=== PATIENT | female | born 1945 | race Caucasian/White ===

== ENCOUNTER 2016-07-02 17:57 | Emergency (ER) | payer OTHER ==
[2016-07-02 18:02] VITALS: BP 123/69; TEMP 97.5; BMI 39.2
--- NOTE | 2016-07-02 18:11 | PDOC ---
History of Present Illness - General Chief Complaint: Edema Stated Complaint: PCP SENT Time Seen by Provider: 07/02/16 18:09 History Source: Patient Exam Limitations: No Limitations - History of Present Illness Initial Comments: CHIEF COMPLAINT: 70 y/o afebrile female with PMH HTN, hypothyroid sent over from hyperbaric treatment for r/o DVT. HISTORY OF PRESENT ILLNESS: The patient states she gets hyperbaric treatment for wounds on both lower extremities. She states today they noticed an area of redness on her right thigh and were concerned for blood clot. The patient denies pain to LEs. She admits her feet and fpc up her calves are always red and swollen and are unchanged. She denies f/c, n/v/d, CP, cough, hemoptysis. She does admit to some wheezing over the past few days. Vital signs on arrival are notable for O2 sat of 94% on RA. REVIEW OF SYSTEMS: GENERAL/CONSTITUTIONAL: No fever/chills. No weakness. No weight change. HEAD, EYES, EARS, NOSE AND THROAT: No change in vision. No ear pain or discharge. No sore throat. CARDIOVASCULAR: No chest pain or shortness of breath. RESPIRATORY: +wheezing. No cough hemoptysis. GASTROINTESTINAL: No abd pain, nausea, vomiting, diarrhea. GENITOURINARY: No dysuria, frequency, or change in urination. MUSCULOSKELETAL: +redness and swelling to both feet and 1/2 up calves. No extremity pain. No neck or back pain. SKIN: No rash or easy bruising. NEUROLOGIC: No headache, vertigo, loss of consciousness, or loss of sensation. PHYSICAL EXAM: VITAL_SIGNS: within normal limits GENERAL_APPEARANCE: alert, cooperative, no obvious discomfort. MENTAL_STATUS: speech clear, oriented X 3, responds appropriately to questions. LUNGS: Some expiratory wheezing in anterior lung bellamy. No accessory muscle use. NEURO: motor intact and sensory intact in injured extremity. EXTREMITIES: brawny 2+ erythema to b/l feet and 1/2 way up b/l calves. No TTP of calves. small area of redness that appears to be a skin irritation on anterior right thigh that is not warm or TTP. SKIN: warm, dry, good color. Past History - Past Medical History Allergies/Adverse Reactions: Allergies Allergy/AdvReac Type Severity Reaction Status Date / Time amoxicillin trihydrate Allergy Intermediate Rash Verified 07/02/16 17:59 [From Augmentin] potassium clavulanate Allergy Intermediate Rash Verified 07/02/16 17:59 [From Augmentin] Sulfa (Sulfonamide Allergy Verified 07/02/16 17:59 Antibiotics) vancomycin AdvReac Intermediate Difficulty Verified 07/02/16 17:59 Breathing EGGS Allergy Intermediate RASH,UPSET Uncoded 07/02/16 17:59 STOMACH Home Medications: Ambulatory Orders Ascorbate Calcium [Vitamin C] 1,000 mg PO DAILY 11/30/14 Cholecalciferol (Vitamin D3) [Vitamin D3] 1,000 unit PO DAILY 11/30/14 Vitamin E 200 unit PO DAILY 11/30/14 Glucosamine/MSM/Chondroitin A [Glucosamine Chondroit MSM Tab] 1 tab PO DAILY Diphenhydramine HCl [Benadryl Capsule -] 25 mg PO Q8H PRN #0 05/19/15 Acetaminophen [Tylenol .Regular Strength -] 650 mg PO Q6H PRN #0 tablet Amino Acids/Protein Hydrolys [Prostat Sugar-Free Packet -] 30 ml PO BID@0800, 1730 packet 08/03/15 Lidocaine 5% Patch [Lidoderm -] 1 patch TP DAILY patch 08/03/15 Methyl Salicylate/Menthol Oint [Analgesic [place] -] 1 applic TP BID applic Sodium Chloride Nasal [place] [[place] Nasal [place] -] 2 spray NS BID PRN #0 bottle 08/03/15 Lisinopril [Prinivil] 20 mg PO DAILY #30 tablet 11/24/15 Levothyroxine [Synthroid -] 100 mcg PO DAILY #30 tablet 12/22/15 Oxycodone HCl/Acetaminophen [Percocet 5-325 mg Tablet] 2 tab PO Q6H #60 tablet MDD 8 12/22/15 Miscellaneous Medical Supply [Outpatient Order] 1 each ASDIR #1 misc Collagenase Clostridium Hist. [Santyl] 1 applic TP DAILY #90 oint...g. 04/05/16 Levaquin 500 mg PO DAILY 04/25/16 Anemia: No Asthma: No Cancer: Yes (thyroid 1979) Cardiac Disorders: No CVA: No COPD: No CHF: No Dementia: No Diabetes: (LOW BLOOD SUGAR) GI Disorders: No Disorders: No HTN: Yes Hypercholesterolemia: No Liver Disease: No Seizures: No Thyroid Disease: Yes (Thyroid CA 1979) - Surgical History Abdominal Surgery: Yes Appendectomy: Yes Cardiac Surgery: No Cholecystectomy: No Lung Surgery: No Neurologic Surgery: No Orthopedic Surgery: No (supposed to have hip replacement) - Immunization History Immunization Up to Date: Yes - Psycho/Social/Smoking Cessation Hx Anxiety: No Suicidal Ideation: No Smoking Status: No Smoking History: Never smoked Have you smoked in the past 12 months: No Number of Cigarettes Smoked Daily: 0 Information on smoking cessation initiated: No Hx Alcohol Use: No Drug/Substance Use Hx: No Substance Use Type: None Hx Substance Use Treatment: No *Physical Exam - Vital Signs Last Vital Signs Temp Pulse Resp BP Pulse Ox 97.5 F L 67 20 123/69 94 L 07/02/16 18:00 07/02/16 18:00 07/02/16 18:00 07/02/16 18:00 07/02/16 18:00 Medical Decision Making - Medical Decision Making A/P: 70 y/o afebrile female send here from hyperbaric treatment for ultrasound of her right LE to r/o DVT. Plan is as follows: 1. LE doppler 2. Duoneb LE doppler IMPRESSION: The right common femoral vein as well as the proximal and middle thirds of the femoral vein are adequately visualized and demonstrate no evidence of thrombosis. The greater saphenous vein also appears patent. The distal third of the femoral vein as well as the popliteal and posterior tibial veins could not be adequately visualized apparent as a result of prominent soft tissue edema. No gross intraluminal thrombus is seen at those levels. In addition the posterior tibial vein is not well visualized due to bandaging in place at the level of the calf. Gave the patient the results. She continues to deny pain and symptoms. Suggested she f/u with her PCP for follow up ultrasound. She agrees. The patient verbalizes understanding of all instructions, has no further questions and is awaiting discharge. *DC/Admit/Observation/Transfer Diagnosis at time of Disposition: Abnormal leg finding - Discharge Dispostion Disposition: HOME Condition at time of disposition: Good - Referrals Referrals: Vladimir Posey MD [Primary Care Provider] - - Patient Instructions Additional Instructions: Discharge Instructions: -Follow up with your regular doctor for repeat ultrasound -Return to the ER with any worsening or concerning symptoms including CP, SOB, coughing up blood or leg pain.
[2016-07-02] MEDS ORDERED: ALBUTEROL SO4 2.5/IPRATROPIUM 0.5 INH SOL 3 ML VIAL.NEB. NEB ONE ×2 (18:18→18:41)
[2016-07-02 19:59] VITALS: PULSE 76
== END 2016-07-02 19:59 | disposition home or self-care (01) ==
LOC: JER 17:57 → SUPCPDRO 17:57 → JER 19:59
PROC: 3E0F7GC Introduction of Other Therapeutic Substance into Respiratory Tract, Via Natural or Artificial Opening (ICD-10-PCS; principal; 2016-07-02)
DX: R60.0 Localized edema (principal); I10 Essential (primary) hypertension; E03.9 Hypothyroidism, unspecified; Z85.850 Personal history of malignant neoplasm of thyroid
CPT/HCPCS: 93971-TC; 99283-25; G0277

== ENCOUNTER 2016-11-26 20:02 | Emergency (ER) | payer OTHER ==
--- NOTE | 2016-11-26 20:13 | PDOC ---
Rapid Medical Evaluation Time Seen by Provider: 11/26/16 20:04 Medical Evaluation: Allergies Allergy/AdvReac Type Severity Reaction Status Date / Time amoxicillin trihydrate Allergy Intermediate Rash Verified 11/01/16 16:05 [From Augmentin] potassium clavulanate Allergy Intermediate Rash Verified 11/01/16 16:05 [From Augmentin] Sulfa (Sulfonamide Allergy Verified 11/01/16 16:05 Antibiotics) vancomycin AdvReac Intermediate Difficulty Verified 11/01/16 16:05 Breathing EGGS Allergy Intermediate RASH,UPSET Uncoded 11/01/16 16:05 STOMACH Vital Signs Temp Pulse Resp BP Pulse Ox 61 19 117/66 97 11/26/16 20:07 11/26/16 20:07 11/26/16 20:07 11/26/16 20:07 11/26/16 20:09 I have performed a brief in-person evaluation of this patient. o The patient presents with a chief complaint of: Rash to face, lesion to right wrist and rash to buttock, low grade temp noted upon arrival to [facility], afebrile upon arrival here, sent from [facility] for evaluation. o Pertinent physical exam findings: Lesion to right wrist with black central punctum, vesicular rash to face and buttock, symptoms started two weeks ago. o I have ordered the following: evaluation from [facility] o The patient will proceed to the ED for further evaluation.
[2016-11-26 20:15] VITALS: BP 117/66; PULSE 61; BMI 39.1
[2016-11-26] MEDS ORDERED: FLUCONAZOLE 100 MG TABLET (UD) PO ONE (21:45)
[2016-11-26] MEDS ORDERED: CLINDAMYCIN HCL 150 MG CAPSULE (FP) PO ONE (21:45)
[2016-11-26 21:46] VITALS: TEMP 98.2
[2016-11-26] MEDS ORDERED: FLUCONAZOLE 100 MG TABLET (UD) ONE (21:49)
[2016-11-26] MEDS ORDERED: CLINDAMYCIN HCL 150 MG CAPSULE (FP) ONE (21:50)
--- NOTE | 2016-11-26 21:50 | PDOC ---
History of Present Illness - General Chief Complaint: Abscess Boil Stated Complaint: ABCESS/WOUND Time Seen by Provider: 11/26/16 20:04 History Source: Patient, Significant Other Exam Limitations: No Limitations - History of Present Illness Initial Comments: 11/26/16 21:46 71yo Female patient w/ PmHx of Leg wounds being treated by Hyperbaric therapy. Patient states she was sent to ED from Hyperbaric therapy due to right hand infection and infection of buttocks. Patient denies fever, CP,Abd Pain, n/v/d, diff breathing or any other complaints at this time. Patient states symptom to right hand began 2 days ago. Timing/Duration: reports: week Severity: Yes: mild Location: reports: hands (Right), other (Buttocks) Respiratory Risk Factors: reports: no cause identified Modifying Factors: improves with: calamine lotion Associated Symptoms: denies: denies symptoms, blisters, change in skin texture, edema, fever, flushing, headache, hives, jaundice, malaise, nasal congestion, numbness, pallor, paresthesia, petechiae, rash, sore throat, swelling/mass/lumps , tingling, other Past History - Travel Traveled outside of the country in the last 30 days: No Close contact w/someone who was outside of country & ill: No - Past Medical History Allergies/Adverse Reactions: Allergies Allergy/AdvReac Type Severity Reaction Status Date / Time amoxicillin trihydrate Allergy Intermediate Rash Verified 11/01/16 16:05 [From Augmentin] potassium clavulanate Allergy Intermediate Rash Verified 11/01/16 16:05 [From Augmentin] Sulfa (Sulfonamide Allergy Verified 11/01/16 16:05 Antibiotics) vancomycin AdvReac Intermediate Difficulty Verified 11/01/16 16:05 Breathing EGGS Allergy Intermediate RASH,UPSET Uncoded 11/01/16 16:05 STOMACH Home Medications: Ambulatory Orders Levothyroxine [Synthroid -] 100 mcg PO DAILY 07/02/16 Lisinopril [Prinivil] 20 mg PO DAILY 07/02/16 Oxycodone HCl/Acetaminophen [Percocet 10-325 mg Tablet] 1 each PO QID #120 tablet MDD 4 07/19/16 Diclofenac Sodium 100 gm TP BID #1 gel..gram. 08/09/16 Clindamycin [Cleocin -] 300 mg PO TID #21 capsule 11/26/16 Ketoconazole 2% Cream [Nizoral 2% Cream -] 1 applic TP BID PRN #1 tube 11/26/16 Anemia: No Asthma: No Cancer: Yes (thyroid 1978) Cardiac Disorders: No CVA: No COPD: No CHF: No Dementia: No Diabetes: (LOW BLOOD SUGAR) GI Disorders: No Disorders: No HTN: Yes Hypercholesterolemia: No Liver Disease: No Seizures: No Thyroid Disease: Yes (Thyroid CA 1978) - Surgical History Abdominal Surgery: Yes Appendectomy: Yes Cardiac Surgery: No Cholecystectomy: No Lung Surgery: No Neurologic Surgery: No Orthopedic Surgery: No (supposed to have hip replacement) - Immunization History Immunization Up to Date: Yes - Psycho/Social/Smoking Cessation Hx Anxiety: No Suicidal Ideation: No Smoking Status: No Smoking History: Never smoked Have you smoked in the past 12 months: No Number of Cigarettes Smoked Daily: 0 Hx Alcohol Use: No Drug/Substance Use Hx: No Substance Use Type: None Hx Substance Use Treatment: No Review of Systems - Review of Systems Able to Perform ROS?: Yes Is the patient limited Pashto proficient: No Constitutional: No: Chills, Fever Integumentary: Yes: Erythema, Pruritus, Rash All Other Systems: Reviewed and Negative *Physical Exam - Vital Signs Last Vital Signs Temp Pulse Resp BP Pulse Ox 61 19 117/66 97 11/26/16 20:07 11/26/16 20:07 11/26/16 20:07 11/26/16 20:07 - Physical Exam General Appearance: Yes: Nourished, Appropriately Dressed. No: Apparent Distress, Mild Distress, Moderate Distress, Severe Distress Respiratory/Chest: positive: Lungs Clear, Normal Breath Sounds. negative: Chest Tender, Respiratory Distress, Accessory Muscle Use, Labored Respiration, Rapid RR, Rhonchi, Stridor, Wheezing Cardiovascular: positive: Regular Rhythm, Regular Rate Gastrointestinal/Abdominal: positive: Normal Bowel Sounds, Soft. negative: Distended, Guarding, Rebound, Tenderness Musculoskeletal: positive: Normal Inspection. negative: CVA Tenderness Extremity: positive: Normal Capillary Refill, Normal Inspection, Normal Range of Motion, Swelling, Erythema. negative: Pedal Edema, Calf Tenderness, Inflammation Integumentary: positive: Normal Color, Warm, Moist, Swelling, Other (Quarter size area of erythema noted to right hand (Mild Cellulitis), Large area of erythema to buttocks with scaling r/t fungal infection) Neurologic: positive: data officer II-XII NML intact, Fully Oriented, Alert, Normal Mood/ Affect, Normal Response, Motor Strength 5/5 *DC/Admit/Observation/Transfer Diagnosis at time of Disposition: Fungal infection of the body, Cellulitis of hand, right - Discharge Dispostion Disposition: HOME Condition at time of disposition: Stable Admit: No - Prescriptions Prescriptions: Clindamycin [Cleocin -] 300 mg PO TID #21 capsule Ketoconazole 2% Cream [Nizoral 2% Cream -] 1 applic TP BID PRN #1 tube PRN Reason: Fungal infection of buttock - Patient Instructions Printed Discharge Instructions: DI for Cellulitis -- Adult Additional Instructions: Follow up with your primary care provider this week for further evaluation. Call to schedule appointment. Take medications as prescribed. Avoid direct sunlight after applying cream to affected area. Return if any concerns for further evaluation. Print Language: MOHAWK
== END 2016-11-26 22:22 | disposition home or self-care (01) ==
LOC: JER 20:02
DX: B48.8 Other specified mycoses (principal); L03.113 Cellulitis of right upper limb; Z85.850 Personal history of malignant neoplasm of thyroid; E11.649 Type 2 diabetes mellitus with hypoglycemia without coma
CPT/HCPCS: 99282-25; G0277

== ENCOUNTER 2017-01-12 00:24 | Inpatient (IN) | payer OTHER ==
[2017-01-12 00:50] VITALS: BMI 39.2
--- NOTE | 2017-01-12 00:54 | PDOC ---
History of Present Illness - General History Source: Patient Exam Limitations: No Limitations - History of Present Illness Initial Comments: 01/12/17 01:37 Patient is a 71 year old female with a hx of chronic leg wounds, htn, peripheral vascular disease, thyroid disease, and left hip pain who presents today with fever. As per the Tmax was 102.3F today and she did not take anything to alleviate the fever. He also states that the patients leg wounds have been weeping and her left leg is edematous and hot. <Yohana Victor - Last Filed: 01/12/17 02:26> <Steffany Ramirez - Last Filed: 01/12/17 05:09> - General Chief Complaint: SIRS, Suspected/Possible Stated Complaint: HIGH FEVER Time Seen by Provider: 01/12/17 00:34 Past History <Yohana Victor - Last Filed: 01/12/17 02:26> - Past Medical History Anemia: No Asthma: No Cancer: Yes (thyroid 1978) Cardiac Disorders: No CVA: No COPD: No CHF: No Dementia: No Diabetes: (LOW BLOOD SUGAR) GI Disorders: No Disorders: No HTN: Yes Hypercholesterolemia: No Liver Disease: No Seizures: No Thyroid Disease: Yes (Thyroid CA 1978) - Surgical History Abdominal Surgery: Yes Appendectomy: Yes Cardiac Surgery: No Cholecystectomy: No Lung Surgery: No Neurologic Surgery: No Orthopedic Surgery: No (supposed to have hip replacement) - Immunization History Immunization Up to Date: Yes - Psycho/Social/Smoking Cessation Hx Anxiety: No Suicidal Ideation: No Smoking Status: No Smoking History: Never smoked Have you smoked in the past 12 months: No Number of Cigarettes Smoked Daily: 0 Information on smoking cessation initiated: No Hx Alcohol Use: No Drug/Substance Use Hx: No Substance Use Type: None Hx Substance Use Treatment: No <Steffany Ramirez - Last Filed: 01/12/17 05:09> - Past Medical History Allergies/Adverse Reactions: Allergies Allergy/AdvReac Type Severity Reaction Status Date / Time amoxicillin trihydrate Allergy Intermediate Rash Verified 11/01/16 16:05 [From Augmentin] potassium clavulanate Allergy Intermediate Rash Verified 11/01/16 16:05 [From Augmentin] clindamycin Allergy Verified 11/29/16 17:54 doxycycline Allergy Swelling Verified 01/12/17 04:51 Sulfa (Sulfonamide Allergy Verified 11/01/16 16:05 Antibiotics) vancomycin AdvReac Intermediate Difficulty Verified 11/01/16 16:05 Breathing EGGS Allergy Intermediate RASH,UPSET Uncoded 11/01/16 16:05 STOMACH Home Medications: Ambulatory Orders Levothyroxine [Synthroid -] 100 mcg PO DAILY 07/02/16 Lisinopril [Prinivil] 20 mg PO DAILY 07/02/16 Oxycodone HCl/Acetaminophen [Percocet 10-325 mg Tablet] 1 each PO QID #120 tablet MDD 4 07/19/16 Diclofenac Sodium 100 gm TP BID #1 gel..gram. 08/09/16 Ketoconazole 2% Cream [Nizoral 2% Cream -] 1 applic TP BID PRN #1 tube 11/26/16 Review of Systems - Review of Systems Able to Perform ROS?: Yes Comments:: 01/12/17 01:38 GENERAL/CONSTITUTIONAL: (+) fever. No chills. No weakness. HEAD, EYES, EARS, NOSE AND THROAT: No change in vision. No ear pain or discharge. No sore throat. CARDIOVASCULAR: No chest pain or shortness of breath. RESPIRATORY: No cough, wheezing, or hemoptysis. GASTROINTESTINAL: No nausea, vomiting, diarrhea or constipation. GENITOURINARY: No dysuria, frequency, or change in urination. MUSCULOSKELETAL: (+)LE edema and erythema. No neck or back pain. SKIN: (+)bilateral LE wound and weeping. No rash NEUROLOGIC: No headache, vertigo, loss of consciousness, or change in strength/ sensation. ENDOCRINE: No increased thirst. No abnormal weight change. HEMATOLOGIC/LYMPHATIC: No anemia, easy bleeding, or history of blood clots. ALLERGIC/IMMUNOLOGIC: No hives or skin allergy. <Yohana Victor - Last Filed: 01/12/17 02:26> *Physical Exam - Vital Signs Last Vital Signs Temp Pulse Resp BP Pulse Ox 102.3 F H 93 H 19 134/63 97 01/12/17 00:39 01/12/17 00:39 01/12/17 00:39 01/12/17 00:39 01/12/17 00:39 - Physical Exam Comments: 01/12/17 01:39 GENERAL: Awake, alert, and fully oriented, in no acute distress HEAD: No signs of trauma EYES: PERRLA, EOMI, sclera anicteric, conjunctiva clear ENT: Auricles normal inspection, hearing grossly normal, nares patent, oropharynx clear without exudates. Moist mucosa NECK: Normal ROM, supple, no lymphadenopathy, JVD, or masses LUNGS: Breath sounds equal, clear to auscultation bilaterally. No wheezes, and no crackles HEART: (+)tachycardia, normal S1 and S2, no murmurs, rubs or gallops ABDOMEN: Soft, nontender, normoactive bowel sounds. No guarding, no rebound. No masses EXTREMITIES: No clubbing or cyanosis. No cords. NEUROLOGICAL: Cranial nerves II through XII grossly intact. Normal speech, normal gait SKIN: (+) 6x4 cm right lateral aspect of LE wound with raw, weeping, granulous skin. (+)left LE warm to touch, edematous. (+)Popliteal cyst over buttocks. <Yohana Victor - Last Filed: 01/12/17 02:26> - Vital Signs Last Vital Signs Temp Pulse Resp BP Pulse Ox 102.3 F H 93 H 19 134/63 97 01/12/17 00:39 01/12/17 00:39 01/12/17 00:39 01/12/17 00:39 01/12/17 00:39 <Steffany Ramirez - Last Filed: 01/12/17 05:09> ED Treatment Course - LABORATORY CBC & Chemistry Diagram: 01/12/17 01:50 01/12/17 01:50 <Yohana Victor - Last Filed: 01/12/17 02:26> - LABORATORY CBC & Chemistry Diagram: 01/12/17 01:50 01/12/17 01:50 <Steffany Ramirez - Last Filed: 01/12/17 05:09> Medical Decision Making - Medical Decision Making 01/12/17 05:06 PT COMES WITH CELLULITIS OF THE LEFT LEG. SHE ALSO HAS BILATERAL DENUDED SKIN/ OPEN WEEPING ULCERS OF HER LOWER LEGS. THIS HAS BEEN AN ONGOING DISEASE PROCESS FOR THE PAST 5 YEARS WITH LITTLE IMRPOVEMENT. PT NOW HAS WORSENING CELLULITIS. SHE WILL BE TREATED INITIALLY WITH LEVAQUIN SHE HAS MULTIPLE ANTIBIOTIC ALLERGIES. PT HAS A HX OF PILONIDAL CYST, ON EXAM I FAIL TO FIND A CYST, HOWEVER, THE EXAM IS SUBOPTIMAL, PT'S BODY HABITUS IS GREAT AND WE CAN ONLY PARTIALLY TURN HER IN OUR ER STRETCHER AND PT HAS PAIN DUE TO HER AVN OF THE LEFT HIP. AND SHE IS TOO WEAK TO STAND AT THIS TIME. PT IS POSSIBLY SEPTIC AND WILL BE ADMITTED TO THE HOSPITALIST SERVICE. <Steffany Ramirez - Last Filed: 01/12/17 05:09> *DC/Admit/Observation/Transfer - Attestations Scribe Attestion: 01/12/17 01:43 Documentation prepared by CHANCE Lal, acting as chief medical officer for Steffany Ramirez MD. <Yohana Victor - Last Filed: 01/12/17 02:26> - Discharge Dispostion Admit: Yes <Steffany Ramirez - Last Filed: 01/12/17 05:09> Diagnosis at time of Disposition: Cellulitis, Stasis edema of both lower extremities, Cellulitis of leg, Osteoarthritis of left hip, Avascular necrosis of bone of hip - Discharge Dispostion Condition at time of disposition: Fair
[2017-01-12] MEDS ORDERED: ACETAMINOPHEN 1000 MG/100 ML VIAL (NON FORMULARY) IVPB ONE (01:01)
[2017-01-12] MEDS ORDERED: IBUPROFEN 400 MG TABLET (FP) PO ONE ×2 (01:11→01:31)
[2017-01-12] MEDS ORDERED: ACETAMINOPHEN INJECTION 100 ML IVPB ONE (01:31)
[2017-01-12] MEDS ORDERED: LEVOFLOXACIN 750 MG IVPB 150 ML IVPB ONE ×2 (01:50→02:13)
[2017-01-12] MEDS ORDERED: SODIUM CHLORIDE 0.9% 500 ML INFUS.BAG IV ONE (01:57)
[2017-01-12 02:03] LABS: MCH 21.9 pg (25.7-33.7); MCHC 30.8 g/dl (32.0-36.0); MEAN PLT VOLUME 7.2 fl (7.5-11.1); PLATELET COUNT 339 K/MM3 (134-434); RDW 17.9 % (11.6-15.6); WHITE BLOOD COUNT 19.2 K/mm3 (4.0-10.0)
[2017-01-12 02:25] LABS: INR 1.4 (0.82-1.09); PROTHROMBIN TIME (PATIENT) 15.5 SEC (9.98-11.88)
[2017-01-12 02:35] LABS: ALK PHOS 98 U/L (45-117); ANION GAP 12 (8-16); BILIRUBIN,TOTAL 0.5 mg/dL (0.2-1.0); CALCIUM 8.7 mg/dL (8.5-10.1); CO2 21 mmol/L (21-32); CREATININE 1.7 mg/dL (0.55-1.02); GLUCOSE,RANDOM 133 mg/dL (74-106); SGOT/AST 27 U/L (15-37); SGPT/ALT 9 U/L (12-78); TOT PROT 7.5 g/dl (6.4-8.2)
[2017-01-12 04:03] LABS: ANISOCYTOSIS 1+; HYPOCHROMIA 2+; MICROCYTOSIS 1+; PLATELET COMMENT2 NO CLOTTING DETECTED; PLATELET ESTIMATE ADEQUATE (NORMAL)
--- NOTE | 2017-01-12 04:13 | HP ---
CHIEF COMPLAINT: "Fevers, weak, worsening of b/l leg ulcers" PCP: Dr. Palomino ([facility]) HISTORY OF PRESENT ILLNESS: Patient is a 71 year old female with significant past medical history of HTN, chronic b/l leg ulcers, B/L lymphedema, Peripheral vascular disease, chronic hip pain, thyroid cancer s/p thyroidectomy (type unknown) presented to the ED with the chief complaints of fever, weakness and worsening of B/L leg ulcers. As per the patient, she has been having b/l leg ulcers since 4 years, has been visiting wound care (sees Dr. Posey) once every 4 weeks. Also goes to hyperbarics for the leg wounds. Since few days, patient has been feeling very weak, unable to walk like she used to at baseline, associated with fever (Tmax 101.5 F), with chills but no rigors or sweating. Hence came in to the ED for further evaluation. At baseline, patient walks with a walker without assistance, rest of the times, she uses a wheel chair. Lives at home with her . Is unable to do all daily activities like taking shower-doesn't take shower, only does sponge baths. is at bed side who mentioned that along with fever she started wheezing yesterday. Gives no h/o asthma, copd or CHF. He also mentions that patient has a small abscess in anal area, was able to squeeze a little bit of pus. Bowel/Bladder habit normal. Sleep disturbed, appetite decreased since illness. ER course was notable for: (1) Temp-102.3F; 93bpm, leukocytosis of 19.2; Lactic acid 2.4 ; H/H 8.5/27.4 (2) Levaquin, Motrin, Ibuprofen, Tylenol Recent Travel: None PAST MEDICAL HISTORY: HTN, chronic b/l leg ulcers, B/L lymphedema, chronic hip pain, thyroid cancer s/p thyroidectomy (type unknown), ectopic preg PAST SURGICAL HISTORY: Thyroidectomy (type unknown) Social History: Smoking: Denies Alcohol: Social Drugs: Denies Family History: Unknown Allergies Doxycycline allergy (throat closes) verified 01/12/17 amoxicillin trihydrate [From Augmentin] Allergy (Intermediate, Verified 16:05) Rash potassium clavulanate [From Augmentin] Allergy (Intermediate, Verified 11/01/16 16:05) Rash clindamycin Allergy (Verified 11/29/16 17:54) Sulfa (Sulfonamide Antibiotics) Allergy (Verified 11/01/16 16:05) vancomycin Adverse Reaction (Intermediate, Verified 11/01/16 16:05) Difficulty Breathing PER SUSPECTED ADR REPORT: HYPOTENSION & DYSPNEA EGGS Allergy (Intermediate, Uncoded 11/01/16 16:05) RASH,UPSET STOMACH HOME MEDICATIONS: Home Medications Medication Instructions Recorded Levothyroxine [Synthroid -] 100 mcg PO DAILY 07/02/16 Lisinopril [Prinivil] 20 mg PO DAILY 07/02/16 Oxycodone HCl/Acetaminophen 1 each PO QID #120 tablet MDD 4 07/19/16 [Percocet 10-325 mg Tablet] Diclofenac Sodium 100 gm TP BID #1 gel..gram. 08/09/16 Ketoconazole 2% Cream [Nizoral 2% 1 applic TP BID PRN #1 tube 11/26/16 Cream -] REVIEW OF SYSTEMS CONSTITUTIONAL: Present: fever, chills Absent: , diaphoresis, generalized weakness, malaise, loss of appetite, weight change HEENT: Absent: rhinorrhea, nasal congestion, throat pain, throat swelling, difficulty swallowing, mouth swelling, ear pain, eye pain, visual changes CARDIOVASCULAR: Absent: chest pain, syncope, palpitations, irregular heart rate, lightheadedness , peripheral edema RESPIRATORY: Absent: cough, shortness of breath, dyspnea with exertion, orthopnea, wheezing, stridor, hemoptysis GASTROINTESTINAL: Absent: abdominal pain, abdominal distension, nausea, vomiting, diarrhea, constipation, melena, hematochezia GENITOURINARY: Absent: dysuria, frequency, urgency, hesitancy, hematuria, flank pain, genital pain MUSCULOSKELETAL: Absent: myalgia, arthralgia, joint swelling, back pain, neck pain SKIN: Present: B/L ulcers in the lower ext. Absent: rash, itching, pallor HEMATOLOGIC/IMMUNOLOGIC: Absent: easy bleeding, easy bruising, lymphadenopathy, frequent infections ENDOCRINE: Absent: unexplained weight gain, unexplained weight loss, heat intolerance, cold intolerance NEUROLOGIC: Absent: headache, focal weakness or paresthesias, dizziness, unsteady gait, seizure, mental status changes, bladder or bowel incontinence PSYCHIATRIC: Absent: anxiety, depression, suicidal or homicidal ideation, hallucinations. PHYSICAL EXAMINATION GENERAL: Elderly female, Awake, alert, and fully oriented, in no acute distress. HEAD: Normal with no signs of trauma. EYES: EOM intact, no pallor or icterus. EARS, NOSE, THROAT: Ears normal. Moist mucous membranes. NECK: Supple, no JVD LUNGS: B/L Breath sounds equal, Occasional wheezes, and no crackles. No accessory muscle use. HEART: Tachycardic, Regular rate and rhythm, normal S1 and S2 without murmur. ABDOMEN: Soft, nontender, not distended, normoactive bowel sounds, no guarding, no rebound, no masses. No hepatomegaly or splenomegaly. MUSCULOSKELETAL: Normal range of motion at all joints. No bony deformities or tenderness. No CVA tenderness. PER RECTAL EXAM: Deferred. UPPER EXTREMITIES: 2+ pulses, warm, well-perfused. No cyanosis. No clubbing. No peripheral edema. LOWER EXTREMITIES: B/L lower ext: serosanguinous fluids, weeping, crust, granulation tissues in some area, fowl smelling +, tenderness around the area on movement, 2+ pulses, warm, well-perfused. B/L chronic lymphedema. Patchy areas of redness in both thighs, no raised temperature, non blanching. NEUROLOGICAL: No facial droop, Cranial nerves II-XII intact. Reflexes- B/L biceps 2 +, others difficult to assess, power-weak to perform. Normal speech. Gait not observed. PSYCHIATRIC: Cooperative. Good eye contact. Appropriate mood and affect. SKIN: B/L lower ext ulcers as described above, face- multiple areas of redness and acne like lesions. ASSESSMENT/PLAN: Patient is a 71 year old female with significant past medical history of HTN, chronic b/l leg ulcers, B/L lymphedema, Peripheral vascular disease, chronic hip pain, thyroid cancer s/p thyroidectomy (type unknown) presented to the ED with the chief complaints of fever, weakness and worsening of B/L leg ulcers. # Severe sepsis likely secondary to B/L leg ulcers. pt presented with fever, chills, weakness, worsening of b/l leg ulcers On arrival, Temp-102.3F; 93bpm, leukocytosis of 19.2; Lactic acid 2.4 In the ED, patient received Levaquin, Motrin, Ibuprofen, Tylenol Admitted in Med Surg Sepsis protocol started, IV NS @ 83mls.hr IV Levaquin 750 mg Daily (very limited antibiotics choice due to patients allergy to Penicillins, Doxy (pt confirmed), Augmentin, sulfa, vanco Lactic acid 2.5----> Pending, trend lactic acid Blood culture, wound culture pending In the past, wound culture grew: Pseudomonas 03/19/16; MRSA 05/05/15 Contact Isolation to be maintained Dr. Posey consult requested daily wound cleaning Education about maintaining hygiene # YING likely due to hypovolemia Creatinine 1.7 Baseline creatinine is 0.9 (2016) IV Hydration Avoid nephrotoxic drugs UA, Urine electrolytes ordered # Microcytic Anemia H/H 8.5/27.4 baseline around 10.4-9.5 gm/dl Iron studies pending Stool for occult blood pending # Questionable abscess in the anal area Patient mentioned she has a small abscess that was squeezed with yellow pus draining, patient refused and didn't allow examination stating she is too tired to move and her hips hurt # Wheeze- r/o reactive airway CXR ordered in am Gives no h/o asthma or COPD. # R/O CHF BNP ordered for am Would consider ECHO. # Hypertension-controlled Continue lisinopril 20mg Daily # Hypothyroidism Continue Levothyroxine # Morbidly obese Lipid panel, A1c ordered for am. Diet and exercise counseling Would consider keyseating machine set up operator consult. # FEN IV NS @ 83mls.hr Electrolytes to be repeated in am Sodium controlled diet # Prophylaxis For DVT: On Heparin sq, watch H/H closely For GI: Not indicated # Code status: Full Code # Dispo: Admitted in Med-Surg. Duration of stay unknown. Illness, Investigation and Plan of care explained to the patient and her . They verbalized understanding. Case to be discussed with Dr. Gomez. Visit type - Emergency Visit Emergency Visit: Yes ED Registration Date: 01/12/17 Care time: The patient presented to the Emergency Department on the above date and was hospitalized for further evaluation of their emergent condition. - New Patient This patient is new to me today: Yes Date on this admission: 01/12/17 - Critical Care Critical Care patient: No
[2017-01-12] MEDS ORDERED: SODIUM CHLORIDE 1,000 ML IV SCH ×2 (04:15→11:00)
[2017-01-12] MEDS ORDERED: KETOCONAZOLE 2% CREAM - 60GM TUBE TP PRN (04:42)
[2017-01-12] MEDS ORDERED: DOCUSATE SODIUM 100 MG CAPSULE (FP) PO PRN (04:49)
[2017-01-12] MEDS ORDERED: SENNOSIDES 8.6MG TABLET (FP) PO PRN (04:49)
[2017-01-12 06:33] LABS: BASOPHIL 0.1 % (0-2.0); MCH 21.7 pg (25.7-33.7); MCHC 30.6 g/dl (32.0-36.0); MEAN CELL VOLUME 70.8 fl (80-96); MEAN PLT VOLUME 7.6 fl (7.5-11.1); NEUTROPHILS 95.5 % (42.8-82.8); PLATELET COUNT 271 K/MM3 (134-434); RDW 17.8 % (11.6-15.6)
[2017-01-12] MEDS: ACETAMINOPHEN 325 MG TABLET (FP) PO SCH ×2 (06:54→12:18)
[2017-01-12 06:56] LABS: ALBUMIN 2.3 g/dl (3.4-5.0); ANION GAP 10 (8-16); BILIRUBIN,TOTAL 0.4 mg/dL (0.2-1.0); CALCIUM 8.1 mg/dL (8.5-10.1); CO2 19 mmol/L (21-32); CREATININE 1.7 mg/dL (0.55-1.02); GLUCOSE,RANDOM 115 mg/dL (74-106); MAGNESIUM 1.7 mg/dL (1.8-2.4); PHOSPHOROUS 3.5 mg/dL (2.5-4.9); SGOT/AST 37 U/L (15-37); SGPT/ALT 7 U/L (12-78); TOT PROT 6.1 g/dl (6.4-8.2)
[2017-01-12 06:57] LABS: ALK PHOS 76 U/L (45-117)
--- NOTE | 2017-01-12 07:23 | PN ---
Teaching Attending Note Name of Resident: Zabrina Cardenas ATTENDING PHYSICIAN STATEMENT I saw and evaluated the patient. I reviewed the resident's note and discussed the case with the resident. I agree with the resident's findings and plan as documented. 71 yrs old F multiple medical co-morbidities , lives at home H/O Obesity, HTN, PVD?, Hypothyroidism CKD stage 3 GFR >50 in 2015, chronic anemia, chronic B/L venous stasis ulcers, present with worsening leg swelling with discharge and pain with fever, in the ED w/u shows B/L worsening cellulites, elevated TWBC and Lactic acidosis, hemmodynamically stable, patient has multiple allerges in the past received one dose of Levofloxacin in the Ed at present hemodynamocaly stable, agrees with evaluation and plan of care: Impression: Active Issues; 1. Purulent Cellulitis with Sepsis: epsis protocol , F/U Id recommendations F/U CBc. CMP and Lactic acid add Linezolid already received Levofloxacin in ED, reasonable empiric coverage for Cellulitis with PCN allergy, if cont spikes or rising TWBC as patient has open wound and purulent cellulitis need empiric MRSA converge till we get culture result f/u blood and wound cultures.. 2. YING on CKD: Due to dehydration and Sepsis F/U BMP after IV Hydration, Bladder scan, 3. Dehydration: Clinically dehydrated F/U BMP after Hydration 4. Anemia: Chronic AREN F/U anemia w/u at present no indication for transfusion. 5. Hypothyroidism : S/P Thyroidectomy for Ca Thyroid, Cont Levothyroxine F/U TSH
[2017-01-12] MEDS ORDERED: MEROPENEM 1,000 MG in DEXTROSE 5%-WATER - 100 ML IVPB ONE (07:49)
--- NOTE | 2017-01-12 08:50 | PN ---
Progress Note (short form) - Note Progress Note: Subjective:neil fever last night . has pain in legs, denies aSOB or CP . has no cough or sputum production . noticed LLE increased pain and swellign x 32 days . has not been taking her lisinopril x 3 weeks due to low BP ( does not specify ) has been bleeding from her hemorrhoids chronically Objective: Vital Signs: Last Vital Signs Temp Pulse Resp BP Pulse Ox 99.8 F H 88 19 93/58 97 01/12/17 06:01 01/12/17 06:01 01/12/17 06:01 01/12/17 06:01 01/12/17 00:39 I&O: Intake & Output 01/09/17 01/10/17 01/11/17 01/12/17 23:59 23:59 23:59 23:59 Weight 236 lb Laboratory Results - last 24 hr 01/12/17 01/12/17 01/12/17 01:50 01:50 01:50 WBC 19.2 H D Corrected WBC (auto) RBC 3.87 Hgb 8.5 L D Hct 27.4 L MCV 71.0 L MCH 21.9 L MCHC 30.8 L RDW 17.9 H Plt Count 339 MPV 7.2 L Neutrophils % 90.0 H Lymphocytes % 2.0 L D Monocytes % 1.0 L Eosinophils % Basophils % Band Neutrophils 7.0 D Differential Comment Platelet Estimate Adequate Platelet Comment No clotting detected RBC Morphology Hypochromic-Microcytic 2+ Anisocytosis 1+ Microcytosis 1+ INR 1.40 H Sodium Potassium Chloride Carbon Dioxide Anion Gap BUN Creatinine Creat Clearance w eGFR Random Glucose Lactic Acid 2.4 H* Calcium Phosphorus Magnesium Total Bilirubin AST ALT Alkaline Phosphatase B-Natriuretic Peptide Total Protein Albumin Triglycerides Cholesterol Total LDL Cholesterol HDL Cholesterol 01/12/17 01/12/17 01/12/17 01:50 05:35 06:00 WBC Cancelled 14.0 H Corrected WBC (auto) Cancelled RBC Cancelled 3.14 L Hgb Cancelled 6.8 L* D Hct Cancelled 22.2 L D MCV Cancelled 70.8 L MCH Cancelled 21.7 L MCHC Cancelled 30.6 L RDW Cancelled 17.8 H Plt Count Cancelled 271 D MPV Cancelled 7.6 Neutrophils % 95.5 H Lymphocytes % 2.7 L D Monocytes % 1.7 L Eosinophils % 0.0 D Basophils % 0.1 Band Neutrophils Differential Comment Cancelled Platelet Estimate Cancelled Platelet Comment Cancelled RBC Morphology Cancelled Hypochromic-Microcytic Anisocytosis Microcytosis INR Sodium 135 L Potassium 4.4 Chloride 102 Carbon Dioxide 21 Anion Gap 12 BUN 39 H D Creatinine 1.7 H D Creat Clearance w eGFR 29.54 Random Glucose 133 H D Lactic Acid Calcium 8.7 Phosphorus Magnesium Total Bilirubin 0.5 D AST 27 D ALT 9 L Alkaline Phosphatase 98 D B-Natriuretic Peptide Total Protein 7.5 Albumin 3.0 L Triglycerides Cholesterol Total LDL Cholesterol HDL Cholesterol 01/12/17 01/12/17 01/12/17 06:00 06:00 06:00 WBC Corrected WBC (auto) RBC Hgb Hct MCV MCH MCHC RDW Plt Count MPV Neutrophils % Lymphocytes % Monocytes % Eosinophils % Basophils % Band Neutrophils Differential Comment Platelet Estimate Platelet Comment RBC Morphology Hypochromic-Microcytic Anisocytosis Microcytosis INR Sodium 134 L Potassium 4.4 Chloride 105 Carbon Dioxide 19 L Anion Gap 10 BUN 42 H Creatinine 1.7 H Creat Clearance w eGFR 29.54 Random Glucose 115 H Lactic Acid 1.1 Calcium 8.1 L Phosphorus 3.5 Magnesium 1.7 L Total Bilirubin 0.4 AST 37 D ALT 7 L D Alkaline Phosphatase 76 D B-Natriuretic Peptide 30169.26 H Total Protein 6.1 L Albumin 2.3 L D Triglycerides 41 D Cholesterol 101 D Total LDL Cholesterol 31 HDL Cholesterol 69 H Physical Exam: NAD, AAOx3 HEENT: MMM, EOMI, pale conjunctivae , EOMI. no facial droop. CV: RRR, 2/6 SM at RUSB. has minimal JVD Lungs : CTAB Abd : soft, NT, ND , NL BS Ext: b/l legs ulcers , with foul smelling L > R . DP 2+ R, 1+ L. Fungal infection among toes. L leg with increased circumference and erythema /warmth compared to L. L inguinal L nodes. Rectal exam with external hemorrhoids, tender to touch , no masses in rectum, brown stool on examiner finger. OB card sent to lab . Assessment/Plan: 71 y/o lady with h/o HTN, PVD, s/p stenting and graft of LLE, hypothyroidism,h/ o cellulitis on LE , and L hip DJD who presented with fever , she was found to have severe sepsis and cellulitis in L LE 1- Severe sepsis due to infected LE wounds and cellulitis in LLE : lactate has improved, sBP in 90s - start linezolide and Aztreonam, previous cx with pseudomonas and MRSA. has several allergies. - order US of LLE to r/o DVT - follow blood and wound cx - follow lactic acid . - received fluids in ER, now has JVDs, elevated BNP. volume status hard to assess, as congested cxray might be due to poor inspiration. Previous echo with NL EF, but might have diastolic dysfunction. hold fluids until seen by card 2- YING : likley due to sepsis . NL cr base line - hold ACEI - monitor renal function , with treatment of sepsis . - decision on IVF pending 3- Microcytic anemia : acute on chronic drop in Hb. Likely from chronic hemorrhoidal bleed . Recta exam as above - Iron studies - repeat H&H - if still < 7 , will transfuse 1 unit . - GI w/u as out pt 4- Hypothyroidism: cont meds meds confirmed with pt and reconciled DVT px SCDs due to anemia Visit type - Emergency Visit Emergency Visit: Yes ED Registration Date: 01/12/17 Care time: The patient presented to the Emergency Department on the above date and was hospitalized for further evaluation of their emergent condition. - New Patient This patient is new to me today: Yes Date on this admission: 01/12/17 - Critical Care Critical Care patient: No
--- NOTE | 2017-01-12 09:43 | CON.CARD ---
Consult Consult Specialty:: Cardiology Referred by:: Dr. Mehta Reason for Consultation:: Cardiac evaluation - History of Present Illness Chief Complaint: Fever History of Present Illness: Patient is a 71 year old female well known to our service with underlying history of hypertension, thyroid cancer s/p thyroidectomy, history of cerebrovascular disease, lower extremty lymphadema and cellulitis who presents with fever since Friday. She has lower extremity swelling and erythema which appears to be the culprit of her fever. She is being closely followed by Dr. Vladimir Posey. She denies chest pain, shortness of breath or palpitations. She denies paroxysmal nocturnal dyspnea or orthopnea. She denies headache or lightheadedness. She denies nausea, vomiting, diarrhea or abdominal pain this am. BNP was elevated. Cardiology consultation was called for further evaluation. 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 Cardio/Vascular: Yes: HTN Musculoskeletal: Yes: Other (lymphedema) Endocrine: Yes: Hypothyroidism, Other (thyroid cancer (35yrs ago)) - Past Surgical History Past Surgical History: Yes: Appendectomy, Vein Stripping/Ligation - Alcohol/Substance Use Hx Alcohol Use: No - Smoking History Smoking history: Never smoked Have you smoked in the past 12 months: No Aproximately how many cigarettes per day: 0 - Social History Occupation: used to work in [employer] business Home Medications - Allergies Allergies/Adverse Reactions: Allergies Allergy/AdvReac Type Severity Reaction Status Date / Time amoxicillin trihydrate Allergy Intermediate Rash Verified 11/01/16 16:05 [From Augmentin] potassium clavulanate Allergy Intermediate Rash Verified 11/01/16 16:05 [From Augmentin] clindamycin Allergy Verified 11/29/16 17:54 doxycycline Allergy Swelling Verified 01/12/17 04:51 Sulfa (Sulfonamide Allergy Verified 11/01/16 16:05 Antibiotics) vancomycin AdvReac Intermediate Difficulty Verified 11/01/16 16:05 Breathing EGGS Allergy Intermediate RASH,UPSET Uncoded 11/01/16 16:05 STOMACH - Home Medications Home Medications: Ambulatory Orders Levothyroxine [Synthroid -] 100 mcg PO DAILY 07/02/16 Lisinopril [Prinivil] 20 mg PO DAILY 07/02/16 Ketoconazole 2% Cream [Nizoral 2% Cream -] 1 applic TP BID PRN #1 tube 11/26/16 Oxycodone HCl 5 mg PO Q4H 01/12/17 Family Disease History - Family Disease History Family Disease History: Heart Disease: Mother, CA: Father (Liver), Brother (Lung ), Sister (Liver) Review of Systems - Review of Systems Constitutional: reports: Fever. denies: Chills Cardiovascular: denies: Chest Pain, Palpitations, Shortness of Breath Respiratory: denies: Cough, Hemoptysis, Orthopnea, PND, SOB, SOB on Exertion Gastrointestinal: denies: Abdominal Pain, Constipation, Diarrhea, Melena, Nausea , Rectal Bleeding, Vomiting Musculoskeletal: reports: Joint Pain Neurological: reports: Weakness. denies: Dizziness, Headache, Seizure, Syncope Vital Signs: Vital Signs Temperature 99.8 F H 01/12/17 06:01 Pulse Rate 88 01/12/17 06:01 Respiratory Rate 19 01/12/17 06:01 Blood Pressure 93/58 01/12/17 06:01 O2 Sat by Pulse Oximetry (%) 97 01/12/17 00:39 Neck: Yes: Supple Respiratory: Yes: Diminished Gastrointestinal: Yes: Normal Bowel Sounds, Soft, Abdomen, Obese. No: Tenderness Cardiovascular: Yes: Regular Rate and Rhythm JVD: No Carotid Bruit: No PMI: Non-Displaced Heart Sounds: Yes: S1, S2. No: Gallop Murmur: Yes: Systolic Murmur, Grade 1 Extremities: Yes: Erythema, Other (ulcer) Edema: Yes - Other Data Labs, Other Data: CBC, BMP 01/12/17 06:00 01/12/17 06:00 INR, PTT INR 1.40 (0.82-1.09) H 01/12/17 01:50 Troponin, BNP 01/12/17 06:00 B-Natriuretic Peptide 83319.26 H Laboratory Results - last 24 hr 01/12/17 01/12/17 01/12/17 01:50 01:50 01:50 WBC 19.2 H D Corrected WBC (auto) RBC 3.87 Hgb 8.5 L D Hct 27.4 L MCV 71.0 L MCH 21.9 L MCHC 30.8 L RDW 17.9 H Plt Count 339 MPV 7.2 L Neutrophils % 90.0 H Lymphocytes % 2.0 L D Monocytes % 1.0 L Eosinophils % Basophils % Band Neutrophils 7.0 D Differential Comment Platelet Estimate Adequate Platelet Comment No clotting detected RBC Morphology Hypochromic-Microcytic 2+ Anisocytosis 1+ Microcytosis 1+ INR 1.40 H Sodium Potassium Chloride Carbon Dioxide Anion Gap BUN Creatinine Creat Clearance w eGFR Random Glucose Lactic Acid 2.4 H* Calcium Phosphorus Magnesium Total Bilirubin AST ALT Alkaline Phosphatase B-Natriuretic Peptide Total Protein Albumin Triglycerides Cholesterol Total LDL Cholesterol HDL Cholesterol 01/12/17 01/12/17 01/12/17 01:50 05:35 06:00 WBC Cancelled 14.0 H Corrected WBC (auto) Cancelled RBC Cancelled 3.14 L Hgb Cancelled 6.8 L* D Hct Cancelled 22.2 L D MCV Cancelled 70.8 L MCH Cancelled 21.7 L MCHC Cancelled 30.6 L RDW Cancelled 17.8 H Plt Count Cancelled 271 D MPV Cancelled 7.6 Neutrophils % 95.5 H Lymphocytes % 2.7 L D Monocytes % 1.7 L Eosinophils % 0.0 D Basophils % 0.1 Band Neutrophils Differential Comment Cancelled Platelet Estimate Cancelled Platelet Comment Cancelled RBC Morphology Cancelled Hypochromic-Microcytic Anisocytosis Microcytosis INR Sodium 135 L Potassium 4.4 Chloride 102 Carbon Dioxide 21 Anion Gap 12 BUN 39 H D Creatinine 1.7 H D Creat Clearance w eGFR 29.54 Random Glucose 133 H D Lactic Acid Calcium 8.7 Phosphorus Magnesium Total Bilirubin 0.5 D AST 27 D ALT 9 L Alkaline Phosphatase 98 D B-Natriuretic Peptide Total Protein 7.5 Albumin 3.0 L Triglycerides Cholesterol Total LDL Cholesterol HDL Cholesterol 01/12/17 01/12/17 01/12/17 06:00 06:00 06:00 WBC Corrected WBC (auto) RBC Hgb Hct MCV MCH MCHC RDW Plt Count MPV Neutrophils % Lymphocytes % Monocytes % Eosinophils % Basophils % Band Neutrophils Differential Comment Platelet Estimate Platelet Comment RBC Morphology Hypochromic-Microcytic Anisocytosis Microcytosis INR Sodium 134 L Potassium 4.4 Chloride 105 Carbon Dioxide 19 L Anion Gap 10 BUN 42 H Creatinine 1.7 H Creat Clearance w eGFR 29.54 Random Glucose 115 H Lactic Acid 1.1 Calcium 8.1 L Phosphorus 3.5 Magnesium 1.7 L Total Bilirubin 0.4 AST 37 D ALT 7 L D Alkaline Phosphatase 76 D B-Natriuretic Peptide 33552.26 H Total Protein 6.1 L Albumin 2.3 L D Triglycerides 41 D Cholesterol 101 D Total LDL Cholesterol 31 HDL Cholesterol 69 H Sinus rhythm with incomplete RBBB Echo: Pending Imaging - Results Chest X-ray: Report Reviewed (Cannot rule out inflitrates) EKG: Report Reviewed Assessment/Plan 1. Sepsis with fever, lower extremity ulcer and cellulitis 2. Acute on chronic kidney disease 3. Acute on chronic LV diastolic dysfunction with failure, elevated BNP, but no significant clinical evidence of heart failure 4. Hypertension 5. Hypothyroidism 6. History of thyroid cancer s/p partial thyroidectomy 7. Anemia - significantly reduced H/H but no active bleed PLAN: 1. Transthoracic echocardiography to assess LV/RV and valvular function and to assess diastolic dysfunction 2. Patient is not on her anti-hypertensives at this time. Lisinopril on hold due to hypotension and renal function 3. Gentle fluids would be alright but to use with caution 4. Consider transfuse PRBC as H/H is significantly reduced 5. Antibiotics coverage 6. Vascular surgery follow up 7. Wound care and DVT prophylaxis Further plans are to follow Michael Arizmendi MD
[2017-01-12] MEDS: oxyCODONE HCL 5 MG TABLET PO SCH ×2 (09:52→12:17)
[2017-01-12] MEDS ORDERED: AZTREONAM 1 GM in DEXTROSE 5%-WATER - 50 ML IVPB ONE (10:00)
[2017-01-12] MEDS ORDERED: LINEZOLID 600 MG PREMIX BAG 300 ML IVPB ONE (10:00)
[2017-01-12] MEDS ORDERED: HEPARIN NA (PORCINE) 5,000 UNITS/ML 1ML VIAL SQ SCH (10:00)
[2017-01-12] MEDS ORDERED: LISINOPRIL 20 MG TABLET (FP) PO SCH (10:00)
[2017-01-12] MEDS: LEVOTHYROXINE NA 100 MCG TABLET (FP) PO SCH (10:54)
[2017-01-12 11:11] LABS: FERRITIN 39.97 ng/ml (6.9-282.5)
[2017-01-12 11:56] LABS: MCH 21.9 pg (25.7-33.7); MCHC 30.6 g/dl (32.0-36.0); MEAN CELL VOLUME 71.5 fl (80-96); MEAN PLT VOLUME 7.8 fl (7.5-11.1); PLATELET COUNT 225 K/MM3 (134-434); RDW 17.9 % (11.6-15.6); WHITE BLOOD COUNT 12.9 K/mm3 (4.0-10.0)
--- NOTE | 2017-01-12 12:29 | CONSULT ---
Consult Consult Specialty:: infectious diseases Reason for Consultation:: sepsis,cellulitis of the leg - History of Present Illness Chief Complaint: swelling of the legs History of Present Illness: 71 year old female with significant past medical history of HTN, chronic b/l leg ulcers, B/L lymphedema, Peripheral vascular disease, chronic hip pain, thyroid cancer s/p thyroidectomy admitted with fever, weakness and worsening of B/L leg ulcers. 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: CVA Cardio/Vascular: Yes: HTN Musculoskeletal: Yes: Other (lymphedema) Endocrine: Yes: Hypothyroidism, Other (thyroid cancer (35yrs ago)) - Past Surgical History Past Surgical History: Yes: Appendectomy, Vein Stripping/Ligation - Alcohol/Substance Use Hx Alcohol Use: No - Smoking History Smoking history: Never smoked Have you smoked in the past 12 months: No Aproximately how many cigarettes per day: 0 - Social History Occupation: used to work in [employer] business Home Medications - Allergies Allergies/Adverse Reactions: Allergies Allergy/AdvReac Type Severity Reaction Status Date / Time amoxicillin trihydrate Allergy Intermediate Rash Verified 11/01/16 16:05 [From Augmentin] potassium clavulanate Allergy Intermediate Rash Verified 11/01/16 16:05 [From Augmentin] clindamycin Allergy Verified 11/29/16 17:54 doxycycline Allergy Swelling Verified 01/12/17 04:51 Sulfa (Sulfonamide Allergy Verified 11/01/16 16:05 Antibiotics) vancomycin AdvReac Intermediate Difficulty Verified 11/01/16 16:05 Breathing EGGS Allergy Intermediate RASH,UPSET Uncoded 11/01/16 16:05 STOMACH - Home Medications Home Medications: Ambulatory Orders Levothyroxine [Synthroid -] 100 mcg PO DAILY 07/02/16 Lisinopril [Prinivil] 20 mg PO DAILY 07/02/16 Ketoconazole 2% Cream [Nizoral 2% Cream -] 1 applic TP BID PRN #1 tube 11/26/16 Oxycodone HCl 5 mg PO Q4H 01/12/17 Family Disease History - Family Disease History Family Disease History: Heart Disease: Mother, CA: Father (Liver), Brother (Lung ), Sister (Liver) Review of Systems - Review of Systems Constitutional: reports: Fever, Other Eyes: reports: No Symptoms HENT: reports: No Symptoms Neck: reports: No Symptoms Cardiovascular: reports: No Symptoms Respiratory: reports: No Symptoms Gastrointestinal: reports: No Symptoms Musculoskeletal: reports: Muscle Pain, Other (erythema) Integumentary: reports: Erythema Neurological: reports: No Symptoms Endocrine: reports: No Symptoms Hematology/Lymphatic: reports: No Symptoms Psychiatric: reports: No Symptoms Physical Exam Vital Signs: Vital Signs Temperature 99.8 F H 01/12/17 06:01 Pulse Rate 88 01/12/17 06:01 Respiratory Rate 19 01/12/17 06:01 Blood Pressure 93/58 01/12/17 06:01 O2 Sat by Pulse Oximetry (%) 97 01/12/17 00:39 Constitutional: Yes: Calm, Mild Distress, Obese Eyes: Yes: Conjunctiva Clear Neck: Yes: Supple Cardiovascular: Yes: Regular Rate and Rhythm Respiratory: Yes: Regular, CTA Bilaterally Gastrointestinal: Yes: Normal Bowel Sounds, Soft Musculoskeletal: Yes: Other Extremities: Yes: Other (bilateral wound no healing of the legs cellulitis of the left leg extending to the thigh tendenress) Edema: LLE: 2+, RLE: 1+ Integumentary: Yes: Erythema, Other Wound/Incision: Yes: Dressing Removed, Other (left leg with cellulitits and) Neurological: Yes: Alert, Oriented Psychiatric: Yes: Alert, Oriented Labs: CBC, BMP 01/12/17 11:15 01/12/17 06:00 Imaging - Results Chest X-ray: Report Reviewed, Image Reviewed Assessment/Plan cellulitis b/l leg ulcers obesity sepsis patients previous cx known i am worried again patien might have mrsa infection plan will start patient on dapto continue aztreonam hydration rest as per vascular
--- NOTE | 2017-01-12 12:32 | CONSULT ---
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 Cardio/Vascular: Yes: HTN Musculoskeletal: Yes: Other (lymphedema) Endocrine: Yes: Hypothyroidism, Other (thyroid cancer (35yrs ago)) - Past Surgical History Past Surgical History: Yes: Appendectomy, Vein Stripping/Ligation - Alcohol/Substance Use Hx Alcohol Use: No - Smoking History Smoking history: Never smoked Have you smoked in the past 12 months: No Aproximately how many cigarettes per day: 0 - Social History Occupation: used to work in [employer] Home Medications - Allergies Allergies/Adverse Reactions: Allergies Allergy/AdvReac Type Severity Reaction Status Date / Time amoxicillin trihydrate Allergy Intermediate Rash Verified 11/01/16 16:05 [From Augmentin] potassium clavulanate Allergy Intermediate Rash Verified 11/01/16 16:05 [From Augmentin] clindamycin Allergy Verified 11/29/16 17:54 doxycycline Allergy Swelling Verified 01/12/17 04:51 Sulfa (Sulfonamide Allergy Verified 11/01/16 16:05 Antibiotics) vancomycin AdvReac Intermediate Difficulty Verified 11/01/16 16:05 Breathing EGGS Allergy Intermediate RASH,UPSET Uncoded 11/01/16 16:05 STOMACH - Home Medications Home Medications: Ambulatory Orders Levothyroxine [Synthroid -] 100 mcg PO DAILY 07/02/16 Lisinopril [Prinivil] 20 mg PO DAILY 07/02/16 Ketoconazole 2% Cream [Nizoral 2% Cream -] 1 applic TP BID PRN #1 tube 11/26/16 Oxycodone HCl 5 mg PO Q4H 01/12/17 Family Disease History - Family Disease History Family Disease History: Heart Disease: Mother, CA: Father (Liver), Brother (Lung ), Sister (Liver) Physical Exam Vital Signs: Vital Signs Temperature 99.8 F H 01/12/17 06:01 Pulse Rate 88 01/12/17 06:01 Respiratory Rate 19 01/12/17 06:01 Blood Pressure 93/58 01/12/17 06:01 O2 Sat by Pulse Oximetry (%) 97 01/12/17 00:39 Labs: CBC, BMP 01/12/17 11:15 01/12/17 06:00 Assessment/Plan Vascular Surgery Patient is a 71 year old female with a hx of chronic leg wounds, htn, peripheral vascular disease, thyroid disease, and left hip pain who presents today with fever. As per the Tmax was 102.3F today and she did not take anything to alleviate the fever. He also states that the patients leg wounds have been weeping and her left leg is edematous and hot. Pt well known to wound care clinic. <Yohana Victor - Last Filed: 01/12/17 02:26> <Steffany Ramirez - Last Filed: 01/12/17 05:09> - General Chief Complaint: SIRS, Suspected/Possible Stated Complaint: HIGH FEVER Time Seen by Provider: 01/12/17 00:34 Past History <Yohana Victor - Last Filed: 01/12/17 02:26> - Past Medical History Anemia: No Asthma: No Cancer: Yes (thyroid 1978) Cardiac Disorders: No CVA: No COPD: No CHF: No Dementia: No Diabetes: (LOW BLOOD SUGAR) GI Disorders: No Disorders: No HTN: Yes Hypercholesterolemia: No Liver Disease: No Seizures: No Thyroid Disease: Yes (Thyroid CA 1978) - Surgical History Abdominal Surgery: Yes Appendectomy: Yes Cardiac Surgery: No Cholecystectomy: No Lung Surgery: No Neurologic Surgery: No Orthopedic Surgery: No (supposed to have hip replacement) - Immunization History Immunization Up to Date: Yes - Psycho/Social/Smoking Cessation Hx Anxiety: No Suicidal Ideation: No Smoking Status: No Smoking History: Never smoked Have you smoked in the past 12 months: No Number of Cigarettes Smoked Daily: 0 Information on smoking cessation initiated: No Hx Alcohol Use: No Drug/Substance Use Hx: No Substance Use Type: None Hx Substance Use Treatment: No <Steffany Ramirez - Last Filed: 01/12/17 05:09> - Past Medical History Allergies/Adverse Reactions: Allergies Allergy/AdvReac Type Severity Reaction Status Date / Time amoxicillin trihydrate Allergy Intermediate Rash Verified 11/01/16 16:05 [From Augmentin] potassium clavulanate Allergy Intermediate Rash Verified 11/01/16 16:05 [From Augmentin] clindamycin Allergy Verified 11/29/16 17:54 doxycycline Allergy Swelling Verified 01/12/17 04:51 Sulfa (Sulfonamide Allergy Verified 11/01/16 16:05 Antibiotics) vancomycin AdvReac Intermediate Difficulty Verified 11/01/16 16:05 Breathing EGGS Allergy Intermediate RASH,UPSET Uncoded 11/01/16 16:05 STOMACH Home Medications: Ambulatory Orders Levothyroxine [Synthroid -] 100 mcg PO DAILY 07/02/16 Lisinopril [Prinivil] 20 mg PO DAILY 07/02/16 Oxycodone HCl/Acetaminophen [Percocet 10-325 mg Tablet] 1 each PO QID #120 tablet MDD 4 07/19/16 Diclofenac Sodium 100 gm TP BID #1 gel..gram. 08/09/16 Ketoconazole 2% Cream [Nizoral 2% Cream -] 1 applic TP BID PRN #1 tube 11/26/16 PE Head - NC/At lung - CTA Heart - RRR abd - soft,nt,nd ext - bilateral lower ext ulcers, left lateral ulcer clean, pink. Left thigh erythema A/P Cellulitis, ulcers bilateral lower ext. 1. IV antibiotics. 2. leg elevation. 3. santyl to all ulcers. Vladimir adames dO
[2017-01-12] MEDS: DAPTOMYCIN 650 MG in SODIUM CHLORIDE 50 ML IVPB SCH (14:00)
[2017-01-12] MEDS ORDERED: HEPARIN NA (PORCINE) 5,000 UNITS/ML 1ML VIAL IVPUSH PRN ×2 (14:12)
[2017-01-12] MEDS ORDERED: HEPARIN - 25,000 UNIT in SODIUM CHLORIDE 495 ML IV SCH (14:15)
[2017-01-12] MEDS ORDERED: HEPARIN NA (PORCINE) 5,000 UNITS/ML 1ML VIAL IVPUSH ONE (14:17)
[2017-01-12] MEDS ORDERED: PT OWN MED DRAWER 7, Y5N ONE (14:17)
[2017-01-12] MEDS ORDERED: FUROSEMIDE 40 MG/4 ML INJECTABLE VIAL IVPUSH ONE (14:18)
[2017-01-12] MEDS ORDERED: DOPAMINE 400 MG/D5W - 250 ML IVPB ONE (14:31)
--- NOTE | 2017-01-12 14:33 | HOSP ---
Subjective - Review of Symptoms Events since last encounter: called s Pt BP is 77/50. upon evaluation , she is pale, does not have any CP or SOB , or light headedness . on exam : JVd has increased, Lungs has slight crackles at bases. HR 60s , SAt O2 94 %. EKG reviewed, there is S1QT3 . a/p : with this increased JVD and new crackles , I am concerned of fluid overload. Also with the LLE edema and erythema, and the S1QT3 on EKG I am concerned about PE - give 40 of IV lasix - Start heparin gtt ( risk of bleed was d/w her ) - US was not done yet. will call for stat one - transfuse one unit of blood - repeat BP , and if needed can start dopamine gtt - spoke to ICU staff. will transfer to ICU . BEd is pending Physical Examination Vital Signs: Labs: CBC, BMP 01/12/17 11:15 01/12/17 06:00
[2017-01-12] MEDS: HEPARIN INFUSION - 500 ML IVPB SCH (14:45)
[2017-01-12] MEDS: DOPAMINE 400 MG/D5W - 250 ML IVPB SCH (15:15)
--- NOTE | 2017-01-12 15:36 | CONSULT ---
Consult - text type - Consultation Consultation Note: PULM/CCM Pt seen and examined in the ICU Reason for consult: hypotension, concern for PE CC: dizziness HPI: Briefly Ms Cantu is a 71 year old woman with pmhx significant for HTN, chronic b/l leg ulcers and lymphedema, Peripheral vascular disease, chronic hip pain, thyroid cancer s/p thyroidectomy (type unknown), multiple admissons for wound infections/well know by ID who presented to the ED yesterday with the chief complaints of fever, weakness and worsening of B/L leg ulcers, despite follow up with vascular/ID/hyperbarics. She was febrile and started on broad spectrum abx. She was admitted to floor this morning, followed by multiple services. She was seeming to do well, ID felt wound had improved on broad spectrum abx. Her wbc was downtrending, however as was her H/h which had hbg 6.8 this morning, 1 PRBC ordered. BP fell this afternoon, still with low grade temp. BNP noted to be elevated to 17K, EKG felt to show [id number] pattern c/f PE, elevated Cr hampering definative CTA, LEUS negative. BP 70/30 today given gentle fluid without improvement, started on Dopamine. Pt intermittently in bigemny, poor UOP. Transferred to ICU for further care. 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 Cardio/Vascular HTN Heme/Onc Cancer Endocrine Hypothyroidism (thyroid cancer (35yrs ago)), Other Past Surgical History Past Surgical History Appendectomy,Vein Stripping/Ligation Social History Smoking history Never smoked Have you smoked in the past 12 No months Hx Alcohol Use No Usual Living Arrangement With Spouse Occupation used to work in [employer] Ambulatory Orders Levothyroxine [Synthroid -] 100 mcg PO DAILY 07/02/16 Lisinopril [Prinivil] 20 mg PO DAILY 07/02/16 Ketoconazole 2% Cream [Nizoral 2% Cream -] 1 applic TP BID PRN #1 tube 11/26/16 Oxycodone HCl 5 mg PO Q4H 01/12/17 Active Medications Acetaminophen (Tylenol -) 325 mg PO Q6H PRN Collagenase (Santyl -) 1 applic TP DAILY KAIN Docusate Sodium (Colace -) 100 mg PO BID PRN PRN Reason: CONSTIPATION Heparin Sodium (Porcine) (Heparin -) 1,000 unit IVPUSH PRN PRN PRN Reason: Heparin Heparin Sodium (Porcine) (Heparin -) 5,000 unit IVPUSH PRN PRN PRN Reason: Heparin Daptomycin 650 mg/ Sodium (Chloride) 50 mls @ 100 mls/hr IVPB DAILY@1300 KAIN Aztreonam 1 gm/ Dextrose 50 mls @ 100 mls/hr IVPB Q8H-IV KAIN PRN Reason: Protocol Heparin Sodium/Dextrose (Heparin Infusion -) 500 mls @ 36 mls/hr IVPB TITR KAIN ; 1,800 UNITS/HR PRN Reason: Protocol Last Admin: 01/12/17 14:45 Dose: 36 mls/hr Dopamine HCl/Dextrose (Dopamine 400 Mg/D5w -) 250 mls @ 20.072 mls/hr IVPB TITR KAIN; 5 MCG/KG/MIN PRN Reason: Protocol Ketoconazole (Nizoral 2% Cream -) 1 applic TP BID PRN PRN Reason: Fungal infection of buttock Levothyroxine Sodium (Synthroid -) 100 mcg PO DAILY@0700 [facility] Last Admin: 01/12/17 10:54 Dose: 100 mcg Oxycodone HCl (Roxicodone -) 5 mg PO Q6H PRN PRN Reason: PAIN Senna (Senna -) 2 tab PO HS PRN PRN Reason: CONSTIPATION ROS: 9 pt review negative except as per HPI EKG: SR incomplete RBBB, no acute ST changes. CXR: no clear infiltrate, some vascular congestion LEduplex: negative PE: Gen: non-toxic appearing, awake, lucid HEENT: PERRL, slight jvp when near flat PULM: clear anterior, no distress, no wheezes CV: irregular, no m/r/g appreciated ABD; soft, NT, ND EXT: lymphedema changes with some erythema, marked with pen NEURO: awake, alert, non-focal A/ 71 y/o woman with chronic lymphedema and recurrent LE wound transferred to ICU for hypotension 2/2 sepsis and concern for PE P/ -abx as per ID, concerned for MRSA infection -central access for BP, cvp to try elucidate volume status -check lactate, resend electrolyte given new bigemeny. -will resend blood cxl -empiric heparin gtt -check trop and repeat BNP -TTE ordered -Prophy--add GI prophy, Hep gtt ICU monitoring Berny Goff [facility] [id number]
--- NOTE | 2017-01-12 16:51 | PROC ---
Central Line Insertion Indication: Vasopressor Risks and Benefits Explained: Yes Consent on Chart: Yes Central Line: Triple Lumen Catheter Anesthesia: 1% Lidocaine Sterile Technique: Yes Ultrasound Guided Assistance: Yes Position: Left Internal Jugular Post Insertion: Yes: Bilateral Breath Sounds, Chest X-Ray Ordered Sterile Dressing Applied: Yes
[2017-01-12] MEDS ORDERED: INSULIN DETEMIR 100 UNITS/ML MDV SQ ONE (16:59)
[2017-01-12] MEDS ORDERED: INSULIN (NOVOLOG) ASPART 100 UNITS/ML 10ML VIAL ONE (16:59)
--- NOTE | 2017-01-12 17:23 | EKG ---
Test Reason : Blood Pressure : / mmHG Vent. Rate : 095 BPM Atrial Rate : 095 BPM P-R Int : 170 ms QRS Dur : 110 ms QT Int : 368 ms P-R-T Axes : 000 -03 142 degrees QTc Int : 462 ms SINUS RHYTHM WITH PREMATURE ATRIAL COMPLEXES ATRIAL ABNORMALITY RBBB OCCASIONAL SINGLE VPBs BASELINE ARTIFACT ABNORMAL ECG WHEN COMPARED WITH ECG OF 01-NOV-2016 15:54, PREMATURE ATRIAL COMPLEXES ARE NOW PRESENT NONSPECIFIC ST AND T WAVE ABNORMALITY IN COMPARABLE LEADS QT HAS LENGTHENED REPEAT INDICATED Confirmed by MONET SELF MD ([id number]) on 01/12/2017 5:22:56 PM Referred By: Confirmed By:MONET SELF MD
[2017-01-12] MEDS: COLLAGENASE CLOSTRIDIUM HIST. 30 GRAMS TUBE TP SCH (17:33)
[2017-01-12] MEDS: AZTREONAM 1 GM in DEXTROSE 5%-WATER - 50 ML IVPB SCH (17:34)
[2017-01-12] MEDS: ACETAMINOPHEN 325 MG TABLET (FP) PO PRN (20:58)
[2017-01-12] MEDS ORDERED: ACETAMINOPHEN 325 MG TABLET (FP) PO PRN (21:09)
[2017-01-13] MEDS ORDERED: MAGNESIUM SULF 50% (8.12 MEQ/2 ML-1 GM VIAL) IVPB ONE (00:09)
[2017-01-13 00:50] LABS: MCH 22.6 pg (25.7-33.7); MCHC 31.6 g/dl (32.0-36.0); MEAN CELL VOLUME 71.5 fl (80-96); MEAN PLT VOLUME 7.5 fl (7.5-11.1); PLATELET COUNT 250 K/MM3 (134-434); RDW 18.3 % (11.6-15.6); WHITE BLOOD COUNT 13.1 K/mm3 (4.0-10.0)
[2017-01-13 01:38] LABS: ALBUMIN 2.1 g/dl (3.4-5.0); ANION GAP 11 (8-16); BILIRUBIN,TOTAL 0.9 mg/dL (0.2-1.0); CALCIUM 8.1 mg/dL (8.5-10.1); CO2 22 mmol/L (21-32); CREATININE 1.9 mg/dL (0.55-1.02); GLUCOSE,RANDOM 113 mg/dL (74-106); SGOT/AST 40 U/L (15-37); SGPT/ALT 11 U/L (12-78); TOT PROT 5.8 g/dl (6.4-8.2)
[2017-01-13 01:39] LABS: ALK PHOS 93 U/L (45-117)
[2017-01-13] MEDS: AZTREONAM 1 GM in DEXTROSE 5%-WATER - 50 ML IVPB SCH ×3 (02:07→17:37)
[2017-01-13 02:09] LABS: URINE APPEARANCE SLCLOUDY; URINE BILIRUBIN NEGATIVE (NEGATIVE); URINE BLOOD 2+ (NEGATIVE); URINE COLOR LTYELLOW; URINE GLUCOSE (UA) NEGATIVE (NEGATIVE); URINE KETONE NEGATIVE (NEGATIVE); URINE NITRITE NEGATIVE (NEGATIVE); URINE PROTEIN NEGATIVE (NEGATIVE); URINE UROBILINOGEN NEGATIVE mg/dL (0.2-1.0)
[2017-01-13 02:11] LABS: URINE LEUK ESTERASE 3+ (NEGATIVE)
[2017-01-13 02:14] LABS: URINE BACTERIA MODERATE /hpf (NONE SEEN); URINE MUCUS RARE; URINE RBC 22 /hpf (0-3); URINE WBC 64 /hpf (3-5)
[2017-01-13 06:06] LABS: SERUM IRON 9 ug/dL (27-139); TOTAL IRON BINDING CAPACITY 267 ug/dL (250-450); UIBC 258 ug/dL (118-369)
[2017-01-13 06:08] LABS: BASOPHIL 0.1 % (0-2.0); MCH 22.7 pg (25.7-33.7); MCHC 31.8 g/dl (32.0-36.0); MEAN CELL VOLUME 71.4 fl (80-96); MEAN PLT VOLUME 7.9 fl (7.5-11.1); NEUTROPHILS 93.8 % (42.8-82.8); PLATELET COUNT 254 K/MM3 (134-434); RDW 18.3 % (11.6-15.6); WHITE BLOOD COUNT 12.8 K/mm3 (4.0-10.0)
[2017-01-13] MEDS: LEVOTHYROXINE NA 100 MCG TABLET (FP) PO SCH (06:20)
[2017-01-13] MEDS: ACETAMINOPHEN 325 MG TABLET (FP) PO PRN ×2 (06:20→16:50)
[2017-01-13] MEDS: oxyCODONE HCL 5 MG TABLET PO PRN ×2 (06:21→16:51)
[2017-01-13 06:39] LABS: ANION GAP 11 (8-16); CALCIUM 7.7 mg/dL (8.5-10.1); CO2 23 mmol/L (21-32); CREATININE 1.8 mg/dL (0.55-1.02); GLUCOSE,RANDOM 108 mg/dL (74-106); MAGNESIUM 2.4 mg/dL (1.8-2.4); PHOSPHOROUS 4.7 mg/dL (2.5-4.9)
--- NOTE | 2017-01-13 08:45 | PN ---
Physical Exam: SUBJECTIVE: Patient seen and examined this AM. Complains of back pain, without point tenderness, states it is like a "cramp". No CP, no SOB, no chills. T 100.2 noted on the monitor. Tele reviewed, showed episodes of Ventricular Bigemminy + Trigeminny, isolated PVCs, MAP was between 60-75, lowest was 57. OBJECTIVE: Vital Signs Period Temp Pulse Resp BP Sys/Chakraborty Pulse Ox Last 24 Hr 97.5 F-99.9 F 73-110 18-24 73-145/30-79 96-100 GENERAL: The patient is awake, alert, and fully oriented, in no acute distress. HEENT: Pupils small, reactive, EOMi, no LAD, no JVD LUNGS: R basilar crackles, no use of accessory muscles HEART: S1, S2, with PVCs, no murmurs ABD: Soft, NT, ND, Normoactive bowel sounds UPPER EXTREMITIES: 2+ pulses, warm, well-perfused, no edema LOWER EXTREMITIES: - Left: Thigh warm, swollen, no TTP. L leg weeping leg ulcers, foul smell, open wound, warm, erythematous, swollen, 1+ pulses - Right: Thigh swollen, less than R, no TTP. R leg weeping leg ulcers, no open wounds, 1+ pulses NEUROLOGICAL: Cranial nerves II through XII grossly intact. No facial droop. Sensation equal and intact bilaterally in face and body. 5+ muscle strength. SKIN: No abscess or ulcer or wound in gluteal area Laboratory Results - last 24 hr 01/12/17 01/12/17 01/12/17 05:35 06:00 06:00 WBC RBC Hgb Hct MCV MCH MCHC RDW Plt Count MPV Neutrophils % Lymphocytes % Monocytes % Eosinophils % Basophils % PTT (Actin FS) Sodium Potassium Chloride Carbon Dioxide Anion Gap BUN Creatinine Creat Clearance w eGFR Random Glucose Calcium Phosphorus Magnesium Iron 9 L TIBC 267 Iron Saturation 3 L Ferritin 39.970 Cancelled Total Bilirubin AST ALT Alkaline Phosphatase B-Natriuretic Peptide 02666.26 H Total Protein Albumin Triglycerides 41 D Cholesterol 101 D Total LDL Cholesterol 31 HDL Cholesterol 69 H Urine Color Urine Appearance Urine pH Urine Protein Urine Glucose (UA) Urine Ketones Urine Blood Urine Nitrite Urine Bilirubin Urine Urobilinogen Ur Leukocyte Esterase Urine RBC Urine WBC Ur Epithelial Cells Urine Bacteria Urine Mucus Ur Random Sodium Ur Random Potassium Ur Random Chloride Urine Creatinine Stool Occult Blood Blood Type Antibody Screen Crossmatch 01/12/17 01/12/17 01/12/17 09:00 11:15 15:00 WBC 12.9 H RBC 3.18 L Hgb 7.0 L Hct 22.7 L MCV 71.5 L MCH 21.9 L MCHC 30.6 L RDW 17.9 H Plt Count 225 MPV 7.8 Neutrophils % Lymphocytes % Monocytes % Eosinophils % Basophils % PTT (Actin FS) Sodium Potassium Chloride Carbon Dioxide Anion Gap BUN Creatinine Creat Clearance w eGFR Random Glucose Calcium Phosphorus Magnesium Iron TIBC Iron Saturation Ferritin Total Bilirubin AST ALT Alkaline Phosphatase B-Natriuretic Peptide Total Protein Albumin Triglycerides Cholesterol Total LDL Cholesterol HDL Cholesterol Urine Color Urine Appearance Urine pH Urine Protein Urine Glucose (UA) Urine Ketones Urine Blood Urine Nitrite Urine Bilirubin Urine Urobilinogen Ur Leukocyte Esterase Urine RBC Urine WBC Ur Epithelial Cells Urine Bacteria Urine Mucus Ur Random Sodium Ur Random Potassium Ur Random Chloride Urine Creatinine Stool Occult Blood Negative Blood Type O POSITIVE Antibody Screen Negative Crossmatch See Detail 01/12/17 01/13/17 01/13/17 20:27 00:30 00:30 WBC 13.1 H RBC 3.35 L Hgb 7.6 L Hct 24.0 L MCV 71.5 L MCH 22.6 L MCHC 31.6 L RDW 18.3 H Plt Count 250 MPV 7.5 Neutrophils % Lymphocytes % Monocytes % Eosinophils % Basophils % PTT (Actin FS) 65.4 H D Sodium 135 L Potassium 4.5 Chloride 102 Carbon Dioxide 22 Anion Gap 11 BUN 52 H D Creatinine 1.9 H Creat Clearance w eGFR 25.98 Random Glucose 113 H Calcium 8.1 L Phosphorus Magnesium Iron TIBC Iron Saturation Ferritin Total Bilirubin 0.9 D AST 40 H ALT 11 L D Alkaline Phosphatase 93 D B-Natriuretic Peptide Total Protein 5.8 L Albumin 2.1 L Triglycerides Cholesterol Total LDL Cholesterol HDL Cholesterol Urine Color Urine Appearance Urine pH Urine Protein Urine Glucose (UA) Urine Ketones Urine Blood Urine Nitrite Urine Bilirubin Urine Urobilinogen Ur Leukocyte Esterase Urine RBC Urine WBC Ur Epithelial Cells Urine Bacteria Urine Mucus Ur Random Sodium Ur Random Potassium Ur Random Chloride Urine Creatinine Stool Occult Blood Blood Type Antibody Screen Crossmatch 01/13/17 01/13/17 01/13/17 00:30 00:30 00:30 WBC RBC Hgb Hct MCV MCH MCHC RDW Plt Count MPV Neutrophils % Lymphocytes % Monocytes % Eosinophils % Basophils % PTT (Actin FS) Sodium Potassium Chloride Carbon Dioxide Anion Gap BUN Creatinine Creat Clearance w eGFR Random Glucose Calcium Phosphorus Magnesium Iron TIBC Iron Saturation Ferritin Total Bilirubin AST ALT Alkaline Phosphatase B-Natriuretic Peptide Total Protein Albumin Triglycerides Cholesterol Total LDL Cholesterol HDL Cholesterol Urine Color Ltyellow Urine Appearance Slcloudy Urine pH 5.0 Urine Protein Negative Urine Glucose (UA) Negative Urine Ketones Negative Urine Blood 2+ H Urine Nitrite Negative Urine Bilirubin Negative Urine Urobilinogen Negative Ur Leukocyte Esterase 3+ H Urine RBC 22 Urine WBC 64 Ur Epithelial Cells Rare Urine Bacteria Moderate Urine Mucus Rare Ur Random Sodium 66 Ur Random Potassium 38.2 Ur Random Chloride 102 Urine Creatinine 39.7 Stool Occult Blood Blood Type Antibody Screen Crossmatch 01/13/17 01/13/17 01/13/17 05:15 05:15 05:15 WBC 12.8 H RBC 3.23 L Hgb 7.3 L Hct 23.1 L MCV 71.4 L MCH 22.7 L MCHC 31.8 L RDW 18.3 H Plt Count 254 MPV 7.9 Neutrophils % 93.8 H Lymphocytes % 3.2 L Monocytes % 2.9 L Eosinophils % 0.0 Basophils % 0.1 PTT (Actin FS) 76.8 H Sodium 135 L Potassium 4.2 Chloride 101 Carbon Dioxide 23 Anion Gap 11 BUN 51 H Creatinine 1.8 H Creat Clearance w eGFR Random Glucose 108 H Calcium 7.7 L Phosphorus 4.7 D Magnesium 2.4 D Iron TIBC Iron Saturation Ferritin Total Bilirubin AST ALT Alkaline Phosphatase B-Natriuretic Peptide Total Protein Albumin Triglycerides Cholesterol Total LDL Cholesterol HDL Cholesterol Urine Color Urine Appearance Urine pH Urine Protein Urine Glucose (UA) Urine Ketones Urine Blood Urine Nitrite Urine Bilirubin Urine Urobilinogen Ur Leukocyte Esterase Urine RBC Urine WBC Ur Epithelial Cells Urine Bacteria Urine Mucus Ur Random Sodium Ur Random Potassium Ur Random Chloride Urine Creatinine Stool Occult Blood Blood Type Antibody Screen Crossmatch Active Medications Generic Name Dose Route Start Last Admin Trade Name Freq PRN Reason Stop Dose Admin Acetaminophen 325 mg 01/12/17 13:27 01/13/17 06:20 Tylenol - PO 325 mg Q6H PRN Administration Acetaminophen 650 mg 01/12/17 21:09 Tylenol - PO Q6H PRN FEVER OR PAIN Collagenase 1 applic 01/12/17 12:45 01/12/17 17:33 Santyl - TP 1 applic DAILY KAIN Administration Docusate Sodium 100 mg 01/12/17 04:49 Colace - PO BID PRN CONSTIPATION Heparin Sodium (Porcine) 1,000 unit 01/12/17 14:12 Heparin - IVPUSH PRN PRN Heparin Heparin Sodium (Porcine) 5,000 unit 01/12/17 14:12 Heparin - IVPUSH PRN PRN Heparin Daptomycin 650 mg/ Sodium 50 mls @ 100 mls/hr 01/12/17 13:00 01/12/17 14:00 Chloride IVPB 100 mls/hr DAILY@1300 KAIN Administration Aztreonam 1 gm/ Dextrose 50 mls @ 100 mls/hr 01/12/17 18:00 01/13/17 02:07 IVPB 100 mls/hr Q8H-IV KAIN Administration Protocol Heparin Sodium/Dextrose 500 mls @ 36 mls/hr 01/12/17 14:30 01/12/17 14:45 Heparin Infusion - IVPB 36 mls/hr TITR KAIN Administration Protocol 1,800 UNITS/HR Dopamine HCl/Dextrose 250 mls @ 20.072 mls/hr 01/12/17 15:15 01/12/17 23:00 Dopamine 400 Mg/D5w - IVPB 0 mcg/kg/min TITR KAIN Titration Protocol 5 MCG/KG/MIN Ketoconazole 1 applic 01/12/17 04:42 Nizoral 2% Cream - TP BID PRN Fungal infection of buttock Levothyroxine Sodium 100 mcg 01/12/17 07:00 01/13/17 06:20 Synthroid - PO 100 mcg DAILY@0700 KAIN Administration Oxycodone HCl 5 mg 01/12/17 12:49 01/13/17 06:21 Roxicodone - PO 5 mg Q6H PRN Administration PAIN Senna 2 tab 01/12/17 04:49 Senna - PO HS PRN CONSTIPATION ASSESSMENT/PLAN: Patient is a 71 yo F with a PMHx of HTN, chronic b/l leg ulcers (s/p stenting + graft of LLE), B/L lymphedema, Peripheral vascular disease, chronic hip pain, thyroid cancer s/p thyroidectomy (type unknown), and multiple antibiotic allergies presented to the ED with the chief complaints of fever, weakness and worsening of B/L leg ulcers. She was found to be in severe sepsis (Tmax 102.3, HR 93, WBC 19.2, Lactic Acid 2.4). She received Levaquin and antipyretics in the ED and was admitted to Med-Surg. On the floors she had an episode of low BP , and was sent to ICU for HLOC, had been on dopamine drip. # Severe sepsis - Likely secondary to worsening B/L leg ulcers - Blood cx + GP cocci in clusters - IV Aztreonam 1g + IV Daptomycin 650 - On dopamine, consider switching to Levophed (better for septic shock) - CVP low, will start gently hydration 75cc/hr, watch for fluid overload - LLE dopplers neg; RLLE cannot r/o - ID & Vascular on the case - Echo shows no vegetations # R/O CHF - Echo shows low-normal LV function, EF 55.6% no wall motion abn - CVP is low, IVNS 75cc/hr - If she becomes overloaded, give lasix - F/u CXR - Cardiology on the case # R/o PE - EKG shows chronic S1QT3 w/ new RBBB - Heparin drip, BLLE negative - No CTA due to YING, f/u VQ scan, if neg then d/c heparin - Echo shows elevated RV systolic pressure, chronic - F/u O2 sats, tachy # Hypotension - DDx include Septic shock vs Acute CHF vs PE - MAP lowest 57, between 60-75 throughout the nigth - Start gentle hydration - Hold Lasix for now # YING Baseline Cr 0.9, Admission 1.7 - Hypoperfusion from sepsis vs CHF - Gentle hydration - Avoid nephrotoxic drugs d/cd Lisinopril - F/u UA + urine electrolytes - F/u bladder scan # New Ventricular Bigeminny - Mg, PO4 WNL - Monitor # Microcytic Anemia Baseline Hgb 9.5-104 - Could be due to chronic hemorrhoidal bleeds, f/u rectal exam - Fe Panel looks AREN (low Iron, low sat, low/normal ferritin) - s/p PRBC x 2 - F/u FOBT - Start PO iron at discharge # External Hemorrhoids - Previous bleeding hx, no current bleeds - F/u GI as outpatient # Hx of Hypertension now hypotensive - D/c'd home lisinopril # Hypothyroidism - Levothyroxine # Morbidly obese - Lipid panel WNL - F/u A1C - Consider engineer system administrator consult # FEN - Fluids: None - Electrolytes: Electrolytes to be repeated in am - Nutrition: Sodium controlled diet # Prophylaxis - DVT: On Heparin drip - GI: Not indicated - Deconditioning: PT needed prior to discharge # Code status: Full Code Visit type - Emergency Visit Emergency Visit: No - New Patient This patient is new to me today: No - Critical Care Critical Care patient: No - Discharge Referral Referred to [facility] Med [facility] No
--- NOTE | 2017-01-13 09:39 | PN ---
Progress Note, Physician History of Present Illness: Low grade fevers, denies chest pain or dyspnea, hemodynamically stable on dopamine gtt. - Current Medication List Current Medications: Active Medications Acetaminophen (Tylenol -) 325 mg PO Q6H PRN Last Admin: 01/13/17 06:20 Dose: 325 mg Acetaminophen (Tylenol -) 650 mg PO Q6H PRN PRN Reason: FEVER OR PAIN Collagenase (Santyl -) 1 applic TP DAILY [facility] Last Admin: 01/12/17 17:33 Dose: 1 applic Docusate Sodium (Colace -) 100 mg PO BID PRN PRN Reason: CONSTIPATION Heparin Sodium (Porcine) (Heparin -) 1,000 unit IVPUSH PRN PRN PRN Reason: Heparin Heparin Sodium (Porcine) (Heparin -) 5,000 unit IVPUSH PRN PRN PRN Reason: Heparin Daptomycin 650 mg/ Sodium (Chloride) 50 mls @ 100 mls/hr IVPB DAILY@1300 [facility] Last Admin: 01/12/17 14:00 Dose: 100 mls/hr Aztreonam 1 gm/ Dextrose 50 mls @ 100 mls/hr IVPB Q8H-IV KAIN PRN Reason: Protocol Last Admin: 01/13/17 02:07 Dose: 100 mls/hr Heparin Sodium/Dextrose (Heparin Infusion -) 500 mls @ 36 mls/hr IVPB TITR KAIN ; 1,800 UNITS/HR PRN Reason: Protocol Last Admin: 01/12/17 14:45 Dose: 36 mls/hr Dopamine HCl/Dextrose (Dopamine 400 Mg/D5w -) 250 mls @ 20.072 mls/hr IVPB TITR KAIN; 5 MCG/KG/MIN PRN Reason: Protocol Last Titration: 01/13/17 09:00 Dose: 5 mcg/kg/min Ketoconazole (Nizoral 2% Cream -) 1 applic TP BID PRN PRN Reason: Fungal infection of buttock Levothyroxine Sodium (Synthroid -) 100 mcg PO DAILY@0700 [facility] Last Admin: 01/13/17 06:20 Dose: 100 mcg Oxycodone HCl (Roxicodone -) 5 mg PO Q6H PRN PRN Reason: PAIN Last Admin: 01/13/17 06:21 Dose: 5 mg Senna (Senna -) 2 tab PO HS PRN PRN Reason: CONSTIPATION - Objective Vital Signs: Vital Signs Temperature 99.7 F H 01/13/17 08:00 Pulse Rate 96 H 01/13/17 09:00 Respiratory Rate 21 01/13/17 08:00 Blood Pressure 95/37 01/13/17 09:00 O2 Sat by Pulse Oximetry (%) 98 01/12/17 22:00 Constitutional: Yes: No Distress, Calm Neck: Yes: Supple Cardiovascular: Yes: Regular Rate and Rhythm Respiratory: Yes: Regular, On Nasal O2, Rhonchi Gastrointestinal: Yes: Normal Bowel Sounds, Soft Edema: Yes Edema: LLE: Trace, RLE: Trace Wound/Incision: Yes: Open to air Labs: CBC, BMP 01/13/17 05:15 01/13/17 05:15 INR, PTT INR 1.40 (0.82-1.09) H 01/12/17 01:50 - ....Imaging Chest X-ray: Report Reviewed ([facility] in place, no PTX) EKG: Report Reviewed (Tele: SR, frequent PVC) Assessment/Plan 1. Sepsis with fever, lower extremity ulcer and cellulitis 2. Acute on chronic kidney disease 3. Chronic LV diastolic dysfunction and elevated BNP, without significant clinical evidence of heart failure 4. Hypertension 5. Hypothyroidism 6. History of thyroid cancer s/p partial thyroidectomy 7. Anemia - significantly reduced H/H but no active bleed PLAN: 1. Transthoracic echocardiography to assess LV/RV and valvular function and to assess diastolic dysfunction 2. Dopamine gtt to maintain MAP>65 mmHg Lisinopril on hold due to hypotension and renal function 3. Judicious hydration as you are 4. Maintained on heparin gtt on suspicion of PE, but doubtful, consider transfuse PRBC as H/H is significantly reduced 5. Empiric antibiotics coverage per ID 6. Vascular surgery follow up 7. Wound care and DVT prophylaxis -
[2017-01-13] MEDS ORDERED: LEVOFLOXACIN 750 MG IVPB 150 ML IVPB ONE (10:00)
[2017-01-13] MEDS: COLLAGENASE CLOSTRIDIUM HIST. 30 GRAMS TUBE TP SCH (10:18)
[2017-01-13] MEDS: DAPTOMYCIN 650 MG in SODIUM CHLORIDE 50 ML IVPB SCH (13:15)
--- NOTE | 2017-01-13 13:29 | PN ---
Physical Exam: SUBJECTIVE: 71 year old female with a past medical history of HTN, chronic b/l leg ulcers, b /l lymphedema, peripheral vascular disease, s/p thyroidectomy for thyroid cancer arrived to the ED for fever, weakness, and worsening of the leg ulcers. She was put on broad spectrum antibiotics and began to improve. Her Hgb fell to 6.8 and 1U PRBC was given. Yesterday BP fell, central line was inserted and dopamine drip was started. BP improved. Pt is currently in no acute distress, complains of hip pain. Denies chest pain, SOB, leg pain. OBJECTIVE: Vital Signs Period Temp Pulse Resp BP Sys/Chakraborty Pulse Ox Last 24 Hr 97.5 F-99.9 F 73-110 18-24 73-145/30-79 98-100 GENERAL: The patient is awake, alert, and fully oriented, in no acute distress. HEAD: Normal with no signs of trauma. EYES: PERRL, extraocular movements intact, sclera anicteric, conjunctiva clear. No ptosis. ENT: Ears normal, nares patent, oropharynx clear without exudates, moist mucous membranes. NECK: Trachea midline, full range of motion, supple. LUNGS: Breath sounds equal, clear to auscultation bilaterally, no wheezes, no crackles, no accessory muscle use. HEART: Regular rate and rhythm, S1, S2 without murmur, rub or gallop. ABDOMEN: Soft, nontender, nondistended, normoactive bowel sounds, no guarding, no rebound, no hepatosplenomegaly, no masses. EXTREMITIES: 2+ pulses, warm, well-perfused, b/l LE swelling + cellulitis NEUROLOGICAL: Cranial nerves II through XII grossly intact. Normal speech, gait not observed. PSYCH: Normal mood, normal affect. SKIN: Warm, dry, normal turgor, no rashes or lesions noted CBC, BMP 01/13/17 05:15 01/13/17 05:15 Active Medications Generic Name Dose Route Start Last Admin Trade Name Freq PRN Reason Stop Dose Admin Acetaminophen 325 mg 01/12/17 13:27 01/13/17 06:20 Tylenol - PO 325 mg Q6H PRN Administration Acetaminophen 650 mg 01/12/17 21:09 Tylenol - PO Q6H PRN FEVER OR PAIN Collagenase 1 applic 01/12/17 12:45 01/13/17 10:18 Santyl - TP 1 applic DAILY KAIN Administration Docusate Sodium 100 mg 01/12/17 04:49 Colace - PO BID PRN CONSTIPATION Heparin Sodium (Porcine) 1,000 unit 01/12/17 14:12 Heparin - IVPUSH PRN PRN Heparin Heparin Sodium (Porcine) 5,000 unit 01/12/17 14:12 Heparin - IVPUSH PRN PRN Heparin Daptomycin 650 mg/ Sodium 50 mls @ 100 mls/hr 01/12/17 13:00 01/12/17 14:00 Chloride IVPB 100 mls/hr DAILY@1300 KAIN Administration Aztreonam 1 gm/ Dextrose 50 mls @ 100 mls/hr 01/12/17 18:00 01/13/17 10:18 IVPB 100 mls/hr Q8H-IV KAIN Administration Protocol Heparin Sodium/Dextrose 500 mls @ 36 mls/hr 01/12/17 14:30 01/13/17 07:05 Heparin Infusion - IVPB 1,800 units/hr TITR KAIN Titration Protocol 1,800 UNITS/HR Dopamine HCl/Dextrose 250 mls @ 20.072 mls/hr 01/12/17 15:15 01/13/17 09:00 Dopamine 400 Mg/D5w - IVPB 5 mcg/kg/min TITR KAIN Titration Protocol 5 MCG/KG/MIN Ketoconazole 1 applic 01/12/17 04:42 Nizoral 2% Cream - TP BID PRN Fungal infection of buttock Levothyroxine Sodium 100 mcg 01/12/17 07:00 01/13/17 06:20 Synthroid - PO 100 mcg DAILY@0700 KAIN Administration Oxycodone HCl 5 mg 01/12/17 12:49 01/13/17 06:21 Roxicodone - PO 5 mg Q6H PRN Administration PAIN Senna 2 tab 01/12/17 04:49 Senna - PO HS PRN CONSTIPATION Imaging: LE Doppler: negative for any acute findings CXR: clear lung bellamy, central line in place EKG: sinus rhythm w/ PACs ASSESSMENT/PLAN: 71 year old female w/ sepsis likely 2/2 LE ulcer + cellulitis and hypotension on pressors. Neuro: patient neurologically intact, no issues at present town -continue daily assessment Cardiovascular: patient is currently hypotensive with a MAP of 65, CVP measured to be 6 -Give IV NS Bolus 250ml due to hypovolemic status, recheck CVP in a few hours -continue dopamine 5mcg/kg/min, monitor heart rate - if tachy, consider switching to levophed -echo showed increased pressure in R ventricle and mild pulmonary hypertension -do not give coffee, give decaf instead -Monitor BP -Patient had hgb of 6.8 which improved to 7.3 after 1 U PRBC -Repeat CBC this PM Pulmonary: currently no acute respiratory issues noted; patient O2 sat 95% with RR 23 ID: sepsis likely 2/2 LE ulcer/cellulitis -continue abx per ID (daptomycin/aztreonam) Musculoskeletal: b/l LE ulcers and cellulitis mildly improving -continue santyl application -oxycodone for pain Endocrine: pt with a hx of hypothyroidism -continue home levothyroxine FEN -bolus 250 0.9% NS if CVP is low and MAP <65 -hold standing fluids unless bolus is needed for volume resuscitation -continue sodium controlled diet, hold coffee and give decaf Proph -continue heparin prophylaxis Visit type - Emergency Visit Emergency Visit: No - New Patient This patient is new to me today: Yes Date on this admission: 01/13/17 - Critical Care Critical Care patient: Yes Total Critical Care Time (in minutes): 45 Critical Care Statement: The care of this patient involved high complexity decision making to prevent further life threatening deterioration of the patient 's condition and/or to evalute & treat vital organ system(s) failure or risk of failure.
--- NOTE | 2017-01-13 14:05 | PN ---
Teaching Attending Note Name of Resident: Deysi Van ATTENDING PHYSICIAN STATEMENT I saw and evaluated the patient. I reviewed the resident's note and discussed the case with the resident. I agree with the resident's findings and plan as documented. SUBJECTIVE: no fever or chills, feels a little better . cont to have L hip apain . No diarrhea OBJECTIVE: NAD, AAOx3 HEENT: MMM, EOMI. no facial droop. CV: RRR, 2/6 SM at RUSB. has JVD Lungs : R basilar crackles Abd : soft, NT, ND , NL BS Ext: b/l legs ulcers , with foul smelling L > R . DP 2+ R, 1+ L. Fungal infection among toes. L leg with increased circumference and erythema /warmth compared to L. L inguinal L nodes. Skin : no decubs on buttocks . no wounds Assessment/Plan: 71 y/o lady with h/o HTN, PVD, s/p stenting and graft of LLE, hypothyroidism,h/ o cellulitis on LE , and L hip DJD who presented with fever , she was found to have severe sepsis and cellulitis in L LE 1- Severe sepsis and septic shock. Now bacteremic with G+ cocci in clusters , likely MRSA - cont dopamine , might switch to levophed - cont aztreonam and Dapto given her h/o pseudomonas and now cx results - repeat blood cx . - echo to r/o Endocarditis - Transfuse one unit of RBC due to sepsis - careful with IVF as she developed worsening JVDs and crackles after gentle hydration yesterday 2- Hypotension is likely due to sepsis. EKG changes with S1, Q3T3 with RBBB , are concerning for PE , although absence of hypoxia and tachycardia argues against it - Cont heparin empirically - LLE US neg for DVT. check RLE US and VQ scan , if neg will dc AC - echo to determine any R heart strain 3- YING: could be due to sepsis, hypotension , or heart failure - cont pressors. 4- mirocytic anemia : likely due to chronic bleeding from hemorrhoids. - iron studies indicates iron def. will start po iron at dc - transfuse one unit today due to her sepsis - f/u GI as out ot unless starts bleeding here . DVT PX on heparin gtt ICU CCT 40 min
[2017-01-13] MEDS: HEPARIN INFUSION - 500 ML IVPB SCH ×2 (14:47→20:56)
--- NOTE | 2017-01-13 15:14 | PN ---
Teaching Attending Note Name of Resident: Ceasar Russo ATTENDING PHYSICIAN STATEMENT I saw and evaluated the patient. I reviewed the resident's note and discussed the case with the resident. I agree with the resident's findings and plan as documented. SUBJECTIVE: Patient seen and examined in the ICU. Awake and alert. Denies CP or SOB. Remains on Dopamine for hemodynamic support. Started on IV Heparin for suspected VTE. Intake & Output 01/10/17 01/11/17 01/12/17 01/13/17 23:59 23:59 23:59 23:59 Intake Total 1076.2 922 Output Total 800 1100 Balance 276.2 -178 Weight 236 lb 229 lb Last Vital Signs Temp Pulse Resp BP Pulse Ox 97.8 F 84 21 97/49 98 01/13/17 14:00 01/13/17 14:00 01/13/17 14:00 01/13/17 14:00 01/13/17 08:00 Active Medications Acetaminophen (Tylenol -) 325 mg PO Q6H PRN Last Admin: 01/13/17 06:20 Dose: 325 mg Acetaminophen (Tylenol -) 650 mg PO Q6H PRN PRN Reason: FEVER OR PAIN Collagenase (Santyl -) 1 applic TP DAILY KAIN Last Admin: 01/13/17 10:18 Dose: 1 applic Docusate Sodium (Colace -) 100 mg PO BID PRN PRN Reason: CONSTIPATION Heparin Sodium (Porcine) (Heparin -) 1,000 unit IVPUSH PRN PRN PRN Reason: Heparin Heparin Sodium (Porcine) (Heparin -) 5,000 unit IVPUSH PRN PRN PRN Reason: Heparin Daptomycin 650 mg/ Sodium (Chloride) 50 mls @ 100 mls/hr IVPB DAILY@1300 KAIN Last Admin: 01/13/17 13:15 Dose: 100 mls/hr Aztreonam 1 gm/ Dextrose 50 mls @ 100 mls/hr IVPB Q8H-IV KAIN PRN Reason: Protocol Last Admin: 01/13/17 10:18 Dose: 100 mls/hr Heparin Sodium/Dextrose (Heparin Infusion -) 500 mls @ 36 mls/hr IVPB TITR KAIN ; 1,800 UNITS/HR PRN Reason: Protocol Last Admin: 01/13/17 14:47 Dose: Not Given Dopamine HCl/Dextrose (Dopamine 400 Mg/D5w -) 250 mls @ 20.072 mls/hr IVPB TITR KAIN; 5 MCG/KG/MIN PRN Reason: Protocol Last Titration: 01/13/17 09:30 Dose: 3 mcg/kg/min Ketoconazole (Nizoral 2% Cream -) 1 applic TP BID PRN PRN Reason: Fungal infection of buttock Levothyroxine Sodium (Synthroid -) 100 mcg PO DAILY@0700 KAIN Last Admin: 01/13/17 06:20 Dose: 100 mcg Nystatin (Nystop Powder -) 1 applic TP DAILY KAIN Oxycodone HCl (Roxicodone -) 5 mg PO Q6H PRN PRN Reason: PAIN Last Admin: 01/13/17 06:21 Dose: 5 mg Senna (Senna -) 2 tab PO HS PRN PRN Reason: CONSTIPATION Constitutional: Yes: Awake and alert, NAD Neck: Yes: Supple Cardiovascular: Yes: Regular Rate and Rhythm Respiratory: Yes: basilar rhonchi, no wheezing Gastrointestinal: Yes: Normal Bowel Sounds, Soft Edema: Yes Edema: LLE: Trace, RLE: Trace Wound/Incision: Yes: Open to air Labs: Laboratory Results - last 24 hr 01/12/17 01/12/17 01/12/17 05:35 05:35 09:00 WBC RBC Hgb Hct MCV MCH MCHC RDW Plt Count MPV Neutrophils % Lymphocytes % Monocytes % Eosinophils % Basophils % PTT (Actin FS) Sodium Potassium Chloride Carbon Dioxide Anion Gap BUN Creatinine Creat Clearance w eGFR Random Glucose Hemoglobin A1c % 5.7 D Calcium Phosphorus Magnesium Iron 9 L TIBC 267 Iron Saturation 3 L Total Bilirubin AST ALT Alkaline Phosphatase Total Protein Albumin Urine Color Urine Appearance Urine pH Ur Specific [place] Urine Protein Urine Glucose (UA) Urine Ketones Urine Blood Urine Nitrite Urine Bilirubin Urine Urobilinogen Ur Leukocyte Esterase Urine RBC Urine WBC Ur Epithelial Cells Urine Bacteria Urine Mucus Ur Random Sodium Ur Random Potassium Ur Random Chloride Urine Creatinine Stool Occult Blood Negative Blood Type Antibody Screen Crossmatch 01/12/17 01/12/17 01/13/17 15:00 20:27 00:30 WBC 13.1 H RBC 3.35 L Hgb 7.6 L Hct 24.0 L MCV 71.5 L MCH 22.6 L MCHC 31.6 L RDW 18.3 H Plt Count 250 MPV 7.5 Neutrophils % Lymphocytes % Monocytes % Eosinophils % Basophils % PTT (Actin FS) 65.4 H D Sodium Potassium Chloride Carbon Dioxide Anion Gap BUN Creatinine Creat Clearance w eGFR Random Glucose Hemoglobin A1c % Calcium Phosphorus Magnesium Iron TIBC Iron Saturation Total Bilirubin AST ALT Alkaline Phosphatase Total Protein Albumin Urine Color Urine Appearance Urine pH Ur Specific [place] Urine Protein Urine Glucose (UA) Urine Ketones Urine Blood Urine Nitrite Urine Bilirubin Urine Urobilinogen Ur Leukocyte Esterase Urine RBC Urine WBC Ur Epithelial Cells Urine Bacteria Urine Mucus Ur Random Sodium Ur Random Potassium Ur Random Chloride Urine Creatinine Stool Occult Blood Blood Type O POSITIVE Antibody Screen Negative Crossmatch See Detail 01/13/17 01/13/17 01/13/17 00:30 00:30 00:30 WBC RBC Hgb Hct MCV MCH MCHC RDW Plt Count MPV Neutrophils % Lymphocytes % Monocytes % Eosinophils % Basophils % PTT (Actin FS) Sodium 135 L Potassium 4.5 Chloride 102 Carbon Dioxide 22 Anion Gap 11 BUN 52 H D Creatinine 1.9 H Creat Clearance w eGFR 25.98 Random Glucose 113 H Hemoglobin A1c % Calcium 8.1 L Phosphorus Magnesium Iron TIBC Iron Saturation Total Bilirubin 0.9 D AST 40 H ALT 11 L D Alkaline Phosphatase 93 D Total Protein 5.8 L Albumin 2.1 L Urine Color Ltyellow Urine Appearance Slcloudy Urine pH 5.0 Ur Specific [place] 1.010 Urine Protein Negative Urine Glucose (UA) Negative Urine Ketones Negative Urine Blood 2+ H Urine Nitrite Negative Urine Bilirubin Negative Urine Urobilinogen Negative Ur Leukocyte Esterase 3+ H Urine RBC 22 Urine WBC 64 Ur Epithelial Cells Rare Urine Bacteria Moderate Urine Mucus Rare Ur Random Sodium Ur Random Potassium Ur Random Chloride Urine Creatinine 39.7 Stool Occult Blood Blood Type Antibody Screen Crossmatch 01/13/17 01/13/17 01/13/17 00:30 05:15 05:15 WBC 12.8 H RBC 3.23 L Hgb 7.3 L Hct 23.1 L MCV 71.4 L MCH 22.7 L MCHC 31.8 L RDW 18.3 H Plt Count 254 MPV 7.9 Neutrophils % 93.8 H Lymphocytes % 3.2 L Monocytes % 2.9 L Eosinophils % 0.0 Basophils % 0.1 PTT (Actin FS) Sodium 135 L Potassium 4.2 Chloride 101 Carbon Dioxide 23 Anion Gap 11 BUN 51 H Creatinine 1.8 H Creat Clearance w eGFR Random Glucose 108 H Hemoglobin A1c % Calcium 7.7 L Phosphorus 4.7 D Magnesium 2.4 D Iron TIBC Iron Saturation Total Bilirubin AST ALT Alkaline Phosphatase Total Protein Albumin Urine Color Urine Appearance Urine pH Ur Specific [place] Urine Protein Urine Glucose (UA) Urine Ketones Urine Blood Urine Nitrite Urine Bilirubin Urine Urobilinogen Ur Leukocyte Esterase Urine RBC Urine WBC Ur Epithelial Cells Urine Bacteria Urine Mucus Ur Random Sodium 66 Ur Random Potassium 38.2 Ur Random Chloride 102 Urine Creatinine Stool Occult Blood Blood Type Antibody Screen Crossmatch 01/13/17 05:15 WBC RBC Hgb Hct MCV MCH MCHC RDW Plt Count MPV Neutrophils % Lymphocytes % Monocytes % Eosinophils % Basophils % PTT (Actin FS) 76.8 H Sodium Potassium Chloride Carbon Dioxide Anion Gap BUN Creatinine Creat Clearance w eGFR Random Glucose Hemoglobin A1c % Calcium Phosphorus Magnesium Iron TIBC Iron Saturation Total Bilirubin AST ALT Alkaline Phosphatase Total Protein Albumin Urine Color Urine Appearance Urine pH Ur Specific [place] Urine Protein Urine Glucose (UA) Urine Ketones Urine Blood Urine Nitrite Urine Bilirubin Urine Urobilinogen Ur Leukocyte Esterase Urine RBC Urine WBC Ur Epithelial Cells Urine Bacteria Urine Mucus Ur Random Sodium Ur Random Potassium Ur Random Chloride Urine Creatinine Stool Occult Blood Blood Type Antibody Screen Crossmatch Assessment/Plan Septic shock due to LE ulcer and cellulitis / baceteremia (organism to be identified) Acute on chronic kidney disease Chronic LVDD Hypertension Hypothyroidism History of thyroid cancer s/p partial thyroidectomy Anemia (?) VTE PLAN: Normal transfusion thresholds IVF due to low CVP Pressors PO as tolerated IB Heparin ABX per ID Local wound care If tachycardia an issue -> change to NE Dr Hightower critical care time spent in reviewing chart, evaluating patient and formulating plan 36 min
[2017-01-13] MEDS: DOPAMINE 400 MG/D5W - 250 ML IVPB SCH (15:15)
--- NOTE | 2017-01-13 15:17 | PN ---
Progress Note, Physician History of Present Illness: events noted patient went into septic shock was transferred to icu on pressors still with low bp and very tired - Current Medication List Current Medications: Active Medications Acetaminophen (Tylenol -) 325 mg PO Q6H PRN Last Admin: 01/13/17 06:20 Dose: 325 mg Acetaminophen (Tylenol -) 650 mg PO Q6H PRN PRN Reason: FEVER OR PAIN Collagenase (Santyl -) 1 applic TP DAILY KAIN Last Admin: 01/13/17 10:18 Dose: 1 applic Docusate Sodium (Colace -) 100 mg PO BID PRN PRN Reason: CONSTIPATION Heparin Sodium (Porcine) (Heparin -) 1,000 unit IVPUSH PRN PRN PRN Reason: Heparin Heparin Sodium (Porcine) (Heparin -) 5,000 unit IVPUSH PRN PRN PRN Reason: Heparin Daptomycin 650 mg/ Sodium (Chloride) 50 mls @ 100 mls/hr IVPB DAILY@1300 [facility] Last Admin: 01/13/17 13:15 Dose: 100 mls/hr Aztreonam 1 gm/ Dextrose 50 mls @ 100 mls/hr IVPB Q8H-IV KAIN PRN Reason: Protocol Last Admin: 01/13/17 10:18 Dose: 100 mls/hr Heparin Sodium/Dextrose (Heparin Infusion -) 500 mls @ 36 mls/hr IVPB TITR KAIN ; 1,800 UNITS/HR PRN Reason: Protocol Last Admin: 01/13/17 14:47 Dose: Not Given Dopamine HCl/Dextrose (Dopamine 400 Mg/D5w -) 250 mls @ 20.072 mls/hr IVPB TITR KAIN; 5 MCG/KG/MIN PRN Reason: Protocol Last Titration: 01/13/17 09:30 Dose: 3 mcg/kg/min Ketoconazole (Nizoral 2% Cream -) 1 applic TP BID PRN PRN Reason: Fungal infection of buttock Levothyroxine Sodium (Synthroid -) 100 mcg PO DAILY@0700 [facility] Last Admin: 01/13/17 06:20 Dose: 100 mcg Nystatin (Nystop Powder -) 1 applic TP DAILY KAIN Oxycodone HCl (Roxicodone -) 5 mg PO Q6H PRN PRN Reason: PAIN Last Admin: 01/13/17 06:21 Dose: 5 mg Senna (Senna -) 2 tab PO HS PRN PRN Reason: CONSTIPATION - Objective Vital Signs: Vital Signs Temperature 97.8 F 01/13/17 14:00 Pulse Rate 84 01/13/17 14:00 Respiratory Rate 21 01/13/17 14:00 Blood Pressure 97/49 01/13/17 14:00 O2 Sat by Pulse Oximetry (%) 98 01/13/17 08:00 Constitutional: Yes: Calm, Mild Distress Eyes: Yes: Conjunctiva Clear Cardiovascular: Yes: Regular Rate and Rhythm Respiratory: Yes: Regular, CTA Bilaterally Gastrointestinal: Yes: Normal Bowel Sounds, Soft Musculoskeletal: Yes: Other Extremities: Yes: Other Wound/Incision: Yes: Dressing Dry and Intact, Other Neurological: Yes: Alert, Oriented Psychiatric: Yes: Alert, Other Labs: CBC, BMP 01/13/17 05:15 01/13/17 05:15 INR, PTT INR 1.40 (0.82-1.09) H 01/12/17 01:50 Assessment/Plan cellulitis b/l leg ulcers obesity sepsis wound infection gram positive bacteremia patient now has blood cx positive and also multi bacterial wound infection plan continue dapto probably will have to change aztreonam to meropenam continue pressor support close watch repeat blood cx tomorrow wound care rest as per icu cc time 45 min
[2017-01-13] MEDS ORDERED: PT OWN MED DRAWER 7, Y5N ONE (16:41)
[2017-01-13] MEDS: NYSTATIN POWDER 100,000 UNITS/GM - 15 GM TOPICAL POWDER TP SCH (17:37)
[2017-01-13] MEDS ORDERED: HEPARIN INFUSION - 500 ML IVPB ONE (20:51)
[2017-01-13] MEDS: SODIUM CHLORIDE 1,000 ML IV SCH (20:55)
[2017-01-13] MEDS: DOCUSATE SODIUM 100 MG CAPSULE (FP) PO SCH ×2 (22:00→22:04)
[2017-01-13] MEDS: SENNOSIDES 8.6MG TABLET (FP) PO SCH ×2 (22:00→22:04)
[2017-01-14] MEDS: AZTREONAM 1 GM in DEXTROSE 5%-WATER - 50 ML IVPB SCH ×3 (02:43→17:01)
[2017-01-14] MEDS: ACETAMINOPHEN 325 MG TABLET (FP) PO PRN ×3 (05:52→22:55)
[2017-01-14] MEDS: oxyCODONE HCL 5 MG TABLET PO PRN ×3 (05:53→22:53)
[2017-01-14] MEDS: LEVOTHYROXINE NA 100 MCG TABLET (FP) PO SCH (06:08)
[2017-01-14 06:27] LABS: MCH 23.1 pg (25.7-33.7); MEAN CELL VOLUME 72.3 fl (80-96); MEAN PLT VOLUME 7.9 fl (7.5-11.1); PLATELET COUNT 284 K/MM3 (134-434); RDW 18.5 % (11.6-15.6); WHITE BLOOD COUNT 11.5 K/mm3 (4.0-10.0)
[2017-01-14 06:51] LABS: ALBUMIN 1.9 g/dl (3.4-5.0); ALK PHOS 93 U/L (45-117); ANION GAP 8 (8-16); BILIRUBIN,TOTAL 0.4 mg/dL (0.2-1.0); CO2 23 mmol/L (21-32); CREATININE 1.3 mg/dL (0.55-1.02); GLUCOSE,RANDOM 91 mg/dL (74-106); SGOT/AST 20 U/L (15-37); SGPT/ALT 9 U/L (12-78); TOT PROT 5.5 g/dl (6.4-8.2)
[2017-01-14] MEDS ORDERED: PT OWN MED DRAWER 7, Y5N ONE ×2 (07:25→15:28)
--- NOTE | 2017-01-14 12:30 | PN ---
Teaching Attending Note Name of Resident: Ceasar Russo ATTENDING PHYSICIAN STATEMENT I saw and evaluated the patient. I reviewed the resident's note and discussed the case with the resident. I agree with the resident's findings and plan as documented. SUBJECTIVE: Patient seen and examined in the ICU. Awake and alert. Denies CP or SOB. Currently off Dopamine for hemodynamic support. Remains on IV Heparin for suspected VTE. Intake & Output 01/11/17 01/12/17 01/13/17 01/14/17 23:59 23:59 23:59 23:59 Intake Total 1076.2 2307.3 1227 Output Total 800 2000 500 Balance 276.2 307.3 727 Weight 236 lb 229 lb 231 lb 3 oz Last Vital Signs Temp Pulse Resp BP Pulse Ox 98.4 F 80 25 H 112/56 96 01/14/17 06:00 01/14/17 08:00 01/14/17 09:00 01/14/17 08:00 01/14/17 09:00 Active Medications Acetaminophen (Tylenol -) 325 mg PO Q6H PRN Last Admin: 01/14/17 05:52 Dose: 325 mg Acetaminophen (Tylenol -) 650 mg PO Q6H PRN PRN Reason: FEVER OR PAIN Collagenase (Santyl -) 1 applic TP DAILY KAIN Last Admin: 01/13/17 10:18 Dose: 1 applic Docusate Sodium (Colace -) 100 mg PO BID KAIN Last Admin: 01/13/17 22:00 Dose: Not Given Heparin Sodium (Porcine) (Heparin -) 1,000 unit IVPUSH PRN PRN PRN Reason: Heparin Heparin Sodium (Porcine) (Heparin -) 5,000 unit IVPUSH PRN PRN PRN Reason: Heparin Daptomycin 650 mg/ Sodium (Chloride) 50 mls @ 100 mls/hr IVPB DAILY@1300 [facility] Last Admin: 01/13/17 13:15 Dose: 100 mls/hr Aztreonam 1 gm/ Dextrose 50 mls @ 100 mls/hr IVPB Q8H-IV KAIN PRN Reason: Protocol Last Admin: 01/14/17 02:43 Dose: 100 mls/hr Heparin Sodium/Dextrose (Heparin Infusion -) 500 mls @ 36 mls/hr IVPB TITR KAIN ; 1,800 UNITS/HR PRN Reason: Protocol Last Titration: 01/14/17 08:04 Dose: 1,800 units/hr Dopamine HCl/Dextrose (Dopamine 400 Mg/D5w -) 250 mls @ 20.072 mls/hr IVPB TITR KAIN; 5 MCG/KG/MIN PRN Reason: Protocol Last Titration: 01/14/17 04:50 Dose: 1 mcg/kg/min Sodium Chloride (Normal Saline -) 1,000 mls @ 75 mls/hr IV ASDIR [facility] Last Admin: 01/13/17 20:55 Dose: 75 mls/hr Ketoconazole (Nizoral 2% Cream -) 1 applic TP BID PRN PRN Reason: Fungal infection of buttock Levothyroxine Sodium (Synthroid -) 100 mcg PO DAILY@0700 [facility] Last Admin: 01/14/17 06:08 Dose: 100 mcg Nystatin (Nystop Powder -) 1 applic TP DAILY [facility] Last Admin: 01/13/17 17:37 Dose: 1 applic Oxycodone HCl (Roxicodone -) 5 mg PO Q6H PRN PRN Reason: PAIN Last Admin: 01/14/17 05:53 Dose: 5 mg Senna (Senna -) 2 tab PO HS [facility] Last Admin: 01/13/17 22:00 Dose: Not Given Constitutional: Yes: Awake and alert, NAD Neck: Yes: Supple Cardiovascular: Yes: Regular Rate and Rhythm Respiratory: Yes: basilar rhonchi, no wheezing Gastrointestinal: Yes: Normal Bowel Sounds, Soft Edema: Yes Edema: LLE: Trace, RLE: Trace Wound/Incision: Yes: Open to air Labs: Laboratory Results - last 24 hr 01/12/17 01/12/17 01/14/17 05:35 15:00 05:30 WBC 11.5 H RBC 3.44 L Hgb 8.0 L Hct 24.9 L MCV 72.3 L MCH 23.1 L MCHC 32.0 RDW 18.5 H Plt Count 284 MPV 7.9 PTT (Actin FS) Sodium Potassium Chloride Carbon Dioxide Anion Gap BUN Creatinine Creat Clearance w eGFR Random Glucose Calcium Transferrin 276 Total Bilirubin AST ALT Alkaline Phosphatase Total Protein Albumin Blood Type O POSITIVE Antibody Screen Negative Crossmatch See Detail 01/14/17 01/14/17 05:30 05:30 WBC RBC Hgb Hct MCV MCH MCHC RDW Plt Count MPV PTT (Actin FS) 74.1 H Sodium 136 Potassium 3.7 Chloride 105 Carbon Dioxide 23 Anion Gap 8 BUN 44 H Creatinine 1.3 H D Creat Clearance w eGFR 40.26 Random Glucose 91 Calcium 8.0 L Transferrin Total Bilirubin 0.4 D AST 20 D ALT 9 L Alkaline Phosphatase 93 Total Protein 5.5 L Albumin 1.9 L Blood Type Antibody Screen Crossmatch Assessment/Plan Septic shock due to LE ulcer and cellulitis / baceteremia (organism to be identified) Acute on chronic kidney disease Chronic LVDD Hypertension Hypothyroidism History of thyroid cancer s/p partial thyroidectomy Anemia (?) VTE PLAN: Normal transfusion thresholds IVF Currently off Pressors -> If pressors are needed -> NE PO as tolerated IV Heparin for possible VTE ABX per ID Local wound care Dr Hightower Critical care time spent in reviewing chart, evaluating patient and formulating plan 36 min
--- NOTE | 2017-01-14 13:32 | PN ---
Physical Exam: SUBJECTIVE: 71 year old female with a past medical history of HTN, chronic b/l leg ulcers, b /l lymphedema, peripheral vascular disease, s/p thyroidectomy for thyroid cancer arrived to the ED for fever, weakness, and worsening of the leg ulcers. She was put on broad spectrum antibiotics and began to improve. Her Hgb fell to 6.8 and 1U PRBC was given. Dopamine drip was d/c'd, and patient's MAP has been consistently >70. Pt is currently in no acute distress, complains of hip pain. Denies chest pain, SOB, leg pain. OBJECTIVE: Vital Signs Period Temp Pulse Resp BP Sys/Chakraborty Pulse Ox Last 24 Hr 97.8 F-99 F 72-89 16-25 97-132/44-88 96-96 GENERAL: The patient is awake, alert, and fully oriented, in no acute distress. HEAD: Normal with no signs of trauma. EYES: PERRL, extraocular movements intact, sclera anicteric, conjunctiva clear. No ptosis. ENT: Ears normal, nares patent, oropharynx clear without exudates, moist mucous membranes. NECK: Trachea midline, full range of motion, supple. LUNGS: Breath sounds equal, clear to auscultation bilaterally, no wheezes, no crackles, no accessory muscle use. HEART: Regular rate and rhythm, S1, S2 without murmur, rub or gallop. ABDOMEN: Soft, nontender, nondistended, normoactive bowel sounds, no guarding, no rebound, no hepatosplenomegaly, no masses. EXTREMITIES: 2+ pulses, warm, well-perfused, leg swelling, cellulitis and ulcers noted on b/l lower extremities NEUROLOGICAL: Cranial nerves II through XII grossly intact. Normal speech, gait not observed. PSYCH: Normal mood, normal affect. SKIN: Warm, dry, normal turgor - cellulitis noted on LLE CBC, BMP 01/14/17 05:30 01/14/17 05:30 Active Medications Generic Name Dose Route Start Last Admin Trade Name Freq PRN Reason Stop Dose Admin Acetaminophen 325 mg 01/12/17 13:27 01/14/17 05:52 Tylenol - PO 325 mg Q6H PRN Administration Acetaminophen 650 mg 01/12/17 21:09 Tylenol - PO Q6H PRN FEVER OR PAIN Collagenase 1 applic 01/12/17 12:45 07/31/17 10:18 Santyl - TP 1 applic DAILY KAIN Administration Docusate Sodium 100 mg 01/13/17 22:00 01/13/17 22:00 Colace - PO Not Given BID KAIN Heparin Sodium (Porcine) 1,000 unit 01/12/17 14:12 Heparin - IVPUSH PRN PRN Heparin Heparin Sodium (Porcine) 5,000 unit 01/12/17 14:12 Heparin - IVPUSH PRN PRN Heparin Daptomycin 650 mg/ Sodium 50 mls @ 100 mls/hr 01/12/17 13:00 01/13/17 13:15 Chloride IVPB 100 mls/hr DAILY@1300 KAIN Administration Aztreonam 1 gm/ Dextrose 50 mls @ 100 mls/hr 01/12/17 18:00 01/14/17 02:43 IVPB 100 mls/hr Q8H-IV KAIN Administration Protocol Heparin Sodium/Dextrose 500 mls @ 36 mls/hr 01/12/17 14:30 01/14/17 08:04 Heparin Infusion - IVPB 1,800 units/hr TITR KAIN Titration Protocol 1,800 UNITS/HR Dopamine HCl/Dextrose 250 mls @ 20.072 mls/hr 01/12/17 15:15 01/14/17 04:50 Dopamine 400 Mg/D5w - IVPB 1 mcg/kg/min TITR KAIN Titration Protocol 5 MCG/KG/MIN Sodium Chloride 1,000 mls @ 75 mls/hr 01/13/17 19:30 01/13/17 20:55 Normal Saline - IV 75 mls/hr ASDIR KAIN Administration Ketoconazole 1 applic 01/12/17 04:42 Nizoral 2% Cream - TP BID PRN Fungal infection of buttock Levothyroxine Sodium 100 mcg 01/12/17 07:00 01/14/17 06:08 Synthroid - PO 100 mcg DAILY@0700 KAIN Administration Nystatin 1 applic 01/13/17 14:30 01/13/17 17:37 Nystop Powder - TP 1 applic DAILY KAIN Administration Oxycodone HCl 5 mg 01/12/17 12:49 01/14/17 05:53 Roxicodone - PO 5 mg Q6H PRN Administration PAIN Senna 2 tab 01/13/17 22:00 01/13/17 22:00 Senna - PO Not Given HS KAIN Imaging: LE Doppler: limited exam CXR (01/12) : clear lung bellamy, central line in place, no pneumothorax EKG (01/12): sinus rhythm w/ PACs Echo (01/13): mild annular calcification, mild mitral valve thickening, mild mitral regurgitation, R ventricular pressure increased at 30-40mmg, mild pulmonary hypertension ASSESSMENT/PLAN: 71 year old female w/ sepsis likely 2/2 LE ulcer + cellulitis and hypotension off pressors now with a MAP of 71 Neuro: patient neurologically intact, no issues at present town -continue daily assessment Cardiovascular: patient is currently normotensive with a MAP of 71, CVP was measured to be low -continue standing NS at 75cc/hr; recheck CVP in a few hours -pt is off pressors for now, if propofol consider levophed -echo showed mitral valve thickening increased pressure in R ventricle and mild pulmonary hypertension -spoke to parts department supervisor Dr. Arizmendi - does not currently recommend JOAQUIN -do not give coffee, give decaf instead -Monitor BP -Patient s/p transfusion for low hgb, currently stable hgb at 8 -central line was placed on 01/12 Pulmonary: currently no acute respiratory issues noted; patient O2 sat 95% with RR 23 -no O2 support necessary ID: sepsis likely 2/2 LE ulcer/cellulitis -per ID, recommend switching aztreonam to meropenem -continue daptomycin -repeat blood cx in AM -echo is not significant for a vegetation, JOAQUIN not recommended by parts department supervisor Musculoskeletal: b/l LE ulcers and cellulitis mildly improving -continue santyl application -oxycodone for pain Endocrine: pt with a hx of hypothyroidism -continue home levothyroxine FEN -continue standing fluids at 75cc/hr -bolus 250 0.9% NS if CVP is low and MAP <65 -continue sodium controlled diet, hold coffee and give decaf Proph -continue heparin prophylaxis Dispo -continue to monitor in the ICU Visit type - Emergency Visit Emergency Visit: No - New Patient This patient is new to me today: No - Critical Care Critical Care patient: Yes Total Critical Care Time (in minutes): 40 Critical Care Statement: The care of this patient involved high complexity decision making to prevent further life threatening deterioration of the patient 's condition and/or to evalute & treat vital organ system(s) failure or risk of failure.
--- NOTE | 2017-01-14 13:33 | EKG ---
Test Reason : Blood Pressure : / mmHG Vent. Rate : 087 BPM Atrial Rate : 087 BPM P-R Int : 190 ms QRS Dur : 084 ms QT Int : 360 ms P-R-T Axes : 058 021 051 degrees QTc Int : 433 ms SINUS RHYTHM WITH FREQUENT , UNIFOCAL AND SINGLE RIGHT BUNDLE BRANCH BLOCK ABNORMAL ECG WHEN COMPARED WITH ECG OF 12-JAN-2017 02:34, SIGNIFICANT CHANGES HAVE OCCURRED Confirmed by MONET SELF MD ([id number] on 01/14/2017 1:33:19 PM Referred By: CHAMP Confirmed By:MONET SELF MD
[2017-01-14] MEDS ORDERED: POTASSIUM CHLORIDE TABS 20 MEQ TABLET.ER (FP) PO ONE (14:09)
[2017-01-14] MEDS: DAPTOMYCIN 650 MG in SODIUM CHLORIDE 50 ML IVPB SCH (14:42)
[2017-01-14] MEDS: COLLAGENASE CLOSTRIDIUM HIST. 30 GRAMS TUBE TP SCH (14:43)
[2017-01-14] MEDS: NYSTATIN POWDER 100,000 UNITS/GM - 15 GM TOPICAL POWDER TP SCH (14:43)
[2017-01-14] MEDS: DOCUSATE SODIUM 100 MG CAPSULE (FP) PO SCH ×2 (15:00→22:49)
--- NOTE | 2017-01-14 15:00 | PN ---
Teaching Attending Note Name of Resident: Deysi Van ATTENDING PHYSICIAN STATEMENT I saw and evaluated the patient. I reviewed the resident's note and discussed the case with the resident. I agree with the resident's findings and plan as documented. SUBJECTIVE: no fever ro cills, has no CP or SOB. feels a little bit better OBJECTIVE: NAD, AAOx3 HEENT: MMM, EOMI. no facial droop. CV: RRR, 2/6 SM at RUSB. has JVD Lungs : R basilar crackles Abd : soft, NT, ND , NL BS Ext: b/l legs ulcers , with foul smelling L > R . DP 2+ R, 1+ L. Fungal infection among toes. L leg with increased circumference and erythema /warmth compared to L. L inguinal L nodes. Skin : no decubs on buttocks . no wounds Assessment/Plan: 71 y/o lady with h/o HTN, PVD, s/p stenting and graft of LLE, hypothyroidism,h/ o cellulitis on LE , and L hip DJD who presented with fever , she was found to have severe sepsis and cellulitis in L LE 1- Severe sepsis and septic shock. with bacteremia coag neg staph. - off pressors . moitor BP on fluids - cont Abx - follow repeat Blood cx - echo with no vegetation 2- Possible DVT and PE : - Cont heparin empirically - RLE US with inconclusive findings . - VQ scan pending 3- YING: could be due to sepsis, hypotension , or heart failure - cont IVF and follow renal function 4- Mirocytic anemia: likely due to chronic bleeding from hemorrhoids. - iron studies indicates iron def. will start po iron at dc -s/p One unit of RBC tx yesterday - f/u GI as out ot unless starts bleeding here . DVT PX on heparin gtt ICU CCT 35 min
[2017-01-14] MEDS ORDERED: POTASSIUM CHLORIDE 20 MEQ PREMIX IVPB 100 ML IVPB ONE (15:06)
--- NOTE | 2017-01-14 15:25 | PN ---
Progress Note, Physician History of Present Illness: patient still on pressors looks much better pain in the legs still weak - Current Medication List Current Medications: Active Medications Acetaminophen (Tylenol -) 325 mg PO Q6H PRN Last Admin: 01/14/17 05:52 Dose: 325 mg Acetaminophen (Tylenol -) 650 mg PO Q6H PRN PRN Reason: FEVER OR PAIN Collagenase (Santyl -) 1 applic TP DAILY [facility] Last Admin: 01/14/17 14:43 Dose: 1 applic Docusate Sodium (Colace -) 100 mg PO BID [facility] Last Admin: 01/14/17 15:00 Dose: Not Given Heparin Sodium (Porcine) (Heparin -) 1,000 unit IVPUSH PRN PRN PRN Reason: Heparin Heparin Sodium (Porcine) (Heparin -) 5,000 unit IVPUSH PRN PRN PRN Reason: Heparin Daptomycin 650 mg/ Sodium (Chloride) 50 mls @ 100 mls/hr IVPB DAILY@1300 [facility] Last Admin: 01/14/17 14:42 Dose: 100 mls/hr Aztreonam 1 gm/ Dextrose 50 mls @ 100 mls/hr IVPB Q8H-IV KAIN PRN Reason: Protocol Last Admin: 01/14/17 10:00 Dose: 100 mls/hr Heparin Sodium/Dextrose (Heparin Infusion -) 500 mls @ 36 mls/hr IVPB TITR KAIN ; 1,800 UNITS/HR PRN Reason: Protocol Last Titration: 01/14/17 08:04 Dose: 1,800 units/hr Dopamine HCl/Dextrose (Dopamine 400 Mg/D5w -) 250 mls @ 20.072 mls/hr IVPB TITR KAIN; 5 MCG/KG/MIN PRN Reason: Protocol Last Titration: 01/14/17 04:50 Dose: 1 mcg/kg/min Sodium Chloride (Normal Saline -) 1,000 mls @ 75 mls/hr IV ASDIR [facility] Last Admin: 01/13/17 20:55 Dose: 75 mls/hr Ketoconazole (Nizoral 2% Cream -) 1 applic TP BID PRN PRN Reason: Fungal infection of buttock Levothyroxine Sodium (Synthroid -) 100 mcg PO DAILY@0700 [facility] Last Admin: 01/14/17 06:08 Dose: 100 mcg Nystatin (Nystop Powder -) 1 applic TP DAILY [facility] Last Admin: 01/14/17 14:43 Dose: 1 applic Oxycodone HCl (Roxicodone -) 5 mg PO Q6H PRN PRN Reason: PAIN Last Admin: 01/14/17 14:58 Dose: 5 mg Senna (Senna -) 2 tab PO HS [facility] Last Admin: 01/13/17 22:00 Dose: Not Given - Objective Vital Signs: Vital Signs Temperature 98.8 F 01/14/17 14:00 Pulse Rate 77 01/14/17 14:00 Respiratory Rate 18 01/14/17 14:00 Blood Pressure 116/57 01/14/17 14:00 O2 Sat by Pulse Oximetry (%) 96 01/14/17 09:00 Constitutional: Yes: Calm, Mild Distress, Obese, Other Eyes: Yes: Conjunctiva Clear Cardiovascular: Yes: Regular Rate and Rhythm Respiratory: Yes: Regular, CTA Bilaterally Gastrointestinal: Yes: Normal Bowel Sounds, Soft Musculoskeletal: Yes: Other Extremities: Yes: Other Integumentary: Yes: Other Wound/Incision: Yes: Other (open to air) Neurological: Yes: Alert, Oriented Psychiatric: Yes: Alert, Oriented Labs: CBC, BMP 01/14/17 05:30 01/14/17 05:30 INR, PTT INR 1.40 (0.82-1.09) H 01/12/17 01:50 Assessment/Plan cellulitis b/l leg ulcers obesity sepsis wound infection gram positive bacteremia patient now has blood cx positive and also multi bacterial wound infection plan continue dapto continue pressor support blood cx noted will await for repeat cx report continue as per icu rest as per primary team cc time 45 min
--- NOTE | 2017-01-14 16:20 | PN ---
Physical Exam: SUBJECTIVE: Patient seen and examined this AM. Seems down, denies depression symptoms. No CP, no SOB, no fevers, no chills. CVP WNL overnight. Dopamine 0.5 --> 0 OBJECTIVE: Vital Signs Period Temp Pulse Resp BP Sys/Chakraborty Pulse Ox Last 24 Hr 98.2 F-99.0 F 72-89 16-25 102-132/50-88 96-96 GENERAL: The patient is awake, alert, and fully oriented, in no acute distress. HEENT: Pupils small, reactive, EOMi, no LAD, mild JVD LUNGS: R basilar crackles, no use of accessory muscles HEART: S1, S2, with PVCs, no murmurs ABD: Soft, NT, ND, Normoactive bowel sounds UPPER EXTREMITIES: 2+ pulses, warm, well-perfused, no edema LOWER EXTREMITIES: - Left: Thigh warm, swollen, no TTP. L scabbed over leg ulcers, warm, erythematous, swollen, +2 edema, 1+ pulses - Right: Thigh swollen, less than R, no TTP. R scabbed over leg ulcers, no open wounds, 1+ pulses NEUROLOGICAL: Cranial nerves II through XII grossly intact. No facial droop. Sensation equal and intact bilaterally in face and body. 5+ muscle strength. Laboratory Results - last 24 hr 01/12/17 01/12/17 01/14/17 05:35 15:00 05:30 WBC 11.5 H RBC 3.44 L Hgb 8.0 L Hct 24.9 L MCV 72.3 L MCH 23.1 L MCHC 32.0 RDW 18.5 H Plt Count 284 MPV 7.9 PTT (Actin FS) Sodium Potassium Chloride Carbon Dioxide Anion Gap BUN Creatinine Creat Clearance w eGFR Random Glucose Calcium Transferrin 276 Total Bilirubin AST ALT Alkaline Phosphatase Total Protein Albumin Blood Type O POSITIVE Antibody Screen Negative Crossmatch See Detail 01/14/17 01/14/17 05:30 05:30 WBC RBC Hgb Hct MCV MCH MCHC RDW Plt Count MPV PTT (Actin FS) 74.1 H Sodium 136 Potassium 3.7 Chloride 105 Carbon Dioxide 23 Anion Gap 8 BUN 44 H Creatinine 1.3 H D Creat Clearance w eGFR 40.26 Random Glucose 91 Calcium 8.0 L Transferrin Total Bilirubin 0.4 D AST 20 D ALT 9 L Alkaline Phosphatase 93 Total Protein 5.5 L Albumin 1.9 L Blood Type Antibody Screen Crossmatch Active Medications Generic Name Dose Route Start Last Admin Trade Name Freq PRN Reason Stop Dose Admin Acetaminophen 325 mg 01/12/17 13:27 01/14/17 05:52 Tylenol - PO 325 mg Q6H PRN Administration Acetaminophen 650 mg 01/12/17 21:09 Tylenol - PO Q6H PRN FEVER OR PAIN Collagenase 1 applic 01/12/17 12:45 01/14/17 14:43 Santyl - TP 1 applic DAILY [facility] Administration Docusate Sodium 100 mg 01/13/17 22:00 01/14/17 15:00 Colace - PO Not Given BID [facility] Heparin Sodium (Porcine) 1,000 unit 01/12/17 14:12 Heparin - IVPUSH PRN PRN Heparin Heparin Sodium (Porcine) 5,000 unit 01/12/17 14:12 Heparin - IVPUSH PRN PRN Heparin Daptomycin 650 mg/ Sodium 50 mls @ 100 mls/hr 01/12/17 13:00 01/14/17 14:42 Chloride IVPB 100 mls/hr DAILY@1300 [facility] Administration Aztreonam 1 gm/ Dextrose 50 mls @ 100 mls/hr 01/12/17 18:00 01/14/17 10:00 IVPB 100 mls/hr Q8H-IV K[facility] Administration Protocol Heparin Sodium/Dextrose 500 mls @ 36 mls/hr 01/12/17 14:30 01/14/17 08:04 Heparin Infusion - IVPB 1,800 units/hr TITR [facility] Titration Protocol 1,800 UNITS/HR Dopamine HCl/Dextrose 250 mls @ 20.072 mls/hr 01/12/17 15:15 01/14/17 04:50 Dopamine 400 Mg/D5w - IVPB 1 mcg/kg/min TITR [facility] Titration Protocol 5 MCG/KG/MIN Sodium Chloride 1,000 mls @ 75 mls/hr 01/13/17 19:30 01/13/17 20:55 Normal Saline - IV 75 mls/hr ASDIR [facility] Administration Ketoconazole 1 applic 01/12/17 04:42 Nizoral 2% Cream - TP BID PRN Fungal infection of buttock Levothyroxine Sodium 100 mcg 01/12/17 07:00 01/14/17 06:08 Synthroid - PO 100 mcg DAILY@0700 [facility] Administration Nystatin 1 applic 01/13/17 14:30 01/14/17 14:43 Nystop Powder - TP 1 applic DAILY [facility] Administration Oxycodone HCl 5 mg 01/12/17 12:49 01/14/17 14:58 Roxicodone - PO 5 mg Q6H PRN Administration PAIN Senna 2 tab 01/13/17 22:00 01/13/17 22:00 Senna - PO Not Given HS [facility] ASSESSMENT/PLAN: Patient is a 71 yo F with a PMHx of HTN, chronic b/l leg ulcers (s/p stenting + graft of LLE), B/L lymphedema, Peripheral vascular disease, chronic hip pain, thyroid cancer s/p thyroidectomy (type unknown), and multiple antibiotic allergies presented to the ED with the chief complaints of fever, weakness and worsening of B/L leg ulcers. She was found to be in severe sepsis (Tmax 102.3, HR 93, WBC 19.2, Lactic Acid 2.4). She received Levaquin and antipyretics in the ED and was admitted to Med-Surg. On the floors she had an episode of low BP , and was sent to ICU for HLOC, had been on dopamine drip. # Severe sepsis - Bacteremia with presumptive MSSA, not from wound or urine - IV Aztreonam 1g + IV Daptomycin 650 - Pt not on pressors JOE, MAP >65 - If pt needs pressors, start Levophed instead of Dopamine - CVP low, will start gently hydration 75cc/hr, watch for fluid overload - Hold Lasix for now - ID & Vascular on the case - Echo shows no vegetations # R/O CHF - Echo shows low-normal LV function, EF 55.6% no wall motion abn - CVP is low, IVNS 75cc/hr - If she becomes overloaded, give lasix - F/u CXR - Cardiology on the case # R/o PE - EKG shows chronic S1QT3 w/ new RBBB - Echo shows elevated RV systolic pressure, chronic - LLE dopplers neg; RLLE cannot r/o - Heparin drip - No CTA due to YING - pt cannot tolerate VQ, will try later this admission, if neg --> d/c heparin # YING Baseline Cr 0.9, Admission 1.7 - Improved w/ hydration - Likely hypoperfusion from sepsis vs CHF - Avoid nephrotoxic drugs d/cd Lisinopril - F/u UA + urine electrolytes - F/u bladder scan # New Ventricular Bigeminny - Mg, PO4 WNL - Monitor # Microcytic Anemia Baseline Hgb 9.5-104 - Could be due to chronic hemorrhoidal bleeds, f/u rectal exam - Fe Panel looks AREN - s/p PRBC x 2 - F/u FOBT - Start PO iron at discharge # External Hemorrhoids - Previous bleeding hx, no current bleeds - F/u GI as outpatient # Hx of Hypertension now hypotensive - D/c'd home lisinopril # Hypothyroidism - Levothyroxine # Morbidly obese - Lipid panel WNL - F/u A1C - Consider tag writer consult # FEN - Fluids: None - Electrolytes: Electrolytes to be repeated in am - Nutrition: Sodium controlled diet # Prophylaxis - DVT: On Heparin drip - GI: Not indicated - Deconditioning: PT needed prior to discharge # Code status: Full Code Visit type - Emergency Visit Emergency Visit: No - New Patient This patient is new to me today: No - Critical Care Critical Care patient: No - Discharge Referral Referred to [facility] Med P.C.: No
[2017-01-14] MEDS: HEPARIN INFUSION - 500 ML IVPB SCH (16:57)
[2017-01-14] MEDS: DOPAMINE 400 MG/D5W - 250 ML IVPB SCH (16:59)
--- NOTE | 2017-01-14 18:09 | PN ---
Progress Note, Physician Chief Complaint: Patient seen and examined in ICU Awake and alert Feels better History of Present Illness: Chart was reviewed Denies chest pain, shortness of breath or palpitations - Current Medication List Current Medications: Active Medications Acetaminophen (Tylenol -) 325 mg PO Q6H PRN Last Admin: 01/14/17 16:20 Dose: 325 mg Acetaminophen (Tylenol -) 650 mg PO Q6H PRN PRN Reason: FEVER OR PAIN Collagenase (Santyl -) 1 applic TP DAILY [facility] Last Admin: 01/14/17 14:43 Dose: 1 applic Docusate Sodium (Colace -) 100 mg PO BID [facility] Last Admin: 01/14/17 15:00 Dose: Not Given Heparin Sodium (Porcine) (Heparin -) 1,000 unit IVPUSH PRN PRN PRN Reason: Heparin Heparin Sodium (Porcine) (Heparin -) 5,000 unit IVPUSH PRN PRN PRN Reason: Heparin Daptomycin 650 mg/ Sodium (Chloride) 50 mls @ 100 mls/hr IVPB DAILY@1300 [facility] Last Admin: 01/14/17 14:42 Dose: 100 mls/hr Aztreonam 1 gm/ Dextrose 50 mls @ 100 mls/hr IVPB Q8H-IV K[facility] PRN Reason: Protocol Last Admin: 01/14/17 17:01 Dose: 100 mls/hr Heparin Sodium/Dextrose (Heparin Infusion -) 500 mls @ 36 mls/hr IVPB TITR [facility] ; 1,800 UNITS/HR PRN Reason: Protocol Last Admin: 01/14/17 16:57 Dose: Not Given Dopamine HCl/Dextrose (Dopamine 400 Mg/D5w -) 250 mls @ 20.072 mls/hr IVPB TITR K[facility]; 5 MCG/KG/MIN PRN Reason: Protocol Last Admin: 01/14/17 16:59 Dose: Not Given Sodium Chloride (Normal Saline -) 1,000 mls @ 75 mls/hr IV ASDIR [facility] Last Admin: 01/13/17 20:55 Dose: 75 mls/hr Ketoconazole (Nizoral 2% Cream -) 1 applic TP BID PRN PRN Reason: Fungal infection of buttock Levothyroxine Sodium (Synthroid -) 100 mcg PO DAILY@0700 [facility] Last Admin: 01/14/17 06:08 Dose: 100 mcg Nystatin (Nystop Powder -) 1 applic TP DAILY [facility] Last Admin: 01/14/17 14:43 Dose: 1 applic Oxycodone HCl (Roxicodone -) 5 mg PO Q6H PRN PRN Reason: PAIN Last Admin: 01/14/17 14:58 Dose: 5 mg Senna (Senna -) 2 tab PO HS [facility] Last Admin: 01/13/17 22:00 Dose: Not Given - Objective Vital Signs: Vital Signs Temperature 98.8 F 01/14/17 14:00 Pulse Rate 77 01/14/17 14:00 Respiratory Rate 18 01/14/17 14:00 Blood Pressure 116/57 01/14/17 14:00 O2 Sat by Pulse Oximetry (%) 96 01/14/17 09:00 Neck: Yes: Supple Cardiovascular: Yes: Regular Rate and Rhythm, S1, S2 Respiratory: Yes: Diminished Gastrointestinal: Yes: Normal Bowel Sounds, Soft. No: Tenderness Edema: Yes Edema: LLE: 1+, RLE: 1+ Integumentary: Yes: Venous Stasis Changes Labs: CBC, BMP 01/14/17 05:30 01/14/17 05:30 INR, PTT INR 1.40 (0.82-1.09) H 01/12/17 01:50 Assessment/Plan 1. Sepsis with fever, lower extremity ulcer and cellulitis 2. Acute on chronic kidney disease 3. Acute on chronic LV diastolic dysfunction with failure, elevated BNP, but no significant clinical evidence of heart failure 4. Hypertension 5. Hypothyroidism 6. History of thyroid cancer s/p partial thyroidectomy 7. Anemia - significantly reduced H/H but no active bleed PLAN: 1. Transthoracic echocardiography result reviewed 2. Gentle fluids with caution 3. Monitor H/H 4. Antibiotics coverage 5. Wound care and DVT prophylaxis 6. Heparin drip in view of suspected PE Further plans are to follow Michael Arizmendi MD
[2017-01-14] MEDS ORDERED: oxyCODONE HCL 5 MG TABLET PO ONE (19:04)
[2017-01-14] MEDS: SENNOSIDES 8.6MG TABLET (FP) PO SCH (22:49)
[2017-01-14] MEDS ORDERED: diphenhydrAMINE HCL 25 MG CAPSULE (FP) PO ONE (22:56)
[2017-01-15] MEDS ORDERED: PT OWN MED DRAWER 7, Y5N ONE ×2 (00:20→09:24)
[2017-01-15] MEDS: SODIUM CHLORIDE 1,000 ML IV SCH ×2 (00:24→16:12)
[2017-01-15] MEDS: HEPARIN INFUSION - 500 ML IVPB SCH ×3 (00:24→16:12)
[2017-01-15] MEDS: AZTREONAM 1 GM in DEXTROSE 5%-WATER - 50 ML IVPB SCH ×3 (01:02→18:02)
[2017-01-15] MEDS: LEVOTHYROXINE NA 100 MCG TABLET (FP) PO SCH (06:20)
[2017-01-15 06:37] LABS: MCH 23.2 pg (25.7-33.7); MEAN CELL VOLUME 72.5 fl (80-96); MEAN PLT VOLUME 7.9 fl (7.5-11.1); PLATELET COUNT 254 K/MM3 (134-434); RDW 18.9 % (11.6-15.6); WHITE BLOOD COUNT 10.1 K/mm3 (4.0-10.0)
[2017-01-15 06:52] LABS: ALBUMIN 1.7 g/dl (3.4-5.0); ALK PHOS 91 U/L (45-117); ANION GAP 7 (8-16); BILIRUBIN,TOTAL 0.2 mg/dL (0.2-1.0); CALCIUM 7.7 mg/dL (8.5-10.1); CO2 23 mmol/L (21-32); CREATININE 1.3 mg/dL (0.55-1.02); GLUCOSE,RANDOM 82 mg/dL (74-106); MAGNESIUM 2.2 mg/dL (1.8-2.4); PHOSPHOROUS 3.5 mg/dL (2.5-4.9); SGOT/AST 12 U/L (15-37); SGPT/ALT 8 U/L (12-78); TOT PROT 5.3 g/dl (6.4-8.2)
--- NOTE | 2017-01-15 09:01 | PN ---
Physical Exam: SUBJECTIVE: Patient seen and examined this AM. Pt has no CP, no SOB, no fevers, no chills. Pt is sad because she is stuck in bed, not moving. Hoping to be transferred to the floors for more flexibility in movement. OBJECTIVE: Vital Signs Period Temp Pulse Resp BP Sys/Chakraborty Pulse Ox Last 24 Hr 97.8 F-99.9 F 68-90 17-25 90-140/42-86 96-98 GENERAL: The patient is awake, alert, and fully oriented, in no acute distress. HEENT: Pupils small, reactive, EOMi, no LAD, mild JVD LUNGS: R basilar crackles, no use of accessory muscles HEART: S1, S2, with PVCs, no murmurs ABD: Soft, NT, ND, Normoactive bowel sounds UPPER EXTREMITIES: 2+ pulses, warm, well-perfused, no edema LOWER EXTREMITIES: - Left: Thigh warm, swollen, no TTP. L scabbed over leg ulcers, warm, erythematous, swollen, +2 edema, 1+ pulses - Right: Thigh swollen, less than R, no TTP. R scabbed over leg ulcers, no open wounds, 1+ pulses NEUROLOGICAL: Cranial nerves II through XII grossly intact. No facial droop. Sensation equal and intact bilaterally in face and body. 5+ muscle strength. Laboratory Results - last 24 hr 01/15/17 01/15/17 01/15/17 05:30 05:30 05:30 WBC 10.1 H RBC 3.29 L Hgb 7.6 L Hct 23.8 L MCV 72.5 L MCH 23.2 L MCHC 32.0 RDW 18.9 H Plt Count 254 MPV 7.9 PTT (Actin FS) 73.9 H Sodium 137 Potassium 4.0 Chloride 107 Carbon Dioxide 23 Anion Gap 7 L BUN 42 H Creatinine 1.3 H Creat Clearance w eGFR 40.26 Random Glucose 82 Calcium 7.7 L Phosphorus 3.5 D Magnesium 2.2 Total Bilirubin 0.2 D AST 12 L D ALT 8 L Alkaline Phosphatase 91 Total Protein 5.3 L Albumin 1.7 L Active Medications Generic Name Dose Route Start Last Admin Trade Name Freq PRN Reason Stop Dose Admin Acetaminophen 325 mg 01/12/17 13:27 01/14/17 22:55 Tylenol - PO 325 mg Q6H PRN Administration Acetaminophen 650 mg 01/12/17 21:09 Tylenol - PO Q6H PRN FEVER OR PAIN Collagenase 1 applic 01/12/17 12:45 01/14/17 14:43 Santyl - TP 1 applic DAILY [facility] Administration Docusate Sodium 100 mg 01/13/17 22:00 01/14/17 22:49 Colace - PO Not Given BID [facility] Heparin Sodium (Porcine) 1,000 unit 01/12/17 14:12 Heparin - IVPUSH PRN PRN Heparin Heparin Sodium (Porcine) 5,000 unit 01/12/17 14:12 Heparin - IVPUSH PRN PRN Heparin Daptomycin 650 mg/ Sodium 50 mls @ 100 mls/hr 01/12/17 13:00 01/14/17 14:42 Chloride IVPB 100 mls/hr DAILY@1300 [facility] Administration Aztreonam 1 gm/ Dextrose 50 mls @ 100 mls/hr 01/12/17 18:00 01/15/17 01:02 IVPB 100 mls/hr Q8H-IV KAIN Administration Protocol Heparin Sodium/Dextrose 500 mls @ 36 mls/hr 01/12/17 14:30 01/15/17 00:24 Heparin Infusion - IVPB 36 mls/hr TITR K[facility] Administration Protocol 1,800 UNITS/HR Dopamine HCl/Dextrose 250 mls @ 20.072 mls/hr 01/12/17 15:15 01/14/17 16:59 Dopamine 400 Mg/D5w - IVPB Not Given TITR K[facility] Protocol 5 MCG/KG/MIN Sodium Chloride 1,000 mls @ 75 mls/hr 01/13/17 19:30 01/15/17 00:24 Normal Saline - IV Not Given ASDIR [facility] Ketoconazole 1 applic 01/12/17 04:42 Nizoral 2% Cream - TP BID PRN Fungal infection of buttock Levothyroxine Sodium 100 mcg 01/12/17 07:00 01/15/17 06:20 Synthroid - PO 100 mcg DAILY@0700 [facility] Administration Nystatin 1 applic 01/13/17 14:30 01/14/17 14:43 Nystop Powder - TP 1 applic DAILY [facility] Administration Oxycodone HCl 5 mg 01/12/17 12:49 01/14/17 22:53 Roxicodone - PO 5 mg Q6H PRN Administration PAIN Senna 2 tab 01/13/17 22:00 01/14/17 22:49 Senna - PO Not Given HS [facility] ASSESSMENT/PLAN: Patient is a 71 yo F with a PMHx of HTN, chronic b/l leg ulcers (s/p stenting + graft of LLE), B/L lymphedema, Peripheral vascular disease, chronic hip pain, thyroid cancer s/p thyroidectomy (type unknown), and multiple antibiotic allergies presented to the ED with the chief complaints of fever, weakness and worsening of B/L leg ulcers. She was found to be in severe sepsis (Tmax 102.3, HR 93, WBC 19.2, Lactic Acid 2.4). She received Levaquin and antipyretics in the ED and was admitted to Med-Surg. On the floors she had an episode of low BP , and was sent to ICU for HLOC, had been on dopamine drip. # Severe sepsis - From wound infection - Bacteremia is likely contamination, wait for repeat cultures - Echo negative for vegetations - IV Aztreonam 1g + IV Daptomycin 650 - Pt didnt need pressors overnight, MAP >65, transfer to floors - Pt was on gentle hydration, CVP improved, now 8-12, might keep fluids due to possible ATN - Hold Lasix for now - ID & Vascular on the case # R/O CHF - Echo shows low-normal LV function, EF 55.6% no wall motion abn - CVP stable with IVNS 75cc/hr - If she becomes overloaded, give lasix - F/u CXR - Cardiology on the case # R/o PE - EKG shows chronic S1QT3 w/ new RBBB - Echo shows elevated RV systolic pressure, chronic - LLE dopplers neg; RLLE cannot r/o - Heparin drip - No CTA due to YING - pt cannot tolerate VQ, will try later this admission, if neg --> d/c heparin # YING Baseline Cr 0.9, Admission 1.7 - Improved w/ hydration, now stable - Likely hypoperfusion from sepsis vs CHF - FeNa is 1.6% suggests Intrinsic renal disease, ?ATN, continue fluids - Avoid nephrotoxic drugs d/cd Lisinopril # New Ventricular Bigeminny - Mg, PO4 WNL - Monitor # Microcytic Anemia Baseline Hgb 9.5-104 - Could be due to chronic hemorrhoidal bleeds - s/p PRBC x 2 - H/H now stable - Fe Panel looks AREN, start PO iron at d/c # External Hemorrhoids - Previous bleeding hx, no current bleeds - F/u GI as outpatient # Hx of Hypertension now hypotensive - D/c'd home lisinopril # Hypothyroidism - Levothyroxine # Morbidly obese - Lipid panel WNL - F/u A1C - Consider maintenance tech consult # FEN - Fluids: None - Electrolytes: Electrolytes to be repeated in am - Nutrition: Sodium controlled diet # Prophylaxis - DVT: On Heparin drip - GI: Not indicated - Deconditioning: PT needed prior to discharge # Code status: Full Code Visit type - Emergency Visit Emergency Visit: No - New Patient This patient is new to me today: No - Critical Care Critical Care patient: No
--- NOTE | 2017-01-15 09:10 | PN ---
Physical Exam: SUBJECTIVE: 71 year old female with a past medical history of HTN, chronic b/l leg ulcers, b /l lymphedema, peripheral vascular disease, s/p thyroidectomy for thyroid cancer arrived to the ED 3 days ago for fever, weakness, and worsening of the leg ulcers. She was put on broad spectrum antibiotics and began to improve. Her Hgb fell to 6.8 and 1U PRBC was given. Pt is off pressors and patient's MAP has been consistently >65. Pt is currently in no acute distress. Denies chest pain, SOB, leg pain. OBJECTIVE: Vital Signs Period Temp Pulse Resp BP Sys/Chakraborty Pulse Ox Last 24 Hr 97.8 F-99.9 F 68-90 17-23 90-140/42-86 96-98 GENERAL: The patient is awake, alert, and fully oriented, in no acute distress. HEAD: Normal with no signs of trauma. EYES: PERRL, extraocular movements intact, sclera anicteric, conjunctiva clear. No ptosis. ENT: Ears normal, nares patent, oropharynx clear without exudates, moist mucous membranes. NECK: Trachea midline, full range of motion, supple. LUNGS: Breath sounds equal, clear to auscultation bilaterally, no wheezes, no crackles, no accessory muscle use. HEART: Regular rate and rhythm, S1, S2 without murmur, rub or gallop. ABDOMEN: Soft, nontender, nondistended, normoactive bowel sounds, no guarding, no rebound, no hepatosplenomegaly, no masses. EXTREMITIES: 2+ pulses, warm, well-perfused, leg swelling, cellulitis and ulcers noted on b/l lower extremities NEUROLOGICAL: Cranial nerves II through XII grossly intact. Normal speech, gait not observed. PSYCH: Normal mood, normal affect. SKIN: Warm, dry, normal turgor - cellulitis noted on LLE 01/15/17 05:30 01/15/17 05:30 Active Medications Generic Name Dose Route Start Last Admin Trade Name Freq PRN Reason Stop Dose Admin Acetaminophen 325 mg 01/12/17 13:27 01/14/17 22:55 Tylenol - PO 325 mg Q6H PRN Administration Acetaminophen 650 mg 01/12/17 21:09 Tylenol - PO Q6H PRN FEVER OR PAIN Collagenase 1 applic 01/12/17 12:45 01/14/17 14:43 Santyl - TP 1 applic DAILY KAIN Administration Docusate Sodium 100 mg 01/13/17 22:00 01/14/17 22:49 Colace - PO Not Given BID KAIN Heparin Sodium (Porcine) 1,000 unit 01/12/17 14:12 Heparin - IVPUSH PRN PRN Heparin Heparin Sodium (Porcine) 5,000 unit 01/12/17 14:12 Heparin - IVPUSH PRN PRN Heparin Daptomycin 650 mg/ Sodium 50 mls @ 100 mls/hr 01/12/17 13:00 01/14/17 14:42 Chloride IVPB 100 mls/hr DAILY@1300 KAIN Administration Aztreonam 1 gm/ Dextrose 50 mls @ 100 mls/hr 01/12/17 18:00 01/15/17 01:02 IVPB 100 mls/hr Q8H-IV KAIN Administration Protocol Heparin Sodium/Dextrose 500 mls @ 36 mls/hr 01/12/17 14:30 01/15/17 00:24 Heparin Infusion - IVPB 36 mls/hr TITR KAIN Administration Protocol 1,800 UNITS/HR Dopamine HCl/Dextrose 250 mls @ 20.072 mls/hr 01/12/17 15:15 01/14/17 16:59 Dopamine 400 Mg/D5w - IVPB Not Given TITR KAIN Protocol 5 MCG/KG/MIN Sodium Chloride 1,000 mls @ 75 mls/hr 01/13/17 19:30 01/15/17 00:24 Normal Saline - IV Not Given ASDIR KAIN Ketoconazole 1 applic 01/12/17 04:42 Nizoral 2% Cream - TP BID PRN Fungal infection of buttock Levothyroxine Sodium 100 mcg 01/12/17 07:00 01/15/17 06:20 Synthroid - PO 100 mcg DAILY@0700 KAIN Administration Nystatin 1 applic 01/13/17 14:30 01/14/17 14:43 Nystop Powder - TP 1 applic DAILY KAIN Administration Oxycodone HCl 5 mg 01/12/17 12:49 01/14/17 22:53 Roxicodone - PO 5 mg Q6H PRN Administration PAIN Senna 2 tab 01/13/17 22:00 01/14/17 22:49 Senna - PO Not Given HS KAIN Imaging: LE Doppler: limited exam CXR (01/12) : clear lung bellamy, central line in place, no pneumothorax EKG (01/12): sinus rhythm w/ PACs Echo (01/13): mild annular calcification, mild mitral valve thickening, mild mitral regurgitation, R ventricular pressure increased at 30-40mmg, mild pulmonary hypertension ASSESSMENT/PLAN: 71 year old female w/ sepsis likely 2/2 LE ulcer + cellulitis and hypotension off pressors now for 24 hours with a MAP of 74 Neuro: patient neurologically intact, no issues at present town -continue daily assessment Cardiovascular: patient is currently normotensive with a MAP of 74 off pressors for 24 hours -insert 2 peripheral IVs and remove central line -continue standing NS at 75cc/hr -pt is off pressors for now, if pressors needed, consider dopamine until central access can be obtained - then switch to levophed -echo showed mitral valve thickening increased pressure in R ventricle and mild pulmonary hypertension -spoke to multiple sclerosis nurse Dr. Arizmendi - does not currently recommend JOAQUIN -do not give coffee, give decaf instead -Monitor BP -Patient s/p transfusion for low hgb, currently hgb dropped from 8.0 to 7.6, not necessary to transfuse Pulmonary: currently no acute respiratory issues noted; patient O2 sat 95% with RR 23 -no O2 support necessary ID: sepsis likely 2/2 LE ulcer/cellulitis -per ID, continue aztreonam -continue daptomycin -echo is not significant for a vegetation, JOAQUIN not recommended by multiple sclerosis nurse Musculoskeletal: b/l LE ulcers and cellulitis mildly improving -continue santyl application, wrap legs after application -oxycodone for pain Endocrine: pt with a hx of hypothyroidism -continue home levothyroxine FEN -continue standing fluids at 75cc/hr -bolus 250 0.9% NS if BP becomes low -continue sodium controlled diet, hold coffee and give decaf Proph -continue heparin prophylaxis Dispo -patient is stable for transfer to telemetry today Visit type - Emergency Visit Emergency Visit: No - New Patient This patient is new to me today: No - Critical Care Critical Care patient: Yes Total Critical Care Time (in minutes): 40 Critical Care Statement: The care of this patient involved high complexity decision making to prevent further life threatening deterioration of the patient 's condition and/or to evalute & treat vital organ system(s) failure or risk of failure.
[2017-01-15] MEDS: DOCUSATE SODIUM 100 MG CAPSULE (FP) PO SCH ×2 (09:28→21:30)
[2017-01-15] MEDS: COLLAGENASE CLOSTRIDIUM HIST. 30 GRAMS TUBE TP SCH (09:30)
[2017-01-15] MEDS: oxyCODONE HCL 5 MG TABLET PO PRN (09:34)
[2017-01-15] MEDS: NYSTATIN POWDER 100,000 UNITS/GM - 15 GM TOPICAL POWDER TP SCH (09:36)
--- NOTE | 2017-01-15 09:54 | PN ---
Progress Note, Physician History of Present Illness: Denies chest pain or dyspnea, hemodynamically stable off dopamine gtt. - Current Medication List Current Medications: Active Medications Acetaminophen (Tylenol -) 325 mg PO Q6H PRN Last Admin: 01/14/17 22:55 Dose: 325 mg Acetaminophen (Tylenol -) 650 mg PO Q6H PRN PRN Reason: FEVER OR PAIN Collagenase (Santyl -) 1 applic TP DAILY KAIN Last Admin: 01/15/17 09:30 Dose: 1 applic Docusate Sodium (Colace -) 100 mg PO BID KAIN Last Admin: 01/15/17 09:28 Dose: Not Given Heparin Sodium (Porcine) (Heparin -) 1,000 unit IVPUSH PRN PRN PRN Reason: Heparin Heparin Sodium (Porcine) (Heparin -) 5,000 unit IVPUSH PRN PRN PRN Reason: Heparin Daptomycin 650 mg/ Sodium (Chloride) 50 mls @ 100 mls/hr IVPB DAILY@1300 KAIN Last Admin: 01/14/17 14:42 Dose: 100 mls/hr Aztreonam 1 gm/ Dextrose 50 mls @ 100 mls/hr IVPB Q8H-IV KAIN PRN Reason: Protocol Last Admin: 01/15/17 09:28 Dose: 100 mls/hr Heparin Sodium/Dextrose (Heparin Infusion -) 500 mls @ 36 mls/hr IVPB TITR KAIN ; 1,800 UNITS/HR PRN Reason: Protocol Last Admin: 01/15/17 00:24 Dose: 36 mls/hr Dopamine HCl/Dextrose (Dopamine 400 Mg/D5w -) 250 mls @ 20.072 mls/hr IVPB TITR KAIN; 5 MCG/KG/MIN PRN Reason: Protocol Last Admin: 01/14/17 16:59 Dose: Not Given Sodium Chloride (Normal Saline -) 1,000 mls @ 75 mls/hr IV ASDIR KAIN Last Admin: 01/15/17 00:24 Dose: Not Given Ketoconazole (Nizoral 2% Cream -) 1 applic TP BID PRN PRN Reason: Fungal infection of buttock Last Admin: 01/15/17 09:35 Dose: 1 applic Levothyroxine Sodium (Synthroid -) 100 mcg PO DAILY@0700 [facility] Last Admin: 01/15/17 06:20 Dose: 100 mcg Nystatin (Nystop Powder -) 1 applic TP DAILY KAIN Last Admin: 01/15/17 09:36 Dose: 1 applic Oxycodone HCl (Roxicodone -) 5 mg PO Q6H PRN PRN Reason: PAIN Last Admin: 01/15/17 09:34 Dose: 5 mg Senna (Senna -) 2 tab PO HS [facility] Last Admin: 01/14/17 22:49 Dose: Not Given - Objective Vital Signs: Vital Signs Temperature 97.8 F 01/15/17 06:00 Pulse Rate 75 01/15/17 08:00 Respiratory Rate 23 01/15/17 08:00 Blood Pressure 120/52 01/15/17 08:00 O2 Sat by Pulse Oximetry (%) 98 01/15/17 08:00 Constitutional: Yes: No Distress, Calm Neck: Yes: Supple Cardiovascular: Yes: Regular Rate and Rhythm Respiratory: Yes: Regular, Diminished, On Nasal O2 Gastrointestinal: Yes: Normal Bowel Sounds, Soft, Abdomen, Obese Edema: Yes Edema: LLE: Trace, RLE: Trace Labs: CBC, BMP 01/15/17 05:30 01/15/17 05:30 INR, PTT INR 1.40 (0.82-1.09) H 01/12/17 01:50 - ....Imaging EKG: Report Reviewed (Tele: SR with PVC) Assessment/Plan 01/13/2017 Echo: Normal LV size with low normal LV fxn, mild MR 1. Post MRSA septic shock with fever, lower extremity wound infection and cellulitis 2. Acute on chronic kidney disease resolving 3. Chronic LV diastolic dysfunction and elevated BNP, without significant clinical evidence of heart failure 4. Hypertension 5. Hypothyroidism 6. History of thyroid cancer s/p partial thyroidectomy 7. Anemia - significantly reduced H/H but no active bleed 8. Ventricular bigeminy PLAN: 1. Start Toprol XL 25 qd and resume Lisinopril once renal function stabilizes 2. Judicious hydration as you are 3. Maintained on heparin gtt on suspicion of PE, but doubtful, consider transfuse PRBC as H/H is significantly reduced 4. Empiric daptomycin/azactam per ID 5. Vascular surgery follow up 6. Wound care and DVT prophylaxis
[2017-01-15] MEDS: DAPTOMYCIN 650 MG in SODIUM CHLORIDE 50 ML IVPB SCH (13:00)
--- NOTE | 2017-01-15 13:03 | PN ---
Teaching Attending Note Name of Resident: Deysi Van ATTENDING PHYSICIAN STATEMENT I saw and evaluated the patient. I reviewed the resident's note and discussed the case with the resident. I agree with the resident's findings and plan as documented. SUBJECTIVE: Patient continues to be in ICU, comfortable with no acute distress. OBJECTIVE: Vital Signs Temperature 98.5 F 01/15/17 10:00 Pulse Rate 92 H 01/15/17 12:34 Respiratory Rate 20 01/15/17 12:34 Blood Pressure 117/54 01/15/17 12:34 O2 Sat by Pulse Oximetry (%) 100 01/15/17 12:11 CBCD WBC 10.1 K/mm3 (4.0-10.0) H 01/15/17 05:30 RBC 3.29 M/mm3 (3.60-5.2) L 01/15/17 05:30 Hgb 7.6 GM/dL (10.7-15.3) L 01/15/17 05:30 Hct 23.8 % (32.4-45.2) L 01/15/17 05:30 MCV 72.5 fl (80-96) L 01/15/17 05:30 MCHC 32.0 g/dl (32.0-36.0) 01/15/17 05:30 RDW 18.9 % (11.6-15.6) H 01/15/17 05:30 Plt Count 254 K/MM3 (134-434) 01/15/17 05:30 MPV 7.9 fl (7.5-11.1) 01/15/17 05:30 CMP Sodium 137 mmol/L (136-145) 01/15/17 05:30 Potassium 4.0 mmol/L (3.5-5.1) 01/15/17 05:30 Chloride 107 mmol/L (98-107) 01/15/17 05:30 Carbon Dioxide 23 mmol/L (21-32) 01/15/17 05:30 Anion Gap 7 (8-16) L 01/15/17 05:30 BUN 42 mg/dL (7-18) H 01/15/17 05:30 Creatinine 1.3 mg/dL (0.55-1.02) H 01/15/17 05:30 Creat Clearance w eGFR 40.26 (>60) 01/15/17 05:30 Random Glucose 82 mg/dL (74-106) 01/15/17 05:30 Calcium 7.7 mg/dL (8.5-10.1) L 01/15/17 05:30 Total Bilirubin 0.2 mg/dL (0.2-1.0) D 01/15/17 05:30 AST 12 U/L (15-37) L D 01/15/17 05:30 ALT 8 U/L (12-78) L 01/15/17 05:30 Alkaline Phosphatase 91 U/L (45-117) 01/15/17 05:30 Total Protein 5.3 g/dl (6.4-8.2) L 01/15/17 05:30 Albumin 1.7 g/dl (3.4-5.0) L 01/15/17 05:30 Current Medications Generic Name Dose Route Start Last Admin Trade Name Freq PRN Reason Stop Dose Admin Acetaminophen 325 mg 01/12/17 13:27 01/14/17 22:55 Tylenol - PO 325 mg Q6H PRN Administration Acetaminophen 650 mg 01/12/17 21:09 Tylenol - PO Q6H PRN FEVER OR PAIN Collagenase 1 applic 01/12/17 12:45 01/15/17 09:30 Santyl - TP 1 applic DAILY KAIN Administration Docusate Sodium 100 mg 01/13/17 22:00 01/15/17 09:28 Colace - PO Not Given BID KAIN Heparin Sodium (Porcine) 1,000 unit 01/12/17 14:12 Heparin - IVPUSH PRN PRN Heparin Heparin Sodium (Porcine) 5,000 unit 01/12/17 14:12 Heparin - IVPUSH PRN PRN Heparin Daptomycin 650 mg/ Sodium 50 mls @ 100 mls/hr 01/12/17 13:00 01/14/17 14:42 Chloride IVPB 100 mls/hr DAILY@1300 KAIN Administration Aztreonam 1 gm/ Dextrose 50 mls @ 100 mls/hr 01/12/17 18:00 01/15/17 09:28 IVPB 100 mls/hr Q8H-IV KAIN Administration Protocol Heparin Sodium/Dextrose 500 mls @ 36 mls/hr 01/12/17 14:30 01/15/17 12:05 Heparin Infusion - IVPB 36 mls/hr TITR KAIN Administration Protocol 1,800 UNITS/HR Dopamine HCl/Dextrose 250 mls @ 20.072 mls/hr 01/12/17 15:15 01/14/17 16:59 Dopamine 400 Mg/D5w - IVPB Not Given TITR KAIN Protocol 5 MCG/KG/MIN Sodium Chloride 1,000 mls @ 75 mls/hr 01/13/17 19:30 01/15/17 00:24 Normal Saline - IV Not Given ASDIR KAIN Ketoconazole 1 applic 01/12/17 04:42 01/15/17 09:35 Nizoral 2% Cream - TP 1 applic BID PRN Administration Fungal infection of buttock Levothyroxine Sodium 100 mcg 01/12/17 07:00 01/15/17 06:20 Synthroid - PO 100 mcg DAILY@0700 KAIN Administration Nystatin 1 applic 01/13/17 14:30 01/15/17 09:36 Nystop Powder - TP 1 applic DAILY KAIN Administration Oxycodone HCl 5 mg 01/12/17 12:49 01/15/17 09:34 Roxicodone - PO 5 mg Q6H PRN Administration PAIN Senna 2 tab 01/13/17 22:00 01/14/17 22:49 Senna - PO Not Given [facility] Home Medications Medication Instructions Recorded Levothyroxine [Synthroid -] 100 mcg PO DAILY 07/02/16 Lisinopril [Prinivil] 20 mg PO DAILY 07/02/16 Ketoconazole 2% Cream [Nizoral 2% 1 applic TP BID PRN #1 tube 11/26/16 Cream -] Oxycodone HCl 5 mg PO Q4H 01/12/17 PE: per resident's note ASSESSMENT AND PLAN: 71 y/o lady with h/o HTN, PVD, s/p stenting and graft of LLE, hypothyroidism,h/ o cellulitis on LE , and L hip DJD who presented with fever , she was found to have severe sepsis and cellulitis in L LE # Severe sepsis and septic shock. with bacteremia coag neg staph. off pressors now, continue IV antibiotic as per ID. echo with no vegetation # Possible DVT and PE : Cont heparin empirically; RLE US with inconclusive findings . Patient is not hypoxic, and not tachycardic # YING: improving possibel due to sepsis # Mirocytic anemia: likely due to chronic bleeding from hemorrhoids. DVT PX on heparin gtt
--- NOTE | 2017-01-15 14:34 | PN ---
Teaching Attending Note Name of Resident: Ceasar Russo ATTENDING PHYSICIAN STATEMENT I saw and evaluated the patient. I reviewed the resident's note and discussed the case with the resident. I agree with the resident's findings and plan as documented. SUBJECTIVE: Pt seen and examined in the ICU. No further fevers. Off pressors. OBJECTIVE: Last Vital Signs Temp Pulse Resp BP Pulse Ox 98.5 F 92 H 20 117/54 100 01/15/17 10:00 01/15/17 12:34 01/15/17 12:34 01/15/17 12:34 01/15/17 12:11 Intake & Output 01/12/17 01/13/17 01/14/17 01/15/17 23:59 23:59 23:59 23:59 Intake Total 1076.2 2307.3 3187 1482 Output Total 800 2000 1300 350 Balance 276.2 307.3 1887 1132 Weight 236 lb 229 lb 231 lb 3 oz 236 lb 7 oz Gen: NAD at rest Heart: RRR Lung: decreased breath sounds at the bases Abd: soft, nontender Ext: + edema, left leg erythema CBC, BMP 01/15/17 05:30 01/15/17 05:30 Active Medications Acetaminophen (Tylenol -) 325 mg PO Q6H PRN Last Admin: 01/14/17 22:55 Dose: 325 mg Acetaminophen (Tylenol -) 650 mg PO Q6H PRN PRN Reason: FEVER OR PAIN Collagenase (Santyl -) 1 applic TP DAILY [facility] Last Admin: 01/15/17 09:30 Dose: 1 applic Docusate Sodium (Colace -) 100 mg PO BID [facility] Last Admin: 01/15/17 09:28 Dose: Not Given Heparin Sodium (Porcine) (Heparin -) 1,000 unit IVPUSH PRN PRN PRN Reason: Heparin Heparin Sodium (Porcine) (Heparin -) 5,000 unit IVPUSH PRN PRN PRN Reason: Heparin Daptomycin 650 mg/ Sodium (Chloride) 50 mls @ 100 mls/hr IVPB DAILY@1300 [facility] Last Admin: 01/14/17 14:42 Dose: 100 mls/hr Aztreonam 1 gm/ Dextrose 50 mls @ 100 mls/hr IVPB Q8H-IV KAIN PRN Reason: Protocol Last Admin: 01/15/17 09:28 Dose: 100 mls/hr Heparin Sodium/Dextrose (Heparin Infusion -) 500 mls @ 36 mls/hr IVPB TITR KAIN ; 1,800 UNITS/HR PRN Reason: Protocol Last Admin: 01/15/17 12:05 Dose: 36 mls/hr Dopamine HCl/Dextrose (Dopamine 400 Mg/D5w -) 250 mls @ 20.072 mls/hr IVPB TITR KAIN; 5 MCG/KG/MIN PRN Reason: Protocol Last Admin: 01/14/17 16:59 Dose: Not Given Sodium Chloride (Normal Saline -) 1,000 mls @ 75 mls/hr IV ASDIR KAIN Last Admin: 01/15/17 00:24 Dose: Not Given Ketoconazole (Nizoral 2% Cream -) 1 applic TP BID PRN PRN Reason: Fungal infection of buttock Last Admin: 01/15/17 09:35 Dose: 1 applic Levothyroxine Sodium (Synthroid -) 100 mcg PO DAILY@0700 [facility] Last Admin: 01/15/17 06:20 Dose: 100 mcg Nystatin (Nystop Powder -) 1 applic TP DAILY [facility] Last Admin: 01/15/17 09:36 Dose: 1 applic Oxycodone HCl (Roxicodone -) 5 mg PO Q6H PRN PRN Reason: PAIN Last Admin: 01/15/17 09:34 Dose: 5 mg Senna (Senna -) 2 tab PO HS [facility] Last Admin: 01/14/17 22:49 Dose: Not Given ASSESSMENT AND PLAN: Lower Extremity Cellulitis Septic Shock improving Acute on Chronic Renal Failure Lactic Acidosis resolved LV Diastolic Dysfunction Anemia HTN Hypothyroidism h/o Thyroid Ca - antibiotics per ID - f/u pending cultures - IVF - monitor urine output, creatinine - wound care - low suspicion for PE, defer to primary team for anticoagulation - can monitor on floor
[2017-01-15] MEDS ORDERED: HEPARIN NA (PORCINE) 5,000 UNITS/ML 1ML VIAL IVPUSH PRN ×4 (14:51)
[2017-01-15] MEDS ORDERED: KETOCONAZOLE 2% CREAM - 60GM TUBE TP PRN (14:51)
[2017-01-15] MEDS ORDERED: DOPAMINE 400 MG/D5W - 250 ML IVPB SCH (15:15)
[2017-01-15] MEDS ORDERED: KETOCONOZOLE 2% TOPICAL CREAM 15 GM TUBE TP PRN (15:48)
--- NOTE | 2017-01-15 17:17 | PN ---
Progress Note, Physician History of Present Illness: patient doing well looks much better in the room patient bp stabilized - Current Medication List Current Medications: Active Medications Acetaminophen (Tylenol -) 325 mg PO Q6H PRN PRN Reason: FEVER OR PAIN Acetaminophen (Tylenol -) 650 mg PO Q6H PRN PRN Reason: FEVER OR PAIN Collagenase (Santyl -) 1 applic TP DAILY KAIN Docusate Sodium (Colace -) 100 mg PO BID KAIN Heparin Sodium (Porcine) (Heparin -) 1,000 unit IVPUSH PRN PRN PRN Reason: Heparin Heparin Sodium (Porcine) (Heparin -) 5,000 unit IVPUSH PRN PRN PRN Reason: Heparin Aztreonam 1 gm/ Dextrose 50 mls @ 100 mls/hr IVPB Q8H-IV KAIN PRN Reason: Protocol Daptomycin 650 mg/ Sodium (Chloride) 50 mls @ 100 mls/hr IVPB DAILY@1300 KAIN Heparin Sodium/Dextrose (Heparin Infusion -) 500 mls @ 36 mls/hr IVPB TITR KAIN ; 1,800 UNITS/HR PRN Reason: Protocol Last Admin: 01/15/17 16:12 Dose: 36 mls/hr Sodium Chloride (Normal Saline -) 1,000 mls @ 75 mls/hr IV ASDIR KAIN Last Admin: 01/15/17 16:12 Dose: 75 mls/hr Ketoconazole (Nizoral 2% Cream -) 1 applic TP BID PRN PRN Reason: Fungal infection of buttock Levothyroxine Sodium (Synthroid -) 100 mcg PO DAILY@0700 KAIN Nystatin (Nystop Powder -) 1 applic TP DAILY KAIN Oxycodone HCl (Roxicodone -) 5 mg PO Q6H PRN PRN Reason: PAIN Senna (Senna -) 2 tab PO HS KAIN - Objective Vital Signs: Vital Signs Temperature 98.2 F 01/15/17 14:00 Pulse Rate 78 01/15/17 16:00 Respiratory Rate 22 01/15/17 16:00 Blood Pressure 110/65 01/15/17 16:00 O2 Sat by Pulse Oximetry (%) 100 01/15/17 12:11 Constitutional: Yes: No Distress, Calm Neck: Yes: Supple Cardiovascular: Yes: Regular Rate and Rhythm Respiratory: Yes: Regular, CTA Bilaterally Gastrointestinal: Yes: Normal Bowel Sounds, Soft Musculoskeletal: Yes: Other Extremities: Yes: Other Wound/Incision: Yes: Dressing Dry and Intact Neurological: Yes: Alert, Oriented Psychiatric: Yes: Alert, Oriented Labs: CBC, BMP 01/15/17 05:30 01/15/17 05:30 INR, PTT INR 1.40 (0.82-1.09) H 01/12/17 01:50 Assessment/Plan cellulitis b/l leg ulcers obesity sepsis wound infection gram positive bacteremia patient now has blood cx positive and also multi bacterial wound infection plan continue dapto repeat cx negative will await for repeat cx report continue as per icu rest as per primary team cc time 40 min
[2017-01-15] MEDS: SENNOSIDES 8.6MG TABLET (FP) PO SCH (21:30)
[2017-01-16] MEDS: HEPARIN INFUSION - 500 ML IVPB SCH ×2 (01:22→14:44)
[2017-01-16] MEDS: AZTREONAM 1 GM in DEXTROSE 5%-WATER - 50 ML IVPB SCH ×3 (01:22→17:14)
[2017-01-16 06:23] LABS: MCH 22.7 pg (25.7-33.7); MCHC 31.2 g/dl (32.0-36.0); MEAN CELL VOLUME 72.7 fl (80-96); MEAN PLT VOLUME 8.1 fl (7.5-11.1); PLATELET COUNT 268 K/MM3 (134-434); RDW 19.9 % (11.6-15.6); WHITE BLOOD COUNT 11.8 K/mm3 (4.0-10.0)
[2017-01-16] MEDS: LEVOTHYROXINE NA 100 MCG TABLET (FP) PO SCH (06:30)
[2017-01-16 06:43] LABS: ALBUMIN 1.8 g/dl (3.4-5.0); ANION GAP 7 (8-16); BILIRUBIN,TOTAL 0.1 mg/dL (0.2-1.0); CO2 23 mmol/L (21-32); CREATININE 1.1 mg/dL (0.55-1.02); GLUCOSE,RANDOM 96 mg/dL (74-106); SGOT/AST 10 U/L (15-37); SGPT/ALT 7 U/L (12-78); TOT PROT 5.7 g/dl (6.4-8.2)
[2017-01-16 06:44] LABS: ALK PHOS 106 U/L (45-117)
[2017-01-16] MEDS: DOCUSATE SODIUM 100 MG CAPSULE (FP) PO SCH ×2 (09:50→22:06)
[2017-01-16] MEDS: COLLAGENASE CLOSTRIDIUM HIST. 30 GRAMS TUBE TP SCH (09:51)
--- NOTE | 2017-01-16 10:34 | PN ---
Progress Note, Physician History of Present Illness: Denies chest pain or dyspnea. - Current Medication List Current Medications: Active Medications Acetaminophen (Tylenol -) 325 mg PO Q6H PRN PRN Reason: FEVER OR PAIN Acetaminophen (Tylenol -) 650 mg PO Q6H PRN PRN Reason: FEVER OR PAIN Collagenase (Santyl -) 1 applic TP DAILY [facility] Last Admin: 01/16/17 09:51 Dose: 1 applic Docusate Sodium (Colace -) 100 mg PO BID [facility] Last Admin: 01/16/17 09:50 Dose: 100 mg Heparin Sodium (Porcine) (Heparin -) 1,000 unit IVPUSH PRN PRN PRN Reason: Heparin Heparin Sodium (Porcine) (Heparin -) 5,000 unit IVPUSH PRN PRN PRN Reason: Heparin Aztreonam 1 gm/ Dextrose 50 mls @ 100 mls/hr IVPB Q8H-IV KAIN PRN Reason: Protocol Last Admin: 01/16/17 09:49 Dose: 100 mls/hr Daptomycin 650 mg/ Sodium (Chloride) 50 mls @ 100 mls/hr IVPB DAILY@1300 [facility] Heparin Sodium/Dextrose (Heparin Infusion -) 500 mls @ 36 mls/hr IVPB TITR KAIN ; 1,800 UNITS/HR PRN Reason: Protocol Last Admin: 01/16/17 01:22 Dose: 36 mls/hr Sodium Chloride (Normal Saline -) 1,000 mls @ 75 mls/hr IV ASDIR [facility] Last Admin: 01/15/17 16:12 Dose: 75 mls/hr Ketoconazole (Nizoral 2% Cream -) 1 applic TP BID PRN PRN Reason: Fungal infection of buttock Levothyroxine Sodium (Synthroid -) 100 mcg PO DAILY@0700 [facility] Last Admin: 01/16/17 06:30 Dose: 100 mcg Metoprolol Succinate (Toprol Xl -) 25 mg PO DAILY [facility] Nystatin (Nystop Powder -) 1 applic TP DAILY [facility] Oxycodone HCl (Roxicodone -) 5 mg PO Q6H PRN PRN Reason: PAIN Senna (Senna -) 2 tab PO HS [facility] Last Admin: 01/15/17 21:30 Dose: 2 tab - Objective Vital Signs: Vital Signs Temperature 98.2 F 01/16/17 06:00 Pulse Rate 75 01/16/17 10:00 Respiratory Rate 22 01/16/17 10:00 Blood Pressure 141/78 01/16/17 10:00 O2 Sat by Pulse Oximetry (%) 100 01/15/17 21:15 Constitutional: Yes: No Distress, Calm Neck: Yes: Supple Cardiovascular: Yes: Regular Rate and Rhythm Respiratory: Yes: Regular, Diminished Gastrointestinal: Yes: Normal Bowel Sounds, Soft, Abdomen, Obese Edema: Yes Edema: LLE: Trace, RLE: Trace Labs: CBC, BMP 01/16/17 05:05 01/16/17 05:05 INR, PTT INR 1.40 (0.82-1.09) H 01/12/17 01:50 - ....Imaging EKG: Report Reviewed (Tele: Ventricular bigeminy) Assessment/Plan 01/13/2017 Echo: Normal LV size with low normal LV fxn, mild MR 1. Post MRSA septic shock with fever, lower extremity wound infection and cellulitis 2. Acute on chronic kidney disease resolved 3. Chronic LV diastolic dysfunction and elevated BNP, without significant clinical evidence of heart failure 4. Hypertension 5. Hypothyroidism 6. History of thyroid cancer s/p partial thyroidectomy 7. Anemia - significantly reduced H/H but no active bleed 8. Ventricular bigeminy PLAN: 1. Start Toprol XL 25 qd and resume Lisinopril 10 qd now that renal function stabilized 2. Judicious hydration as you are 3. Change heparin gtt to sc heparin, consider transfuse PRBC as H/H is significantly reduced 4. Empiric daptomycin/azactam per ID 5. Vascular surgery follow up 6. Wound care and DVT prophylaxis
[2017-01-16] MEDS: NYSTATIN POWDER 100,000 UNITS/GM - 15 GM TOPICAL POWDER TP SCH (11:03)
--- NOTE | 2017-01-16 12:11 | PN ---
Physical Exam: SUBJECTIVE: 71 year old female with a past medical history of HTN, chronic b/l leg ulcers, b /l lymphedema, peripheral vascular disease, s/p thyroidectomy for thyroid cancer arrived to the ED 3 days ago for fever, weakness, and worsening of the leg ulcers. She was put on broad spectrum antibiotics and began to improve. Her Hgb fell to 6.8 and 1U PRBC was given. Pt is off pressors and patient's MAP has been consistently >65. Pt is currently in no acute distress. Denies chest pain, SOB, leg pain. OBJECTIVE: Vital Signs Period Temp Pulse Resp BP Sys/Chakraborty Pulse Ox Last 24 Hr 98.2 F-99.6 F 70-102 20-27 110-141/47-78 100-100 GENERAL: The patient is awake, alert, and fully oriented, in no acute distress. HEAD: Normal with no signs of trauma. EYES: PERRL, extraocular movements intact, sclera anicteric, conjunctiva clear. No ptosis. ENT: Ears normal, nares patent, oropharynx clear without exudates, moist mucous membranes. NECK: Trachea midline, full range of motion, supple. LUNGS: Breath sounds equal, clear to auscultation bilaterally, no wheezes, no crackles, no accessory muscle use. HEART: Regular rate and rhythm, S1, S2 without murmur, rub or gallop. ABDOMEN: Soft, nontender, nondistended, normoactive bowel sounds, no guarding, no rebound, no hepatosplenomegaly, no masses. EXTREMITIES: 2+ pulses, warm, well-perfused, leg swelling, cellulitis and ulcers noted on b/l lower extremities - legs are wrapped b/l NEUROLOGICAL: Cranial nerves II through XII grossly intact. Normal speech, gait not observed. PSYCH: Normal mood, normal affect. SKIN: Warm, dry, normal turgor - b/l legs wrapped Laboratory Results - last 24 hr 01/12/17 01/16/17 01/16/17 15:00 05:05 05:05 WBC 11.8 H RBC 3.64 Hgb 8.2 L Hct 26.5 L MCV 72.7 L MCH 22.7 L MCHC 31.2 L RDW 19.9 H Plt Count 268 MPV 8.1 PTT (Actin FS) 67.2 H Sodium Potassium Chloride Carbon Dioxide Anion Gap BUN Creatinine Creat Clearance w eGFR Random Glucose Calcium Total Bilirubin AST ALT Alkaline Phosphatase Total Protein Albumin Blood Type O POSITIVE Antibody Screen Negative Crossmatch See Detail 01/16/17 05:05 WBC RBC Hgb Hct MCV MCH MCHC RDW Plt Count MPV PTT (Actin FS) Sodium 140 Potassium 4.0 Chloride 110 H Carbon Dioxide 23 Anion Gap 7 L BUN 35 H Creatinine 1.1 H Creat Clearance w eGFR 48.82 Random Glucose 96 Calcium 8.0 L Total Bilirubin 0.1 L D AST 10 L ALT 7 L Alkaline Phosphatase 106 Total Protein 5.7 L Albumin 1.8 L Blood Type Antibody Screen Crossmatch Active Medications Generic Name Dose Route Start Last Admin Trade Name Freq PRN Reason Stop Dose Admin Acetaminophen 325 mg 01/15/17 14:51 Tylenol - PO Q6H PRN FEVER OR PAIN Acetaminophen 650 mg 01/15/17 14:51 Tylenol - PO Q6H PRN FEVER OR PAIN Collagenase 1 applic 01/16/17 10:00 01/16/17 09:51 Santyl - TP 1 applic DAILY KAIN Administration Docusate Sodium 100 mg 01/15/17 22:00 01/16/17 09:50 Colace - PO 100 mg BID KAIN Administration Heparin Sodium (Porcine) 5,000 unit 01/16/17 22:00 Heparin - SQ BID KAIN Aztreonam 1 gm/ Dextrose 50 mls @ 100 mls/hr 01/15/17 18:00 01/16/17 09:49 IVPB 100 mls/hr Q8H-IV KAIN Administration Protocol Daptomycin 650 mg/ Sodium 50 mls @ 100 mls/hr 01/16/17 13:00 Chloride IVPB DAILY@1300 KAIN Heparin Sodium/Dextrose 500 mls @ 36 mls/hr 01/15/17 14:51 01/16/17 01:22 Heparin Infusion - IVPB 36 mls/hr TITR KAIN Administration Protocol 1,800 UNITS/HR Sodium Chloride 1,000 mls @ 75 mls/hr 01/15/17 14:51 01/15/17 16:12 Normal Saline - IV 75 mls/hr ASDIR KAIN Administration Ketoconazole 1 applic 01/15/17 15:48 Nizoral 2% Cream - TP BID PRN Fungal infection of buttock Levothyroxine Sodium 100 mcg 01/16/17 07:00 01/16/17 06:30 Synthroid - PO 100 mcg DAILY@0700 KAIN Administration Metoprolol Succinate 25 mg 01/16/17 10:45 Toprol Xl - PO DAILY KAIN Nystatin 1 applic 01/16/17 10:00 01/16/17 11:03 Nystop Powder - TP 1 applic DAILY KAIN Administration Oxycodone HCl 5 mg 01/15/17 14:51 Roxicodone - PO Q6H PRN PAIN Senna 2 tab 01/15/17 22:00 01/15/17 21:30 Senna - PO 2 tab HS KAIN Administration Imaging: LE Doppler: limited exam CXR (01/12) : clear lung bellamy, central line in place, no pneumothorax EKG (01/12): sinus rhythm w/ PACs Echo (01/13): mild annular calcification, mild mitral valve thickening, mild mitral regurgitation, R ventricular pressure increased at 30-40mmg, mild pulmonary hypertension ASSESSMENT/PLAN: 71 year old female w/ sepsis likely 2/2 LE ulcer + cellulitis and hypotension off pressors now for 24 hours with a MAP of 74 Neuro: patient neurologically intact, no issues at present town -continue daily assessment Cardiovascular: patient is currently normotensive with a MAP of 79 off pressors for 48 hours -central line removed 24 hours, off pressors -continue standing NS at 75cc/hr -previous echo showed mitral valve thickening increased pressure in R ventricle and mild pulmonary hypertension -Dr. Arizmendi did not recommend JOAQUIN when spoken to previously -do not give coffee, give decaf instead -Monitor BP -Patient s/p transfusion for low hgb, currently hgb dropped from 8.0 to 7.6, not necessary to transfuse Pulmonary: currently no acute respiratory issues noted; patient O2 sat 95% with RR 23, cannot r/o PE -no O2 support necessary -continue heparin drip due to possibility of PE ID: sepsis likely 2/2 LE ulcer/cellulitis -per ID, continue aztreonam -continue daptomycin -echo is not significant for a vegetation, JOAQUIN not recommended by surgical aide Musculoskeletal: b/l LE ulcers and cellulitis mildly improving -continue santyl application, wrap legs after application -oxycodone for pain Endocrine: pt with a hx of hypothyroidism -continue home levothyroxine FEN -continue standing fluids at 75cc/hr -bolus 250 0.9% NS if BP becomes low -continue sodium controlled diet, hold coffee and give decaf Proph -continue heparin for PE Dispo -patient is pending transfer to telemetry Visit type - Emergency Visit Emergency Visit: No - New Patient This patient is new to me today: No - Critical Care Critical Care patient: Yes Total Critical Care Time (in minutes): 30 Critical Care Statement: The care of this patient involved high complexity decision making to prevent further life threatening deterioration of the patient 's condition and/or to evalute & treat vital organ system(s) failure or risk of failure.
--- NOTE | 2017-01-16 13:07 | PN ---
Teaching Attending Note Name of Resident: Ceasar Russo ATTENDING PHYSICIAN STATEMENT I saw and evaluated the patient. I reviewed the resident's note and discussed the case with the resident. I agree with the resident's findings and plan as documented. SUBJECTIVE: Patient seen and examined in the ICU. Awake and alert on NC O2. Some dry cough. No abdominal pain. Tolerating some PO intake. Intake & Output 01/13/17 01/14/17 01/15/17 01/16/17 23:59 23:59 23:59 23:59 Intake Total 2307.3 3187 3532 Output Total 1999 1300 1050 1100 Balance 307.3 1887 2482 -1100 Weight 229 lb 231 lb 3 oz 236 lb 7 oz 236 lb 14.4 oz Last Vital Signs Temp Pulse Resp BP Pulse Ox 98.2 F 70 26 H 120/53 100 01/16/17 06:00 01/16/17 12:00 01/16/17 12:00 01/16/17 12:00 01/16/17 09:00 Active Medications Acetaminophen (Tylenol -) 325 mg PO Q6H PRN PRN Reason: FEVER OR PAIN Acetaminophen (Tylenol -) 650 mg PO Q6H PRN PRN Reason: FEVER OR PAIN Collagenase (Santyl -) 1 applic TP DAILY [facility] Last Admin: 01/16/17 09:51 Dose: 1 applic Docusate Sodium (Colace -) 100 mg PO BID [facility] Last Admin: 01/16/17 09:50 Dose: 100 mg Heparin Sodium (Porcine) (Heparin -) 5,000 unit SQ BID KAIN Aztreonam 1 gm/ Dextrose 50 mls @ 100 mls/hr IVPB Q8H-IV KAIN PRN Reason: Protocol Last Admin: 01/16/17 09:49 Dose: 100 mls/hr Daptomycin 650 mg/ Sodium (Chloride) 50 mls @ 100 mls/hr IVPB DAILY@1300 KAIN Heparin Sodium/Dextrose (Heparin Infusion -) 500 mls @ 36 mls/hr IVPB TITR KAIN ; 1,800 UNITS/HR PRN Reason: Protocol Last Admin: 01/16/17 01:22 Dose: 36 mls/hr Sodium Chloride (Normal Saline -) 1,000 mls @ 75 mls/hr IV ASDIR KAIN Last Admin: 01/15/17 16:12 Dose: 75 mls/hr Ketoconazole (Nizoral 2% Cream -) 1 applic TP BID PRN PRN Reason: Fungal infection of buttock Levothyroxine Sodium (Synthroid -) 100 mcg PO DAILY@0700 [facility] Last Admin: 01/16/17 06:30 Dose: 100 mcg Metoprolol Succinate (Toprol Xl -) 25 mg PO DAILY [facility] Nystatin (Nystop Powder -) 1 applic TP DAILY [facility] Last Admin: 01/16/17 11:03 Dose: 1 applic Oxycodone HCl (Roxicodone -) 5 mg PO Q6H PRN PRN Reason: PAIN Senna (Senna -) 2 tab PO HS [facility] Last Admin: 01/15/17 21:30 Dose: 2 tab Constitutional: Yes: Awake and alert, NAD Neck: Yes: Supple Cardiovascular: Yes: Regular Rate and Rhythm Respiratory: Yes: basilar rhonchi, no wheezing Gastrointestinal: Yes: Normal Bowel Sounds, Soft Edema: Yes Edema: LLE: Trace, RLE: Trace Wound/Incision: Yes: Open to air Labs: Laboratory Results - last 24 hr 01/12/17 01/16/17 01/16/17 15:00 05:05 05:05 WBC 11.8 H RBC 3.64 Hgb 8.2 L Hct 26.5 L MCV 72.7 L MCH 22.7 L MCHC 31.2 L RDW 19.9 H Plt Count 268 MPV 8.1 PTT (Actin FS) 67.2 H Sodium Potassium Chloride Carbon Dioxide Anion Gap BUN Creatinine Creat Clearance w eGFR Random Glucose Calcium Total Bilirubin AST ALT Alkaline Phosphatase Total Protein Albumin Blood Type O POSITIVE Antibody Screen Negative Crossmatch See Detail 01/16/17 05:05 WBC RBC Hgb Hct MCV MCH MCHC RDW Plt Count MPV PTT (Actin FS) Sodium 140 Potassium 4.0 Chloride 110 H Carbon Dioxide 23 Anion Gap 7 L BUN 35 H Creatinine 1.1 H Creat Clearance w eGFR 48.82 Random Glucose 96 Calcium 8.0 L Total Bilirubin 0.1 L D AST 10 L ALT 7 L Alkaline Phosphatase 106 Total Protein 5.7 L Albumin 1.8 L Blood Type Antibody Screen Crossmatch Assessment/Plan Septic shock due to LE ulcer and cellulitis / bacteremia Acute on chronic kidney disease Chronic LVDD Hypertension Hypothyroidism History of thyroid cancer s/p partial thyroidectomy Anemia (?) VTE PLAN: Normal transfusion thresholds Currently off Pressors -> If pressors are needed -> NE PO as tolerated VTE prophylaxis -> low clinical suspicion for VTE -> Now that the CXR has improved -> there is increased value of V/Q imaging if there still is a concern ABX per ID Local wound care Dr Hightower Critical care time spent in reviewing chart, evaluating patient and formulating plan 36 min
[2017-01-16] MEDS: DAPTOMYCIN 650 MG in SODIUM CHLORIDE 50 ML IVPB SCH (13:27)
[2017-01-16] MEDS: METOPROLOL SUCCINATE 25 MG TAB.SR.24H (FP) PO SCH (13:27)
[2017-01-16] MEDS: SODIUM CHLORIDE 1,000 ML IV SCH (14:45)
--- NOTE | 2017-01-16 15:41 | PN ---
Progress Note, Physician History of Present Illness: patient doing well looks much better no complaints calm - Current Medication List Current Medications: Active Medications Acetaminophen (Tylenol -) 325 mg PO Q6H PRN PRN Reason: FEVER OR PAIN Acetaminophen (Tylenol -) 650 mg PO Q6H PRN PRN Reason: FEVER OR PAIN Collagenase (Santyl -) 1 applic TP DAILY [facility] Last Admin: 01/16/17 09:51 Dose: 1 applic Docusate Sodium (Colace -) 100 mg PO BID [facility] Last Admin: 01/16/17 09:50 Dose: 100 mg Heparin Sodium (Porcine) (Heparin -) 5,000 unit SQ BID [facility] Aztreonam 1 gm/ Dextrose 50 mls @ 100 mls/hr IVPB Q8H-IV KAIN PRN Reason: Protocol Last Admin: 01/16/17 09:49 Dose: 100 mls/hr Daptomycin 650 mg/ Sodium (Chloride) 50 mls @ 100 mls/hr IVPB DAILY@1300 [facility] Last Admin: 01/16/17 13:27 Dose: 100 mls/hr Heparin Sodium/Dextrose (Heparin Infusion -) 500 mls @ 36 mls/hr IVPB TITR KAIN ; 1,800 UNITS/HR PRN Reason: Protocol Last Admin: 01/16/17 14:44 Dose: 36 mls/hr Sodium Chloride (Normal Saline -) 1,000 mls @ 75 mls/hr IV ASDIR [facility] Last Admin: 01/16/17 14:45 Dose: 75 mls/hr Ketoconazole (Nizoral 2% Cream -) 1 applic TP BID PRN PRN Reason: Fungal infection of buttock Levothyroxine Sodium (Synthroid -) 100 mcg PO DAILY@0700 [facility] Last Admin: 01/16/17 06:30 Dose: 100 mcg Lisinopril (Prinivil) 10 mg PO DAILY [facility] Metoprolol Succinate (Toprol Xl -) 25 mg PO DAILY [facility] Last Admin: 01/16/17 13:27 Dose: 25 mg Nystatin (Nystop Powder -) 1 applic TP DAILY [facility] Last Admin: 01/16/17 11:03 Dose: 1 applic Oxycodone HCl (Roxicodone -) 5 mg PO Q6H PRN PRN Reason: PAIN Senna (Senna -) 2 tab PO HS [facility] Last Admin: 01/15/17 21:30 Dose: 2 tab - Objective Vital Signs: Vital Signs Temperature 98.5 F 01/16/17 14:00 Pulse Rate 73 01/16/17 14:00 Respiratory Rate 22 01/16/17 14:00 Blood Pressure 131/75 01/16/17 14:00 O2 Sat by Pulse Oximetry (%) 100 01/16/17 09:00 Constitutional: Yes: No Distress, Calm Cardiovascular: Yes: Regular Rate and Rhythm Respiratory: Yes: Regular, CTA Bilaterally Gastrointestinal: Yes: Normal Bowel Sounds, Soft Musculoskeletal: Yes: Other Extremities: Yes: Other Integumentary: Yes: Erythema, Skin Tear, Other Wound/Incision: Yes: Dressing Dry and Intact Neurological: Yes: Alert, Oriented Psychiatric: Yes: Alert, Oriented Labs: CBC, BMP 01/16/17 05:05 01/16/17 05:05 INR, PTT INR 1.40 (0.82-1.09) H 01/12/17 01:50 Assessment/Plan cellulitis b/l leg ulcers obesity sepsis wound infection gram positive bacteremia patient now has blood cx positive and also multi bacterial wound infection plan continue dapto continue as per icu rest as per primary team contiue wound care close watch on bp cc time 40 min
--- NOTE | 2017-01-16 16:44 | PN ---
Physical Exam: SUBJECTIVE: Patient seen and examined this AM. No complaints. No CP, no SOB, no fevers, no chills. OBJECTIVE: Vital Signs Period Temp Pulse Resp BP Sys/Chakraborty Pulse Ox Last 24 Hr 98.2 F-99.6 F 70-92 21-27 113-141/47-78 100-100 GENERAL: The patient is awake, alert, and fully oriented, in no acute distress. HEENT: Pupils small, reactive, EOMi, no LAD, mild JVD LUNGS: R basilar crackles, no use of accessory muscles HEART: S1, S2, with PVCs, no murmurs ABD: Soft, NT, ND, Normoactive bowel sounds UPPER EXTREMITIES: 2+ pulses, warm, well-perfused, no edema LOWER EXTREMITIES: - Left: Thigh warm, swollen, mild TTP. L scabbed over leg ulcers, less warm, less erythematous, swollen, +2 edema, 1+ pulses - Right: Thigh swollen, less than R, no TTP. R scabbed over leg ulcers, no open wounds, 1+ pulses NEUROLOGICAL: Cranial nerves II through XII grossly intact. No facial droop. Sensation equal and intact bilaterally in face and body. 5+ muscle strength. Laboratory Results - last 24 hr 01/12/17 01/16/17 01/16/17 15:00 05:05 05:05 WBC 11.8 H RBC 3.64 Hgb 8.2 L Hct 26.5 L MCV 72.7 L MCH 22.7 L MCHC 31.2 L RDW 19.9 H Plt Count 268 MPV 8.1 PTT (Actin FS) 67.2 H Sodium Potassium Chloride Carbon Dioxide Anion Gap BUN Creatinine Creat Clearance w eGFR Random Glucose Calcium Total Bilirubin AST ALT Alkaline Phosphatase Total Protein Albumin Blood Type O POSITIVE Antibody Screen Negative Crossmatch See Detail 01/16/17 05:05 WBC RBC Hgb Hct MCV MCH MCHC RDW Plt Count MPV PTT (Actin FS) Sodium 140 Potassium 4.0 Chloride 110 H Carbon Dioxide 23 Anion Gap 7 L BUN 35 H Creatinine 1.1 H Creat Clearance w eGFR 48.82 Random Glucose 96 Calcium 8.0 L Total Bilirubin 0.1 L D AST 10 L ALT 7 L Alkaline Phosphatase 106 Total Protein 5.7 L Albumin 1.8 L Blood Type Antibody Screen Crossmatch Active Medications Generic Name Dose Route Start Last Admin Trade Name Freq PRN Reason Stop Dose Admin Acetaminophen 325 mg 01/15/17 14:51 Tylenol - PO Q6H PRN FEVER OR PAIN Acetaminophen 650 mg 01/15/17 14:51 Tylenol - PO Q6H PRN FEVER OR PAIN Collagenase 1 applic 01/16/17 10:00 01/16/17 09:51 Santyl - TP 1 applic DAILY KAIN Administration Docusate Sodium 100 mg 01/15/17 22:00 01/16/17 09:50 Colace - PO 100 mg BID KAIN Administration Heparin Sodium (Porcine) 5,000 unit 01/16/17 22:00 Heparin - SQ BID KAIN Aztreonam 1 gm/ Dextrose 50 mls @ 100 mls/hr 01/15/17 18:00 01/16/17 09:49 IVPB 100 mls/hr Q8H-IV KAIN Administration Protocol Daptomycin 650 mg/ Sodium 50 mls @ 100 mls/hr 01/16/17 13:00 01/16/17 13:27 Chloride IVPB 100 mls/hr DAILY@1300 KAIN Administration Heparin Sodium/Dextrose 500 mls @ 36 mls/hr 01/15/17 14:51 01/16/17 14:44 Heparin Infusion - IVPB 36 mls/hr TITR KAIN Administration Protocol 1,800 UNITS/HR Sodium Chloride 1,000 mls @ 75 mls/hr 01/15/17 14:51 01/16/17 14:45 Normal Saline - IV 75 mls/hr ASDIR KAIN Administration Ketoconazole 1 applic 01/15/17 15:48 Nizoral 2% Cream - TP BID PRN Fungal infection of buttock Levothyroxine Sodium 100 mcg 01/16/17 07:00 01/16/17 06:30 Synthroid - PO 100 mcg DAILY@0700 KAIN Administration Lisinopril 10 mg 01/17/17 10:00 Prinivil PO DAILY K[facility] Metoprolol Succinate 25 mg 01/16/17 10:45 01/16/17 13:27 Toprol Xl - PO 25 mg DAILY KAIN Administration Nystatin 1 applic 01/16/17 10:00 01/16/17 11:03 Nystop Powder - TP 1 applic DAILY KAIN Administration Oxycodone HCl 5 mg 01/15/17 14:51 Roxicodone - PO Q6H PRN PAIN Senna 2 tab 01/15/17 22:00 01/15/17 21:30 Senna - PO 2 tab HS KAIN Administration ASSESSMENT/PLAN: Patient is a 71 yo F with a PMHx of HTN, chronic b/l leg ulcers (s/p stenting + graft of LLE), B/L lymphedema, Peripheral vascular disease, chronic hip pain, thyroid cancer s/p thyroidectomy (type unknown), and multiple antibiotic allergies presented to the ED with the chief complaints of fever, weakness and worsening of B/L leg ulcers. She was found to be in severe sepsis (Tmax 102.3, HR 93, WBC 19.2, Lactic Acid 2.4). She received Levaquin and antipyretics in the ED and was admitted to Med-Surg. On the floors she had an episode of low BP , and was sent to ICU for HLOC, had been on dopamine drip. # Severe sepsis - Likely from LLE cellulitis - Bacteremia is likely contamination, wait for repeat cultures - Continue IV Aztreonam 1g + IV Daptomycin 650 - Not pressor dependent - On gentle hydration - ID & Vascular on the case # R/O CHF - Echo shows low-normal LV function, EF 55.6% no wall motion abn - CVP stable with IVNS 75cc/hr - If she becomes overloaded, give lasix - Cardiology on the case # R/o PE - There was concern for PE during hospitalization from EKG cx - LLE dopplers neg; RLLE cannot r/o in popliteal vein - Since no concern for PE at this moment, d/c'd hep drip # YING Baseline Cr 0.9, Admission 1.7 - Likely hypoperfusion from sepsis vs CHF, Improved w/ hydration - Avoid nephrotoxic drugs d/cd Lisinopril # New Ventricular [place] - Mg, PO4 WNL - Monitor for improvement with metoprolol # Microcytic Anemia Baseline Hgb 9.5-104 - Could be due to chronic hemorrhoidal bleeds - s/p PRBC x 2 - H/H now stable - Fe Panel looks AREN, start PO iron at d/c - F/u GI as outpatient for hemorrhoids # Hx of Hypertension - Since pt is now stable, restart Lisinopril 10mg (lower dose than home 20) as per Cardiology - Start Metoprolol 25mg QD as per Cardiology # Hypothyroidism - Continue levothyroxine # Morbidly obese - Lipid panel WNL - F/u A1C - Consider necktie operator pockets and pieces consult # FEN - Fluids: 75cc/hr - Electrolytes: Electrolytes to be repeated in am - Nutrition: Sodium controlled diet # Prophylaxis - DVT: On Heparin drip - GI: Not indicated - Deconditioning: PT needed prior to discharge # Code status: Full Code # Dispo - Transfer to floors, f/u repeat blood cx, trend WBC Visit type - Emergency Visit Emergency Visit: No - New Patient This patient is new to me today: No - Critical Care Critical Care patient: No
[2017-01-16] MEDS: oxyCODONE HCL 5 MG TABLET PO PRN (17:33)
[2017-01-16] MEDS: ACETAMINOPHEN 325 MG TABLET (FP) PO PRN (17:43)
[2017-01-16] MEDS ORDERED: ESCITALOPRAM OXALATE 10 MG TABLET (FP) PO ONE ×2 (17:48→22:00)
--- NOTE | 2017-01-16 20:14 | PN ---
Teaching Attending Note Name of Resident: Deysi Van ATTENDING PHYSICIAN STATEMENT I saw and evaluated the patient. I reviewed the resident's note and discussed the case with the resident. I agree with the resident's findings and plan as documented. SUBJECTIVE: Patient is feeling better, with no acute distress. No fever or chills, no abdominal pain. OBJECTIVE: Vital Signs Temperature 98.5 F 01/16/17 14:00 Pulse Rate 73 01/16/17 18:00 Respiratory Rate 22 01/16/17 18:00 Blood Pressure 141/54 01/16/17 18:00 O2 Sat by Pulse Oximetry (%) 100 01/16/17 09:00 CBCD WBC 11.8 K/mm3 (4.0-10.0) H 01/16/17 05:05 RBC 3.64 M/mm3 (3.60-5.2) 01/16/17 05:05 Hgb 8.2 GM/dL (10.7-15.3) L 01/16/17 05:05 Hct 26.5 % (32.4-45.2) L 01/16/17 05:05 MCV 72.7 fl (80-96) L 01/16/17 05:05 MCHC 31.2 g/dl (32.0-36.0) L 01/16/17 05:05 RDW 19.9 % (11.6-15.6) H 01/16/17 05:05 Plt Count 268 K/MM3 (134-434) 01/16/17 05:05 MPV 8.1 fl (7.5-11.1) 01/16/17 05:05 CMP Sodium 140 mmol/L (136-145) 01/16/17 05:05 Potassium 4.0 mmol/L (3.5-5.1) 01/16/17 05:05 Chloride 110 mmol/L (98-107) H 01/16/17 05:05 Carbon Dioxide 23 mmol/L (21-32) 01/16/17 05:05 Anion Gap 7 (8-16) L 01/16/17 05:05 BUN 35 mg/dL (7-18) H 01/16/17 05:05 Creatinine 1.1 mg/dL (0.55-1.02) H 01/16/17 05:05 Creat Clearance w eGFR 48.82 (>60) 01/16/17 05:05 Random Glucose 96 mg/dL (74-106) 01/16/17 05:05 Calcium 8.0 mg/dL (8.5-10.1) L 01/16/17 05:05 Total Bilirubin 0.1 mg/dL (0.2-1.0) L D 01/16/17 05:05 AST 10 U/L (15-37) L 01/16/17 05:05 ALT 7 U/L (12-78) L 01/16/17 05:05 Alkaline Phosphatase 106 U/L (45-117) 01/16/17 05:05 Total Protein 5.7 g/dl (6.4-8.2) L 01/16/17 05:05 Albumin 1.8 g/dl (3.4-5.0) L 01/16/17 05:05 Current Medications Generic Name Dose Route Start Last Admin Trade Name Freq PRN Reason Stop Dose Admin Acetaminophen 325 mg 01/15/17 14:51 01/16/17 17:43 Tylenol - PO 325 mg Q6H PRN Administration FEVER OR PAIN Acetaminophen 650 mg 01/15/17 14:51 Tylenol - PO Q6H PRN FEVER OR PAIN Collagenase 1 applic 01/16/17 10:00 01/16/17 09:51 Santyl - TP 1 applic DAILY KAIN Administration Docusate Sodium 100 mg 01/15/17 22:00 01/16/17 09:50 Colace - PO 100 mg BID KAIN Administration Heparin Sodium (Porcine) 5,000 unit 01/16/17 22:00 Heparin - SQ BID KAIN Aztreonam 1 gm/ Dextrose 50 mls @ 100 mls/hr 01/15/17 18:00 01/16/17 17:14 IVPB 100 mls/hr Q8H-IV AKIN Administration Protocol Daptomycin 650 mg/ Sodium 50 mls @ 100 mls/hr 01/16/17 13:00 01/16/17 13:27 Chloride IVPB 100 mls/hr DAILY@1300 KAIN Administration Heparin Sodium/Dextrose 500 mls @ 36 mls/hr 01/15/17 14:51 01/16/17 14:44 Heparin Infusion - IVPB 36 mls/hr TITR KAIN Administration Protocol 1,800 UNITS/HR Sodium Chloride 1,000 mls @ 75 mls/hr 01/15/17 14:51 01/16/17 14:45 Normal Saline - IV 75 mls/hr ASDIR KAIN Administration Ketoconazole 1 applic 01/15/17 15:48 Nizoral 2% Cream - TP BID PRN Fungal infection of buttock Levothyroxine Sodium 100 mcg 01/16/17 07:00 01/16/17 06:30 Synthroid - PO 100 mcg DAILY@0700 KAIN Administration Lisinopril 10 mg 01/17/17 10:00 Prinivil PO DAILY KAIN Metoprolol Succinate 25 mg 01/16/17 10:45 01/16/17 13:27 Toprol Xl - PO 25 mg DAILY KAIN Administration Nystatin 1 applic 01/16/17 10:00 01/16/17 11:03 Nystop Powder - TP 1 applic DAILY KAIN Administration Oxycodone HCl 5 mg 01/15/17 14:51 01/16/17 17:33 Roxicodone - PO 5 mg Q6H PRN Administration PAIN Senna 2 tab 01/15/17 22:00 01/15/17 21:30 Senna - PO 2 tab HS KAIN Administration Home Medications Medication Instructions Recorded Levothyroxine [Synthroid -] 100 mcg PO DAILY 07/02/16 Lisinopril [Prinivil] 20 mg PO DAILY 07/02/16 Ketoconazole 2% Cream [Nizoral 2% 1 applic TP BID PRN #1 tube 11/26/16 Cream -] Oxycodone HCl 5 mg PO Q4H 01/12/17 Microbiology 01/13/17 15:47 Blood - Peripheral Venous Blood Culture - Preliminary NO GROWTH OBTAINED AFTER 96 HOURS, INCUBATION TO CONTINUE FOR 1 DAYS. 01/13/17 15:47 Blood - Peripheral Venous Blood Culture - Preliminary NO GROWTH OBTAINED AFTER 96 HOURS, INCUBATION TO CONTINUE FOR 1 DAYS. 01/12/17 02:10 Blood - Peripheral Venous Blood Culture - Final Staphylococcus Auricularis 01/12/17 02:10 Blood - Peripheral Venous Blood Culture - Final Staphylococcus Auricularis 01/12/17 10:00 Leg - Left Lower Gram Stain - Final 01/12/17 10:00 Leg - Left Lower Wound Culture - Final Enterococcus Faecalis Beta Hem Streptococcus Group C Escherichia Coli Escherichia Coli#2 Staphylococcus Aureus 01/12/17 10:00 Leg - Right Lower Gram Stain - Final 01/12/17 10:00 Leg - Right Lower Wound Culture - Final Enterococcus Faecalis Beta Hem Streptococcus Group C Escherichia Coli Escherichia Coli#2 Staphylococcus Aureus 01/13/17 00:30 Urine - Urine Rich Urine Culture - Final NO GROWTH OBTAINED PE: per resident's note ASSESSMENT AND PLAN: 71 y/o lady with h/o HTN, PVD, s/p stenting and graft of LLE, hypothyroidism,h/ o cellulitis on LE , and L hip DJD who presented with fever , she was found to have severe sepsis and cellulitis in L LE # S/p Severe sepsis and septic shock. with bacteremia coag neg staph. off pressors now, will continue IV antibiotic on Daptomycin 650 mg/ Sodium 50 mls and Azactam continue as per ID ; , echo with no vegetation # Bl lower extremities wound infection: on IV daptomycin and azactam continue as per ID # YING: improved possible due to sepsis # Microcytic anemia: due to chronic bleeding from hemorrhoids. will follow. DVT Px on heparin sq
--- NOTE | 2017-01-16 21:24 | PN ---
Progress Note (short form) - Note Progress Note: Was called to the bedside because pt was refusing the removal of her hemphill. She stated that she wants to keep it in because she has pain on movement and does not want to use a bedpan. I explained to the patient and her that risks of keeping the hemphill in including risk of UTI, systemic infection, sepsis and associated morbidities. Patient verbalizes understanding of the risks and still wishes to keep the hemphill in place.
[2017-01-16] MEDS: SENNOSIDES 8.6MG TABLET (FP) PO SCH (22:07)
[2017-01-16] MEDS: HEPARIN NA (PORCINE) 5,000 UNITS/ML 1ML VIAL SQ SCH (22:07)
[2017-01-17] MEDS: AZTREONAM 1 GM in DEXTROSE 5%-WATER - 50 ML IVPB SCH ×3 (01:24→17:18)
[2017-01-17] MEDS: HEPARIN INFUSION - 500 ML IVPB SCH (05:50)
[2017-01-17] MEDS: LEVOTHYROXINE NA 100 MCG TABLET (FP) PO SCH (06:19)
[2017-01-17 08:03] LABS: MCH 23.3 pg (25.7-33.7); MCHC 31.5 g/dl (32.0-36.0); MEAN CELL VOLUME 73.9 fl (80-96); MEAN PLT VOLUME 7.8 fl (7.5-11.1); PLATELET COUNT 276 K/MM3 (134-434); RDW 19.7 % (11.6-15.6); WHITE BLOOD COUNT 15.4 K/mm3 (4.0-10.0)
--- NOTE | 2017-01-17 08:21 | PN ---
Physical Exam: SUBJECTIVE: Patient seen and examined this AM. Pt complained of large BM with soft stools. No liquid diarrhea. Started metoprolol and restarted ACEi yesterday , BP stable, not on pressors. Pt continues to have hemphill, refused removal because going to the bedpan is painful. Risks of infection were explained. Will continue to address the issue tomorrow Tele Reviewed - fewer Ventricular Bigemminy after metoprolol OBJECTIVE: Vital Signs Period Temp Pulse Resp BP Sys/Chakraborty Pulse Ox Last 24 Hr 97.9 F-98.8 F 57-75 20-26 108-144/46-78 98-100 GENERAL: The patient is awake, alert, and fully oriented, in no acute distress. HEENT: Pupils small, reactive, EOMi, no LAD, mild JVD LUNGS: R basilar crackles, no use of accessory muscles HEART: S1, S2, with PVCs, no murmurs ABD: Soft, NT, ND, Normoactive bowel sounds UPPER EXTREMITIES: 2+ pulses, warm, well-perfused, no edema LOWER EXTREMITIES: - Left: Thigh less warm, less erythematous, swollen, less TTP, leg wrapped per vascular, +2 edema, 1+ pulses - Right: Thigh swollen, less than R, no TTP, leg wrapped per vascular, 1+ pulses NEUROLOGICAL: Cranial nerves II through XII grossly intact. No facial droop. Sensation equal and intact bilaterally in face and body. Laboratory Results - last 24 hr 01/12/17 01/17/17 01/17/17 15:00 05:35 05:55 WBC 15.4 H D RBC 3.60 Hgb 8.4 L Hct 26.6 L MCV 73.9 L MCH 23.3 L MCHC 31.5 L RDW 19.7 H Plt Count 276 MPV 7.8 POC Glucometer 155 Blood Type O POSITIVE Antibody Screen Negative Crossmatch See Detail Active Medications Generic Name Dose Route Start Last Admin Trade Name Freq PRN Reason Stop Dose Admin Acetaminophen 325 mg 01/15/17 14:51 01/16/17 17:43 Tylenol - PO 325 mg Q6H PRN Administration FEVER OR PAIN Acetaminophen 650 mg 01/15/17 14:51 Tylenol - PO Q6H PRN FEVER OR PAIN Collagenase 1 applic 01/16/17 10:00 01/16/17 09:51 Santyl - TP 1 applic DAILY KAIN Administration Docusate Sodium 100 mg 01/15/17 22:00 01/16/17 22:06 Colace - PO 100 mg BID KAIN Administration Heparin Sodium (Porcine) 5,000 unit 01/16/17 22:00 01/16/17 22:07 Heparin - SQ Not Given BID KAIN Aztreonam 1 gm/ Dextrose 50 mls @ 100 mls/hr 01/15/17 18:00 01/17/17 01:24 IVPB 100 mls/hr Q8H-IV KAIN Administration Protocol Daptomycin 650 mg/ Sodium 50 mls @ 100 mls/hr 01/16/17 13:00 01/16/17 13:27 Chloride IVPB 100 mls/hr DAILY@1300 KAIN Administration Sodium Chloride 1,000 mls @ 75 mls/hr 01/15/17 14:51 01/16/17 14:45 Normal Saline - IV 75 mls/hr ASDIR KAIN Administration Ketoconazole 1 applic 01/15/17 15:48 Nizoral 2% Cream - TP BID PRN Fungal infection of buttock Levothyroxine Sodium 100 mcg 01/16/17 07:00 01/17/17 06:19 Synthroid - PO 100 mcg DAILY@0700 KAIN Administration Lisinopril 10 mg 01/17/17 10:00 Prinivil PO DAILY KAIN Metoprolol Succinate 25 mg 01/16/17 10:45 01/16/17 13:27 Toprol Xl - PO 25 mg DAILY KAIN Administration Nystatin 1 applic 01/16/17 10:00 01/16/17 11:03 Nystop Powder - TP 1 applic DAILY KAIN Administration Oxycodone HCl 5 mg 01/15/17 14:51 01/16/17 17:33 Roxicodone - PO 5 mg Q6H PRN Administration PAIN Senna 2 tab 01/15/17 22:00 01/16/17 22:07 Senna - PO Not Given HS [facility] ASSESSMENT/PLAN: Patient is a 71 yo F with a PMHx of HTN, chronic b/l leg ulcers (s/p stenting + graft of LLE), B/L lymphedema, Peripheral vascular disease, chronic hip pain, thyroid cancer s/p thyroidectomy (type unknown), and multiple antibiotic allergies presented to the ED with the chief complaints of fever, weakness and worsening of B/L leg ulcers. She was found to be in severe sepsis (Tmax 102.3, HR 93, WBC 19.2, Lactic Acid 2.4). She received Levaquin and antipyretics in the ED and was admitted to Med-Surg. On the floors she had an episode of low BP , and was sent to ICU for HLOC, had been on dopamine drip. She has been off pressors and was sent back to the floors. # Severe sepsis - Likely from LLE cellulitis - Bacteremia is likely contamination, wait for repeat cultures - White count increasing - Day 6 of IV Aztreonam 1g + IV Daptomycin 650 (pt has multiple antibiotic allergies), for Enterococcus Faecalis, continue for total 10-14 days - Not pressor dependent - On gentle hydration 50cc/hr, will d/c if patient maintains adequate PO intake - ID & Vascular on the case # R/O CHF - Echo shows low-normal LV function, EF 55.6% no wall motion abn - CVP stable - If she becomes overloaded, give lasix - Cardiology on the case # YING Baseline Cr 0.9, Admission 1.7 - Likely hypoperfusion from sepsis vs CHF, Improved w/ hydration - Avoid nephrotoxic drugs d/cd Lisinopril # New Ventricular Bigeminny - Mg, PO4 WNL - Monitor for improvement with metoprolol # R/o PE - There was concern for PE during hospitalization from EKG cx - LLE dopplers neg; RLLE cannot r/o in popliteal vein - Since no concern for PE at this moment, d/c'd hep drip # Microcytic Anemia Baseline Hgb 9.5-104 - Could be due to chronic hemorrhoidal bleeds - s/p PRBC x 2 - H/H now stable - Transfuse to keep Hgb >8 - Fe Panel looks AREN, start PO iron at d/c - F/u GI as outpatient for hemorrhoids # Hx of Hypertension - Continue Lisinopril 10mg (lower dose than home 20) as per Cardiology - Increase Metoprolol 25mg QD --> 50mg QD as per Cardiology # Hypothyroidism - Continue levothyroxine # FEN - Fluids: 50cc/hr - Electrolytes: Electrolytes to be repeated in am - Nutrition: Sodium controlled diet # Prophylaxis - DVT: On Heparin drip - GI: Not indicated - Deconditioning: PT needed prior to discharge # Code status: Full Code # Dispo - Trend WBC, maintain on IV abx for at least 4 more days - Pt must continue IV Dapto in the hospital for total 10-14 days bc of insurance - Encourage hemphill removal Visit type - Emergency Visit Emergency Visit: No - New Patient This patient is new to me today: No - Critical Care Critical Care patient: No
[2017-01-17 08:44] LABS: ANION GAP 9 (8-16); CALCIUM 8.4 mg/dL (8.5-10.1); CO2 22 mmol/L (21-32); GLUCOSE,RANDOM 113 mg/dL (74-106)
[2017-01-17] MEDS: LISINOPRIL 10 MG TABLET (FP) PO SCH (09:26)
[2017-01-17] MEDS: DOCUSATE SODIUM 100 MG CAPSULE (FP) PO SCH ×2 (09:26→22:18)
[2017-01-17] MEDS: HEPARIN NA (PORCINE) 5,000 UNITS/ML 1ML VIAL SQ SCH ×2 (09:26→22:18)
[2017-01-17] MEDS: METOPROLOL SUCCINATE 25 MG TAB.SR.24H (FP) PO SCH (09:27)
[2017-01-17] MEDS: COLLAGENASE CLOSTRIDIUM HIST. 30 GRAMS TUBE TP SCH (09:28)
[2017-01-17] MEDS: NYSTATIN POWDER 100,000 UNITS/GM - 15 GM TOPICAL POWDER TP SCH (09:28)
--- NOTE | 2017-01-17 10:27 | PN ---
Progress Note, Physician History of Present Illness: Denies chest pain, palpitations, near syncope or dyspnea. Hemodyamics stable, continues in ventricular bigeminy. - Current Medication List Current Medications: Active Medications Acetaminophen (Tylenol -) 325 mg PO Q6H PRN PRN Reason: FEVER OR PAIN Last Admin: 01/16/17 17:43 Dose: 325 mg Acetaminophen (Tylenol -) 650 mg PO Q6H PRN PRN Reason: FEVER OR PAIN Collagenase (Santyl -) 1 applic TP DAILY [facility] Last Admin: 01/17/17 09:28 Dose: 1 applic Docusate Sodium (Colace -) 100 mg PO BID [facility] Last Admin: 01/17/17 09:26 Dose: Not Given Heparin Sodium (Porcine) (Heparin -) 5,000 unit SQ BID [facility] Last Admin: 01/17/17 09:26 Dose: 5,000 unit Aztreonam 1 gm/ Dextrose 50 mls @ 100 mls/hr IVPB Q8H-IV KAIN PRN Reason: Protocol Last Admin: 01/17/17 09:25 Dose: 100 mls/hr Daptomycin 650 mg/ Sodium (Chloride) 50 mls @ 100 mls/hr IVPB DAILY@1300 [facility] Last Admin: 01/16/17 13:27 Dose: 100 mls/hr Sodium Chloride (Normal Saline -) 1,000 mls @ 75 mls/hr IV ASDIR [facility] Last Admin: 01/16/17 14:45 Dose: 75 mls/hr Ketoconazole (Nizoral 2% Cream -) 1 applic TP BID PRN PRN Reason: Fungal infection of buttock Levothyroxine Sodium (Synthroid -) 100 mcg PO DAILY@0700 [facility] Last Admin: 01/17/17 06:19 Dose: 100 mcg Lisinopril (Prinivil) 10 mg PO DAILY [facility] Last Admin: 01/17/17 09:26 Dose: 10 mg Metoprolol Succinate (Toprol Xl -) 25 mg PO DAILY [facility] Last Admin: 01/17/17 09:27 Dose: 25 mg Nystatin (Nystop Powder -) 1 applic TP DAILY [facility] Last Admin: 01/17/17 09:28 Dose: 1 applic Oxycodone HCl (Roxicodone -) 5 mg PO Q6H PRN PRN Reason: PAIN Last Admin: 01/16/17 17:33 Dose: 5 mg Senna (Senna -) 2 tab PO HS [facility] Last Admin: 01/16/17 22:07 Dose: Not Given - Objective Vital Signs: Vital Signs Temperature 98.2 F 01/17/17 09:00 Pulse Rate 70 01/17/17 09:00 Respiratory Rate 18 01/17/17 09:00 Blood Pressure 122/74 01/17/17 09:00 O2 Sat by Pulse Oximetry (%) 98 01/17/17 09:00 Constitutional: Yes: No Distress, Calm Neck: Yes: Supple Cardiovascular: Yes: Regular Rate and Rhythm Respiratory: Yes: Regular, Diminished Gastrointestinal: Yes: Normal Bowel Sounds, Soft, Abdomen, Obese Edema: Yes Edema: LLE: Trace, RLE: Trace Labs: CBC, BMP 01/17/17 05:35 01/17/17 05:35 INR, PTT INR 1.40 (0.82-1.09) H 01/12/17 01:50 - ....Imaging EKG: Report Reviewed (Tele: Ventricular bigeminy) Assessment/Plan 01/13/2017 Echo: Normal LV size with low normal LV fxn, mild MR 1. Post MRSA septic shock with fever, polymicrobial lower extremity wound infection and cellulitis 2. Acute on chronic kidney disease resolved 3. Chronic LV diastolic dysfunction and elevated BNP, without significant clinical evidence of heart failure 4. Hypertension 5. Hypothyroidism 6. History of thyroid cancer s/p partial thyroidectomy 7. Anemia - significantly reduced H/H but no active bleed 8. Ventricular bigeminy PLAN: 1. Increase Toprol XL 50 qd and continue Lisinopril 10 qd as renal function have stabilized 2. Empiric daptomycin/azactam per ID 3. Monitor Hgb and transfuse to maintain Hgb>8.0 4. Wound care and DVT prophylaxis 5. OOB to chair
--- NOTE | 2017-01-17 11:08 | PN ---
Progress Note, Physician History of Present Illness: PULMONARY ALERT,COMFORTABLE,LEAYING IN BED ,-C/O SOB - Current Medication List Current Medications: Active Medications Acetaminophen (Tylenol -) 325 mg PO Q6H PRN PRN Reason: FEVER OR PAIN Last Admin: 01/16/17 17:43 Dose: 325 mg Acetaminophen (Tylenol -) 650 mg PO Q6H PRN PRN Reason: FEVER OR PAIN Collagenase (Santyl -) 1 applic TP DAILY [facility] Last Admin: 01/17/17 09:28 Dose: 1 applic Docusate Sodium (Colace -) 100 mg PO BID [facility] Last Admin: 01/17/17 09:26 Dose: Not Given Heparin Sodium (Porcine) (Heparin -) 5,000 unit SQ BID [facility] Last Admin: 01/17/17 09:26 Dose: 5,000 unit Aztreonam 1 gm/ Dextrose 50 mls @ 100 mls/hr IVPB Q8H-IV KAIN PRN Reason: Protocol Last Admin: 01/17/17 09:25 Dose: 100 mls/hr Daptomycin 650 mg/ Sodium (Chloride) 50 mls @ 100 mls/hr IVPB DAILY@1300 [facility] Last Admin: 01/16/17 13:27 Dose: 100 mls/hr Sodium Chloride (Normal Saline -) 1,000 mls @ 75 mls/hr IV ASDIR [facility] Last Admin: 01/16/17 14:45 Dose: 75 mls/hr Ketoconazole (Nizoral 2% Cream -) 1 applic TP BID PRN PRN Reason: Fungal infection of buttock Levothyroxine Sodium (Synthroid -) 100 mcg PO DAILY@0700 [facility] Last Admin: 01/17/17 06:19 Dose: 100 mcg Lisinopril (Prinivil) 10 mg PO DAILY [facility] Last Admin: 01/17/17 09:26 Dose: 10 mg Metoprolol Succinate (Toprol Xl -) 50 mg PO DAILY [facility] Nystatin (Nystop Powder -) 1 applic TP DAILY [facility] Last Admin: 01/17/17 09:28 Dose: 1 applic Oxycodone HCl (Roxicodone -) 5 mg PO Q6H PRN PRN Reason: PAIN Last Admin: 01/16/17 17:33 Dose: 5 mg Senna (Senna -) 2 tab PO HS [facility] Last Admin: 01/16/17 22:07 Dose: Not Given - Objective Vital Signs: Vital Signs Temperature 98.2 F 01/17/17 09:00 Pulse Rate 70 01/17/17 09:00 Respiratory Rate 18 01/17/17 09:00 Blood Pressure 122/74 01/17/17 09:00 O2 Sat by Pulse Oximetry (%) 98 01/17/17 09:00 Constitutional: Yes: Well Nourished, Calm Eyes: Yes: WNL HENT: Yes: WNL Neck: Yes: WNL Cardiovascular: Yes: Regular Rate and Rhythm, S1, S2 Respiratory: Yes: Diminished Gastrointestinal: Yes: Normal Bowel Sounds, Soft Extremities: Yes: WNL Edema: Yes Labs: CBC, BMP 01/17/17 05:35 01/17/17 05:35 INR, PTT INR 1.40 (0.82-1.09) H 01/12/17 01:50 Assessment/Plan ASSESSMENT AND PLAN: Lower Extremity Cellulitis S/P Septic Shock Acute on Chronic Renal Failure Lactic Acidosis resolved LV Diastolic Dysfunction Anemia HTN Hypothyroidism h/o Thyroid Ca - antibiotics per ID - IVF - monitor urine output, creatinine - wound care - low suspicion for PE, defer to primary team for anticoagulation DR SWEENEY
[2017-01-17] MEDS: ACETAMINOPHEN 325 MG TABLET (FP) PO PRN ×2 (12:38→23:09)
[2017-01-17] MEDS: oxyCODONE HCL 5 MG TABLET PO PRN ×2 (12:39→23:09)
[2017-01-17] MEDS: DAPTOMYCIN 650 MG in SODIUM CHLORIDE 50 ML IVPB SCH (13:00)
[2017-01-17] MEDS: SODIUM CHLORIDE 1,000 ML IV SCH (14:00)
--- NOTE | 2017-01-17 18:21 | PN ---
Teaching Attending Note Name of Resident: Deysi Van ATTENDING PHYSICIAN STATEMENT I saw and evaluated the patient. I reviewed the resident's note and discussed the case with the resident. I agree with the resident's findings and plan as documented. SUBJECTIVE: Feeling better, with no acute distress. OBJECTIVE: Vital Signs Temperature 98.2 F 01/17/17 14:00 Pulse Rate 68 01/17/17 14:00 Respiratory Rate 20 01/17/17 14:00 Blood Pressure 105/43 01/17/17 14:00 O2 Sat by Pulse Oximetry (%) 98 01/17/17 09:00 CBCD WBC 15.4 K/mm3 (4.0-10.0) H D 01/17/17 05:35 RBC 3.60 M/mm3 (3.60-5.2) 01/17/17 05:35 Hgb 8.4 GM/dL (10.7-15.3) L 01/17/17 05:35 Hct 26.6 % (32.4-45.2) L 01/17/17 05:35 MCV 73.9 fl (80-96) L 01/17/17 05:35 MCHC 31.5 g/dl (32.0-36.0) L 01/17/17 05:35 RDW 19.7 % (11.6-15.6) H 01/17/17 05:35 Plt Count 276 K/MM3 (134-434) 01/17/17 05:35 MPV 7.8 fl (7.5-11.1) 01/17/17 05:35 CMP Sodium 139 mmol/L (136-145) 01/17/17 05:35 Potassium 4.0 mmol/L (3.5-5.1) 01/17/17 05:35 Chloride 108 mmol/L (98-107) H 01/17/17 05:35 Carbon Dioxide 22 mmol/L (21-32) 01/17/17 05:35 Anion Gap 9 (8-16) 01/17/17 05:35 BUN 29 mg/dL (7-18) H 01/17/17 05:35 Creatinine 1.0 mg/dL (0.55-1.02) 01/17/17 05:35 Creat Clearance w eGFR 48.82 (>60) 01/16/17 05:05 Random Glucose 113 mg/dL (74-106) H 01/17/17 05:35 Calcium 8.4 mg/dL (8.5-10.1) L 01/17/17 05:35 Total Bilirubin 0.1 mg/dL (0.2-1.0) L D 01/16/17 05:05 AST 10 U/L (15-37) L 01/16/17 05:05 ALT 7 U/L (12-78) L 01/16/17 05:05 Alkaline Phosphatase 106 U/L (45-117) 01/16/17 05:05 Total Protein 5.7 g/dl (6.4-8.2) L 01/16/17 05:05 Albumin 1.8 g/dl (3.4-5.0) L 01/16/17 05:05 Current Medications Generic Name Dose Route Start Last Admin Trade Name Freq PRN Reason Stop Dose Admin Acetaminophen 325 mg 01/15/17 14:51 01/17/17 12:38 Tylenol - PO 325 mg Q6H PRN Administration FEVER OR PAIN Acetaminophen 650 mg 01/15/17 14:51 Tylenol - PO Q6H PRN FEVER OR PAIN Collagenase 1 applic 01/16/17 10:00 01/17/17 09:28 Santyl - TP 1 applic DAILY KAIN Administration Docusate Sodium 100 mg 01/15/17 22:00 01/17/17 09:26 Colace - PO Not Given BID KAIN Heparin Sodium (Porcine) 5,000 unit 01/16/17 22:00 01/17/17 09:26 Heparin - SQ 5,000 unit BID KAIN Administration Aztreonam 1 gm/ Dextrose 50 mls @ 100 mls/hr 01/15/17 18:00 01/17/17 17:18 IVPB 100 mls/hr Q8H-IV KAIN Administration Protocol Daptomycin 650 mg/ Sodium 50 mls @ 100 mls/hr 01/16/17 13:00 01/17/17 13:00 Chloride IVPB 100 mls/hr DAILY@1300 KAIN Administration Sodium Chloride 1,000 mls @ 50 mls/hr 01/17/17 12:53 01/17/17 14:00 Normal Saline - IV 50 mls/hr ASDIR KAIN Administration Ketoconazole 1 applic 01/15/17 15:48 Nizoral 2% Cream - TP BID PRN Fungal infection of buttock Levothyroxine Sodium 100 mcg 01/16/17 07:00 01/17/17 06:19 Synthroid - PO 100 mcg DAILY@0700 KAIN Administration Lisinopril 10 mg 01/17/17 10:00 01/17/17 09:26 Prinivil PO 10 mg DAILY KAIN Administration Metoprolol Succinate 50 mg 01/18/17 10:00 Toprol Xl - PO DAILY KAIN Nystatin 1 applic 01/16/17 10:00 01/17/17 09:28 Nystop Powder - TP 1 applic DAILY [facility] Administration Oxycodone HCl 5 mg 01/15/17 14:51 01/17/17 12:39 Roxicodone - PO 5 mg Q6H PRN Administration PAIN Senna 2 tab 01/15/17 22:00 01/16/17 22:07 Senna - PO Not Given HS [facility] Home Medications Medication Instructions Recorded Levothyroxine [Synthroid -] 100 mcg PO DAILY 07/02/16 Lisinopril [Prinivil] 20 mg PO DAILY 07/02/16 Ketoconazole 2% Cream [Nizoral 2% 1 applic TP BID PRN #1 tube 11/26/16 Cream -] Oxycodone HCl 5 mg PO Q4H 01/12/17 Microbiology 01/13/17 15:47 Blood - Peripheral Venous Blood Culture - Preliminary NO GROWTH OBTAINED AFTER 96 HOURS, INCUBATION TO CONTINUE FOR 1 DAYS. 01/13/17 15:47 Blood - Peripheral Venous Blood Culture - Preliminary NO GROWTH OBTAINED AFTER 96 HOURS, INCUBATION TO CONTINUE FOR 1 DAYS. 01/12/17 02:10 Blood - Peripheral Venous Blood Culture - Final Staphylococcus Auricularis 01/12/17 02:10 Blood - Peripheral Venous Blood Culture - Final Staphylococcus Auricularis 01/12/17 10:00 Leg - Left Lower Gram Stain - Final 01/12/17 10:00 Leg - Left Lower Wound Culture - Final Enterococcus Faecalis Beta Hem Streptococcus Group C Escherichia Coli Escherichia Coli#2 Staphylococcus Aureus 01/12/17 10:00 Leg - Right Lower Gram Stain - Final 01/12/17 10:00 Leg - Right Lower Wound Culture - Final Enterococcus Faecalis Beta Hem Streptococcus Group C Escherichia Coli Escherichia Coli#2 Staphylococcus Aureus 01/13/17 00:30 Urine - Urine Rich Urine Culture - Final NO GROWTH OBTAINED PE: per resident's note ASSESSMENT AND PLAN: 71 y/o lady with h/o HTN, PVD, s/p stenting and graft of LLE, hypothyroidism,h/ o cellulitis on LE , and L hip DJD who presented with fever , she was found to have severe sepsis and cellulitis in L LE # Bl lower extremities wound infection with acute cellulitis; on IV Abx daptomycin and azactam continue as per ID # Bactremia x 2 sets on IV antibiotic continue # S/p Severe sepsis and septic shock. with bacteremia coag neg staph. off pressors now, will continue IV antibiotic on Daptomycin 650 mg/ Sodium 50 mls and Azactam continue as per ID ; , echo with no vegetation. # YING: improved possible due to sepsis # Microcytic anemia: due to chronic bleeding from hemorrhoids. will follow. hemoglobin 8.4 today DVT Px on heparin sq
--- NOTE | 2017-01-17 18:36 | PN ---
Progress Note, Physician History of Present Illness: patient doing well stable no complaints some bleeding from the wound noted - Current Medication List Current Medications: Active Medications Acetaminophen (Tylenol -) 325 mg PO Q6H PRN PRN Reason: FEVER OR PAIN Last Admin: 01/17/17 12:38 Dose: 325 mg Acetaminophen (Tylenol -) 650 mg PO Q6H PRN PRN Reason: FEVER OR PAIN Collagenase (Santyl -) 1 applic TP DAILY [facility] Last Admin: 01/17/17 09:28 Dose: 1 applic Docusate Sodium (Colace -) 100 mg PO BID [facility] Last Admin: 01/17/17 09:26 Dose: Not Given Heparin Sodium (Porcine) (Heparin -) 5,000 unit SQ BID [facility] Last Admin: 01/17/17 09:26 Dose: 5,000 unit Aztreonam 1 gm/ Dextrose 50 mls @ 100 mls/hr IVPB Q8H-IV [facility] PRN Reason: Protocol Last Admin: 01/17/17 17:18 Dose: 100 mls/hr Daptomycin 650 mg/ Sodium (Chloride) 50 mls @ 100 mls/hr IVPB DAILY@1300 [facility] Last Admin: 01/17/17 13:00 Dose: 100 mls/hr Sodium Chloride (Normal Saline -) 1,000 mls @ 50 mls/hr IV ASDIR [facility] Last Admin: 01/17/17 14:00 Dose: 50 mls/hr Ketoconazole (Nizoral 2% Cream -) 1 applic TP BID PRN PRN Reason: Fungal infection of buttock Levothyroxine Sodium (Synthroid -) 100 mcg PO DAILY@0700 [facility] Last Admin: 01/17/17 06:19 Dose: 100 mcg Lisinopril (Prinivil) 10 mg PO DAILY [facility] Last Admin: 01/17/17 09:26 Dose: 10 mg Metoprolol Succinate (Toprol Xl -) 50 mg PO DAILY [facility] Nystatin (Nystop Powder -) 1 applic TP DAILY [facility] Last Admin: 01/17/17 09:28 Dose: 1 applic Oxycodone HCl (Roxicodone -) 5 mg PO Q6H PRN PRN Reason: PAIN Last Admin: 01/17/17 12:39 Dose: 5 mg Senna (Senna -) 2 tab PO HS [facility] Last Admin: 01/16/17 22:07 Dose: Not Given - Objective Vital Signs: Vital Signs Temperature 98.2 F 01/17/17 14:00 Pulse Rate 68 01/17/17 14:00 Respiratory Rate 20 01/17/17 14:00 Blood Pressure 105/43 01/17/17 14:00 O2 Sat by Pulse Oximetry (%) 98 01/17/17 09:00 Constitutional: Yes: No Distress, Calm Cardiovascular: Yes: Regular Rate and Rhythm Respiratory: Yes: Regular, CTA Bilaterally Gastrointestinal: Yes: Normal Bowel Sounds, Soft Musculoskeletal: Yes: Other Extremities: Yes: Other Wound/Incision: Yes: Dressing Dry and Intact Neurological: Yes: Alert, Oriented Labs: CBC, BMP 01/17/17 05:35 01/17/17 05:35 INR, PTT INR 1.40 (0.82-1.09) H 01/12/17 01:50 Assessment/Plan cellulitis b/l leg ulcers obesity sepsis wound infection gram positive bacteremia n plan continue abx wound care rest as per primary
[2017-01-17] MEDS: SENNOSIDES 8.6MG TABLET (FP) PO SCH (22:18)
[2017-01-18] MEDS ORDERED: PT OWN MED DRAWER 7, Y5N ONE ×3 (01:21→16:46)
[2017-01-18] MEDS: AZTREONAM 1 GM in DEXTROSE 5%-WATER - 50 ML IVPB SCH ×3 (01:24→17:03)
[2017-01-18] MEDS: LEVOTHYROXINE NA 100 MCG TABLET (FP) PO SCH (06:49)
[2017-01-18 08:11] LABS: MCH 23.5 pg (25.7-33.7); MCHC 32.1 g/dl (32.0-36.0); MEAN CELL VOLUME 73.4 fl (80-96); MEAN PLT VOLUME 7.6 fl (7.5-11.1); PLATELET COUNT 308 K/MM3 (134-434); RDW 20.2 % (11.6-15.6); WHITE BLOOD COUNT 10.1 K/mm3 (4.0-10.0)
[2017-01-18 08:47] LABS: ANION GAP 9 (8-16); CALCIUM 8.5 mg/dL (8.5-10.1); CO2 24 mmol/L (21-32); GLUCOSE,RANDOM 77 mg/dL (74-106)
[2017-01-18 08:59] LABS: CREATININE 0.9 mg/dL (0.55-1.02)
--- NOTE | 2017-01-18 08:59 | PN ---
Progress Note, Physician History of Present Illness: PULMONARY ALERT,NAD,-SOB - Current Medication List Current Medications: Active Medications Acetaminophen (Tylenol -) 325 mg PO Q6H PRN PRN Reason: FEVER OR PAIN Last Admin: 01/17/17 23:09 Dose: 325 mg Acetaminophen (Tylenol -) 650 mg PO Q6H PRN PRN Reason: FEVER OR PAIN Collagenase (Santyl -) 1 applic TP DAILY [facility] Last Admin: 01/17/17 09:28 Dose: 1 applic Docusate Sodium (Colace -) 100 mg PO BID [facility] Last Admin: 01/17/17 22:18 Dose: Not Given Heparin Sodium (Porcine) (Heparin -) 5,000 unit SQ BID [facility] Last Admin: 01/17/17 22:18 Dose: 5,000 unit Aztreonam 1 gm/ Dextrose 50 mls @ 100 mls/hr IVPB Q8H-IV [facility] PRN Reason: Protocol Last Admin: 01/18/17 01:24 Dose: 100 mls/hr Daptomycin 650 mg/ Sodium (Chloride) 50 mls @ 100 mls/hr IVPB DAILY@1300 [facility] Last Admin: 01/17/17 13:00 Dose: 100 mls/hr Sodium Chloride (Normal Saline -) 1,000 mls @ 50 mls/hr IV ASDIR [facility] Last Admin: 01/17/17 14:00 Dose: 50 mls/hr Ketoconazole (Nizoral 2% Cream -) 1 applic TP BID PRN PRN Reason: Fungal infection of buttock Levothyroxine Sodium (Synthroid -) 100 mcg PO DAILY@0700 [facility] Last Admin: 01/18/17 06:49 Dose: 100 mcg Lisinopril (Prinivil) 10 mg PO DAILY [facility] Last Admin: 01/17/17 09:26 Dose: 10 mg Metoprolol Succinate (Toprol Xl -) 50 mg PO DAILY [facility] Nystatin (Nystop Powder -) 1 applic TP DAILY [facility] Last Admin: 01/17/17 09:28 Dose: 1 applic Oxycodone HCl (Roxicodone -) 5 mg PO Q6H PRN PRN Reason: PAIN Last Admin: 01/17/17 23:09 Dose: 5 mg Senna (Senna -) 2 tab PO HS [facility] Last Admin: 01/17/17 22:18 Dose: Not Given - Objective Vital Signs: Vital Signs Temperature 98.4 F 01/18/17 06:00 Pulse Rate 61 01/18/17 06:00 Respiratory Rate 19 01/18/17 06:00 Blood Pressure 134/62 01/18/17 06:00 O2 Sat by Pulse Oximetry (%) 96 01/17/17 21:00 Constitutional: Yes: Well Nourished, Calm Eyes: Yes: WNL HENT: Yes: WNL Neck: Yes: WNL Cardiovascular: Yes: Regular Rate and Rhythm, S1, S2 Respiratory: Yes: Diminished Gastrointestinal: Yes: Normal Bowel Sounds, Soft Extremities: Yes: WNL Edema: Yes Labs: CBC, BMP 01/18/17 05:55 INR, PTT INR 1.40 (0.82-1.09) H 01/12/17 01:50 Assessment/Plan ASSESSMENT AND PLAN: Lower Extremity Cellulitis S/P Septic Shock Acute on Chronic Renal Failure Lactic Acidosis resolved LV Diastolic Dysfunction Anemia HTN Hypothyroidism h/o Thyroid CA Anemia - antibiotics per ID - monitor urine output, creatinine - wound care - low suspicion for PE, defer to primary team for anticoagulation - transfusion prn DR SWEENEY
[2017-01-18] MEDS: ACETAMINOPHEN 325 MG TABLET (FP) PO PRN (09:36)
[2017-01-18] MEDS: oxyCODONE HCL 5 MG TABLET PO PRN (09:36)
[2017-01-18] MEDS: METOPROLOL SUCCINATE 50 MG TAB.SR.24H (FP) PO SCH (09:38)
[2017-01-18] MEDS: HEPARIN NA (PORCINE) 5,000 UNITS/ML 1ML VIAL SQ SCH ×2 (09:38→21:49)
[2017-01-18] MEDS: NYSTATIN POWDER 100,000 UNITS/GM - 15 GM TOPICAL POWDER TP SCH (09:38)
[2017-01-18] MEDS: LISINOPRIL 10 MG TABLET (FP) PO SCH (09:38)
[2017-01-18] MEDS: DOCUSATE SODIUM 100 MG CAPSULE (FP) PO SCH ×2 (09:44→21:43)
--- NOTE | 2017-01-18 11:14 | PN ---
Progress Note, Physician Chief Complaint: Patient seen and examined now on telemetry Awake and alert Feels better History of Present Illness: Chart was reviewed. Generalized weakness Denies chest pain, shortness of breath or palpitations - Current Medication List Current Medications: Active Medications Acetaminophen (Tylenol -) 325 mg PO Q6H PRN PRN Reason: FEVER OR PAIN Last Admin: 01/18/17 09:36 Dose: 325 mg Acetaminophen (Tylenol -) 650 mg PO Q6H PRN PRN Reason: FEVER OR PAIN Collagenase (Santyl -) 1 applic TP DAILY [facility] Last Admin: 01/17/17 09:28 Dose: 1 applic Docusate Sodium (Colace -) 100 mg PO BID [facility] Last Admin: 01/18/17 09:44 Dose: Not Given Heparin Sodium (Porcine) (Heparin -) 5,000 unit SQ BID [facility] Last Admin: 01/18/17 09:38 Dose: 5,000 unit Aztreonam 1 gm/ Dextrose 50 mls @ 100 mls/hr IVPB Q8H-IV [facility] PRN Reason: Protocol Last Admin: 01/18/17 09:38 Dose: 100 mls/hr Daptomycin 650 mg/ Sodium (Chloride) 50 mls @ 100 mls/hr IVPB DAILY@1300 [facility] Last Admin: 01/17/17 13:00 Dose: 100 mls/hr Sodium Chloride (Normal Saline -) 1,000 mls @ 50 mls/hr IV ASDIR [facility] Last Admin: 01/17/17 14:00 Dose: 50 mls/hr Ketoconazole (Nizoral 2% Cream -) 1 applic TP BID PRN PRN Reason: Fungal infection of buttock Levothyroxine Sodium (Synthroid -) 100 mcg PO DAILY@0700 [facility] Last Admin: 01/18/17 06:49 Dose: 100 mcg Lisinopril (Prinivil) 10 mg PO DAILY [facility] Last Admin: 01/18/17 09:38 Dose: 10 mg Metoprolol Succinate (Toprol Xl -) 50 mg PO DAILY [facility] Last Admin: 01/18/17 09:38 Dose: 50 mg Nystatin (Nystop Powder -) 1 applic TP DAILY [facility] Last Admin: 01/18/17 09:38 Dose: 1 applic Oxycodone HCl (Roxicodone -) 5 mg PO Q6H PRN PRN Reason: PAIN Last Admin: 01/18/17 09:36 Dose: 5 mg Senna (Senna -) 2 tab PO HS [facility] Last Admin: 01/17/17 22:18 Dose: Not Given - Objective Vital Signs: Vital Signs Temperature 98.4 F 01/18/17 06:00 Pulse Rate 61 01/18/17 06:00 Respiratory Rate 19 01/18/17 06:00 Blood Pressure 134/62 01/18/17 06:00 O2 Sat by Pulse Oximetry (%) 96 01/17/17 21:00 Neck: Yes: Supple Cardiovascular: Yes: Regular Rate and Rhythm, S1, S2 Respiratory: Yes: Diminished Gastrointestinal: Yes: Normal Bowel Sounds, Soft, Abdomen, Obese. No: Tenderness Edema: Yes Wound/Incision: Yes: Dressing Dry and Intact Labs: CBC, BMP 01/18/17 05:55 01/18/17 05:55 Assessment/Plan 1. Sepsis with fever, lower extremity ulcer and cellulitis 2. Acute on chronic kidney disease 3. Acute on chronic LV diastolic dysfunction with failure, elevated BNP, but no significant clinical evidence of heart failure 4. Hypertension 5. Hypothyroidism 6. History of thyroid cancer s/p partial thyroidectomy 7. Anemia - significantly reduced H/H but no active bleed PLAN: 1. Continue Toprol XL and Lisinopril as tolerated 2. Gentle fluids with caution 3. Monitor H/H and transfuse PRBC as needed - currently H/H low 4. Antibiotics coverage 5. Wound care and DVT prophylaxis 6. DVT prophylaxis Further plans are to follow Michael Arizmendi MD
--- NOTE | 2017-01-18 11:17 | PN ---
Progress Note, Physician Chief Complaint: Infectious Disease History of Present Illness: Pt alert, without specific complaints - Current Medication List Current Medications: Active Medications Acetaminophen (Tylenol -) 325 mg PO Q6H PRN PRN Reason: FEVER OR PAIN Last Admin: 01/18/17 09:36 Dose: 325 mg Acetaminophen (Tylenol -) 650 mg PO Q6H PRN PRN Reason: FEVER OR PAIN Collagenase (Santyl -) 1 applic TP DAILY [facility] Last Admin: 01/17/17 09:28 Dose: 1 applic Docusate Sodium (Colace -) 100 mg PO BID [facility] Last Admin: 01/18/17 09:44 Dose: Not Given Heparin Sodium (Porcine) (Heparin -) 5,000 unit SQ BID [facility] Last Admin: 01/18/17 09:38 Dose: 5,000 unit Aztreonam 1 gm/ Dextrose 50 mls @ 100 mls/hr IVPB Q8H-IV [facility] PRN Reason: Protocol Last Admin: 01/18/17 09:38 Dose: 100 mls/hr Daptomycin 650 mg/ Sodium (Chloride) 50 mls @ 100 mls/hr IVPB DAILY@1300 [facility] Last Admin: 01/17/17 13:00 Dose: 100 mls/hr Sodium Chloride (Normal Saline -) 1,000 mls @ 50 mls/hr IV ASDIR [facility] Last Admin: 01/17/17 14:00 Dose: 50 mls/hr Ketoconazole (Nizoral 2% Cream -) 1 applic TP BID PRN PRN Reason: Fungal infection of buttock Levothyroxine Sodium (Synthroid -) 100 mcg PO DAILY@0700 [facility] Last Admin: 01/18/17 06:49 Dose: 100 mcg Lisinopril (Prinivil) 10 mg PO DAILY [facility] Last Admin: 01/18/17 09:38 Dose: 10 mg Metoprolol Succinate (Toprol Xl -) 50 mg PO DAILY [facility] Last Admin: 01/18/17 09:38 Dose: 50 mg Nystatin (Nystop Powder -) 1 applic TP DAILY [facility] Last Admin: 01/18/17 09:38 Dose: 1 applic Oxycodone HCl (Roxicodone -) 5 mg PO Q6H PRN PRN Reason: PAIN Last Admin: 01/18/17 09:36 Dose: 5 mg Senna (Senna -) 2 tab PO HS [facility] Last Admin: 01/17/17 22:18 Dose: Not Given - Objective Vital Signs: Vital Signs Temperature 98.4 F 01/18/17 06:00 Pulse Rate 61 01/18/17 06:00 Respiratory Rate 19 01/18/17 06:00 Blood Pressure 134/62 01/18/17 06:00 O2 Sat by Pulse Oximetry (%) 96 01/17/17 21:00 Constitutional: Yes: No Distress Eyes: Yes: WNL HENT: Yes: WNL Neck: Yes: Supple Cardiovascular: Yes: Regular Rate and Rhythm Respiratory: Yes: Regular Gastrointestinal: Yes: Normal Bowel Sounds Musculoskeletal: Yes: WNL, Other Extremities: Yes: Erythema (B/L LE erythema, crusting, mild warmth, no tenderness) Wound/Incision: Yes: Dressing Dry and Intact Neurological: Yes: Alert Psychiatric: Yes: WNL Labs: CBC, BMP 01/18/17 05:55 01/18/17 05:55 INR, PTT INR 1.40 (0.82-1.09) H 01/12/17 01:50 Assessment/Plan Cellulitis b/L infected leg ulcers s/p sepsis Bacteremia - leukocytosis resolved pt clinically stable continue antibiotics continue wound care
--- NOTE | 2017-01-18 11:47 | PN ---
Physical Exam: SUBJECTIVE: Patient seen and examined Feels very tired today otherwise no feveror chills. OBJECTIVE: Vital Signs Temperature 98.4 F 01/18/17 06:00 Pulse Rate 61 01/18/17 06:00 Respiratory Rate 19 01/18/17 06:00 Blood Pressure 134/62 01/18/17 06:00 O2 Sat by Pulse Oximetry (%) 96 01/17/17 21:00 GENERAL: The patient is awake, alert, and fully oriented, in mild distress. HEAD: Normal with no signs of trauma. EYES: PERRL, extraocular movements intact, sclera anicteric, conjunctiva clear. ENT: Ears normal, oropharynx clear without exudates, moist mucous membranes. positive for pallor NECK: Trachea midline, full range of motion, supple. LUNGS: decreased Breath sounds BL, otherwise clear to auscultation bilaterally, no wheezes, no crackles, no accessory muscle use. HEART: Regular rate and rhythm, S1, S2 without murmur, rub or gallop. ABDOMEN: Soft, nontender, nondistended, normoactive bowel sounds, no guarding, no rebound, no hepatosplenomegaly, no masses. EXTREMITIES: 2+ pulses, warm, well-perfused, no edema. NEUROLOGICAL: Cranial nerves II through XII grossly intact. Normal speech, gait not observed. PSYCH: Normal mood, normal affect. SKIN: Warm, dry, normal turgor, no rashes or lesions noted LE: positive for wrap around LE BL CBCD WBC 10.1 K/mm3 (4.0-10.0) H D 01/18/17 05:55 RBC 3.26 M/mm3 (3.60-5.2) L 01/18/17 05:55 Hgb 7.7 GM/dL (10.7-15.3) L 01/18/17 05:55 Hct 23.9 % (32.4-45.2) L 01/18/17 05:55 MCV 73.4 fl (80-96) L 01/18/17 05:55 MCHC 32.1 g/dl (32.0-36.0) 01/18/17 05:55 RDW 20.2 % (11.6-15.6) H 01/18/17 05:55 Plt Count 308 K/MM3 (134-434) 01/18/17 05:55 MPV 7.6 fl (7.5-11.1) 01/18/17 05:55 CMP Sodium 141 mmol/L (136-145) 01/18/17 05:55 Potassium 4.1 mmol/L (3.5-5.1) 01/18/17 05:55 Chloride 108 mmol/L (98-107) H 01/18/17 05:55 Carbon Dioxide 24 mmol/L (21-32) 01/18/17 05:55 Anion Gap 9 (8-16) 01/18/17 05:55 BUN 27 mg/dL (7-18) H 01/18/17 05:55 Creatinine 0.9 mg/dL (0.55-1.02) 01/18/17 05:55 Creat Clearance w eGFR 48.82 (>60) 01/16/17 05:05 Random Glucose 77 mg/dL (74-106) D 01/18/17 05:55 Calcium 8.5 mg/dL (8.5-10.1) 01/18/17 05:55 Total Bilirubin 0.1 mg/dL (0.2-1.0) L D 01/16/17 05:05 AST 10 U/L (15-37) L 01/16/17 05:05 ALT 7 U/L (12-78) L 01/16/17 05:05 Alkaline Phosphatase 106 U/L (45-117) 01/16/17 05:05 Total Protein 5.7 g/dl (6.4-8.2) L 01/16/17 05:05 Albumin 1.8 g/dl (3.4-5.0) L 01/16/17 05:05 Current Medications Generic Name Dose Route Start Last Admin Trade Name Freq PRN Reason Stop Dose Admin Acetaminophen 325 mg 01/15/17 14:51 01/18/17 09:36 Tylenol - PO 325 mg Q6H PRN Administration FEVER OR PAIN Acetaminophen 650 mg 01/15/17 14:51 Tylenol - PO Q6H PRN FEVER OR PAIN Collagenase 1 applic 01/16/17 10:00 01/17/17 09:28 Santyl - TP 1 applic DAILY [facility] Administration Docusate Sodium 100 mg 01/15/17 22:00 01/18/17 09:44 Colace - PO Not Given BID [facility] Heparin Sodium (Porcine) 5,000 unit 01/16/17 22:00 01/18/17 09:38 Heparin - SQ 5,000 unit BID [facility] Administration Aztreonam 1 gm/ Dextrose 50 mls @ 100 mls/hr 01/15/17 18:00 01/18/17 09:38 IVPB 100 mls/hr Q8H-IV [facility] Administration Protocol Daptomycin 650 mg/ Sodium 50 mls @ 100 mls/hr 01/16/17 13:00 01/17/17 13:00 Chloride IVPB 100 mls/hr DAILY@1300 [facility] Administration Sodium Chloride 1,000 mls @ 50 mls/hr 01/17/17 12:53 01/17/17 14:00 Normal Saline - IV 50 mls/hr ASDIR [facility] Administration Ketoconazole 1 applic 01/15/17 15:48 Nizoral 2% Cream - TP BID PRN Fungal infection of buttock Levothyroxine Sodium 100 mcg 01/16/17 07:00 01/18/17 06:49 Synthroid - PO 100 mcg DAILY@0700 [facility] Administration Lisinopril 10 mg 01/17/17 10:00 01/18/17 09:38 Prinivil PO 10 mg DAILY [facility] Administration Metoprolol Succinate 50 mg 01/18/17 10:00 01/18/17 09:38 Toprol Xl - PO 50 mg DAILY [facility] Administration Nystatin 1 applic 01/16/17 10:00 01/18/17 09:38 Nystop Powder - TP 1 applic DAILY [facility] Administration Oxycodone HCl 5 mg 01/15/17 14:51 01/18/17 09:36 Roxicodone - PO 5 mg Q6H PRN Administration PAIN Senna 2 tab 01/15/17 22:00 01/17/17 22:18 Senna - PO Not Given [facility] Home Medications Medication Instructions Recorded Levothyroxine [Synthroid -] 100 mcg PO DAILY 07/02/16 Lisinopril [Prinivil] 20 mg PO DAILY 07/02/16 Ketoconazole 2% Cream [Nizoral 2% 1 applic TP BID PRN #1 tube 11/26/16 Cream -] Oxycodone HCl 5 mg PO Q4H 01/12/17 ASSESSMENT AND PLAN: 71 y/o lady with h/o HTN, PVD, s/p stenting and graft of LLE, hypothyroidism,h/ o cellulitis on LE , and L hip DJD who presented with fever , she was found to have severe sepsis and cellulitis in L LE # Acute anemia with low hemoglobin , patient stated that she bled through her wound yesterday. Will transfuse her one unit with one dose of lasix afterward. # Bl lower extremities wound infection with acute cellulitis ; on IV Abx daptomycin and azactam continue as per ID # Bactremia x 2 sets on IV antibiotic continue # S/p Severe sepsis and septic shock. with bacteremia coag neg staph. off pressors now, will continue IV antibiotic on Daptomycin 650 mg/ Sodium 50 mls and Azactam continue as per ID ; , echo with no vegetation. # YING: improved possible due to sepsis # Microcytic anemia: due to chronic bleeding from hemorrhoids. will follow. hemoglobin 8.4 today DVT Px on heparin sq Visit type - Emergency Visit Emergency Visit: Yes ED Registration Date: 01/12/17 Care time: The patient presented to the Emergency Department on the above date and was hospitalized for further evaluation of their emergent condition. - New Patient This patient is new to me today: No - Critical Care Critical Care patient: No
[2017-01-18] MEDS: COLLAGENASE CLOSTRIDIUM HIST. 30 GRAMS TUBE TP SCH (12:31)
[2017-01-18] MEDS: SODIUM CHLORIDE 1,000 ML IV SCH (14:27)
[2017-01-18] MEDS: DAPTOMYCIN 650 MG in SODIUM CHLORIDE 50 ML IVPB SCH (14:27)
[2017-01-18] MEDS ORDERED: FUROSEMIDE 40 MG/4 ML INJECTABLE VIAL IVPB PRN (16:10)
[2017-01-18] MEDS: SENNOSIDES 8.6MG TABLET (FP) PO SCH (21:43)
[2017-01-19] MEDS ORDERED: oxyCODONE HCL 5 MG TABLET PO ONE (00:51)
[2017-01-19] MEDS ORDERED: PT OWN MED DRAWER 7, Y5N ONE ×3 (00:57→17:58)
[2017-01-19] MEDS: AZTREONAM 1 GM in DEXTROSE 5%-WATER - 50 ML IVPB SCH ×3 (01:03→18:16)
[2017-01-19] MEDS: LEVOTHYROXINE NA 100 MCG TABLET (FP) PO SCH (06:27)
[2017-01-19 08:46] LABS: MCH 23.3 pg (25.7-33.7); MCHC 31.2 g/dl (32.0-36.0); MEAN CELL VOLUME 74.4 fl (80-96); MEAN PLT VOLUME 7.3 fl (7.5-11.1); PLATELET COUNT 353 K/MM3 (134-434); RDW 20.1 % (11.6-15.6); WHITE BLOOD COUNT 11.3 K/mm3 (4.0-10.0)
--- NOTE | 2017-01-19 09:09 | PN ---
Progress Note, Physician Chief Complaint: Patient seen and examined now on telemetry Awake and alert Feels better History of Present Illness: Chart was reviewed. Generalized weakness Denies chest pain, shortness of breath or palpitations - Current Medication List Current Medications: Active Medications Acetaminophen (Tylenol -) 325 mg PO Q6H PRN PRN Reason: FEVER OR PAIN Last Admin: 01/18/17 09:36 Dose: 325 mg Acetaminophen (Tylenol -) 650 mg PO Q6H PRN PRN Reason: FEVER OR PAIN Collagenase (Santyl -) 1 applic TP DAILY [facility] Last Admin: 01/18/17 12:31 Dose: 1 applic Docusate Sodium (Colace -) 100 mg PO BID [facility] Last Admin: 01/18/17 21:43 Dose: Not Given Furosemide (Lasix Injection -) 20 mg IVPB ONCE PRN PRN Reason: post transfusion Last Admin: 01/19/17 00:26 Dose: 20 mg Heparin Sodium (Porcine) (Heparin -) 5,000 unit SQ BID [facility] Last Admin: 01/18/17 21:49 Dose: 5,000 unit Aztreonam 1 gm/ Dextrose 50 mls @ 100 mls/hr IVPB Q8H-IV [facility] PRN Reason: Protocol Last Admin: 01/19/17 01:03 Dose: 100 mls/hr Daptomycin 650 mg/ Sodium (Chloride) 50 mls @ 100 mls/hr IVPB DAILY@1300 [facility] Last Admin: 01/18/17 14:27 Dose: 100 mls/hr Sodium Chloride (Normal Saline -) 1,000 mls @ 50 mls/hr IV ASDIR [facility] Last Admin: 01/18/17 14:27 Dose: 50 mls/hr Ketoconazole (Nizoral 2% Cream -) 1 applic TP BID PRN PRN Reason: Fungal infection of buttock Levothyroxine Sodium (Synthroid -) 100 mcg PO DAILY@0700 [facility] Last Admin: 01/19/17 06:27 Dose: 100 mcg Lisinopril (Prinivil) 10 mg PO DAILY [facility] Last Admin: 01/18/17 09:38 Dose: 10 mg Metoprolol Succinate (Toprol Xl -) 50 mg PO DAILY [facility] Last Admin: 01/18/17 09:38 Dose: 50 mg Nystatin (Nystop Powder -) 1 applic TP DAILY [facility] Last Admin: 01/18/17 09:38 Dose: 1 applic Senna (Senna -) 2 tab PO HS [facility] Last Admin: 01/18/17 21:43 Dose: Not Given - Objective Vital Signs: Vital Signs Temperature 99 F 01/19/17 06:00 Pulse Rate 60 01/19/17 06:00 Respiratory Rate 19 01/19/17 06:00 Blood Pressure 144/71 01/19/17 06:00 O2 Sat by Pulse Oximetry (%) 95 01/18/17 21:00 Neck: Yes: Supple Cardiovascular: Yes: S1, S2. No: Murmur Respiratory: Yes: Diminished Gastrointestinal: Yes: Normal Bowel Sounds, Soft. No: Tenderness Musculoskeletal: Yes: Back Pain Edema: Yes Wound/Incision: Yes: Dressing Dry and Intact Additional Findings/Remarks: - Review of Systems Constitutional: denies: Chills, Fever Cardiovascular: denies: Chest Pain, Palpitations, (-) Shortness of Breath Respiratory: denies: Cough, Hemoptysis, Orthopnea, (-) SOB, SOB on Exertion Gastrointestinal: denies: Abdominal Pain, Constipation, Diarrhea, Melena, Nausea , Rectal Bleeding, Vomiting Neurological: denies: Seizure, Syncope Labs: CBC, BMP 01/19/17 08:25 Laboratory Results - last 24 hr 01/19/17 01/19/17 08:25 08:25 WBC 11.3 H RBC 3.89 Hgb 9.0 L D Hct 29.0 L D MCV 74.4 L MCH 23.3 L MCHC 31.2 L RDW 20.1 H Plt Count 353 MPV 7.3 L Neutrophils % 65.0 D Lymphocytes % 18.0 D Monocytes % 9.0 D Eosinophils % 5.0 H D Band Neutrophils 2.0 D Metamyelocytes 1 Platelet Estimate Adequate Platelet Comment No clumping noted Polychromasia Few Hypochromic-Microcytic 1+ Anisocytosis 1+ Microcytosis 1+ Sodium 140 Potassium 4.2 Chloride 109 H Carbon Dioxide 25 Anion Gap 6 L BUN 22 H Creatinine 0.9 Creat Clearance w eGFR > 60 Random Glucose 88 Calcium 8.1 L Phosphorus 3.6 Magnesium 1.8 Total Bilirubin 0.4 D AST 6 L D ALT 6 L Alkaline Phosphatase 104 Total Protein 6.0 L Albumin 1.8 L Assessment/Plan 1. Sepsis with fever, lower extremity ulcer and cellulitis 2. Acute on chronic kidney disease 3. Acute on chronic LV diastolic dysfunction with failure, elevated BNP, but no significant clinical evidence of heart failure 4. Hypertension 5. Hypothyroidism 6. History of thyroid cancer s/p partial thyroidectomy 7. Anemia - significantly reduced H/H but no active bleed PLAN: 1. Continue Toprol XL and Lisinopril as tolerated 2. Discontinue fluids 3. Monitor H/H and transfuse PRBC as needed - currently H/H low 4. Antibiotics coverage 5. Wound care and DVT prophylaxis 6. DVT prophylaxis Further plans are to follow Michael Arizmendi MD
[2017-01-19 09:23] LABS: ALBUMIN 1.8 g/dl (3.4-5.0); ANION GAP 6 (8-16); CALCIUM 8.1 mg/dL (8.5-10.1); CO2 25 mmol/L (21-32); CREATININE 0.9 mg/dL (0.55-1.02); GLUCOSE,RANDOM 88 mg/dL (74-106); MAGNESIUM 1.8 mg/dL (1.8-2.4); PHOSPHOROUS 3.6 mg/dL (2.5-4.9); SGOT/AST 6 U/L (15-37); SGPT/ALT 6 U/L (12-78)
[2017-01-19 09:25] LABS: ALK PHOS 104 U/L (45-117); BILIRUBIN,TOTAL 0.4 mg/dL (0.2-1.0)
[2017-01-19 09:33] LABS: ANISOCYTOSIS 1+; HYPOCHROMIA 1+; METAMYELOCYTE 1 % (0-2); MICROCYTOSIS 1+; PLATELET ESTIMATE ADEQUATE (NORMAL); POLYCHROMASIA FEW
--- NOTE | 2017-01-19 09:37 | PN ---
Progress Note, Physician History of Present Illness: PULMONARY ALERT,NAD,-CP,-SOB - Current Medication List Current Medications: Active Medications Acetaminophen (Tylenol -) 325 mg PO Q6H PRN PRN Reason: FEVER OR PAIN Last Admin: 01/18/17 09:36 Dose: 325 mg Acetaminophen (Tylenol -) 650 mg PO Q6H PRN PRN Reason: FEVER OR PAIN Collagenase (Santyl -) 1 applic TP DAILY [facility] Last Admin: 01/18/17 12:31 Dose: 1 applic Docusate Sodium (Colace -) 100 mg PO BID [facility] Last Admin: 01/18/17 21:43 Dose: Not Given Furosemide (Lasix Injection -) 20 mg IVPB ONCE PRN PRN Reason: post transfusion Last Admin: 01/19/17 00:26 Dose: 20 mg Heparin Sodium (Porcine) (Heparin -) 5,000 unit SQ BID [facility] Last Admin: 01/18/17 21:49 Dose: 5,000 unit Aztreonam 1 gm/ Dextrose 50 mls @ 100 mls/hr IVPB Q8H-IV [facility] PRN Reason: Protocol Last Admin: 01/19/17 01:03 Dose: 100 mls/hr Daptomycin 650 mg/ Sodium (Chloride) 50 mls @ 100 mls/hr IVPB DAILY@1300 [facility] Last Admin: 01/18/17 14:27 Dose: 100 mls/hr Sodium Chloride (Normal Saline -) 1,000 mls @ 50 mls/hr IV ASDIR [facility] Last Admin: 01/18/17 14:27 Dose: 50 mls/hr Ketoconazole (Nizoral 2% Cream -) 1 applic TP BID PRN PRN Reason: Fungal infection of buttock Levothyroxine Sodium (Synthroid -) 100 mcg PO DAILY@0700 [facility] Last Admin: 01/19/17 06:27 Dose: 100 mcg Lisinopril (Prinivil) 10 mg PO DAILY [facility] Last Admin: 01/18/17 09:38 Dose: 10 mg Metoprolol Succinate (Toprol Xl -) 50 mg PO DAILY [facility] Last Admin: 01/18/17 09:38 Dose: 50 mg Nystatin (Nystop Powder -) 1 applic TP DAILY [facility] Last Admin: 01/18/17 09:38 Dose: 1 applic Senna (Senna -) 2 tab PO HS [facility] Last Admin: 01/18/17 21:43 Dose: Not Given - Objective Vital Signs: Vital Signs Temperature 99 F 01/19/17 06:00 Pulse Rate 60 01/19/17 06:00 Respiratory Rate 19 01/19/17 06:00 Blood Pressure 144/71 01/19/17 06:00 O2 Sat by Pulse Oximetry (%) 95 01/18/17 21:00 Constitutional: Yes: Well Nourished, Calm Eyes: Yes: WNL HENT: Yes: WNL Neck: Yes: WNL Cardiovascular: Yes: Regular Rate and Rhythm, S1, S2 Respiratory: Yes: CTA Bilaterally Gastrointestinal: Yes: Normal Bowel Sounds, Soft Extremities: Yes: WNL Edema: Yes Labs: CBC, BMP 01/19/17 08:25 INR, PTT INR 1.40 (0.82-1.09) H 01/12/17 01:50 Assessment/Plan ASSESSMENT AND PLAN: Lower Extremity Cellulitis S/P Septic Shock Acute on Chronic Renal Failure Lactic Acidosis resolved LV Diastolic Dysfunction Anemia HTN Hypothyroidism h/o Thyroid CA Anemia - antibiotics per ID - monitor urine output, creatinine,h+h - wound care - low suspicion for PE, defer to primary team for anticoagulation - transfusion prn - DR SWEENEY
[2017-01-19] MEDS: DOCUSATE SODIUM 100 MG CAPSULE (FP) PO SCH ×2 (10:36→22:32)
[2017-01-19] MEDS: METOPROLOL SUCCINATE 50 MG TAB.SR.24H (FP) PO SCH (10:37)
[2017-01-19] MEDS: HEPARIN NA (PORCINE) 5,000 UNITS/ML 1ML VIAL SQ SCH ×2 (10:39→22:30)
[2017-01-19] MEDS: LISINOPRIL 10 MG TABLET (FP) PO SCH (10:39)
--- NOTE | 2017-01-19 12:05 | PN ---
Progress Note (short form) - Note Progress Note: Patient is comfortable s/p one unit of blood transfusion, feeling better post blood transfusion. Patient is feeling bettr, denies any shortness of breath/ Vital Signs Temperature 98.1 F 01/19/17 10:00 Pulse Rate 60 01/19/17 10:00 Respiratory Rate 18 01/19/17 10:00 Blood Pressure 120/62 01/19/17 10:00 O2 Sat by Pulse Oximetry (%) 95 01/18/17 21:00 GENERAL: The patient is awake, alert, and fully oriented, in mild distress. HEAD: Normal with no signs of trauma. EYES: PERRL, extraocular movements intact, sclera anicteric, conjunctiva clear. ENT: Ears normal, oropharynx clear without exudates, moist mucous membranes. No pallor NECK: Trachea midline, full range of motion, supple. LUNGS: decreased Breath sounds BL, otherwise clear to auscultation bilaterally, no wheezes, no crackles, no accessory muscle use. HEART: Regular rate and rhythm, S1, S2 without murmur, rub or gallop. ABDOMEN: Soft, nontender, nondistended, normoactive bowel sounds, no guarding, no rebound, no hepatosplenomegaly, no masses. EXTREMITIES: 2+ pulses, warm, well-perfused, no edema. NEUROLOGICAL: Cranial nerves II through XII grossly intact. Normal speech, gait not observed. PSYCH: Normal mood, normal affect. SKIN: Warm, dry, normal turgor, no rashes or lesions noted LE: positive for wrap around LE BL CBCD WBC 11.3 K/mm3 (4.0-10.0) H 01/19/17 08:25 RBC 3.89 M/mm3 (3.60-5.2) 01/19/17 08:25 Hgb 9.0 GM/dL (10.7-15.3) L D 01/19/17 08:25 Hct 29.0 % (32.4-45.2) L D 01/19/17 08:25 MCV 74.4 fl (80-96) L 01/19/17 08:25 MCHC 31.2 g/dl (32.0-36.0) L 01/19/17 08:25 RDW 20.1 % (11.6-15.6) H 01/19/17 08:25 Plt Count 353 K/MM3 (134-434) 01/19/17 08:25 MPV 7.3 fl (7.5-11.1) L 01/19/17 08:25 CMP Sodium 140 mmol/L (136-145) 01/19/17 08:25 Potassium 4.2 mmol/L (3.5-5.1) 01/19/17 08:25 Chloride 109 mmol/L (98-107) H 01/19/17 08:25 Carbon Dioxide 25 mmol/L (21-32) 01/19/17 08:25 Anion Gap 6 (8-16) L 01/19/17 08:25 BUN 22 mg/dL (7-18) H 01/19/17 08:25 Creatinine 0.9 mg/dL (0.55-1.02) 01/19/17 08:25 Creat Clearance w eGFR > 60 (>60) 01/19/17 08:25 Random Glucose 88 mg/dL (74-106) 01/19/17 08:25 Calcium 8.1 mg/dL (8.5-10.1) L 01/19/17 08:25 Total Bilirubin 0.4 mg/dL (0.2-1.0) D 01/19/17 08:25 AST 6 U/L (15-37) L D 01/19/17 08:25 ALT 6 U/L (12-78) L 01/19/17 08:25 Alkaline Phosphatase 104 U/L (45-117) 01/19/17 08:25 Total Protein 6.0 g/dl (6.4-8.2) L 01/19/17 08:25 Albumin 1.8 g/dl (3.4-5.0) L 01/19/17 08:25 Current Medications Generic Name Dose Route Start Last Admin Trade Name Freq PRN Reason Stop Dose Admin Acetaminophen 325 mg 01/15/17 14:51 01/18/17 09:36 Tylenol - PO 325 mg Q6H PRN Administration FEVER OR PAIN Acetaminophen 650 mg 01/15/17 14:51 Tylenol - PO Q6H PRN FEVER OR PAIN Collagenase 1 applic 01/16/17 10:00 01/18/17 12:31 Santyl - TP 1 applic DAILY [facility] Administration Docusate Sodium 100 mg 01/15/17 22:00 01/19/17 10:36 Colace - PO Not Given BID [facility] Furosemide 20 mg 01/18/17 16:10 01/19/17 00:26 Lasix Injection - IVPB 20 mg ONCE PRN Administration post transfusion Heparin Sodium (Porcine) 5,000 unit 01/16/17 22:00 01/19/17 10:39 Heparin - SQ 5,000 unit BID [facility] Administration Aztreonam 1 gm/ Dextrose 50 mls @ 100 mls/hr 01/15/17 18:00 01/19/17 01:03 IVPB 100 mls/hr Q8H-IV [facility] Administration Protocol Daptomycin 650 mg/ Sodium 50 mls @ 100 mls/hr 01/16/17 13:00 01/18/17 14:27 Chloride IVPB 100 mls/hr DAILY@1300 [facility] Administration Sodium Chloride 1,000 mls @ 50 mls/hr 01/17/17 12:53 01/18/17 14:27 Normal Saline - IV 50 mls/hr ASDIR [facility] Administration Ketoconazole 1 applic 01/15/17 15:48 Nizoral 2% Cream - TP BID PRN Fungal infection of buttock Levothyroxine Sodium 100 mcg 01/16/17 07:00 01/19/17 06:27 Synthroid - PO 100 mcg DAILY@0700 [facility] Administration Lisinopril 10 mg 01/17/17 10:00 01/19/17 10:39 Prinivil PO 10 mg DAILY [facility] Administration Metoprolol Succinate 50 mg 01/18/17 10:00 01/19/17 10:37 Toprol Xl - PO 50 mg DAILY [facility] Administration Nystatin 1 applic 01/16/17 10:00 01/18/17 09:38 Nystop Powder - TP 1 applic DAILY [facility] Administration Senna 2 tab 01/15/17 22:00 01/18/17 21:43 Senna - PO Not Given [facility] Home Medications Medication Instructions Recorded Levothyroxine [Synthroid -] 100 mcg PO DAILY 07/02/16 Lisinopril [Prinivil] 20 mg PO DAILY 07/02/16 Ketoconazole 2% Cream [Nizoral 2% 1 applic TP BID PRN #1 tube 11/26/16 Cream -] Oxycodone HCl 5 mg PO Q4H 01/12/17 71 y/o lady with h/o HTN, PVD, s/p stenting and graft of LLE, hypothyroidism,h/ o cellulitis on LE , and L hip DJD who presented with fever , she was found to have severe sepsis and cellulitis in L LE # Acute anemia with low hemoglobin s/p transfusion of one unit yesterday with one dose of lasix iv given. # Bactremia x 2 sets on IV antibiotic Azactam and Daptomycin IV continue as per ID , needs 5 more days of IV antibiotic # S/p Severe sepsis and septic shock. with bacteremia coag neg staph. off pressors now, will continue IV antibiotic on Daptomycin 650 mg/ Sodium 50 mls and Azactam continue as per ID ; , echo with no vegetation. # YING: improved possible due to sepsis # Microcytic anemia: due to chronic bleeding from hemorrhoids. will follow. hemoglobin 8.4 s/p Transfusion is 9.0 now DVT Px on heparin sq Visit type - Emergency Visit Emergency Visit: Yes ED Registration Date: 01/12/17 Care time: The patient presented to the Emergency Department on the above date and was hospitalized for further evaluation of their emergent condition. - New Patient This patient is new to me today: No - Critical Care Critical Care patient: No - Discharge Referral Referred to [facility] Med [facility] No
[2017-01-19] MEDS: COLLAGENASE CLOSTRIDIUM HIST. 30 GRAMS TUBE TP SCH (13:54)
[2017-01-19] MEDS: NYSTATIN POWDER 100,000 UNITS/GM - 15 GM TOPICAL POWDER TP SCH (13:54)
[2017-01-19] MEDS: DAPTOMYCIN 650 MG in SODIUM CHLORIDE 50 ML IVPB SCH (13:54)
[2017-01-19] MEDS: ACETAMINOPHEN 325 MG TABLET (FP) PO PRN (19:55)
--- NOTE | 2017-01-19 20:31 | PN ---
Progress Note, Physician History of Present Illness: Pt without distress Denies significant pain, without specific complaints Afebrile - Current Medication List Current Medications: Active Medications Acetaminophen (Tylenol -) 650 mg PO Q6H PRN PRN Reason: FEVER OR PAIN Last Admin: 01/19/17 19:55 Dose: 650 mg Collagenase (Santyl -) 1 applic TP DAILY [facility] Last Admin: 01/19/17 13:54 Dose: 1 applic Docusate Sodium (Colace -) 100 mg PO BID [facility] Last Admin: 01/19/17 10:36 Dose: Not Given Furosemide (Lasix Injection -) 20 mg IVPB ONCE PRN PRN Reason: post transfusion Last Admin: 01/19/17 00:26 Dose: 20 mg Heparin Sodium (Porcine) (Heparin -) 5,000 unit SQ BID [facility] Last Admin: 01/19/17 10:39 Dose: 5,000 unit Aztreonam 1 gm/ Dextrose 50 mls @ 100 mls/hr IVPB Q8H-IV [facility] PRN Reason: Protocol Last Admin: 01/19/17 18:16 Dose: 100 mls/hr Daptomycin 650 mg/ Sodium (Chloride) 50 mls @ 100 mls/hr IVPB DAILY@1300 [facility] Last Admin: 01/19/17 13:54 Dose: 100 mls/hr Ketoconazole (Nizoral 2% Cream -) 1 applic TP BID PRN PRN Reason: Fungal infection of buttock Levothyroxine Sodium (Synthroid -) 100 mcg PO DAILY@0700 [facility] Last Admin: 01/19/17 06:27 Dose: 100 mcg Lisinopril (Prinivil) 10 mg PO DAILY [facility] Last Admin: 01/19/17 10:39 Dose: 10 mg Metoprolol Succinate (Toprol Xl -) 50 mg PO DAILY [facility] Last Admin: 01/19/17 10:37 Dose: 50 mg Nystatin (Nystop Powder -) 1 applic TP DAILY [facility] Last Admin: 01/19/17 13:54 Dose: 1 applic Oxycodone HCl (Roxicodone -) 5 mg PO Q6H PRN PRN Reason: PAIN Senna (Senna -) 2 tab PO HS [facility] Last Admin: 01/18/17 21:43 Dose: Not Given - Objective Vital Signs: Vital Signs Temperature 98.9 F 01/19/17 18:00 Pulse Rate 65 01/19/17 18:00 Respiratory Rate 19 01/19/17 18:00 Blood Pressure 142/75 01/19/17 18:00 O2 Sat by Pulse Oximetry (%) 95 01/18/17 21:00 Constitutional: Yes: No Distress Cardiovascular: Yes: Regular Rate and Rhythm Respiratory: Yes: Regular Gastrointestinal: Yes: Normal Bowel Sounds, Soft Genitourinary: Yes: WNL Extremities: Yes: Erythema Integumentary: Yes: Erythema (B/L LE erythema/crusting, Lt LLE erythema extending to thigh, mild warmth) Labs: CBC, BMP 01/19/17 08:25 01/19/17 08:25 INR, PTT INR 1.40 (0.82-1.09) H 01/12/17 01:50 Assessment/Plan Sepsis/Bacteremia B/L LE cellulitis Infected ulcers - clinically stable, improving -continue current Aztreonam/Daptomycin continue wound care
[2017-01-19] MEDS: oxyCODONE HCL 5 MG TABLET PO PRN (22:32)
[2017-01-19] MEDS: SENNOSIDES 8.6MG TABLET (FP) PO SCH (22:33)
[2017-01-20] MEDS ORDERED: PT OWN MED DRAWER 7, Y5N ONE (01:36)
[2017-01-20] MEDS: AZTREONAM 1 GM in DEXTROSE 5%-WATER - 50 ML IVPB SCH ×3 (02:12→19:32)
[2017-01-20] MEDS: oxyCODONE HCL 5 MG TABLET PO PRN ×2 (06:38→14:45)
[2017-01-20] MEDS: LEVOTHYROXINE NA 100 MCG TABLET (FP) PO SCH (06:39)
[2017-01-20] MEDS: ACETAMINOPHEN 325 MG TABLET (FP) PO PRN ×2 (06:39→14:46)
--- NOTE | 2017-01-20 08:08 | PN ---
Physical Exam: SUBJECTIVE: Patient seen and examined this AM. Endorses chronic hip pain, no new complaints. No CP, no SOB, no fevers, no chills. In the morning, after her antibiotics were administered, patient's saline lock was unable to be reniserted. Anesthesia also unable to get line. Will get EJ line for remaining doses of antibiotics. OBJECTIVE: Vital Signs Period Temp Pulse Resp BP Sys/Chakraborty Pulse Ox Last 24 Hr 98.1 F-99.1 F 60-76 18-20 120-147/62-79 97 GENERAL: AAOx3, NAD HEENT: PERRLA, EOMi, no LAD, no JVD LUNGS: R basilar crackles, no use of accessory muscles HEART: S1, S2, with PVCs, no murmurs ABD: Soft, NT, ND, Normoactive BS UPPER EXTREMITIES: 2+ pulses, warm, well-perfused, no edema LOWER EXTREMITIES: - Left: Thigh less warm, less erythematous, swollen, less TTP, leg wrapped per vascular, +2 edema, 1+ pulses - Right: Thigh swollen, less than R, no TTP, leg wrapped per vascular, 1+ pulses NEUROLOGICAL: Cranial nerves II through XII grossly intact. No facial droop. Sensation equal and intact bilaterally in face and body. Laboratory Results - last 24 hr 01/19/17 01/19/17 08:25 08:25 WBC 11.3 H RBC 3.89 Hgb 9.0 L D Hct 29.0 L D MCV 74.4 L MCH 23.3 L MCHC 31.2 L RDW 20.1 H Plt Count 353 MPV 7.3 L Neutrophils % 65.0 D Lymphocytes % 18.0 D Monocytes % 9.0 D Eosinophils % 5.0 H D Band Neutrophils 2.0 D Metamyelocytes 1 Platelet Estimate Adequate Platelet Comment No clumping noted Polychromasia Few Hypochromic-Microcytic 1+ Anisocytosis 1+ Microcytosis 1+ Sodium 140 Potassium 4.2 Chloride 109 H Carbon Dioxide 25 Anion Gap 6 L BUN 22 H Creatinine 0.9 Creat Clearance w eGFR > 60 Random Glucose 88 Calcium 8.1 L Phosphorus 3.6 Magnesium 1.8 Total Bilirubin 0.4 D AST 6 L D ALT 6 L Alkaline Phosphatase 104 Total Protein 6.0 L Albumin 1.8 L Active Medications Generic Name Dose Route Start Last Admin Trade Name Freq PRN Reason Stop Dose Admin Acetaminophen 650 mg 01/15/17 14:51 01/20/17 06:39 Tylenol - PO 650 mg Q6H PRN Administration FEVER OR PAIN Collagenase 1 applic 01/16/17 10:00 01/19/17 13:54 Santyl - TP 1 applic DAILY [facility] Administration Docusate Sodium 100 mg 01/15/17 22:00 01/19/17 22:32 Colace - PO Not Given BID [facility] Furosemide 20 mg 01/18/17 16:10 01/19/17 00:26 Lasix Injection - IVPB 20 mg ONCE PRN Administration post transfusion Heparin Sodium (Porcine) 5,000 unit 01/16/17 22:00 01/19/17 22:30 Heparin - SQ 5,000 unit BID [facility] Administration Aztreonam 1 gm/ Dextrose 50 mls @ 100 mls/hr 01/15/17 18:00 01/20/17 02:12 IVPB 100 mls/hr Q8H-IV [facility] Administration Protocol Daptomycin 650 mg/ Sodium 50 mls @ 100 mls/hr 01/16/17 13:00 01/19/17 13:54 Chloride IVPB 100 mls/hr DAILY@1300 [facility] Administration Ketoconazole 1 applic 01/15/17 15:48 Nizoral 2% Cream - TP BID PRN Fungal infection of buttock Levothyroxine Sodium 100 mcg 01/16/17 07:00 01/20/17 06:39 Synthroid - PO 100 mcg DAILY@0700 [facility] Administration Lisinopril 10 mg 01/17/17 10:00 01/19/17 10:39 Prinivil PO 10 mg DAILY [facility] Administration Metoprolol Succinate 50 mg 01/18/17 10:00 01/19/17 10:37 Toprol Xl - PO 50 mg DAILY [facility] Administration Nystatin 1 applic 01/16/17 10:00 01/19/17 13:54 Nystop Powder - TP 1 applic DAILY [facility] Administration Oxycodone HCl 5 mg 01/19/17 20:17 01/20/17 06:38 Roxicodone - PO 5 mg Q6H PRN Administration PAIN Senna 2 tab 01/15/17 22:00 01/19/17 22:33 Senna - PO Not Given HS [facility] ASSESSMENT/PLAN: Patient is a 71 yo F with a PMHx of HTN, chronic b/l leg ulcers (s/p stenting + graft of LLE), B/L lymphedema, Peripheral vascular disease, chronic hip pain, thyroid cancer s/p thyroidectomy (type unknown), and multiple antibiotic allergies presented to the ED with fever, weakness and worsening of B/L leg ulcers. She was found to be in severe sepsis (Tmax 102.3, HR 93, WBC 19.2, Lactic Acid 2.4). She received Levaquin and antipyretics in the ED and was admitted to Med-Surg. On the floors she had an episode of low BP, and was sent to ICU for HLOC, had been on dopamine drip. She has been off pressors and was sent back to the floors. # Severe sepsis - Likely from LLE cellulitis - Not bacteremic - Day 9 of IV Aztreonam 1g + IV Dapto 650, need total 10-14days - Not pressor dependent anymore, fluids d/cd - ID & Vascular on the case # CHF w/ preserved ejection fraction - Elevated BNP - Echo shows LVSF is low normal, EF 55.6%, no wall motion abn - D/cd gentle fluids, if overloaded, give lasix - Cardiology on the case # YING Baseline Cr 0.9, Admission 1.7 - resolved - Likely hypoperfusion from sepsis, resolved w/ gentle hydration - Avoid nephrotoxic drugs d/cd Lisinopril # Ventricular [place] - Mg, PO4 WNL - Monitor for improvement with metoprolol # R/o PE - There was concern for PE during hospitalization from EKG cx - LLE dopplers neg; RLLE cannot r/o in popliteal vein - No concern for PE at this moment, d/c'd hep drip # Microcytic Anemia Baseline Hgb 9.5-104 - Fe Panel looks like AREN, - s/p PRBC x 3 - H/H now stable - Transfuse to keep Hgb >8 - Iron PO at discharge # Chronic L Hip Pain - Continue home oxycodone # Hx of Hypertension - Continue Lisinopril 10mg (lower dose than home 20) as per Cardiology - Increased dose of home Metoprolol as per Cardio, at 50mg QD # Hypothyroidism - Continue levothyroxine # FEN - Fluids: None - Electrolytes: Monitor - Nutrition: Sodium controlled diet # Prophylaxis - DVT: On Heparin drip - GI: Not indicated - Deconditioning: PT needed prior to discharge # Code status: Full Code # Dispo - Trend WBC - Pt must continue IV Dapto in the hospital for total 10-14 days bc of insurance - Encourage hemphill removal Dr. Deysi Van MD - PGY1 Internal Medicine Resident Visit type - Emergency Visit Emergency Visit: No - New Patient This patient is new to me today: No - Critical Care Critical Care patient: No
--- NOTE | 2017-01-20 10:03 | PN ---
Progress Note, Physician Chief Complaint: Patient seen and examined now on telemetry this am Awake and alert Feels better History of Present Illness: Chart was reviewed. Generalized weakness Denies chest pain, shortness of breath or palpitations Got up sitting on side of the bed yesterday - Current Medication List Current Medications: Active Medications Acetaminophen (Tylenol -) 650 mg PO Q6H PRN PRN Reason: FEVER OR PAIN Last Admin: 01/20/17 06:39 Dose: 650 mg Collagenase (Santyl -) 1 applic TP DAILY [facility] Last Admin: 01/19/17 13:54 Dose: 1 applic Docusate Sodium (Colace -) 100 mg PO BID [facility] Last Admin: 01/19/17 22:32 Dose: Not Given Furosemide (Lasix Injection -) 20 mg IVPB ONCE PRN PRN Reason: post transfusion Last Admin: 01/19/17 00:26 Dose: 20 mg Heparin Sodium (Porcine) (Heparin -) 5,000 unit SQ BID [facility] Last Admin: 01/19/17 22:30 Dose: 5,000 unit Aztreonam 1 gm/ Dextrose 50 mls @ 100 mls/hr IVPB Q8H-IV [facility] PRN Reason: Protocol Last Admin: 01/20/17 02:12 Dose: 100 mls/hr Daptomycin 650 mg/ Sodium (Chloride) 50 mls @ 100 mls/hr IVPB DAILY@1300 [facility] Last Admin: 01/19/17 13:54 Dose: 100 mls/hr Ketoconazole (Nizoral 2% Cream -) 1 applic TP BID PRN PRN Reason: Fungal infection of buttock Levothyroxine Sodium (Synthroid -) 100 mcg PO DAILY@0700 [facility] Last Admin: 01/20/17 06:39 Dose: 100 mcg Lisinopril (Prinivil) 10 mg PO DAILY [facility] Last Admin: 01/19/17 10:39 Dose: 10 mg Metoprolol Succinate (Toprol Xl -) 50 mg PO DAILY [facility] Last Admin: 01/19/17 10:37 Dose: 50 mg Nystatin (Nystop Powder -) 1 applic TP DAILY [facility] Last Admin: 01/19/17 13:54 Dose: 1 applic Oxycodone HCl (Roxicodone -) 5 mg PO Q6H PRN PRN Reason: PAIN Last Admin: 01/20/17 06:38 Dose: 5 mg Senna (Senna -) 2 tab PO HS [facility] Last Admin: 01/19/17 22:33 Dose: Not Given - Objective Vital Signs: Vital Signs Temperature 99.1 F 01/20/17 08:00 Pulse Rate 56 L 01/20/17 08:00 Respiratory Rate 20 01/20/17 08:00 Blood Pressure 133/77 01/20/17 08:00 O2 Sat by Pulse Oximetry (%) 97 01/19/17 21:00 Neck: Yes: Supple Cardiovascular: Yes: Regular Rate and Rhythm, S1, S2 Respiratory: Yes: Diminished Gastrointestinal: Yes: Normal Bowel Sounds, Soft, Abdomen, Obese. No: Tenderness Edema: Yes Edema: LLE: 1+, RLE: 1+ Additional Findings/Remarks: - Review of Systems Constitutional: denies: Chills, Fever Cardiovascular: denies: Chest Pain, Palpitations, (-) Shortness of Breath Respiratory: denies: Cough, Hemoptysis, Orthopnea, (-) SOB, SOB on Exertion Gastrointestinal: denies: Abdominal Pain, Constipation, Diarrhea, Melena, Nausea , Rectal Bleeding, Vomiting Neurological: denies: Seizure, Syncope Labs: CBC, BMP 01/19/17 08:25 01/19/17 08:25 Assessment/Plan 1. Sepsis with fever, lower extremity ulcer and cellulitis 2. Acute on chronic kidney disease 3. Acute on chronic LV diastolic dysfunction with failure, elevated BNP, but no significant clinical evidence of heart failure 4. Hypertension 5. Hypothyroidism 6. History of thyroid cancer s/p partial thyroidectomy 7. Anemia - significantly reduced H/H but no active bleed PLAN: 1. Continue Toprol XL and Lisinopril as tolerated 2. Monitor H/H and transfuse PRBC as needed 3. Antibiotics coverage 4. Wound care and DVT prophylaxis 5. DVT prophylaxis May transfer to floor care Further plans are to follow Michael Arizmendi MD
[2017-01-20] MEDS: LISINOPRIL 10 MG TABLET (FP) PO SCH (10:10)
[2017-01-20] MEDS: METOPROLOL SUCCINATE 50 MG TAB.SR.24H (FP) PO SCH (10:10)
[2017-01-20] MEDS: DOCUSATE SODIUM 100 MG CAPSULE (FP) PO SCH ×2 (10:14→21:18)
[2017-01-20] MEDS: HEPARIN NA (PORCINE) 5,000 UNITS/ML 1ML VIAL SQ SCH ×2 (10:27→21:17)
[2017-01-20 11:14] LABS: MCH 23.2 pg (25.7-33.7); MEAN CELL VOLUME 74.9 fl (80-96); MEAN PLT VOLUME 7.2 fl (7.5-11.1); PLATELET COUNT 360 K/MM3 (134-434); RDW 20.2 % (11.6-15.6); WHITE BLOOD COUNT 12.7 K/mm3 (4.0-10.0)
[2017-01-20 11:39] LABS: ALBUMIN 1.8 g/dl (3.4-5.0); ALK PHOS 106 U/L (45-117); ANION GAP 3 (8-16); BILIRUBIN,TOTAL 0.2 mg/dL (0.2-1.0); CALCIUM 8.3 mg/dL (8.5-10.1); CO2 29 mmol/L (21-32); CREATININE 0.8 mg/dL (0.55-1.02); GLUCOSE,RANDOM 86 mg/dL (74-106); SGOT/AST 9 U/L (15-37); SGPT/ALT < 6 U/L (12-78); TOT PROT 6.1 g/dl (6.4-8.2)
--- NOTE | 2017-01-20 11:49 | PN ---
Progress Note, Physician History of Present Illness: pulmonary alert,nad,comfortable,nad - Current Medication List Current Medications: Active Medications Acetaminophen (Tylenol -) 650 mg PO Q6H PRN PRN Reason: FEVER OR PAIN Last Admin: 01/20/17 06:39 Dose: 650 mg Collagenase (Santyl -) 1 applic TP DAILY [facility] Last Admin: 01/19/17 13:54 Dose: 1 applic Docusate Sodium (Colace -) 100 mg PO BID [facility] Last Admin: 01/20/17 10:14 Dose: Not Given Furosemide (Lasix Injection -) 20 mg IVPB ONCE PRN PRN Reason: post transfusion Last Admin: 01/19/17 00:26 Dose: 20 mg Heparin Sodium (Porcine) (Heparin -) 5,000 unit SQ BID [facility] Last Admin: 01/20/17 10:27 Dose: 5,000 unit Aztreonam 1 gm/ Dextrose 50 mls @ 100 mls/hr IVPB Q8H-IV [facility] PRN Reason: Protocol Last Admin: 01/20/17 10:10 Dose: 100 mls/hr Daptomycin 650 mg/ Sodium (Chloride) 50 mls @ 100 mls/hr IVPB DAILY@1300 [facility] Last Admin: 01/19/17 13:54 Dose: 100 mls/hr Ketoconazole (Nizoral 2% Cream -) 1 applic TP BID PRN PRN Reason: Fungal infection of buttock Levothyroxine Sodium (Synthroid -) 100 mcg PO DAILY@0700 [facility] Last Admin: 01/20/17 06:39 Dose: 100 mcg Lisinopril (Prinivil) 10 mg PO DAILY [facility] Last Admin: 01/20/17 10:10 Dose: 10 mg Metoprolol Succinate (Toprol Xl -) 50 mg PO DAILY [facility] Last Admin: 01/20/17 10:10 Dose: 50 mg Nystatin (Nystop Powder -) 1 applic TP DAILY [facility] Last Admin: 01/19/17 13:54 Dose: 1 applic Oxycodone HCl (Roxicodone -) 5 mg PO Q6H PRN PRN Reason: PAIN Last Admin: 01/20/17 06:38 Dose: 5 mg Senna (Senna -) 2 tab PO HS [facility] Last Admin: 01/19/17 22:33 Dose: Not Given - Objective Vital Signs: Vital Signs Temperature 99.1 F 01/20/17 08:00 Pulse Rate 56 L 01/20/17 08:00 Respiratory Rate 20 01/20/17 08:00 Blood Pressure 133/77 01/20/17 08:00 O2 Sat by Pulse Oximetry (%) 97 01/19/17 21:00 Constitutional: Yes: Calm, Obese Eyes: Yes: WNL HENT: Yes: WNL Neck: Yes: WNL Cardiovascular: Yes: Regular Rate and Rhythm, S1, S2 Respiratory: Yes: Diminished Gastrointestinal: Yes: WNL Extremities: Yes: WNL Edema: Yes Labs: CBC, BMP 01/20/17 10:40 INR, PTT INR 1.40 (0.82-1.09) H 01/12/17 01:50 Assessment/Plan ASSESSMENT AND PLAN: Lower Extremity Cellulitis S/P Septic Shock Acute on Chronic Renal Failure Lactic Acidosis resolved LV Diastolic Dysfunction Anemia HTN Hypothyroidism h/o Thyroid CA Anemia - antibiotics per ID - monitor urine output, creatinine,h+h - wound care - low suspicion for PE, defer to primary team for anticoagulation - transfusion prn - DR SWEENEY
[2017-01-20] MEDS: DAPTOMYCIN 650 MG in SODIUM CHLORIDE 50 ML IVPB SCH (12:49)
--- NOTE | 2017-01-20 13:37 | PN ---
Progress Note, Physician History of Present Illness: patient doing well stable no complaints patient has lost her iv site - Current Medication List Current Medications: Active Medications Acetaminophen (Tylenol -) 650 mg PO Q6H PRN PRN Reason: FEVER OR PAIN Last Admin: 01/20/17 06:39 Dose: 650 mg Collagenase (Santyl -) 1 applic TP DAILY [facility] Last Admin: 01/19/17 13:54 Dose: 1 applic Docusate Sodium (Colace -) 100 mg PO BID [facility] Last Admin: 01/20/17 10:14 Dose: Not Given Furosemide (Lasix Injection -) 20 mg IVPB ONCE PRN PRN Reason: post transfusion Last Admin: 01/19/17 00:26 Dose: 20 mg Heparin Sodium (Porcine) (Heparin -) 5,000 unit SQ BID [facility] Last Admin: 01/20/17 10:27 Dose: 5,000 unit Aztreonam 1 gm/ Dextrose 50 mls @ 100 mls/hr IVPB Q8H-IV KAIN PRN Reason: Protocol Last Admin: 01/20/17 10:10 Dose: 100 mls/hr Daptomycin 650 mg/ Sodium (Chloride) 50 mls @ 100 mls/hr IVPB DAILY@1300 [facility] Last Admin: 01/20/17 12:49 Dose: 100 mls/hr Ketoconazole (Nizoral 2% Cream -) 1 applic TP BID PRN PRN Reason: Fungal infection of buttock Levothyroxine Sodium (Synthroid -) 100 mcg PO DAILY@0700 [facility] Last Admin: 01/20/17 06:39 Dose: 100 mcg Lisinopril (Prinivil) 10 mg PO DAILY [facility] Last Admin: 01/20/17 10:10 Dose: 10 mg Metoprolol Succinate (Toprol Xl -) 50 mg PO DAILY [facility] Last Admin: 01/20/17 10:10 Dose: 50 mg Nystatin (Nystop Powder -) 1 applic TP DAILY [facility] Last Admin: 01/19/17 13:54 Dose: 1 applic Oxycodone HCl (Roxicodone -) 5 mg PO Q6H PRN PRN Reason: PAIN Last Admin: 01/20/17 06:38 Dose: 5 mg Senna (Senna -) 2 tab PO HS [facility] Last Admin: 01/19/17 22:33 Dose: Not Given - Objective Vital Signs: Vital Signs Temperature 99.1 F 01/20/17 08:00 Pulse Rate 56 L 01/20/17 08:00 Respiratory Rate 20 01/20/17 08:00 Blood Pressure 133/77 01/20/17 08:00 O2 Sat by Pulse Oximetry (%) 97 01/19/17 21:00 Constitutional: Yes: No Distress, Calm, Obese Neck: Yes: Supple Cardiovascular: Yes: Regular Rate and Rhythm Respiratory: Yes: Regular, CTA Bilaterally Gastrointestinal: Yes: Normal Bowel Sounds, Soft Musculoskeletal: Yes: Other Extremities: Yes: Other Integumentary: Yes: Other Wound/Incision: Yes: Dressing Dry and Intact Neurological: Yes: Alert, Oriented Psychiatric: Yes: Alert, Oriented Labs: CBC, BMP 01/20/17 10:40 01/20/17 10:40 INR, PTT INR 1.40 (0.82-1.09) H 01/12/17 01:50 Assessment/Plan cellulitis b/l leg ulcers obesity sepsis wound infection gram positive bacteremia patient wbc has slightly increased,close watch on that ' plan since patient has lost iv access switched to oral linezoloid--we will continue that for 7 more days if we cannot get iv access then we can give bactrim ds twice a day for 7 days wound care make sure patient can tolerate bactrim
[2017-01-20] MEDS: COLLAGENASE CLOSTRIDIUM HIST. 30 GRAMS TUBE TP SCH ×2 (15:13→16:30)
[2017-01-20] MEDS: NYSTATIN POWDER 100,000 UNITS/GM - 15 GM TOPICAL POWDER TP SCH ×2 (15:13→16:30)
--- NOTE | 2017-01-20 19:21 | PN ---
Teaching Attending Note Name of Resident: Deysi Van ATTENDING PHYSICIAN STATEMENT I saw and evaluated the patient. I reviewed the resident's note and discussed the case with the resident. I agree with the resident's findings and plan as documented. SUBJECTIVE: Comfortable, better than yesterday. OBJECTIVE: Vital Signs Temperature 99.1 F 01/20/17 13:57 Pulse Rate 67 01/20/17 13:57 Respiratory Rate 20 01/20/17 13:57 Blood Pressure 134/62 01/20/17 13:57 O2 Sat by Pulse Oximetry (%) 97 01/19/17 21:00 CBCD WBC 12.7 K/mm3 (4.0-10.0) H 01/20/17 10:40 RBC 3.80 M/mm3 (3.60-5.2) 01/20/17 10:40 Hgb 8.8 GM/dL (10.7-15.3) L 01/20/17 10:40 Hct 28.5 % (32.4-45.2) L 01/20/17 10:40 MCV 74.9 fl (80-96) L 01/20/17 10:40 MCHC 31.0 g/dl (32.0-36.0) L 01/20/17 10:40 RDW 20.2 % (11.6-15.6) H 01/20/17 10:40 Plt Count 360 K/MM3 (134-434) 01/20/17 10:40 MPV 7.2 fl (7.5-11.1) L 01/20/17 10:40 CMP Sodium 139 mmol/L (136-145) 01/20/17 10:40 Potassium 4.6 mmol/L (3.5-5.1) 01/20/17 10:40 Chloride 107 mmol/L (98-107) 01/20/17 10:40 Carbon Dioxide 29 mmol/L (21-32) 01/20/17 10:40 Anion Gap 3 (8-16) L 01/20/17 10:40 BUN 18 mg/dL (7-18) 01/20/17 10:40 Creatinine 0.8 mg/dL (0.55-1.02) 01/20/17 10:40 Creat Clearance w eGFR > 60 (>60) 01/20/17 10:40 Random Glucose 86 mg/dL (74-106) 01/20/17 10:40 Calcium 8.3 mg/dL (8.5-10.1) L 01/20/17 10:40 Total Bilirubin 0.2 mg/dL (0.2-1.0) D 01/20/17 10:40 AST 9 U/L (15-37) L D 01/20/17 10:40 ALT < 6 U/L (12-78) L 01/20/17 10:40 Alkaline Phosphatase 106 U/L (45-117) 01/20/17 10:40 Total Protein 6.1 g/dl (6.4-8.2) L 01/20/17 10:40 Albumin 1.8 g/dl (3.4-5.0) L 01/20/17 10:40 Current Medications Generic Name Dose Route Start Last Admin Trade Name Freq PRN Reason Stop Dose Admin Acetaminophen 650 mg 01/15/17 14:51 01/20/17 14:46 Tylenol - PO 650 mg Q6H PRN Administration FEVER OR PAIN Collagenase 1 applic 01/16/17 10:00 01/20/17 16:30 Santyl - TP 1 applic DAILY KAIN Administration Docusate Sodium 100 mg 01/15/17 22:00 01/20/17 10:14 Colace - PO Not Given BID KAIN Furosemide 20 mg 01/18/17 16:10 01/19/17 00:26 Lasix Injection - IVPB 20 mg ONCE PRN Administration post transfusion Heparin Sodium (Porcine) 5,000 unit 01/16/17 22:00 01/20/17 10:27 Heparin - SQ 5,000 unit BID KAIN Administration Aztreonam 1 gm/ Dextrose 50 mls @ 100 mls/hr 01/15/17 18:00 01/20/17 10:10 IVPB 100 mls/hr Q8H-IV KAIN Administration Protocol Daptomycin 650 mg/ Sodium 50 mls @ 100 mls/hr 01/16/17 13:00 01/20/17 12:49 Chloride IVPB 100 mls/hr DAILY@1300 [facility] Administration Ketoconazole 1 applic 01/15/17 15:48 Nizoral 2% Cream - TP BID PRN Fungal infection of buttock Levothyroxine Sodium 100 mcg 01/16/17 07:00 01/20/17 06:39 Synthroid - PO 100 mcg DAILY@0700 K[facility] Administration Lisinopril 10 mg 01/17/17 10:00 01/20/17 10:10 Prinivil PO 10 mg DAILY [facility] Administration Metoprolol Succinate 50 mg 01/18/17 10:00 01/20/17 10:10 Toprol Xl - PO 50 mg DAILY KAIN Administration Nystatin 1 applic 01/16/17 10:00 01/20/17 16:30 Nystop Powder - TP 1 applic DAILY [facility]AIN Administration Oxycodone HCl 5 mg 01/19/17 20:17 01/20/17 14:45 Roxicodone - PO 5 mg Q6H PRN Administration PAIN Senna 2 tab 01/15/17 22:00 01/19/17 22:33 Senna - PO Not Given HS [facility] Home Medications Medication Instructions Recorded Levothyroxine [Synthroid -] 100 mcg PO DAILY 07/02/16 Lisinopril [Prinivil] 20 mg PO DAILY 07/02/16 Ketoconazole 2% Cream [Nizoral 2% 1 applic TP BID PRN #1 tube 11/26/16 Cream -] Oxycodone HCl 5 mg PO Q4H 01/12/17 PE: as per resident's note ASSESSMENT AND PLAN: 71 y/o lady with h/o HTN, PVD, s/p stenting and graft of LLE, hypothyroidism,h/ o cellulitis on LE , and L hip DJD who presented with fever , she was found to have severe sepsis and cellulitis in L LE # LLE cellulitis with Bacteremia on Dapto and azactam IV day #02/23-14 ,will discuss with # S/p Severe sepsis and septic shock. with bacteremia coag neg staph. off pressors now, will continue IV antibiotic on Daptomycin 650 mg/ Sodium 50 mls and Azactam continue as per ID ; , echo with no vegetation. # Acute anemia with low hemoglobin s/p transfusion of one unit yesterday with one dose of lasix iv given. # Bactremia x 2 sets on IV antibiotic Azactam and Daptomycin IV continue as per ID , needs 5 more days of IV antibiotic # YING: improved possible due to sepsis # Microcytic anemia: due to chronic bleeding from hemorrhoids. will follow. hemoglobin 8.4 s/p Transfusion is 9.0 now DVT Px on heparin sq
[2017-01-20] MEDS: SENNOSIDES 8.6MG TABLET (FP) PO SCH (21:18)
[2017-01-21] MEDS: AZTREONAM 1 GM in DEXTROSE 5%-WATER - 50 ML IVPB SCH ×3 (02:12→18:52)
[2017-01-21] MEDS: ACETAMINOPHEN 325 MG TABLET (FP) PO PRN (02:22)
[2017-01-21] MEDS: oxyCODONE HCL 5 MG TABLET PO PRN ×2 (02:22→14:53)
[2017-01-21] MEDS: LEVOTHYROXINE NA 100 MCG TABLET (FP) PO SCH (06:35)
[2017-01-21 08:44] LABS: MCH 23.8 pg (25.7-33.7); MCHC 31.8 g/dl (32.0-36.0); MEAN CELL VOLUME 75.1 fl (80-96); MEAN PLT VOLUME 7.3 fl (7.5-11.1); PLATELET COUNT 375 K/MM3 (134-434); RDW 20.8 % (11.6-15.6); WHITE BLOOD COUNT 11.7 K/mm3 (4.0-10.0)
[2017-01-21 10:14] LABS: ALBUMIN 1.8 g/dl (3.4-5.0); ANION GAP 5 (8-16); CALCIUM 8.1 mg/dL (8.5-10.1); CO2 26 mmol/L (21-32); GLUCOSE,RANDOM 101 mg/dL (74-106); SGOT/AST 14 U/L (15-37); SGPT/ALT 6 U/L (12-78); TOT PROT 6.2 g/dl (6.4-8.2)
[2017-01-21 10:19] LABS: ALK PHOS 106 U/L (45-117); BILIRUBIN,TOTAL 0.3 mg/dL (0.2-1.0); CREATININE 0.8 mg/dL (0.55-1.02)
[2017-01-21] MEDS ORDERED: PT OWN MED DRAWER 7, Y5N ONE ×3 (11:16→22:15)
[2017-01-21] MEDS: METOPROLOL SUCCINATE 50 MG TAB.SR.24H (FP) PO SCH (11:46)
[2017-01-21] MEDS: DOCUSATE SODIUM 100 MG CAPSULE (FP) PO SCH ×2 (11:46→22:23)
[2017-01-21] MEDS: LISINOPRIL 10 MG TABLET (FP) PO SCH (11:46)
[2017-01-21] MEDS: HEPARIN NA (PORCINE) 5,000 UNITS/ML 1ML VIAL SQ SCH ×2 (11:48→22:24)
[2017-01-21] MEDS: NYSTATIN POWDER 100,000 UNITS/GM - 15 GM TOPICAL POWDER TP SCH (11:56)
[2017-01-21] MEDS: COLLAGENASE CLOSTRIDIUM HIST. 30 GRAMS TUBE TP SCH (11:57)
[2017-01-21] MEDS: LINEZOLID 600 MG TABLET (RESTRICTED TO ID) PO SCH ×2 (12:52→22:23)
--- NOTE | 2017-01-21 13:06 | PN ---
Progress Note, Physician Chief Complaint: Patient seen and examined Awake and alert Feels better now on floor care History of Present Illness: Chart was reviewed. Generalized weakness Denies chest pain, shortness of breath or palpitations - Current Medication List Current Medications: Active Medications Acetaminophen (Tylenol -) 650 mg PO Q6H PRN PRN Reason: FEVER OR PAIN Last Admin: 01/21/17 02:22 Dose: 650 mg Collagenase (Santyl -) 1 applic TP DAILY [facility] Last Admin: 01/21/17 11:57 Dose: 1 applic Docusate Sodium (Colace -) 100 mg PO BID [facility] Last Admin: 01/21/17 11:46 Dose: 100 mg Furosemide (Lasix Injection -) 20 mg IVPB ONCE PRN PRN Reason: post transfusion Last Admin: 01/19/17 00:26 Dose: 20 mg Heparin Sodium (Porcine) (Heparin -) 5,000 unit SQ BID [facility] Last Admin: 01/21/17 11:48 Dose: 5,000 unit Aztreonam 1 gm/ Dextrose 50 mls @ 100 mls/hr IVPB Q8H-IV KAIN PRN Reason: Protocol Last Admin: 01/21/17 12:51 Dose: 100 mls/hr Ketoconazole (Nizoral 2% Cream -) 1 applic TP BID PRN PRN Reason: Fungal infection of buttock Levothyroxine Sodium (Synthroid -) 100 mcg PO DAILY@0700 [facility] Last Admin: 01/21/17 06:35 Dose: 100 mcg Linezolid (Zyvox (Restricted To Id) -) 600 mg PO BID [facility] Last Admin: 01/21/17 12:52 Dose: 600 mg Lisinopril (Prinivil) 10 mg PO DAILY [facility] Last Admin: 01/21/17 11:46 Dose: 10 mg Metoprolol Succinate (Toprol Xl -) 50 mg PO DAILY [facility] Last Admin: 01/21/17 11:46 Dose: 50 mg Nystatin (Nystop Powder -) 1 applic TP DAILY [facility] Last Admin: 01/21/17 11:56 Dose: 1 applic Oxycodone HCl (Roxicodone -) 5 mg PO Q6H PRN PRN Reason: PAIN Last Admin: 01/21/17 02:22 Dose: 5 mg Senna (Senna -) 2 tab PO HS [facility] Last Admin: 01/20/17 21:18 Dose: Not Given - Objective Vital Signs: Vital Signs Temperature 98.4 F 01/21/17 08:35 Pulse Rate 67 01/21/17 08:35 Respiratory Rate 20 01/21/17 08:35 Blood Pressure 143/56 01/21/17 08:35 O2 Sat by Pulse Oximetry (%) 97 01/19/17 21:00 Neck: Yes: Supple Cardiovascular: Yes: Regular Rate and Rhythm, S1, S2 Respiratory: Yes: Diminished Gastrointestinal: Yes: Normal Bowel Sounds, Soft, Abdomen, Obese. No: Tenderness Edema: Yes Edema: LLE: 1+, RLE: 1+ Wound/Incision: Yes: Dressing Dry and Intact Labs: CBC, BMP 01/21/17 08:36 01/21/17 09:30 Assessment/Plan 1. Sepsis with fever, lower extremity ulcer and cellulitis 2. Acute on chronic kidney disease 3. Acute on chronic LV diastolic dysfunction with failure, elevated BNP, but no significant clinical evidence of heart failure 4. Hypertension 5. Hypothyroidism 6. History of thyroid cancer s/p partial thyroidectomy 7. Anemia - significantly reduced H/H but no active bleed PLAN: 1. Continue Toprol XL and Lisinopril as tolerated 2. Monitor H/H and transfuse PRBC as needed 3. Antibiotics coverage 4. Wound care and DVT prophylaxis 5. DVT prophylaxis 6. PT Further plans are to follow Michael Arizmendi MD
--- NOTE | 2017-01-21 14:29 | PN ---
Progress Note, Physician History of Present Illness: patient continues to improve still oozing from the left leg wounds healing - Current Medication List Current Medications: Active Medications Acetaminophen (Tylenol -) 650 mg PO Q6H PRN PRN Reason: FEVER OR PAIN Last Admin: 01/21/17 02:22 Dose: 650 mg Collagenase (Santyl -) 1 applic TP DAILY [facility] Last Admin: 01/21/17 11:57 Dose: 1 applic Docusate Sodium (Colace -) 100 mg PO BID [facility] Last Admin: 01/21/17 11:46 Dose: 100 mg Furosemide (Lasix Injection -) 20 mg IVPB ONCE PRN PRN Reason: post transfusion Last Admin: 01/19/17 00:26 Dose: 20 mg Heparin Sodium (Porcine) (Heparin -) 5,000 unit SQ BID [facility] Last Admin: 01/21/17 11:48 Dose: 5,000 unit Aztreonam 1 gm/ Dextrose 50 mls @ 100 mls/hr IVPB Q8H-IV KAIN PRN Reason: Protocol Last Admin: 01/21/17 12:51 Dose: 100 mls/hr Ketoconazole (Nizoral 2% Cream -) 1 applic TP BID PRN PRN Reason: Fungal infection of buttock Levothyroxine Sodium (Synthroid -) 100 mcg PO DAILY@0700 [facility] Last Admin: 01/21/17 06:35 Dose: 100 mcg Linezolid (Zyvox (Restricted To Id) -) 600 mg PO BID [facility] Last Admin: 01/21/17 12:52 Dose: 600 mg Lisinopril (Prinivil) 10 mg PO DAILY [facility] Last Admin: 01/21/17 11:46 Dose: 10 mg Metoprolol Succinate (Toprol Xl -) 50 mg PO DAILY [facility] Last Admin: 01/21/17 11:46 Dose: 50 mg Nystatin (Nystop Powder -) 1 applic TP DAILY [facility] Last Admin: 01/21/17 11:56 Dose: 1 applic Oxycodone HCl (Roxicodone -) 5 mg PO Q6H PRN PRN Reason: PAIN Last Admin: 01/21/17 02:22 Dose: 5 mg Senna (Senna -) 2 tab PO HS [facility] Last Admin: 01/20/17 21:18 Dose: Not Given - Objective Vital Signs: Vital Signs Temperature 98.4 F 01/21/17 08:35 Pulse Rate 67 01/21/17 08:35 Respiratory Rate 20 01/21/17 08:35 Blood Pressure 143/56 01/21/17 08:35 O2 Sat by Pulse Oximetry (%) 97 01/19/17 21:00 Constitutional: Yes: No Distress, Calm, Obese Cardiovascular: Yes: Regular Rate and Rhythm Respiratory: Yes: Regular, CTA Bilaterally Gastrointestinal: Yes: Normal Bowel Sounds, Soft Musculoskeletal: Yes: Other Extremities: Yes: Other Edema: LLE: 1+, RLE: 1+ Integumentary: Yes: Other Wound/Incision: Yes: Dressing Removed (wounds looked at improving draiang more from the left leg) Neurological: Yes: Alert, Oriented Psychiatric: Yes: Alert, Oriented Labs: CBC, BMP 01/21/17 08:36 01/21/17 09:30 INR, PTT INR 1.40 (0.82-1.09) H 01/12/17 01:50 Assessment/Plan cellulitis b/l leg ulcers obesity sepsis wound infection gram positive bacteremia patient with trending wbc down ' plan continue oral abx and iv abx wbc trending down rest continue current mgmt will be able to switch to oral bactrim total 5 more days
--- NOTE | 2017-01-21 16:01 | PN ---
Teaching Attending Note Name of Resident: Deysi Van ATTENDING PHYSICIAN STATEMENT I saw and evaluated the patient. I reviewed the resident's note and discussed the case with the resident. I agree with the resident's findings and plan as documented. SUBJECTIVE: Patient is feeling better. Has not moved from her bed yet. OBJECTIVE: Vital Signs Temperature 98.7 F 01/21/17 14:00 Pulse Rate 79 01/21/17 14:00 Respiratory Rate 20 01/21/17 14:00 Blood Pressure 126/71 01/21/17 14:00 O2 Sat by Pulse Oximetry (%) 97 01/19/17 21:00 CBCD WBC 11.7 K/mm3 (4.0-10.0) H 01/21/17 08:36 RBC 3.64 M/mm3 (3.60-5.2) 01/21/17 08:36 Hgb 8.7 GM/dL (10.7-15.3) L 01/21/17 08:36 Hct 27.3 % (32.4-45.2) L 01/21/17 08:36 MCV 75.1 fl (80-96) L 01/21/17 08:36 MCHC 31.8 g/dl (32.0-36.0) L 01/21/17 08:36 RDW 20.8 % (11.6-15.6) H 01/21/17 08:36 Plt Count 375 K/MM3 (134-434) 01/21/17 08:36 MPV 7.3 fl (7.5-11.1) L 01/21/17 08:36 CMP Sodium 139 mmol/L (136-145) 01/21/17 09:30 Potassium 4.5 mmol/L (3.5-5.1) 01/21/17 09:30 Chloride 108 mmol/L (98-107) H 01/21/17 09:30 Carbon Dioxide 26 mmol/L (21-32) 01/21/17 09:30 Anion Gap 5 (8-16) L 01/21/17 09:30 BUN 14 mg/dL (7-18) D 01/21/17 09:30 Creatinine 0.8 mg/dL (0.55-1.02) 01/21/17 09:30 Creat Clearance w eGFR > 60 (>60) 01/21/17 09:30 Random Glucose 101 mg/dL (74-106) 01/21/17 09:30 Calcium 8.1 mg/dL (8.5-10.1) L 01/21/17 09:30 Total Bilirubin 0.3 mg/dL (0.2-1.0) D 01/21/17 09:30 AST 14 U/L (15-37) L D 01/21/17 09:30 ALT 6 U/L (12-78) L 01/21/17 09:30 Alkaline Phosphatase 106 U/L (45-117) 01/21/17 09:30 Total Protein 6.2 g/dl (6.4-8.2) L 01/21/17 09:30 Albumin 1.8 g/dl (3.4-5.0) L 01/21/17 09:30 Current Medications Generic Name Dose Route Start Last Admin Trade Name Freq PRN Reason Stop Dose Admin Acetaminophen 650 mg 01/15/17 14:51 01/21/17 02:22 Tylenol - PO 650 mg Q6H PRN Administration FEVER OR PAIN Collagenase 1 applic 01/16/17 10:00 01/21/17 11:57 Santyl - TP 1 applic DAILY KAIN Administration Docusate Sodium 100 mg 01/15/17 22:00 01/21/17 11:46 Colace - PO 100 mg BID KAIN Administration Furosemide 20 mg 01/18/17 16:10 01/19/17 00:26 Lasix Injection - IVPB 20 mg ONCE PRN Administration post transfusion Heparin Sodium (Porcine) 5,000 unit 01/16/17 22:00 01/21/17 11:48 Heparin - SQ 5,000 unit BID KAIN Administration Aztreonam 1 gm/ Dextrose 50 mls @ 100 mls/hr 01/15/17 18:00 01/21/17 12:51 IVPB 100 mls/hr Q8H-IV KAIN Administration Protocol Ketoconazole 1 applic 01/15/17 15:48 Nizoral 2% Cream - TP BID PRN Fungal infection of buttock Levothyroxine Sodium 100 mcg 01/16/17 07:00 01/21/17 06:35 Synthroid - PO 100 mcg DAILY@0700 K[facility] Administration Linezolid 600 mg 01/21/17 10:00 01/21/17 12:52 Zyvox (Restricted To Id) - PO 600 mg BID [facility]IAN Administration Lisinopril 10 mg 01/17/17 10:00 01/21/17 11:46 Prinivil PO 10 mg DAILY KAIN Administration Metoprolol Succinate 50 mg 01/18/17 10:00 01/21/17 11:46 Toprol Xl - PO 50 mg DAILY KAIN Administration Nystatin 1 applic 01/16/17 10:00 01/21/17 11:56 Nystop Powder - TP 1 applic DAILY [facility]AIN Administration Oxycodone HCl 5 mg 01/19/17 20:17 01/21/17 14:53 Roxicodone - PO 5 mg Q6H PRN Administration PAIN Senna 2 tab 01/15/17 22:00 01/20/17 21:18 Senna - PO Not Given HS [facility] Home Medications Medication Instructions Recorded Levothyroxine [Synthroid -] 100 mcg PO DAILY 07/02/16 Lisinopril [Prinivil] 20 mg PO DAILY 07/02/16 Ketoconazole 2% Cream [Nizoral 2% 1 applic TP BID PRN #1 tube 11/26/16 Cream -] Oxycodone HCl 5 mg PO Q4H 01/12/17 PE: LEs feeling better, the swelling is better ASSESSMENT AND PLAN: 71 y/o lady with h/o HTN, PVD, s/p stenting and graft of LLE, hypothyroidism,h/ o cellulitis on LE , and L hip DJD who presented with fever , she was found to have severe sepsis and cellulitis in L LE # LLE cellulitis with Bacteremia s/p Dapto now on Zyvox continue and azactam IV day , requiring 3 more days of IV antibiotic and 3 more days of oral antibiotics. Will discuss with whether patient can be send to rehab and continue antibiotic in the facility. # S/p Severe sepsis and septic shock. with bacteremia coag neg staph. off pressors now, will continue IV antibiotic on zyvox now s/p Daptomycin 650 mg/ Sodium 50 mls and continue Azactam continue as per ID ; , echo with no vegetation. # Acute anemia with low hemoglobin s/p transfusion of one unit s/p one dose of lasix iv given. # YING: improved possible due to sepsis # Microcytic anemia: due to chronic bleeding from hemorrhoids. will follow. hemoglobin 8.4 s/p Transfusion is 9.0-->8.7 today DVT Px on heparin sq
--- NOTE | 2017-01-21 19:23 | PN ---
Physical Exam: SUBJECTIVE: Patient seen and examined this AM. No complaints. No CP, no SOB, no fevers, no chills. OBJECTIVE: Vital Signs Period Temp Pulse Resp BP Sys/Chakraborty Pulse Ox Last 24 Hr 98.4 F-99.2 F 21-85 20-21 110-148/56-76 96 GENERAL: AAOx3, NAD HEENT: PERRLA, EOMi, no LAD, no JVD LUNGS: R basilar crackles, no use of accessory muscles HEART: S1, S2, with PVCs, no murmurs ABD: Soft, NT, ND, Normoactive BS UPPER EXTREMITIES: 2+ pulses, warm, well-perfused, no edema LOWER EXTREMITIES: - Left: Thigh less warm, less erythematous, swollen, less TTP, leg wrapped per vascular, +2 edema, 1+ pulses - Right: Thigh swollen, less than R, no TTP, leg wrapped per vascular, 1+ pulses NEUROLOGICAL: Cranial nerves II through XII grossly intact. No facial droop. Sensation equal and intact bilaterally in face and body. Laboratory Results - last 24 hr 01/21/17 01/21/17 08:36 09:30 WBC 11.7 H RBC 3.64 Hgb 8.7 L Hct 27.3 L MCV 75.1 L MCH 23.8 L MCHC 31.8 L RDW 20.8 H Plt Count 375 MPV 7.3 L Sodium 139 Potassium 4.5 Chloride 108 H Carbon Dioxide 26 Anion Gap 5 L BUN 14 D Creatinine 0.8 Creat Clearance w eGFR > 60 Random Glucose 101 Calcium 8.1 L Total Bilirubin 0.3 D AST 14 L D ALT 6 L Alkaline Phosphatase 106 Total Protein 6.2 L Albumin 1.8 L Active Medications Generic Name Dose Route Start Last Admin Trade Name Freq PRN Reason Stop Dose Admin Acetaminophen 650 mg 01/15/17 14:51 01/21/17 02:22 Tylenol - PO 650 mg Q6H PRN Administration FEVER OR PAIN Collagenase 1 applic 01/16/17 10:00 01/21/17 11:57 Santyl - TP 1 applic DAILY KAIN Administration Docusate Sodium 100 mg 01/15/17 22:00 01/21/17 11:46 Colace - PO 100 mg BID KAIN Administration Furosemide 20 mg 01/18/17 16:10 01/19/17 00:26 Lasix Injection - IVPB 20 mg ONCE PRN Administration post transfusion Heparin Sodium (Porcine) 5,000 unit 01/16/17 22:00 01/21/17 11:48 Heparin - SQ 5,000 unit BID KAIN Administration Aztreonam 1 gm/ Dextrose 50 mls @ 100 mls/hr 01/15/17 18:00 01/21/17 18:52 IVPB 100 mls/hr Q8H-IV KAIN Administration Protocol Ketoconazole 1 applic 01/15/17 15:48 Nizoral 2% Cream - TP BID PRN Fungal infection of buttock Levothyroxine Sodium 100 mcg 01/16/17 07:00 01/21/17 06:35 Synthroid - PO 100 mcg DAILY@0700 KAIN Administration Linezolid 600 mg 01/21/17 10:00 01/21/17 12:52 Zyvox (Restricted To Id) - PO 600 mg BID KAIN Administration Lisinopril 10 mg 01/17/17 10:00 01/21/17 11:46 Prinivil PO 10 mg DAILY KAIN Administration Metoprolol Succinate 50 mg 01/18/17 10:00 01/21/17 11:46 Toprol Xl - PO 50 mg DAILY KAIN Administration Nystatin 1 applic 01/16/17 10:00 01/21/17 11:56 Nystop Powder - TP 1 applic DAILY KAIN Administration Oxycodone HCl 5 mg 01/19/17 20:17 01/21/17 14:53 Roxicodone - PO 5 mg Q6H PRN Administration PAIN Senna 2 tab 01/15/17 22:00 01/20/17 21:18 Senna - PO Not Given HS [facility] ASSESSMENT/PLAN: Patient is a 71 yo F with a PMHx of HTN, chronic b/l leg ulcers (s/p stenting + graft of LLE), B/L lymphedema, Peripheral vascular disease, chronic hip pain, thyroid cancer s/p thyroidectomy (type unknown), and multiple antibiotic allergies presented to the ED with fever, weakness and worsening of B/L leg ulcers. She was found to be in severe sepsis (Tmax 102.3, HR 93, WBC 19.2, Lactic Acid 2.4). She received Levaquin and antipyretics in the ED and was admitted to Med-Surg. On the floors she had an episode of low BP, and was sent to ICU for HLOC, had been on dopamine drip. She has been off pressors and was sent back to the floors. # Severe sepsis - Likely from LLE cellulitis - Not bacteremic - Day 10 of IV Aztreonam 1g + PO Linezolid - Will switch to Bactrim + Linezolid PO - Not pressor dependent anymore, fluids d/cd - ID & Vascular on the case # CHF w/ preserved ejection fraction - Elevated BNP - Echo shows LVSF is low normal, EF 55.6%, no wall motion abn - D/cd gentle fluids, if overloaded, give lasix - Cardiology on the case # YING Baseline Cr 0.9, Admission 1.7 - resolved - Likely hypoperfusion from sepsis, resolved w/ gentle hydration - Avoid nephrotoxic drugs d/cd Lisinopril # Ventricular [place] - Mg, PO4 WNL - Monitor for improvement with metoprolol # R/o PE - There was concern for PE during hospitalization from EKG cx - LLE dopplers neg; RLLE cannot r/o in popliteal vein - No concern for PE at this moment, d/c'd hep drip # Microcytic Anemia Baseline Hgb 9.5-104 - Fe Panel looks like AREN, - s/p PRBC x 3 - H/H now stable - Transfuse to keep Hgb >8 - Iron PO at discharge # Chronic L Hip Pain - Continue home oxycodone # Hx of Hypertension - Continue Lisinopril 10mg (lower dose than home 20) as per Cardiology - Increased dose of home Metoprolol as per Cardio, at 50mg QD # Hypothyroidism - Continue levothyroxine # FEN - Fluids: None - Electrolytes: Monitor - Nutrition: Sodium controlled diet # Prophylaxis - DVT: On Heparin drip - GI: Not indicated - Deconditioning: PT on board # Code status: Full Code # Dispo - Trend WBC - Pt failed physical therapy, will d/c to SNF - Talk to SW about medication costs + insurance Dr. Deysi Van MD - PGY1 Internal Medicine Resident Visit type - Emergency Visit Emergency Visit: No - New Patient This patient is new to me today: No - Critical Care Critical Care patient: No - Discharge Referral Referred to [facility] Med P.C[facility] No
[2017-01-21] MEDS: SENNOSIDES 8.6MG TABLET (FP) PO SCH (22:23)
[2017-01-22] MEDS: oxyCODONE HCL 5 MG TABLET PO PRN ×3 (01:04→18:18)
[2017-01-22] MEDS: AZTREONAM 1 GM in DEXTROSE 5%-WATER - 50 ML IVPB SCH ×3 (01:04→16:59)
[2017-01-22] MEDS ORDERED: PT OWN MED DRAWER 7, Y5N ONE ×3 (01:04→16:45)
[2017-01-22] MEDS: ACETAMINOPHEN 325 MG TABLET (FP) PO PRN ×3 (01:05→18:19)
[2017-01-22] MEDS: LEVOTHYROXINE NA 100 MCG TABLET (FP) PO SCH (06:09)
[2017-01-22 08:27] LABS: MCH 23.2 pg (25.7-33.7); MCHC 30.8 g/dl (32.0-36.0); MEAN CELL VOLUME 75.3 fl (80-96); PLATELET COUNT 392 K/MM3 (134-434); RDW 21.2 % (11.6-15.6); WHITE BLOOD COUNT 11.4 K/mm3 (4.0-10.0)
--- NOTE | 2017-01-22 08:38 | PN ---
Physical Exam: SUBJECTIVE: Patient seen and examined this AM. She has no complaints. No fevers , no chills, no CP, SOB. Feels ready to go to SNF today. OBJECTIVE: Vital Signs Period Temp Pulse Resp BP Sys/Chakraborty Pulse Ox Last 24 Hr 98.4 F-98.7 F 67-85 20-20 110-152/56-71 96-96 GENERAL: AAOx3, NAD HEENT: PERRLA, EOMi, no LAD, no JVD LUNGS: R basilar crackles, no use of accessory muscles HEART: S1, S2, with PVCs, no murmurs ABD: Soft, NT, ND, Normoactive BS UPPER EXTREMITIES: 2+ pulses, warm, well-perfused, no edema LOWER EXTREMITIES: - Left: Thigh less warm, less erythematous, swollen, less TTP, leg wrapped per vascular, +2 edema, 1+ pulses - Right: Thigh swollen, less than R, no TTP, leg wrapped per vascular, 1+ pulses NEUROLOGICAL: Cranial nerves II through XII grossly intact. No facial droop. Sensation equal and intact bilaterally in face and body. Laboratory Results - last 24 hr 01/18/17 01/21/17 01/21/17 17:00 08:36 09:30 WBC 11.7 H RBC 3.64 Hgb 8.7 L Hct 27.3 L MCV 75.1 L MCH 23.8 L MCHC 31.8 L RDW 20.8 H Plt Count 375 MPV 7.3 L Sodium 139 Potassium 4.5 Chloride 108 H Carbon Dioxide 26 Anion Gap 5 L BUN 14 D Creatinine 0.8 Creat Clearance w eGFR > 60 Random Glucose 101 Calcium 8.1 L Total Bilirubin 0.3 D AST 14 L D ALT 6 L Alkaline Phosphatase 106 Total Protein 6.2 L Albumin 1.8 L Blood Type O POSITIVE Antibody Screen Negative Crossmatch See Detail Active Medications Generic Name Dose Route Start Last Admin Trade Name Freq PRN Reason Stop Dose Admin Acetaminophen 650 mg 01/15/17 14:51 01/22/17 01:05 Tylenol - PO 650 mg Q6H PRN Administration FEVER OR PAIN Collagenase 1 applic 01/16/17 10:00 01/21/17 11:57 Santyl - TP 1 applic DAILY KAIN Administration Docusate Sodium 100 mg 01/15/17 22:00 01/21/17 22:23 Colace - PO Not Given BID KAIN Furosemide 20 mg 01/18/17 16:10 01/19/17 00:26 Lasix Injection - IVPB 20 mg ONCE PRN Administration post transfusion Heparin Sodium (Porcine) 5,000 unit 01/16/17 22:00 01/21/17 22:24 Heparin - SQ 5,000 unit BID KAIN Administration Aztreonam 1 gm/ Dextrose 50 mls @ 100 mls/hr 01/15/17 18:00 01/22/17 01:04 IVPB 100 mls/hr Q8H-IV KAIN Administration Protocol Ketoconazole 1 applic 01/15/17 15:48 Nizoral 2% Cream - TP BID PRN Fungal infection of buttock Levothyroxine Sodium 100 mcg 01/16/17 07:00 01/22/17 06:09 Synthroid - PO 100 mcg DAILY@0700 KAIN Administration Linezolid 600 mg 01/21/17 10:00 01/21/17 22:23 Zyvox (Restricted To Id) - PO 600 mg BID KAIN Administration Lisinopril 10 mg 01/17/17 10:00 01/21/17 11:46 Prinivil PO 10 mg DAILY KAIN Administration Metoprolol Succinate 50 mg 01/18/17 10:00 01/21/17 11:46 Toprol Xl - PO 50 mg DAILY KAIN Administration Nystatin 1 applic 01/16/17 10:00 01/21/17 11:56 Nystop Powder - TP 1 applic DAILY KAIN Administration Oxycodone HCl 5 mg 01/19/17 20:17 01/22/17 01:04 Roxicodone - PO 5 mg Q6H PRN Administration PAIN Senna 2 tab 01/15/17 22:00 01/21/17 22:23 Senna - PO Not Given HS [facility] ASSESSMENT/PLAN: Patient is a 71 yo F with a PMHx of HTN, chronic b/l leg ulcers (s/p stenting + graft of LLE), B/L lymphedema, Peripheral vascular disease, chronic hip pain, thyroid cancer s/p thyroidectomy (type unknown), and multiple antibiotic allergies presented to the ED with fever, weakness and worsening of B/L leg ulcers. She was found to be in severe sepsis (Tmax 102.3, HR 93, WBC 19.2, Lactic Acid 2.4). She received Levaquin and antipyretics in the ED and was admitted to Med-Surg. On the floors she had an episode of low BP, and was sent to ICU for HLOC, had been on dopamine drip. She has been off pressors and was sent back to the floors. # Severe sepsis 2/2 LLE cellulitis - Not bacteremic - Day 11 of IV Aztreonam 1g Q8 + PO Linezolid 600mg BID - Will switch to Bactrim + Linezolid PO for 5 more days - ID & Vascular on the case # CHF w/ preserved ejection fraction - Elevated BNP - Echo shows LVSF is low normal, EF 55.6%, no wall motion abn - Cardiology on the case # YING Baseline Cr 0.9, Admission 1.7 - resolved - Likely hypoperfusion from sepsis, resolved w/ gentle hydration - Avoid nephrotoxic drugs d/cd Lisinopril # Ventricular Bigeminny - Mg, PO4 WNL - Monitor for improvement with metoprolol # R/o PE - There was concern for PE during hospitalization from EKG cx - LLE dopplers neg; RLLE cannot r/o in popliteal vein - No concern for PE at this moment, d/c'd hep drip # Microcytic Anemia Baseline Hgb 9.5-104 - Fe Panel looks like AREN, - s/p PRBC x 3 - H/H now stable - Transfuse to keep Hgb >8 - Iron PO at discharge # Chronic L Hip Pain - Continue home oxycodone # Hx of Hypertension - Continue Lisinopril 10mg (lower dose than home 20) as per Cardiology - Increased dose of home Metoprolol as per Cardio, at 50mg QD # Hypothyroidism - Continue levothyroxine # FEN - Fluids: None - Electrolytes: Monitor - Nutrition: Sodium controlled diet # Prophylaxis - DVT: Heparin SQ BID - GI: Not indicated - Deconditioning: PT on board # Code status: Full Code # Dispo - Likely d/c today to SNF Dr. Deysi Van MD - PGY1 Internal Medicine Resident
[2017-01-22] MEDS: METOPROLOL SUCCINATE 50 MG TAB.SR.24H (FP) PO SCH (09:38)
[2017-01-22] MEDS: HEPARIN NA (PORCINE) 5,000 UNITS/ML 1ML VIAL SQ SCH (09:38)
[2017-01-22] MEDS: DOCUSATE SODIUM 100 MG CAPSULE (FP) PO SCH (09:38)
[2017-01-22] MEDS: LISINOPRIL 10 MG TABLET (FP) PO SCH (09:38)
[2017-01-22] MEDS: LINEZOLID 600 MG TABLET (RESTRICTED TO ID) PO SCH (09:39)
[2017-01-22] MEDS: NYSTATIN POWDER 100,000 UNITS/GM - 15 GM TOPICAL POWDER TP SCH (09:42)
[2017-01-22] MEDS: COLLAGENASE CLOSTRIDIUM HIST. 30 GRAMS TUBE TP SCH (09:42)
--- NOTE | 2017-01-22 09:43 | PN ---
Progress Note, Physician Chief Complaint: Patient seen and examined Awake and alert Not in distress History of Present Illness: Chart was reviewed. Generalized weakness Denies chest pain, shortness of breath or palpitations - Current Medication List Current Medications: Active Medications Acetaminophen (Tylenol -) 650 mg PO Q6H PRN PRN Reason: FEVER OR PAIN Last Admin: 01/22/17 08:55 Dose: 650 mg Collagenase (Santyl -) 1 applic TP DAILY [facility] Last Admin: 01/21/17 11:57 Dose: 1 applic Docusate Sodium (Colace -) 100 mg PO BID [facility] Last Admin: 01/21/17 22:23 Dose: Not Given Furosemide (Lasix Injection -) 20 mg IVPB ONCE PRN PRN Reason: post transfusion Last Admin: 01/19/17 00:26 Dose: 20 mg Heparin Sodium (Porcine) (Heparin -) 5,000 unit SQ BID [facility] Last Admin: 01/21/17 22:24 Dose: 5,000 unit Aztreonam 1 gm/ Dextrose 50 mls @ 100 mls/hr IVPB Q8H-IV KAIN PRN Reason: Protocol Last Admin: 01/22/17 01:04 Dose: 100 mls/hr Ketoconazole (Nizoral 2% Cream -) 1 applic TP BID PRN PRN Reason: Fungal infection of buttock Levothyroxine Sodium (Synthroid -) 100 mcg PO DAILY@0700 [facility] Last Admin: 01/22/17 06:09 Dose: 100 mcg Linezolid (Zyvox (Restricted To Id) -) 600 mg PO BID [facility] Last Admin: 01/21/17 22:23 Dose: 600 mg Lisinopril (Prinivil) 10 mg PO DAILY [facility] Last Admin: 01/21/17 11:46 Dose: 10 mg Metoprolol Succinate (Toprol Xl -) 50 mg PO DAILY [facility] Last Admin: 01/21/17 11:46 Dose: 50 mg Nystatin (Nystop Powder -) 1 applic TP DAILY [facility] Last Admin: 01/21/17 11:56 Dose: 1 applic Oxycodone HCl (Roxicodone -) 5 mg PO Q6H PRN PRN Reason: PAIN Last Admin: 01/22/17 08:54 Dose: 5 mg Senna (Senna -) 2 tab PO HS [facility] Last Admin: 01/21/17 22:23 Dose: Not Given - Objective Vital Signs: Vital Signs Temperature 98.4 F 01/22/17 06:47 Pulse Rate 80 01/22/17 06:47 Respiratory Rate 20 01/22/17 06:47 Blood Pressure 152/69 01/22/17 06:47 O2 Sat by Pulse Oximetry (%) 96 01/21/17 21:00 Neck: Yes: Supple Cardiovascular: Yes: Regular Rate and Rhythm, S1, S2 Respiratory: Yes: Diminished Gastrointestinal: Yes: Normal Bowel Sounds, Soft, Abdomen, Obese. No: Tenderness Edema: Yes Edema: LLE: 1+, RLE: 1+ Labs: CBC, BMP 01/22/17 07:30 01/21/17 09:30 Assessment/Plan 1. Sepsis with fever, lower extremity ulcer and cellulitis 2. Acute on chronic kidney disease 3. Acute on chronic LV diastolic dysfunction with failure, elevated BNP, but no significant clinical evidence of heart failure 4. Hypertension 5. Hypothyroidism 6. History of thyroid cancer s/p partial thyroidectomy 7. Anemia - significantly reduced H/H but no active bleed PLAN: 1. Continue Toprol XL and Lisinopril as tolerated. Continue diuretics 2. Monitor H/H and transfuse PRBC as needed 3. Antibiotics coverage 4. Wound care and DVT prophylaxis 5. DVT prophylaxis 6. PT and eventual rehab Further plans are to follow Michael Arizmendi MD
[2017-01-22 11:52] VITALS: TEMP 98.2
--- NOTE | 2017-01-22 13:43 | PN ---
Teaching Attending Note Name of Resident: Deysi Van ATTENDING PHYSICIAN STATEMENT I saw and evaluated the patient. I reviewed the resident's note and discussed the case with the resident. I agree with the resident's findings and plan as documented. SUBJECTIVE: feels much better, pain is much better . feels deconditioned OBJECTIVE: NAD, AAOx3 HEENT: MMM, EOMI. no facial droop. CV: RRR, 2/6 SM at RUSB. Lungs : R basilar crackles Abd : soft, NT, ND , NL BS Ext: L thigh and upper leg with improved erythema, edema and tenderness compared to last exam. wounds were un-wrapped today . Assessment/Plan: 71 y/o lady with h/o HTN, PVD, s/p stenting and graft of LLE, hypothyroidism,h/ o cellulitis on LE , and L hip DJD who presented with fever , she was found to have severe sepsis and cellulitis in L LE 1- Severe sepsis and septic shock. resolved. cellulitis has improved - case was d/w ID . cconr zyvox and change aztreonam to bactrim x 5 more days - repeat blood cx neg . fisrt one with coag neg staff was probably contaminant - f/u with ID at dc 2- YING: resolved 3- iron def anemia: likely due to chronic bleeding from hemorrhoids. take iron supp , biD then TID in 2 weeks . f/u with GI at dc Dispo : dc to rehab
[2017-01-22 14:18] VITALS: BP 117/63; PULSE 75
--- NOTE | 2017-01-22 15:27 | PN ---
Progress Note, Physician History of Present Illness: patient doing well no new issues says she feels much better wound dsg done - Current Medication List Current Medications: Active Medications Acetaminophen (Tylenol -) 650 mg PO Q6H PRN PRN Reason: FEVER OR PAIN Last Admin: 01/22/17 08:55 Dose: 650 mg Collagenase (Santyl -) 1 applic TP DAILY [facility] Last Admin: 01/22/17 09:42 Dose: 1 applic Docusate Sodium (Colace -) 100 mg PO BID [facility] Last Admin: 01/22/17 09:38 Dose: 100 mg Furosemide (Lasix Injection -) 20 mg IVPB ONCE PRN PRN Reason: post transfusion Last Admin: 01/19/17 00:26 Dose: 20 mg Heparin Sodium (Porcine) (Heparin -) 5,000 unit SQ BID [facility] Last Admin: 01/22/17 09:38 Dose: 5,000 unit Aztreonam 1 gm/ Dextrose 50 mls @ 100 mls/hr IVPB Q8H-IV KAIN PRN Reason: Protocol Last Admin: 01/22/17 09:38 Dose: 100 mls/hr Ketoconazole (Nizoral 2% Cream -) 1 applic TP BID PRN PRN Reason: Fungal infection of buttock Levothyroxine Sodium (Synthroid -) 100 mcg PO DAILY@0700 [facility] Last Admin: 01/22/17 06:09 Dose: 100 mcg Linezolid (Zyvox (Restricted To Id) -) 600 mg PO BID [facility] Last Admin: 01/22/17 09:39 Dose: 600 mg Lisinopril (Prinivil) 10 mg PO DAILY [facility] Last Admin: 01/22/17 09:38 Dose: 10 mg Metoprolol Succinate (Toprol Xl -) 50 mg PO DAILY [facility] Last Admin: 01/22/17 09:38 Dose: 50 mg Nystatin (Nystop Powder -) 1 applic TP DAILY [facility] Last Admin: 01/22/17 09:42 Dose: 1 applic Oxycodone HCl (Roxicodone -) 5 mg PO Q6H PRN PRN Reason: PAIN Last Admin: 01/22/17 08:54 Dose: 5 mg Senna (Senna -) 2 tab PO HS [facility] Last Admin: 01/21/17 22:23 Dose: Not Given - Objective Vital Signs: Vital Signs Temperature 98.2 F 01/22/17 14:16 Pulse Rate 75 01/22/17 14:16 Respiratory Rate 18 01/22/17 14:16 Blood Pressure 117/63 01/22/17 14:16 O2 Sat by Pulse Oximetry (%) 96 01/22/17 09:00 Constitutional: Yes: No Distress, Calm, Obese Cardiovascular: Yes: Regular Rate and Rhythm Respiratory: Yes: Regular, CTA Bilaterally Gastrointestinal: Yes: Normal Bowel Sounds, Soft Musculoskeletal: Yes: Other Extremities: Yes: Other Integumentary: Yes: Other (wound non healing on left leg both leg with multiple issues) Wound/Incision: Yes: Dressing Dry and Intact, Other Neurological: Yes: Alert, Oriented Psychiatric: Yes: Alert, Oriented Labs: CBC, BMP 01/22/17 07:30 01/21/17 09:30 INR, PTT INR 1.40 (0.82-1.09) H 01/12/17 01:50 Assessment/Plan cellulitis b/l leg ulcers obesity sepsis wound infection gram positive bacteremia patient with trending wbc down patient is allergic to sulfa,in that event we cannot start patient on bactrim patient needs to complete the course of abx plan conitnue zyox patient needs to continue azactam for another 4 days rest as per primary team continue wound care
--- NOTE | 2017-01-22 16:04 | DS ---
Physical Exam: SUBJECTIVE: Patient seen and examined this AM. No New complaints. No fevers, no chills, no CP, no SOB. OBJECTIVE: Vital Signs Period Temp Pulse Resp BP Sys/Chakraborty Pulse Ox Last 24 Hr 98.2 F-98.6 F 75-95 18-20 110-152/57-69 96-96 PHYSICAL EXAM GENERAL: AAOx3, NAD HEENT: PERRLA, EOMi, no LAD, no JVD LUNGS: R basilar crackles, no use of accessory muscles HEART: S1, S2, with PVCs, no murmurs ABD: Soft, NT, ND, Normoactive BS UPPER EXTREMITIES: 2+ pulses, warm, well-perfused, no edema LOWER EXTREMITIES: - Left: Thigh less warm, less erythematous, swollen, less TTP, leg wrapped per vascular, +2 edema, 1+ pulses - Right: Thigh swollen, less than R, no TTP, leg wrapped per vascular, 1+ pulses NEUROLOGICAL: Cranial nerves II through XII grossly intact. No facial droop. Sensation equal and intact bilaterally in face and body. LABS Laboratory Results - last 24 hr 01/18/17 01/22/17 17:00 07:30 WBC 11.4 H RBC 3.81 Hgb 8.8 L Hct 28.7 L MCV 75.3 L MCH 23.2 L MCHC 30.8 L RDW 21.2 H Plt Count 392 MPV 7.0 L Blood Type O POSITIVE Antibody Screen Negative Crossmatch See Detail HOSPITAL COURSE: Date of Admission:01/12/17 Date of Discharge: 01/22/17 Patient is a 71 yo F with a PMHx of HTN, chronic b/l leg ulcers (s/p stenting + graft of LLE), B/L lymphedema, Peripheral vascular disease, chronic hip pain, thyroid cancer s/p thyroidectomy (type unknown), and multiple antibiotic allergies presented to the ED with fever, weakness and worsening of B/L leg ulcers. She was found to be in severe sepsis (Tmax 102.3, HR 93, WBC 19.2, Lactic Acid 2.4). She received antibiotics and antipyretics in the ED and was admitted to Med-Surg. On the floors she had an episode of low BP, and was sent to ICU for HLOC and pressors. She has been off pressors and was sent back to the floors. # Severe sepsis 2/2 LLE cellulitis - The patient was treated with 11 days of IV Aztreonam Q8 and Linezolid 600mg BID based on her wound culture sensitivity/specificity, and compatible with the patient's multiple antibiotic allergies. During the hospitalization she went into septic shock and was treated also with IV pressors, and ICU management. She was followed by Infectious Disease specialists and Vascular surgery. Her shock resolved, and her cellulitis is resolving. Final blood cultures were negative. She will need to be discharged to a subacute nursing facility on 4 more days of IV Aztreonam and PO Linezolid for a total of 14 days of treatment. # CHF w/ preserved ejection fraction - The patient had elevated BNP, JVD, lower extremity edema, with intolerance to fluids. Echocardiogram showed LVSF is low normal, EF 55.6%, without wall motion abnormalities. She was given lasix as needed during the hospitalization, and her fluid status was maintained. # Other - Acute Kidney Injury Baseline Cr 0.9. The patient's YING resolved with gentle hydration, it was likely due to hypoperfusion from sepsis. - Ventricualr Bigeminny - The patient's Mg, PO4 were within normal limits, there were fewer episodes with metoprolol. - R/o PE - There was patient was started on heparin drip due to concern for PE. It was discontinued when suspicion became low - Microcytic Anemia - The patient has AREN, received 3 units of PRBC in the hospital with stable H/H at discharge, we will discharge her with PO Iron - Hypertension - We managed her BP closely, with cardiology on the case, and she will be discharged on her home medications For all other chronic medical problems, we continued the patient on her home medications The patient will be going to [facility]. Dr. Deysi Van MD - PGY1 Internal Medicine Resident Minutes to complete discharge: 55 Discharge Summary Reason For Visit: AVASCULAR NECROSIS OF BONE OF HIP/ CELLULITIS Current Active Problems Cellulitis (Acute) Cellulitis of leg (Acute) Septic shock (Acute) Avascular necrosis of bone of hip (Chronic) Osteoarthritis of left hip (Chronic) Stasis edema of both lower extremities (Chronic) Condition: Improved - Instructions Diet, Activity, Other Instructions: THE PATIENT WILL BE DISCHARGED WITH AN IV LINE - You will be going to [facility] - Please take your antibiotics at the shelter Aztreonam 1g every 8 hours x 4 more days Zyvox 600mg two times a day x 4 more days - Please take your iron pills Ferrous sulfate 325mg two times a day for 2 weeks, then increase to three times a day Follow up with your primary care doctor to see if you need more Iron - Followup with Dr. Crowder, a theater technician, for your chronic hemorrhoids - Follow with your Primary Care doctor Dr. Fede Palomino within 2 weeks - You need to see Dr. Stearns, for your infection in 1 week Referrals: Halle Stearns MD [Staff Physician] - 2 Weeks Nora Crowder MD [Staff Physician] - 2 Weeks (Chronic hemorrhoids) Fede Palomino [Non Staff, Medical] - 2 Weeks () Disposition: [facility] FACILITY - Home Medications Comprehensive Discharge Medication List: Ambulatory Orders Aztreonam [Azactam (Restricted To Id) -] 1 gm IVPB Q8H-IV vial 01/22/17 Collagenase Clostridium Hist. [Santyl -] 1 applic TP DAILY #0 tube 01/22/17 Docusate Sodium [Colace -] 100 mg PO BID #30 capsule 01/22/17 Ferrous Sulfate 325 mg PO BID #14 tablet 01/22/17 Levothyroxine [Synthroid -] 100 mcg PO DAILY #30 tab 01/22/17 Linezolid [Zyvox (Restricted To Id) -] 600 mg PO BID #8 tablet 01/22/17 Lisinopril [Prinivil] 20 mg PO DAILY #30 tab 01/22/17 Metoprolol Succinate [Toprol XL -] 50 mg PO DAILY #30 tab 01/22/17 Oxycodone HCl 5 mg PO Q4H #60 tab MDD 30 01/22/17 Sennosides [Senna -] 2 tab PO HS #30 tablet 01/22/17 This patient is new to me today: No Emergency Visit: No Critical Care patient: No - Discharge Referral Referred to [facility] No
== END 2017-01-22 19:00 | DRG 871 ==
LOC: JER 00:24 → JERBED 02:59 → UNDOADMIN 03:03 → JERBED 03:03 → J4W 04:49 → JICU 15:42 → J4W 01-16 21:00 → J6S 01-20 17:24
PROVIDERS: ADMIT Internal Medicine; ATTEND Internal Medicine
PROC: 05HN33Z Insertion of Infusion Device into Left Internal Jugular Vein, Percutaneous Approach (ICD-10-PCS; principal; 2017-01-12)
DX: A41.9 Sepsis, unspecified organism (principal); R65.21 Severe sepsis with septic shock; N17.9 Acute kidney failure, unspecified; L03.116 Cellulitis of left lower limb; I13.0 Hypertensive heart and chronic kidney disease with heart failure and stage 1 through stage 4 chronic kidney disease, or unspecified chronic kidney disease; E87.2 Acidosis; L97.929 Non-pressure chronic ulcer of unspecified part of left lower leg with unspecified severity; L97.919 Non-pressure chronic ulcer of unspecified part of right lower leg with unspecified severity; I50.30 Unspecified diastolic (congestive) heart failure; D50.9 Iron deficiency anemia, unspecified; E03.9 Hypothyroidism, unspecified; N18.9 Chronic kidney disease, unspecified; E66.01 Morbid (severe) obesity due to excess calories; Z68.39 Body mass index [BMI] 39.0-39.9, adult; I73.9 Peripheral vascular disease, unspecified; Z85.850 Personal history of malignant neoplasm of thyroid; E86.0 Dehydration; I95.9 Hypotension, unspecified
CPT/HCPCS: 36415; 36430; 71010-TC; 80048; 80053; 80061; 81003; 81015; 82272; 82436; 82570; 82728; 83036; 83540; 83550; 83605; 83721; 83735; 83880; 84100; 84133; 84300; 84466; 85025; 85027; 85610; 85730; 86850; 86900; 86901; 86922; 87040; 87070; 87086; 87186; 87205; 93005; 93010; 93306-TC; 93971-TC; 97116-GP; 97162-GP; 99283-25; J0878; J1644; P9038; P9058

== ENCOUNTER → 2017-01-24 | Day surgery (SDC) | payer OTHER ==
[~2017-01-24] MED LIST: PICC LINE 8 ML FLUSH PROTOCOL IVPUSH PRN
== END | disposition home or self-care (01) ==
LOC: JRADIR 14:09
PROVIDERS: ATTEND Internal Medicine
PROC: 02HV33Z Insertion of Infusion Device into Superior Vena Cava, Percutaneous Approach (ICD-10-PCS; principal; 2017-01-24)
PROC: B518ZZA Fluoroscopy of Superior Vena Cava, Guidance (ICD-10-PCS; 2017-01-24)
DX: M86.9 Osteomyelitis, unspecified (principal)
CPT/HCPCS: 36569; 77001-TC; C1751

== ENCOUNTER 2017-11-08 04:52 | Inpatient (IN) | payer OTHER ==
[2017-11-08 06:03] LABS: BASO % 0.2 % (0-2.0); EOS % 0.1 % (0-4.5); HEMATOCRIT 31.2 % (32.4-45.2); HEMOGLOBIN 10.3 GM/dL (10.7-15.3); LYMPH % 4.3 % (8-40); MCH 26.6 pg (25.7-33.7); MCHC 33.2 g/dl (32.0-36.0); MEAN CELL VOLUME 80.4 fl (80-96); MEAN PLT VOLUME 7.6 fl (7.5-11.1); MONO % 4.1 % (3.8-10.2); NEUT % 91.3 % (42.8-82.8); PLATELET COUNT 250 K/MM3 (134-434); RBC 3.88 M/mm3 (3.60-5.2); RDW 17.7 % (11.6-15.6); WHITE BLOOD COUNT 7.9 K/mm3 (4.0-10.0)
[2017-11-08 06:17] LABS: INR 1.04 (0.82-1.09); PROTHROMBIN TIME (PATIENT) 11.8 SEC (9.7-13.0)
[2017-11-08 06:24] LABS: URINE APPEARANCE SLCLOUDY; URINE BILIRUBIN NEGATIVE (<2.0 mg/dL); URINE BLOOD NEGATIVE (NEGATIVE); URINE COLOR YELLOW; URINE GLUCOSE (UA) NEGATIVE (NEGATIVE); URINE KETONE NEGATIVE (NEGATIVE); URINE LEUK ESTERASE NEGATIVE (NEGATIVE); URINE NITRITE NEGATIVE (NEGATIVE); URINE PROTEIN NEGATIVE (NEGATIVE); URINE UROBILINOGEN NEGATIVE mg/dL (0.2-1.0)
[2017-11-08 06:38] LABS: ALBUMIN 2.8 g/dl (3.4-5.0); ANION GAP 7 (8-16); BILIRUBIN,TOTAL 0.2 mg/dL (0.2-1.0); BLOOD UREA NITROGEN 104 mg/dL (7-18); CHLORIDE 112 mmol/L (98-107); CO2 15 mmol/L (21-32); CREATININE 3.1 mg/dL (0.55-1.02); POTASSIUM 7.3 mmol/L (3.5-5.1); SGOT/AST 13 U/L (15-37); SGPT/ALT 9 U/L (12-78); SODIUM 134 mmol/L (136-145); TOT PROT 7.3 g/dl (6.4-8.2)
[2017-11-08 06:39] LABS: ALK PHOS 131 U/L (45-117)
[2017-11-08 06:43] LABS: GLUCOSE,RANDOM 83 mg/dL (74-106)
[2017-11-08] MEDS ORDERED: ALBUTEROL SO4 0.083% IH SOL 2.5 MG/3 ML VIAL.NEB. NEB ONE ×2 (06:51→06:55)
--- NOTE | 2017-11-08 07:00 | PDOC ---
History of Present Illness - General Chief Complaint: Injury Stated Complaint: FALL Time Seen by Provider: 11/08/17 06:59 - History of Present Illness Initial Comments: 11/08/17 07:30 Ms. Cantu is a 72 yo female w/ pmh of chronic bilateral lower extremity lymphedema with chronic wounds, hypothyroidism, HTN, chronic left hip pain who presents for evaluation after fall this morning around 2am. Patient does not remember fall however per who is with her she slid out of her wheel chair when he wasn't there and he heard a loud "thump." She currently has no pain. reports she has not been her normal self for the past several days although he cannot specify why this is so. The patient denies chest pain, shortness of breath, headache and dizziness. Denies fever, chills, nausea, vomit, diarrhea and constipation. Denies dysuria, frequency, urgency and hematuria. Allergies: Amoxicillin, potassium clavulanate, clindamycin, doxycycline, sulfa drugs, vancomycin, zinc oxide, eggs Past History - Past Medical History Allergies/Adverse Reactions: Allergies Allergy/AdvReac Type Severity Reaction Status Date / Time amoxicillin trihydrate Allergy Intermediate Rash Verified 11/08/17 05:37 [From Augmentin] potassium clavulanate Allergy Intermediate Rash Verified 11/08/17 05:37 [From Augmentin] clindamycin Allergy Verified 11/08/17 05:37 doxycycline Allergy Swelling Verified 11/08/17 05:37 Sulfa (Sulfonamide Allergy Verified 11/08/17 05:37 Antibiotics) vancomycin AdvReac Intermediate Difficulty Verified 11/08/17 05:37 Breathing zinc oxide AdvReac Rash Verified 11/08/17 05:37 EGGS Allergy Intermediate RASH,UPSET Uncoded 11/08/17 05:37 STOMACH Home Medications: Ambulatory Orders Lisinopril [Prinivil] 20 mg PO DAILY #30 tab 01/22/17 Metoprolol Succinate [Toprol XL -] 50 mg PO DAILY #30 tab 01/22/17 Levothyroxine [Synthroid -] 150 mcg PO DAILY 04/21/17 Mupirocin Cream [Bactroban 2% Cream -] 1 applic TP DAILY #1 tube 08/22/17 Oxycodone HCl 10 mg PO ASDIR PRN MDD 30 08/22/17 Anemia: No Asthma: No Cancer: Yes (thyroid 1978) Cardiac Disorders: No CVA: No COPD: No CHF: No Dementia: No Diabetes: (LOW BLOOD SUGAR) GI Disorders: No Disorders: No HTN: Yes Hypercholesterolemia: Yes Liver Disease: No Seizures: No Thyroid Disease: Yes (Thyroid CA 1978) Other medical history: avascular necrosis Lt hip - Surgical History Abdominal Surgery: Yes Appendectomy: Yes Cardiac Surgery: No Cholecystectomy: No Lung Surgery: No Neurologic Surgery: No Orthopedic Surgery: No (supposed to have hip replacement) - Immunization History Immunization Up to Date: Yes - Suicide/Smoking/Psychosocial Hx Smoking Status: No Smoking History: Never smoked Have you smoked in the past 12 months: No Number of Cigarettes Smoked Daily: 0 Information on smoking cessation initiated: No Hx Alcohol Use: No Drug/Substance Use Hx: No Substance Use Type: None Hx Substance Use Treatment: No Review of Systems - Review of Systems Comments:: 11/08/17 07:35 GENERAL/CONSTITUTIONAL: No fever or chills. No weakness. HEAD, EYES, EARS, NOSE AND THROAT: No change in vision. No ear pain or discharge. No sore throat. CARDIOVASCULAR: No chest pain or shortness of breath RESPIRATORY: No cough, wheezing, or hemoptysis. GASTROINTESTINAL: No nausea, vomiting, diarrhea or constipation. GENITOURINARY: No dysuria, frequency, or change in urination. MUSCULOSKELETAL: No joint or muscle swelling or pain. No neck or back pain. SKIN: No rash NEUROLOGIC: +2-3 days of altered behavior as described. ENDOCRINE: No increased thirst. No abnormal weight change HEMATOLOGIC/LYMPHATIC: No anemia, easy bleeding, or history of blood clots. ALLERGIC/IMMUNOLOGIC: No hives or skin allergy. *Physical Exam - Vital Signs Last Vital Signs Temp Pulse Resp BP Pulse Ox 97.2 F L 90 16 98/51 100 11/08/17 05:32 11/08/17 05:32 11/08/17 05:32 11/08/17 05:32 11/08/17 05:32 - Physical Exam Comments: 11/08/17 07:35 GENERAL: +Patient morbidly obese. Awake, alert, and fully oriented, in no acute distress HEAD: No signs of trauma, normocephalic, atraumatic EYES: PERRLA, EOMI, sclera anicteric, conjunctiva clear ENT: Auricles normal inspection, hearing grossly normal, nares patent, oropharynx clear without exudates. Moist mucosa NECK: Normal ROM, supple, no lymphadenopathy, JVD, or masses LUNGS: No distress, speaks full sentences, clear to auscultation bilaterally HEART: Regular rate and rhythm, normal S1 and S2, no murmurs, rubs or gallops, peripheral pulses normal and equal bilaterally. ABDOMEN: Soft, nontender, normoactive bowel sounds. No guarding, no rebound. No masses EXTREMITIES: +Impressive bilateral lower extremity lymphedema with cellulitic picture. Patient currently wrapped bilaterally. NEUROLOGICAL: Cranial nerves II through XII grossly intact. Normal speech, normal gait, no focal sensorimotor deficits SKIN: Warm, Dry, normal turgor, no rashes or lesions noted. ED Treatment Course - LABORATORY CBC & Chemistry Diagram: 11/08/17 05:58 11/08/17 05:58 - ADDITIONAL ORDERS Additional order review: Laboratory Results 11/08/17 11/08/17 11/08/17 05:58 05:58 05:58 PT with INR 11.80 INR 1.04 Sodium 134 L Potassium 7.3 H* Chloride 112 H Carbon Dioxide 15 L Anion Gap 7 L BUN 104 H Creatinine 3.1 H Creat Clearance w eGFR 14.73 Random Glucose 83 Calcium 8.0 L Total Bilirubin 0.2 D AST 13 L ALT 9 L Alkaline Phosphatase 131 H Total Protein 7.3 Albumin 2.8 L Urine Color Yellow Urine Appearance Slcloudy Urine pH 5.0 Ur Specific [place] 1.011 Urine Protein Negative Urine Glucose (UA) Negative Urine Ketones Negative Urine Blood Negative Urine Nitrite Negative Urine Bilirubin Negative Urine Urobilinogen Negative Ur Leukocyte Esterase Negative 11/08/17 05:58 RBC 3.88 MCV 80.4 MCHC 33.2 RDW 17.7 H MPV 7.6 Neutrophils % 91.3 H D Lymphocytes % 4.3 L D Monocytes % 4.1 Eosinophils % 0.1 D Basophils % 0.2 - Medications Given in the ED: ED Medications Discontinued Medications Generic Name Dose Route Start Last Admin Trade Name Freq PRN Reason Stop Dose Admin Albuterol Sulfate 3 amp 11/08/17 06:55 11/08/17 06:55 Ventolin 0.083% Nebulizer Soln - NEB 11/08/17 06:56 3 amp NOW ONE Administration Medical Decision Making - Medical Decision Making 11/08/17 08:55 Ms. Cantu is a 72 yo female w/ pmh as described who presents for evaluation post fall this AM. Patient noted to be hyperkalemic on presentation and is reportedly altered from baseline per who is with her. Calcium gluconate , sodium bicarb, insulin, glucose, kayexalate given for cardiac protection. Broad workup started with Head/c-spine ct and pelvic/chest XR ordered for post fall evaluation. 11/08/17 10:29 Patient given 3L NS for hypotension / increased lactate as below. Discussed patient with ICU for admission given patient's severe electrolyte abnormalities , hypotension, and YING. Inpatient team accepted patient for further evaluation. Repeat BMP/lactate ordered for further evaluation. Laboratory Results - last 24 hr 11/08/17 11/08/17 11/08/17 05:58 05:58 05:58 WBC 7.9 D RBC 3.88 Hgb 10.3 L D Hct 31.2 L MCV 80.4 MCH 26.6 D MCHC 33.2 RDW 17.7 H Plt Count 250 D MPV 7.6 Neutrophils % 91.3 H D Lymphocytes % 4.3 L D Monocytes % 4.1 Eosinophils % 0.1 D Basophils % 0.2 Nucleated RBC % 0 PT with INR 11.80 INR 1.04 VBG pH POC VBG pCO2 POC VBG pO2 Mixed VBG HCO3 Sodium Potassium Chloride Carbon Dioxide Anion Gap BUN Creatinine Creat Clearance w eGFR Random Glucose Lactic Acid Calcium Magnesium Total Bilirubin AST ALT Alkaline Phosphatase Creatine Kinase Troponin I Total Protein Albumin TSH Urine Color Yellow Urine Appearance Slcloudy Urine pH 5.0 Ur Specific [place] 1.011 Urine Protein Negative Urine Glucose (UA) Negative Urine Ketones Negative Urine Blood Negative Urine Nitrite Negative Urine Bilirubin Negative Urine Urobilinogen Negative Ur Leukocyte Esterase Negative Ur Random Sodium Ur Random Potassium Ur Random Chloride Urine Creatinine 11/08/17 11/08/17 11/08/17 05:58 06:50 06:50 WBC RBC Hgb Hct MCV MCH MCHC RDW Plt Count MPV Neutrophils % Lymphocytes % Monocytes % Eosinophils % Basophils % Nucleated RBC % PT with INR INR VBG pH POC VBG pCO2 POC VBG pO2 Mixed VBG HCO3 Sodium 134 L Potassium 7.3 H* Chloride 112 H Carbon Dioxide 15 L Anion Gap 7 L BUN 104 H Creatinine 3.1 H Creat Clearance w eGFR 14.73 Random Glucose 83 Lactic Acid Calcium 8.0 L Magnesium 2.6 H Total Bilirubin 0.2 D AST 13 L ALT 9 L Alkaline Phosphatase 131 H Creatine Kinase 103 Troponin I < 0.02 Total Protein 7.3 Albumin 2.8 L TSH 0.94 Urine Color Urine Appearance Urine pH Ur Specific [place] Urine Protein Urine Glucose (UA) Urine Ketones Urine Blood Urine Nitrite Urine Bilirubin Urine Urobilinogen Ur Leukocyte Esterase Ur Random Sodium 20 Ur Random Potassium 25.2 Ur Random Chloride 15 Urine Creatinine 132.0 11/08/17 11/08/17 11/08/17 08:11 08:20 09:00 WBC RBC Hgb Hct MCV MCH MCHC RDW Plt Count MPV Neutrophils % Lymphocytes % Monocytes % Eosinophils % Basophils % Nucleated RBC % PT with INR INR VBG pH 7.26 L POC VBG pCO2 35.4 L POC VBG pO2 78.8 H D Mixed VBG HCO3 15.4 L Sodium Potassium Chloride Carbon Dioxide Anion Gap BUN Creatinine Creat Clearance w eGFR Random Glucose Lactic Acid 2.2 H* Calcium Magnesium Total Bilirubin AST ALT Alkaline Phosphatase Creatine Kinase Troponin I Total Protein Albumin TSH Urine Color Ltyellow Urine Appearance Slcloudy Urine pH 5.0 Ur Specific [place] 1.010 Urine Protein Negative Urine Glucose (UA) Negative Urine Ketones Negative Urine Blood Negative Urine Nitrite Negative Urine Bilirubin Negative Urine Urobilinogen Negative Ur Leukocyte Esterase Negative Ur Random Sodium Ur Random Potassium Ur Random Chloride Urine Creatinine *DC/Admit/Observation/Transfer Diagnosis at time of Disposition: Hyperkalemia, YING (acute kidney injury) Hypotension Qualifiers: Hypotension type: unspecified hypotension type Qualified Code(s): I95.9 - Hypotension, unspecified - Discharge Dispostion Condition at time of disposition: Good Decision to Admit order: Yes - Referrals - Patient Instructions - Post Discharge Activity
[2017-11-08] MEDS ORDERED: CALCIUM GLUCONATE 10% - 1,000 MG/10 ML VIAL IVPB ONE (07:02)
[2017-11-08] MEDS ORDERED: DEXTROSE 50%-WATER 25 GM/50 ML DISP.SYRIN ONE (07:03)
[2017-11-08] MEDS ORDERED: SODIUM BICARBONATE 4.2% 5 MEQ/10 ML DISP.SYRIN IVPUSH ONE (07:05)
[2017-11-08] MEDS ORDERED: INSULIN REGULAR HUMAN 100 UNITS/ML *VIAL IVPUSH ONE (07:08)
--- NOTE | 2017-11-08 07:08 | PDOC ---
Attending Attestation - HPI HPI: 11/08/17 10:23 The patient is a 72 year old female, accompanied by , with a past medical history of chronic bilateral lower extremity lymphedema with chronic wounds, hypothyroidism, HTN, chronic left hip pain who presents for evaluation after fall this morning around 2am. The patients states that she has not been her usual self lately. The patient endorses decreased oral intake secondary to her current symptoms. The patient denies chest pain, shortness of breath, headache and dizziness. Denies fever, chills, nausea, vomit, diarrhea and constipation. Denies dysuria, frequency, urgency and hematuria. - Physicial Exam PE: 11/08/17 10:25 GENERAL: (+)morbidly obese. Awake, alert, and fully oriented, in no acute distress HEAD: No signs of trauma, normocephalic, atraumatic EYES: PERRLA, EOMI, sclera anicteric, conjunctiva clear ENT: Auricles normal inspection, hearing grossly normal, nares patent, oropharynx clear without exudates. Moist mucosa NECK: Normal ROM, supple, no lymphadenopathy, JVD, or masses LUNGS: No distress, speaks full sentences, clear to auscultation bilaterally HEART: Regular rate and rhythm, normal S1 and S2, no murmurs, rubs or gallops, peripheral pulses normal and equal bilaterally. ABDOMEN: Soft, nontender, normoactive bowel sounds. No guarding, no rebound. No masses EXTREMITIES: (+)bilateral lower extremity edema and lymphedema with cellulitic picture. NEUROLOGICAL: Cranial nerves II through XII grossly intact. Normal speech, normal gait, no focal sensorimotor deficits SKIN: Warm, Dry, normal turgor, no rashes or lesions noted. - Medical Decision Making 11/08/17 10:25 Documentation prepared by Santiago Clark, acting as medical data analyst for Deisy Canales DO. <Santiago Clark - Last Filed: 11/08/17 10:25> - Resident Resident Name: Andrew Darby - ED Attending Attestation I have performed the following: I have examined & evaluated the patient, The case was reviewed & discussed with the resident, I agree w/resident's findings & plan, Exceptions are as noted - Critical Care Time Total Critical Care Time: 60 Critical Care Statement: The care of this patient involved high complexity decision making to prevent further life threatening deterioration of the patient 's condition and/or to evaluate & treat vital organ system(s) failure or risk of failure. - Medical Decision Making 11/08/17 07:08 I, Dr. Deisy Canales, DO, attest that this document has been prepared under my direction and personally reviewed by me in its entirety. I further attest, that it accurately reflects all work, treatment, procedures and medical decision -making performed by me. 11/08/17 07:28 a/p: 72yo female presents lethargic and sleeping a lot with her from home -decreased PO intake recently secondary to depression -pt hypotensive upon arrival -pt with trang and hyperkalemia on labs - concern for pre-renal call placed to Dr. Alcantara - consult placed -will give ivf hydration, bicarb, insulin, glucose, kayexelate fell from wheelchair - will obtain head ct, cxr 11/08/17 09:[address] Bowens 11/08/17 09:34 case discussed with Berny from ICU who will see patient in consult <Deisy Canales - Last Filed: 11/08/17 11:38> Heart Score/ECG Review - ECG Intrepretation Comment:: 11/08/17 07:37 sinus at 98 w 1st degree av block, incomplete RBBB, qtc prolongation, abnl ekg <Deisy Canales - Last Filed: 11/08/17 11:38>
[2017-11-08] MEDS ORDERED: DEXTROSE 50%-WATER - 25 GM/50 ML VIAL IVPUSH ONE (07:09)
[2017-11-08] MEDS ORDERED: SODIUM POLYSTYRENE SULFONATE 15 GM/60 ML BOTTLE PO ONE (07:09)
[2017-11-08] MEDS ORDERED: SODIUM CHLORIDE 0.9% 1000 ML INFUS.BAG IV ONE ×3 (07:19→09:28)
[2017-11-08] MEDS ORDERED: SODIUM BICARBONATE 8.4% - 50 ML ONE (07:31)
[2017-11-08] MEDS ORDERED: ACETAMINOPHEN 1000 MG/100 ML VIAL (NON FORMULARY) IVPB ONE (08:19)
[2017-11-08] MEDS ORDERED: ACETAMINOPHEN INJECTION 100 ML IVPB ONE (08:37)
[2017-11-08 09:00] LABS: MAGNESIUM 2.6 mg/dL (1.8-2.4)
[2017-11-08 09:16] LABS: URINE APPEARANCE SLCLOUDY; URINE BILIRUBIN NEGATIVE (<2.0 mg/dL); URINE BLOOD NEGATIVE (NEGATIVE); URINE COLOR LTYELLOW; URINE GLUCOSE (UA) NEGATIVE (NEGATIVE); URINE KETONE NEGATIVE (NEGATIVE); URINE LEUK ESTERASE NEGATIVE (NEGATIVE); URINE NITRITE NEGATIVE (NEGATIVE); URINE PROTEIN NEGATIVE (NEGATIVE); URINE UROBILINOGEN NEGATIVE mg/dL (0.2-1.0)
[2017-11-08] MEDS ORDERED: SODIUM POLYSTYRENE SULFONATE 15 GM/60 ML BOTTLE ONE (09:22)
[2017-11-08 09:37] LABS: VENOUS PC02 35.4 mmHg (38-52); VENOUS PH 7.26 (7.32-7.42); VENOUS PO2 78.8 mmHg (28-48)
[2017-11-08 11:08] LABS: ANISOCYTOSIS 1+; PLATELET ESTIMATE NORMAL
--- NOTE | 2017-11-08 11:20 | HP ---
CHIEF COMPLAINT: Decreased PO intake; fell out of wheelchair HISTORY OF PRESENT ILLNESS: 72 year-old female with a PMH significant for HTN, HLD, hypothyroidism, thyroid cancer, chonic bilateral lower extremity edema, chronic leg wounds, follows [facility]. Brought to ED today by after patient fell out of her wheelchair. reported to ED staff patient has "not been herself" for several days. Patient is a poor historian, she is not sure why she is in the hospital. No further history can be obtained at the time of this admission other than the medical record. ER course was notable for: (1) T 97.2, BP 89/44 (62), p 105, RR 22, lactic acid 2.2 (2) K 7.3 (3) BUN 104 Cr 3.1 (baseline 0.8) Recent Travel: No PAST MEDICAL HISTORY: Hypertension Hyperlipidemia Hypothyroidism Thyroid cancer (1978) Chronic bilateral lower extremity edema Peripheral vascular disease with chronic leg wounds Avascular necrosis left hip PAST SURGICAL HISTORY: Appendectomy Social History: lives with Smoking: no Alcohol:no Drugs: no Family History: Allergies amoxicillin trihydrate [From Augmentin] Allergy (Intermediate, Verified 05:37) Rash potassium clavulanate [From Augmentin] Allergy (Intermediate, Verified 11/08/17 05:37) Rash clindamycin Allergy (Verified 11/08/17 05:37) doxycycline Allergy (Verified 11/08/17 05:37) Swelling Sulfa (Sulfonamide Antibiotics) Allergy (Verified 11/08/17 05:37) vancomycin Adverse Reaction (Intermediate, Verified 11/08/17 05:37) Difficulty Breathing PER SUSPECTED ADR REPORT: HYPOTENSION & DYSPNEA zinc oxide Adverse Reaction (Verified 11/08/17 05:37) Rash EGGS Allergy (Intermediate, Uncoded 11/08/17 05:37) RASH,UPSET STOMACH HOME MEDICATIONS: Home Medications Medication Instructions Recorded Lisinopril [Prinivil] 20 mg PO DAILY #30 tab 01/22/17 Metoprolol Succinate [Toprol XL -] 50 mg PO DAILY #30 tab 01/22/17 Levothyroxine [Synthroid -] 150 mcg PO DAILY 04/21/17 Mupirocin Cream [Bactroban 2% 1 applic TP DAILY #1 tube 08/22/17 Cream -] Oxycodone HCl 10 mg PO ASDIR PRN MDD 30 08/22/17 REVIEW OF SYSTEMS: patient is presently unreliable due to medical condition PHYSICAL EXAMINATION Vital Signs - 24 hr 11/08/17 11/08/17 11/08/17 05:32 07:20 08:30 Temperature 97.2 F L 99.1 F Pulse Rate 90 Pulse Rate [ 105 H 101 H Apical] Respiratory 16 22 20 Rate Blood Pressure 98/51 Blood Pressure 89/49 104/74 [Left Arm] O2 Sat by Pulse 100 100 100 Oximetry (%) 11/08/17 09:15 Temperature Pulse Rate Pulse Rate [ 100 H Apical] Respiratory 23 Rate Blood Pressure Blood Pressure 86/61 [Left Arm] O2 Sat by Pulse 100 Oximetry (%) GENERAL: Awake, alert, and fully oriented, in no acute distress at rest. Poor recollection. Severe distress with any movement/touching of her legs. HEAD: Normal with no signs of trauma. EYES: Pupils equal, round and reactive to light, extraocular movements intact, sclera anicteric, conjunctiva clear. EARS, NOSE, THROAT: Ears normal, nares patent, oropharynx clear without exudates. Moist mucous membranes. LUNGS: Breath sounds equal, clear to auscultation bilaterally. No wheezes, and no crackles. No accessory muscle use. HEART: Regular rate and rhythm, normal S1 and S2 ABDOMEN: Soft, nontender, not distended, normoactive bowel sounds, no guarding, no rebound MUSCULOSKELETAL: Lower extremities stiff, exquisitely tender, does not allow for any ROM assessment secondary to pain UPPER EXTREMITIES: 2+ pulses, warm, well-perfused. No cyanosis. No clubbing. No peripheral edema. LOWER EXTREMITIES: Wrappings removed, wounds to both lower extremities, large amount of pus/exudate, malodorous; legs are erythematous, warm to touch; 3+ bilateral edema Laboratory Results - last 24 hr 11/08/17 11/08/17 11/08/17 05:58 05:58 05:58 WBC 7.9 D RBC 3.88 Hgb 10.3 L D Hct 31.2 L MCV 80.4 MCH 26.6 D MCHC 33.2 RDW 17.7 H Plt Count 250 D MPV 7.6 Neutrophils % 91.3 H D Lymphocytes % 4.3 L D Monocytes % 4.1 Eosinophils % 0.1 D Basophils % 0.2 Nucleated RBC % 0 PT with INR 11.80 INR 1.04 VBG pH POC VBG pCO2 POC VBG pO2 Mixed VBG HCO3 Sodium Potassium Chloride Carbon Dioxide Anion Gap BUN Creatinine Creat Clearance w eGFR Random Glucose Lactic Acid Calcium Magnesium Total Bilirubin AST ALT Alkaline Phosphatase Creatine Kinase Troponin I Total Protein Albumin TSH Urine Color Yellow Urine Appearance Slcloudy Urine pH 5.0 Ur Specific [place] 1.011 Urine Protein Negative Urine Glucose (UA) Negative Urine Ketones Negative Urine Blood Negative Urine Nitrite Negative Urine Bilirubin Negative Urine Urobilinogen Negative Ur Leukocyte Esterase Negative Ur Random Sodium Ur Random Potassium Ur Random Chloride Urine Creatinine 11/08/17 11/08/17 11/08/17 05:58 06:50 06:50 WBC RBC Hgb Hct MCV MCH MCHC RDW Plt Count MPV Neutrophils % Lymphocytes % Monocytes % Eosinophils % Basophils % Nucleated RBC % PT with INR INR VBG pH POC VBG pCO2 POC VBG pO2 Mixed VBG HCO3 Sodium 134 L Potassium 7.3 H* Chloride 112 H Carbon Dioxide 15 L Anion Gap 7 L BUN 104 H Creatinine 3.1 H Creat Clearance w eGFR 14.73 Random Glucose 83 Lactic Acid Calcium 8.0 L Magnesium 2.6 H Total Bilirubin 0.2 D AST 13 L ALT 9 L Alkaline Phosphatase 131 H Creatine Kinase 103 Troponin I < 0.02 Total Protein 7.3 Albumin 2.8 L TSH 0.94 Urine Color Urine Appearance Urine pH Ur Specific [place] Urine Protein Urine Glucose (UA) Urine Ketones Urine Blood Urine Nitrite Urine Bilirubin Urine Urobilinogen Ur Leukocyte Esterase Ur Random Sodium 20 Ur Random Potassium 25.2 Ur Random Chloride 15 Urine Creatinine 132.0 11/08/17 11/08/17 11/08/17 08:11 08:20 09:00 WBC RBC Hgb Hct MCV MCH MCHC RDW Plt Count MPV Neutrophils % Lymphocytes % Monocytes % Eosinophils % Basophils % Nucleated RBC % PT with INR INR VBG pH 7.26 L POC VBG pCO2 35.4 L POC VBG pO2 78.8 H D Mixed VBG HCO3 15.4 L Sodium Potassium Chloride Carbon Dioxide Anion Gap BUN Creatinine Creat Clearance w eGFR Random Glucose Lactic Acid 2.2 H* Calcium Magnesium Total Bilirubin AST ALT Alkaline Phosphatase Creatine Kinase Troponin I Total Protein Albumin TSH Urine Color Ltyellow Urine Appearance Slcloudy Urine pH 5.0 Ur Specific [place] 1.010 Urine Protein Negative Urine Glucose (UA) Negative Urine Ketones Negative Urine Blood Negative Urine Nitrite Negative Urine Bilirubin Negative Urine Urobilinogen Negative Ur Leukocyte Esterase Negative Ur Random Sodium Ur Random Potassium Ur Random Chloride Urine Creatinine ASSESSMENT/PLAN 72 year-old female with a PMH significant for HTN, HLD, thyroid cancer, hypothyroidism, chronic bilateral lower extremity edema, and peripheral vascular disease with chronic leg wounds. Admitted for severe sepsis secondary to bilateral lower extremity cellulitis. Severe sepsis secondary to bilateral lower extremity cellulitis --p 105, RR 22, lactic acid 2.2, hypotensive, drop in BP >30 points --fluid resuscitated 4L in ED, BP stabilized --Dapto x 1 given --Aztreonam 2g loading dose given, then 1g q12h --ID following Acute kidney injury Azotemia --hemphill in, making clear yellow urine --Cr improved with fluids, 3.1-->2.7 --FeNa 0.4%, continue IV fluids --renal consult pending Hyperkalemia --initial K 7.3; given calcium gluconate (peaked t-waves on initial ECG), dextrose, insulin, kayexelate; improved to 5.6 --repeat bmp pending FEN Fluids: NS@125mL/hr Electrolytes: replete as indicated Nutrition: regular diet DVT prophylaxis: subq heparin Physical therapy Dispo: continues to require inpatient care. Full code. Visit type - Emergency Visit Emergency Visit: Yes ED Registration Date: 11/08/17 Care time: The patient presented to the Emergency Department on the above date and was hospitalized for further evaluation of their emergent condition. - New Patient This patient is new to me today: Yes Date on this admission: 11/08/17 - Critical Care Critical Care patient: Yes Total Critical Care Time (in minutes): 90 Critical Care Statement: The care of this patient involved high complexity decision making to prevent further life threatening deterioration of the patient 's condition and/or to evaluate & treat vital organ system(s) failure or risk of failure. Hospitalist Screening - Colonoscopy Questionnaire Colonoscopy Questionnaire: Colonoscopy Questionnaire - Patient: 50 - 75 years old and never had a screening colonoscopy: Unknown History of colon or rectal polyps, or CA: Unknown History of IBD, Crohn's disease or UC: Unknown History of abdominal radiation therapy as a child: Unknown - Relative: 1 with colon or rectal CA, or polyps at age 60 or younger: Unknown Colon or rectal CA diagnosed at age 45 or younger: Unknown Multiple relatives with colon or rectal CA: Unknown - Outcome: Screening Result: Negative Screen
[2017-11-08 11:35] LABS: ANION GAP 13 (8-16); BLOOD UREA NITROGEN 95 mg/dL (7-18); CALCIUM 8.1 mg/dL (8.5-10.1); CHLORIDE 114 mmol/L (98-107); CO2 13 mmol/L (21-32); CREATININE 2.7 mg/dL (0.55-1.02); GLUCOSE,RANDOM 75 mg/dL (74-106); POTASSIUM 5.6 mmol/L (3.5-5.1); SODIUM 140 mmol/L (136-145)
--- NOTE | 2017-11-08 14:10 | PN ---
Progress Note (short form) - Note Progress Note: ICU evaluation note for ED Called to See pt in ED for possible ICU admission for YING/renal failure. Briefly pt is a 72 yo woman with chronic lymphedema/venous stasis and leg wounds , hypothyroidism, HTN, chronic left hip pain who presents for evaluation after ground level fall this morning around 2am. The patients states that she has not been her usual self lately and patient herself endorses decreased oral intake secondary to her current symptoms over last 3-5 days. Denies chest pain, shortness of breath, headache and dizziness. Denies fever, chills, nausea , vomit, diarrhea and constipation. Denies dysuria, frequency, urgency and hematuria. On best day pt is able to ambulate with assistance in house, with frequent breaks. In ED pt was awake, some what lethargic but with non-focal exam. Labs revealing for YING (hyperkalemia 7 BUN/Cr 104/3.1, Hco3 14). There was no reported significant NSAID use, no recent sick prodrome, no new medications. She was given hyperkalemia treatment (kayex, NaHCo3, Insulin) and 2L of fluid. She was initially borderline hypotensive but this responded to IVF. Repeat labs with improvement K-->5, Cr 2.7. Pt is awake alert, she is making urine to volume resuscitation, she is not hypoxic, her K is responsive to medical management, she does not appear uremic, she has no acute need for renal replacement at this time. At this time she has no need for ICU care. Should she stop making urine , have urgent need for renal replacement, become acutely encephalopathic or hypoxic she could certainly come to ICU. If she develops significant fever or sepsis, would cover for skin mostly as both legs are a bit red and warm with chronic ulcerations (family states unchanged). Vital Signs Temp 99.2 F 11/08/17 13:23 Pulse 85 11/08/17 13:23 Resp 16 11/08/17 13:23 BP 116/70 11/08/17 13:23 Pulse Ox 97 11/08/17 13:23 Intake & Output 11/07/17 11/08/17 11/08/17 23:59 11:59 23:59 Intake Total 2100 Balance 2100 Weight 113.398 kg Intake: IV 1999 1999 1999 IVPB 100 Other: Voiding Method Indwelling Catheter Height 5 ft 6 in Body Mass Index (BMI) 40.3 Weight Measurement Method Estimated by Staff CBCD WBC 7.9 K/mm3 (4.0-10.0) D 11/08/17 05:58 RBC 3.88 M/mm3 (3.60-5.2) 11/08/17 05:58 Hgb 10.3 GM/dL (10.7-15.3) L D 11/08/17 05:58 Hct 31.2 % (32.4-45.2) L 11/08/17 05:58 MCV 80.4 fl (80-96) 11/08/17 05:58 MCHC 33.2 g/dl (32.0-36.0) 11/08/17 05:58 RDW 17.7 % (11.6-15.6) H 11/08/17 05:58 Plt Count 250 K/MM3 (134-434) D 11/08/17 05:58 MPV 7.6 fl (7.5-11.1) 11/08/17 05:58 CMP Sodium 140 mmol/L (136-145) 11/08/17 11:00 Potassium 5.6 mmol/L (3.5-5.1) H 11/08/17 11:00 Chloride 114 mmol/L (98-107) H 11/08/17 11:00 Carbon Dioxide 13 mmol/L (21-32) L 11/08/17 11:00 Anion Gap 13 (8-16) 11/08/17 11:00 BUN 95 mg/dL (7-18) H 11/08/17 11:00 Creatinine 2.7 mg/dL (0.55-1.02) H 11/08/17 11:00 Creat Clearance w eGFR 14.73 (>60) 11/08/17 05:58 Calcium 8.1 mg/dL (8.5-10.1) L 11/08/17 11:00 Total Bilirubin 0.2 mg/dL (0.2-1.0) D 11/08/17 05:58 AST 13 U/L (15-37) L 11/08/17 05:58 ALT 9 U/L (12-78) L 11/08/17 05:58 Alkaline Phosphatase 131 U/L (45-117) H 11/08/17 05:58 Total Protein 7.3 g/dl (6.4-8.2) 11/08/17 05:58 Albumin 2.8 g/dl (3.4-5.0) L 11/08/17 05:58 [place] [facility] [id number]
[2017-11-08] MEDS: SODIUM CHLORIDE 1,000 ML IV SCH (14:18)
[2017-11-08] MEDS ORDERED: AZTREONAM 2 GM in DEXTROSE 5%-WATER 100 ML IVPB ONE (14:45)
[2017-11-08] MEDS ORDERED: DAPTOMYCIN 600 MG in SODIUM CHLORIDE 100 ML IVPB ONE (15:00)
--- NOTE | 2017-11-08 15:02 | PN ---
Progress Note (short form) - Note Progress Note: ID consult dictated sepsis secondary to bilateral cellulitis Hypotension prerenal azotemia/YING bilateral cellulitis venous stasis with open ulcers history of multiple antibiotic allergies daptomycin azactam cultures antibiotcs adjusted for YING d/w hospitallist seen in ED Problem List - Problems (1) Sepsis Code(s): A41.9 - SEPSIS, UNSPECIFIED ORGANISM (2) Hypotension Code(s): I95.9 - HYPOTENSION, UNSPECIFIED Qualifiers: Hypotension type: unspecified hypotension type Qualified Code(s): I95.9 - Hypotension, unspecified (3) YING (acute kidney injury) Code(s): N17.9 - ACUTE KIDNEY FAILURE, UNSPECIFIED (4) Cellulitis of leg Code(s): L03.119 - CELLULITIS OF UNSPECIFIED PART OF LIMB (5) Allergy to multiple antibiotics Code(s): Z88.1 - ALLERGY STATUS TO OTHER ANTIBIOTIC AGENTS STATUS
--- NOTE | 2017-11-08 16:01 | CONS ---
INFECTIOUS DISEASE CONSULTATION DATE OF CONSULTATION: DATE OF DICTATION: 11/08/2017 REQUESTED BY: The hospitalist service. HISTORY OF PRESENT ILLNESS: This is a 72-year-old woman. History of chronic lymphedema, venous stasis, and leg wounds. She sustained a fall this morning and was brought to the emergency room. She has not been herself recently and has had poor oral intake. She is currently awake, but she is unclear when she ate last or had anything to drink. She denies chest pain, nausea, vomiting, diarrhea, dysuria or fevers or chills. In the emergency room, she was noted to be hypotensive with acute kidney injury. BUN and creatinine were 104 and 3.1 with a potassium of 7, bicarbonate was 14. She was treated aggressively with IV fluids, Rich was placed, and she is starting to have some urine output. Repeat labs show creatinine of 2.7, potassium of 5. I am asked to see her for possible sepsis. She is currently awake, and alert, and she is saturating 97% on room air. PAST MEDICAL HISTORY: Notable for hypertension, hypothyroidism, bilateral lower extremity edema, chronic leg wounds. She has a history of chronic lymphedema as well in the past. She has a history of thyroid cancer in the past, is status post thyroidectomy, and she has a history of peripheral vascular disease. She is followed by Dr. Posey as an outpatient. At baseline, she states she walks, but it is unclear when she walked recently, and she uses a wheelchair, and she lives at home with her . FAMILY HISTORY: Unknown. SOCIAL HISTORY: She denies cigarette, alcohol or substance use. ALLERGIES: She is allergic to DOXYCYCLINE; AUGMENTIN, which gives her a rash; CLINDAMYCIN, nature of allergy is unknown; SULFA, makes her sick; VANCOMYCIN, difficulty breathing, she reports hives, and it is documented as hypotension and dyspnea; she is allergic to EGGS, which give her a rash and upset stomach. MEDICATIONS AN OUTPATIENT: Include oxycodone, mupirocin cream, metoprolol, lisinopril, and levothyroxine. REVIEW OF SYSTEMS: As per patient, she has no complaints, though she has severe pain in both her lower extremities when her dressings were removed and when her legs are moved. PHYSICAL EXAMINATION: General: She is awake and alert. Current vital signs: Her blood pressure has responded to fluids and her blood pressure is 140/90. She is saturating 97%. HEENT: She is normocephalic. Her eyes are anicteric. She has minimally dry oral mucosa. Neck: Supple. She has no meningeal signs. Lungs: Clear to auscultation. Heart: Regular rate and rhythm. Abdomen: Soft. Nontender. Extremities: Notable for bilateral venous stasis. She has erythema and warmth of both her legs extending up to her inner thigh. She has some open lesions on both lower legs. There is no evidence of any abscess. There is minimal drainage. LABORATORIES: Notable for a white count of 7.9, hemoglobin 10.3, platelets are 250, with 91% polys, INR of 1, BUN and creatinine on admission were 104 and 3.1 with a potassium of 7.3, bicarbonate of 15. On repeat, after several liters of IV fluids, her potassium is 5.6, BUN of 95, creatinine of 2.7, lactic acid of 2.2 is now 2. Urinalysis is negative. Blood cultures and urine cultures have been sent. IMAGING: Chest x-ray is unremarkable; no acute chest process is noted. 1. In summary, this is a 72-year-old woman with MULTIPLE ANTIBIOTIC ALLERGIES admitted with hypotension, acute renal failure. Appears prerenal, but the etiology of her acute renal failure is not clear. She is not on any diuretics and she does not give any symptomatology besides feeling lousy and having diminished oral intake. Given her multiple allergies, would choose to cover her at this time especially as both her legs she has evidence of cellulitis. She has no evidence of any chavez abscess. Would treat her with daptomycin and Azactam at this time, given her multiple allergies. 2. Acute renal failure, prerenal. Improving with hydration. 3. History of chronic venous stasis and ulcers of her legs. For vascular evaluation. Further recommendations to follow. The patient was seen in the emergency room. Case was discussed at length with the hospitalist. HERNÁN SWIFT M.D. DANIKA/[id number]
--- NOTE | 2017-11-08 17:32 | EKG ---
Test Reason : Blood Pressure : / mmHG Vent. Rate : 098 BPM Atrial Rate : 098 BPM P-R Int : 214 ms QRS Dur : 108 ms QT Int : 448 ms P-R-T Axes : 062 021 023 degrees QTc Int : 571 ms SINUS RHYTHM WITH 1ST DEGREE A-V BLOCK LOW VOLTAGE QRS INCOMPLETE RIGHT BUNDLE BRANCH BLOCK CANNOT RULE OUT ANTERIOR INFARCT (CITED ON OR BEFORE 08-NOV-2017) PROLONGED QT ABNORMAL ECG WHEN COMPARED WITH ECG OF 13-JAN-2017 00:17, INCOMPLETE RIGHT BUNDLE BRANCH BLOCK IS NOW PRESENT QUESTIONABLE CHANGE IN INITIAL FORCES OF SEPTAL LEADS ST ELEVATION NOW PRESENT IN ANTERIOR LEADS QT HAS LENGTHENED Confirmed by ARLEN POWER, DONG ([id number]) on 11/08/2017 5:32:06 PM Referred By: Confirmed By:DONG MCKINLEY MD
--- NOTE | 2017-11-08 17:33 | EKG ---
Test Reason : Blood Pressure : / mmHG Vent. Rate : 083 BPM Atrial Rate : 083 BPM P-R Int : 198 ms QRS Dur : 100 ms QT Int : 360 ms P-R-T Axes : 047 004 061 degrees QTc Int : 423 ms NORMAL SINUS RHYTHM LOW VOLTAGE QRS INCOMPLETE RIGHT BUNDLE BRANCH BLOCK CANNOT RULE OUT ANTERIOR INFARCT (CITED ON OR BEFORE 08-NOV-2017) ABNORMAL ECG WHEN COMPARED WITH ECG OF 08-NOV-2017 06:47, SIGNIFICANT CHANGES HAVE OCCURRED Confirmed by DONG MCKINLEY MD ([id number]) on 11/08/2017 5:32:28 PM Referred By: Confirmed By:DONG MCKINLEY MD
--- NOTE | 2017-11-08 18:06 | CON.NEP ---
Consult Consult Specialty:: nephrology Reason for Consultation:: kidney failure and hyperkalemia - History of Present Illness History of Present Illness: admitted via er after she presented here with h/o fall and left hip pain dylan lymphedema/ chronic wounds hypothyroidism - History Source History Provided By: Medical Record - Past Medical History [employer]: Yes: CVA Cardio/Vascular: Yes: HTN Musculoskeletal: Yes: Other (lymphedema) Endocrine: Yes: Hypothyroidism, Other (thyroid cancer (35yrs ago)) - Past Surgical History Past Surgical History: Yes: Appendectomy, Vein Stripping/Ligation - Alcohol/Substance Use Hx Alcohol Use: No - Smoking History Smoking history: Never smoked Have you smoked in the past 12 months: No Aproximately how many cigarettes per day: 0 - Social History Occupation: used to work in [employer] business Home Medications - Allergies Allergies/Adverse Reactions: Allergies Allergy/AdvReac Type Severity Reaction Status Date / Time amoxicillin trihydrate Allergy Intermediate Rash Verified 11/08/17 05:37 [From Augmentin] potassium clavulanate Allergy Intermediate Rash Verified 11/08/17 05:37 [From Augmentin] clindamycin Allergy Verified 11/08/17 05:37 doxycycline Allergy Swelling Verified 11/08/17 05:37 Sulfa (Sulfonamide Allergy Verified 11/08/17 05:37 Antibiotics) vancomycin AdvReac Intermediate Difficulty Verified 11/08/17 05:37 Breathing zinc oxide AdvReac Rash Verified 11/08/17 05:37 EGGS Allergy Intermediate RASH,UPSET Uncoded 11/08/17 05:37 STOMACH - Home Medications Home Medications: Ambulatory Orders Lisinopril [Prinivil] 20 mg PO DAILY #30 tab 01/22/17 Metoprolol Succinate [Toprol XL -] 50 mg PO DAILY #30 tab 01/22/17 Levothyroxine [Synthroid -] 150 mcg PO DAILY 04/21/17 Mupirocin Cream [Bactroban 2% Cream -] 1 applic TP DAILY #1 tube 08/22/17 Oxycodone HCl 10 mg PO ASDIR PRN MDD 30 08/22/17 Family Disease History - Family Disease History Family Disease History: Heart Disease: Mother, CA: Father (Liver), Brother (Lung ), Sister (Liver) Nephrology Consult - Height Height: 5 ft 6 in - Weight Weight: 250 lb - BMI Body Mass Index (BMI): 40.3 - Lab Results CBC,BMP: CBC, BMP 11/08/17 05:58 11/08/17 11:00 Anion Gap: Anion Gap Anion Gap 13 (8-16) 11/08/17 11:00 - Physical Examination Vital Signs: Vital Signs Temperature 99.2 F 11/08/17 13:23 Pulse Rate 75 11/08/17 15:00 Respiratory Rate 13 11/08/17 15:00 Blood Pressure 124/70 11/08/17 15:00 O2 Sat by Pulse Oximetry (%) 97 11/08/17 15:00 Constitutional: Yes: Obese HENT: Yes: WNL, Atraumatic, Normocephalic Neck: Yes: WNL, Supple, Trachea Midline Cardiovascular: Yes: WNL, Regular Rate and Rhythm Respiratory: Yes: WNL, Regular, CTA Bilaterally Gastrointestinal: Yes: WNL, Normal Bowel Sounds Musculoskeletal: Yes: WNL Edema: Yes (lymphedema) Edema: LLE: 3+, RLE: 3+ Peripheral Pulses WNL: Yes Integumentary: Yes: Venous Stasis Changes, Other (open ulcer left leg lateral aspect) Assessment/Plan Current Medications Sodium Chloride (Normal Saline -) 1,000 mls @ 125 mls/hr IV ASDIR KAIN Last Admin: 11/08/17 14:18 Dose: 125 mls/hr Aztreonam 1 gm/ Dextrose 50 mls @ 100 mls/hr IVPB BID [facility]; Protocol Levothyroxine Sodium (Synthroid -) 150 mcg PO DAILY@0700 [facility] IMP- trang hyperkalemia and low bp treated in er with ivf and medications for elev k pt is improving clinically also improving labs creatinine improved 2.7 from 3.1 hypoalbuminemia hypotension 2/2 prerenal/dehydration metabolic acidosis- unclear multiple allergies Plan- continue IV nS monitor renal function and urine output
[2017-11-08] MEDS: HEPARIN NA (PORCINE) 5,000 UNITS/ML 1ML VIAL SQ SCH (23:31)
[2017-11-08] MEDS: COLLAGENASE CLOSTRIDIUM HIST. 30 GRAMS TUBE TP SCH (23:42)
[2017-11-09 01:13] LABS: ANION GAP 7 (8-16); BLOOD UREA NITROGEN 76 mg/dL (7-18); CALCIUM 7.6 mg/dL (8.5-10.1); CHLORIDE 120 mmol/L (98-107); CO2 18 mmol/L (21-32); CREATININE 1.7 mg/dL (0.55-1.02); GLUCOSE,RANDOM 68 mg/dL (74-106); POTASSIUM 5.9 mmol/L (3.5-5.1); SODIUM 145 mmol/L (136-145)
[2017-11-09] MEDS ORDERED: PT OWN MED DRAWER 7, Y5N ONE ×3 (03:00→15:20)
[2017-11-09] MEDS: AZTREONAM 1 GM in DEXTROSE 5%-WATER - 50 ML IVPB SCH ×2 (03:33→22:27)
[2017-11-09] MEDS ORDERED: SODIUM POLYSTYRENE SULFONATE 15 GM/60 ML BOTTLE PO ONE ×2 (03:43→16:19)
[2017-11-09] MEDS ORDERED: ACETAMINOPHEN 325 MG TABLET (FP) PO ONE (03:45)
[2017-11-09] MEDS: HEPARIN NA (PORCINE) 5,000 UNITS/ML 1ML VIAL SQ SCH ×3 (06:28→22:27)
[2017-11-09] MEDS: LEVOTHYROXINE NA 150 MCG TABLET PO SCH (06:28)
--- NOTE | 2017-11-09 07:41 | PN ---
Physical Exam: SUBJECTIVE: Patient seen and examined. Lengthy discussion with patient, and two daughters. Mobility severely circumscribed by bilateral leg pain/wounds and hip necrosis. Restricts food and fluids to avoid having to go to the bathroom. Refuses assistance from anyone other than who himself walks with a cane. Sits in a wheelchair in her kitchen most of the day and night. 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 Knows she is depressed but has refused medication in the past. OBJECTIVE: Vital Signs Period Temp Pulse Resp BP Sys/Chakraborty Pulse Ox Last 24 Hr 98.6 F-99.2 F 71-110 13-23 74-153/38-77 95-100 GENERAL: Awake, alert, and fully oriented. Much clearer than yesterday, responsive to all questions, conversational. LUNGS: Breath sounds equal, clear to auscultation bilaterally. No wheezes, and no crackles. No accessory muscle use. HEART: Regular rate and rhythm, normal S1 and S2 ABDOMEN: Soft, nontender, not distended, normoactive bowel sounds, no guarding, no rebound UPPER EXTREMITIES: 2+ pulses, warm, well-perfused. No cyanosis. No clubbing. No peripheral edema. LOWER EXTREMITIES: Erythema and swelling beginning to resolve. 2+ edema b/l. Laboratory Results - last 24 hr 11/08/17 11/08/17 11/08/17 05:58 06:50 08:11 Neutrophils % (Manual) 87.7 H Band Neutrophils % 0.0 Lymphocytes % (Manual) 8.2 Monocytes % (Manual) 3 L Eosinophils % (Manual) 0.0 Basophils % (Manual) 0.0 Myelocytes % (Man) 0 Promyelocytes % (Man) 0 Blast Cells % (Manual) 0 Nucleated RBC % 0 Metamyelocytes 1 Platelet Estimate Normal Anisocytosis 1+ VBG pH POC VBG pCO2 POC VBG pO2 Mixed VBG HCO3 Sodium Potassium Chloride Carbon Dioxide Anion Gap BUN Creatinine Random Glucose Lactic Acid 2.2 H* Calcium Magnesium 2.6 H Creatine Kinase 103 Troponin I < 0.02 TSH 0.94 Urine Color Urine Appearance Urine pH Ur Specific [place] Urine Protein Urine Glucose (UA) Urine Ketones Urine Blood Urine Nitrite Urine Bilirubin Urine Urobilinogen Ur Leukocyte Esterase 05/26/18 05/26/18 05/26/18 08:20 09:00 11:00 Neutrophils % (Manual) Band Neutrophils % Lymphocytes % (Manual) Monocytes % (Manual) Eosinophils % (Manual) Basophils % (Manual) Myelocytes % (Man) Promyelocytes % (Man) Blast Cells % (Manual) Nucleated RBC % Metamyelocytes Platelet Estimate Anisocytosis VBG pH 7.26 L POC VBG pCO2 35.4 L POC VBG pO2 78.8 H D Mixed VBG HCO3 15.4 L Sodium 140 Potassium 5.6 H Chloride 114 H Carbon Dioxide 13 L Anion Gap 13 BUN 95 H Creatinine 2.7 H Random Glucose 75 Lactic Acid Calcium 8.1 L Magnesium Creatine Kinase Troponin I TSH Urine Color Ltyellow Urine Appearance Slcloudy Urine pH 5.0 Ur Specific [place] 1.010 Urine Protein Negative Urine Glucose (UA) Negative Urine Ketones Negative Urine Blood Negative Urine Nitrite Negative Urine Bilirubin Negative Urine Urobilinogen Negative Ur Leukocyte Esterase Negative 11/08/17 11/08/17 11:00 23:10 Neutrophils % (Manual) Band Neutrophils % Lymphocytes % (Manual) Monocytes % (Manual) Eosinophils % (Manual) Basophils % (Manual) Myelocytes % (Man) Promyelocytes % (Man) Blast Cells % (Manual) Nucleated RBC % Metamyelocytes Platelet Estimate Anisocytosis VBG pH POC VBG pCO2 POC VBG pO2 Mixed VBG HCO3 Sodium 145 Potassium 5.9 H Chloride 120 H Carbon Dioxide 18 L Anion Gap 7 L BUN 76 H Creatinine 1.7 H Random Glucose 68 L Lactic Acid 2.0 Calcium 7.6 L Magnesium Creatine Kinase Troponin I TSH Urine Color Urine Appearance Urine pH Ur Specific [place] Urine Protein Urine Glucose (UA) Urine Ketones Urine Blood Urine Nitrite Urine Bilirubin Urine Urobilinogen Ur Leukocyte Esterase Active Medications Generic Name Dose Route Start Last Admin Trade Name Erin PRN Reason Stop Dose Admin Collagenase 1 applic 11/08/17 21:00 11/08/17 23:42 Santyl - TP 1 applic DAILY KAIN Administration Heparin Sodium (Porcine) 5,000 unit 11/08/17 22:00 11/09/17 06:28 Heparin - SQ 5,000 unit TID KAIN Administration Sodium Chloride 1,000 mls @ 125 mls/hr 11/08/17 14:15 11/08/17 14:18 Normal Saline - IV 125 mls/hr ASDIR KAIN Administration Aztreonam 1 gm/ Dextrose 50 mls @ 100 mls/hr 11/09/17 04:00 11/09/17 03:33 IVPB 100 mls/hr BID KAIN Administration Protocol Levothyroxine Sodium 150 mcg 11/09/17 07:00 11/09/17 06:28 Synthroid - PO 150 mcg DAILY@0700 KAIN Administration ASSESSMENT/PLAN 72 year-old female with a PMH significant for HTN, HLD, thyroid cancer, hypothyroidism, chronic bilateral lower extremity edema, and peripheral vascular disease with chronic leg wounds. Admitted for severe sepsis secondary to bilateral lower extremity cellulitis. Severe sepsis secondary to bilateral lower extremity cellulitis --hemodynamically stable --erythema and edema b/l legs improved --continue Dapto (day #2) --continue Aztreonam (day #2) --ID following --Dr. Posey to see Acute kidney injury Azotemia --hemphill in, making good urine, 2L so far today --Cr improved with fluids, 3.1-->2.7-->1.3 Hyperkalemia --initial K 7.3; given calcium gluconate (peaked t-waves on initial ECG), dextrose, insulin, kayexelate; improved to 5.6 --has not had BM --kayexelate x 1 Depression --psych consult requested FEN Fluids: NS@125mL/hr Electrolytes: replete as indicated Nutrition: regular diet DVT prophylaxis: subq heparin Physical therapy Dispo: continues to require inpatient care. Full code. Visit type - Emergency Visit Emergency Visit: Yes ED Registration Date: 11/08/17 Care time: The patient presented to the Emergency Department on the above date and was hospitalized for further evaluation of their emergent condition. - New Patient This patient is new to me today: No - Critical Care Critical Care patient: No
[2017-11-09 08:14] LABS: BASO % 0.7 % (0-2.0); EOS % 2.1 % (0-4.5); HEMATOCRIT 27.3 % (32.4-45.2); HEMOGLOBIN 8.9 GM/dL (10.7-15.3); MCH 26.5 pg (25.7-33.7); MCHC 32.6 g/dl (32.0-36.0); MEAN CELL VOLUME 81.5 fl (80-96); MEAN PLT VOLUME 7.5 fl (7.5-11.1); MONO % 7.9 % (3.8-10.2); NEUT % 75.3 % (42.8-82.8); PLATELET COUNT 208 K/MM3 (134-434); RBC 3.35 M/mm3 (3.60-5.2); RDW 17.8 % (11.6-15.6); WHITE BLOOD COUNT 4.6 K/mm3 (4.0-10.0)
[2017-11-09 08:54] LABS: ALBUMIN 2.2 g/dl (3.4-5.0); CALCIUM 7.8 mg/dL (8.5-10.1); CHLORIDE 121 mmol/L (98-107); POTASSIUM 5.6 mmol/L (3.5-5.1); SODIUM 144 mmol/L (136-145)
[2017-11-09 09:00] LABS: ALK PHOS 104 U/L (45-117); ANION GAP 6 (8-16); BILIRUBIN,TOTAL 0.3 mg/dL (0.2-1.0); BLOOD UREA NITROGEN 66 mg/dL (7-18); CO2 17 mmol/L (21-32); CREATININE 1.3 mg/dL (0.55-1.02); GLUCOSE,RANDOM 66 mg/dL (74-106); MAGNESIUM 2.2 mg/dL (1.8-2.4); SGOT/AST 20 U/L (15-37); SGPT/ALT 8 U/L (12-78); TOT PROT 5.8 g/dl (6.4-8.2)
--- NOTE | 2017-11-09 11:21 | PN ---
Progress Note (short form) - Note Progress Note: PULMONARY Feeling better. No fevers or chills. No shortness of breath or chest pain. Last Vital Signs Temp Pulse Resp BP Pulse Ox 98.6 F 71 20 141/68 96 11/09/17 06:08 11/09/17 06:08 11/09/17 06:08 11/09/17 06:08 11/08/17 21:00 Gen: NAD at rest Heart: RRR Lung: decreased breath sounds at the bases Abd: soft, nontender Ext: + erythema, wrapped, + edema CBC, BMP 11/09/17 07:45 11/09/17 07:45 Active Medications Collagenase (Santyl -) 1 applic TP DAILY [facility] Last Admin: 11/08/17 23:42 Dose: 1 applic Heparin Sodium (Porcine) (Heparin -) 5,000 unit SQ TID [facility] Last Admin: 11/09/17 06:28 Dose: 5,000 unit Sodium Chloride (Normal Saline -) 1,000 mls @ 125 mls/hr IV ASDIR [facility] Last Admin: 11/08/17 14:18 Dose: 125 mls/hr Aztreonam 1 gm/ Dextrose 50 mls @ 100 mls/hr IVPB BID [facility]; Protocol Last Admin: 11/09/17 03:33 Dose: 100 mls/hr Levothyroxine Sodium (Synthroid -) 150 mcg PO DAILY@0700 [facility] Last Admin: 11/09/17 06:28 Dose: 150 mcg A/P Cellulitis Sepsis Acute Kidney Injury Hyperkalemia Lactic Acidosis Hypothyroidism - continue antibiotics - f/u cultures - IVF - monitor urine output, creatinine - monitor K - DVT prophylaxis
[2017-11-09] MEDS: SODIUM CHLORIDE 1,000 ML IV SCH ×2 (14:45→22:40)
--- NOTE | 2017-11-09 14:51 | PN ---
Progress Note (short form) - Note Progress Note: alert doing well feels better has had no appetite and has not been eating right hip arthritis Vital Signs Period Temp Pulse Resp BP Sys/Chakraborty Pulse Ox Last 24 Hr 98.5 F-98.9 F 71-82 13-20 124-153/54-77 95-97 cor-rrr lungs clear abd soft,nt ext less erythema of the legs CBC, BMP 11/09/17 07:45 11/09/17 07:45 Microbiology 11/08/17 08:19 Urine - Urine Clean Catch Urine Culture - Final NO GROWTH OBTAINED 11/08/17 05:58 Urine - Urine - Catheterized Urine Culture - Final NO GROWTH OBTAINED 11/08/17 07:55 Blood - Peripheral Venous Blood Culture - Preliminary NO GROWTH OBTAINED AFTER 24 HOURS, INCUBATION TO CONTINUE FOR 4 DAYS. 11/08/17 07:30 Blood - Peripheral Venous Blood Culture - Preliminary NO GROWTH OBTAINED AFTER 24 HOURS, INCUBATION TO CONTINUE FOR 4 DAYS. a/p YING- resolving with hydration sepsis secondary to bilateral cellulitis Hypotension-resolved prerenal azotemia/YING rsolving bilateral cellulitis mproved venous stasis with open ulcers history of multiple antibiotic allergies daptomycin continue azactam continue f/u cultures d/w family at bedside Problem List - Problems (1) Sepsis Code(s): A41.9 - SEPSIS, UNSPECIFIED ORGANISM (2) Hypotension Code(s): I95.9 - HYPOTENSION, UNSPECIFIED Qualifiers: Hypotension type: unspecified hypotension type Qualified Code(s): I95.9 - Hypotension, unspecified (3) YING (acute kidney injury) Code(s): N17.9 - ACUTE KIDNEY FAILURE, UNSPECIFIED (4) Cellulitis of leg Code(s): L03.119 - CELLULITIS OF UNSPECIFIED PART OF LIMB (5) Allergy to multiple antibiotics Code(s): Z88.1 - ALLERGY STATUS TO OTHER ANTIBIOTIC AGENTS STATUS
[2017-11-09] MEDS ORDERED: DAPTOMYCIN 600 MG in SODIUM CHLORIDE 100 ML IVPB SCH (15:00)
[2017-11-09] MEDS: COLLAGENASE CLOSTRIDIUM HIST. 30 GRAMS TUBE TP SCH (15:56)
--- NOTE | 2017-11-09 20:48 | PN ---
Progress Note (short form) - Note Progress Note: prerenal azotemia s/p fall and hip pain at home hyperkalemia Current Medications Collagenase (Santyl -) 1 applic TP DAILY [facility] Last Admin: 11/09/17 15:56 Dose: 1 applic Heparin Sodium (Porcine) (Heparin -) 5,000 unit SQ TID [facility] Last Admin: 11/09/17 15:56 Dose: 5,000 unit Sodium Chloride (Normal Saline -) 1,000 mls @ 125 mls/hr IV ASDIR KAIN Last Admin: 11/09/17 14:45 Dose: 125 mls/hr Aztreonam 1 gm/ Dextrose 50 mls @ 100 mls/hr IVPB BID [facility]; Protocol Last Admin: 11/09/17 03:33 Dose: 100 mls/hr Daptomycin 600 mg/ Sodium (Chloride) 100 mls @ 200 mls/hr IVPB DAILY [facility]; Protocol Last Admin: 11/09/17 17:29 Dose: 200 mls/hr Levothyroxine Sodium (Synthroid -) 150 mcg PO DAILY@0700 [facility] Last Admin: 11/09/17 06:28 Dose: 150 mcg Last Vital Signs Temp Pulse Resp BP Pulse Ox 99.1 F 86 20 117/51 95 11/09/17 17:37 11/09/17 17:37 11/09/17 17:37 11/09/17 17:37 11/09/17 10:00 CBC, BMP 11/09/17 07:45 11/09/17 07:45 IMP- hyperkalemia metabolic acidosis prerenal azotemia Plan- kayexalate follow bmp
[2017-11-10] MEDS ORDERED: oxyCODONE HCL 5 MG TABLET PO ONE (01:28)
[2017-11-10] MEDS: HEPARIN NA (PORCINE) 5,000 UNITS/ML 1ML VIAL SQ SCH ×3 (06:16→21:32)
[2017-11-10] MEDS: LEVOTHYROXINE NA 150 MCG TABLET PO SCH (06:21)
[2017-11-10] MEDS: SODIUM CHLORIDE 1,000 ML IV SCH (06:24)
[2017-11-10 07:13] LABS: CHLORIDE 121 mmol/L (98-107); POTASSIUM 4.2 mmol/L (3.5-5.1); SODIUM 146 mmol/L (136-145)
[2017-11-10 07:22] LABS: ANION GAP 6 (8-16); BLOOD UREA NITROGEN 41 mg/dL (7-18); CALCIUM 7.6 mg/dL (8.5-10.1); CO2 19 mmol/L (21-32); CREATININE 1.1 mg/dL (0.55-1.02); GLUCOSE,RANDOM 71 mg/dL (74-106)
[2017-11-10] MEDS ORDERED: PT OWN MED DRAWER 7, Y5N ONE (09:17)
--- NOTE | 2017-11-10 09:43 | PN ---
Progress Note (short form) - Note Progress Note: alert doing well feels better has had no appetite and has not been eating right hip arthritis Vital Signs Period Temp Pulse Resp BP Sys/Chakraborty Pulse Ox Last 24 Hr 98.5 F-99.1 F 76-89 16-20 117-164/51-81 95-95 cor-rrr lungs clear abd soft,nt ext minimal erythema dressings intact CBC, BMP 11/09/17 07:45 11/10/17 06:00 Microbiology 11/08/17 07:55 Blood - Peripheral Venous Blood Culture - Preliminary NO GROWTH OBTAINED AFTER 48 HOURS, INCUBATION TO CONTINUE FOR 3 DAYS. 11/08/17 07:30 Blood - Peripheral Venous Blood Culture - Preliminary NO GROWTH OBTAINED AFTER 48 HOURS, INCUBATION TO CONTINUE FOR 3 DAYS. 11/08/17 08:19 Urine - Urine Clean Catch Urine Culture - Final NO GROWTH OBTAINED 11/08/17 05:58 Urine - Urine - Catheterized Urine Culture - Final NO GROWTH OBTAINED a/p YING- resolving with hydration sepsis secondary to bilateral cellulitis Hypotension-resolved prerenal azotemia/YING rsolving bilateral cellulitis mproved venous stasis with open ulcers history of multiple antibiotic allergies daptomycin continue d/c azactam f/u cultures d/w family at bedside Problem List - Problems (1) Sepsis Code(s): A41.9 - SEPSIS, UNSPECIFIED ORGANISM (2) Hypotension Code(s): I95.9 - HYPOTENSION, UNSPECIFIED Qualifiers: Hypotension type: unspecified hypotension type Qualified Code(s): I95.9 - Hypotension, unspecified (3) YING (acute kidney injury) Code(s): N17.9 - ACUTE KIDNEY FAILURE, UNSPECIFIED (4) Cellulitis of leg Code(s): L03.119 - CELLULITIS OF UNSPECIFIED PART OF LIMB (5) Allergy to multiple antibiotics Code(s): Z88.1 - ALLERGY STATUS TO OTHER ANTIBIOTIC AGENTS STATUS
--- NOTE | 2017-11-10 10:42 | PN ---
Progress Note (short form) - Note Progress Note: PULMONARY Feeling better. No fevers or chills. No shortness of breath or chest pain. Last Vital Signs Temp Pulse Resp BP Pulse Ox 99.1 F 84 20 164/81 95 11/10/17 06:00 11/10/17 06:00 11/10/17 06:00 11/10/17 06:00 11/09/17 21:00 Gen: NAD at rest Heart: RRR Lung: decreased breath sounds at the bases Abd: soft, nontender Ext: + erythema, wrapped, + edema CBC, BMP 11/09/17 07:45 11/10/17 06:00 Active Medications Collagenase (Santyl -) 1 applic TP DAILY [facility] Last Admin: 11/09/17 15:56 Dose: 1 applic Heparin Sodium (Porcine) (Heparin -) 5,000 unit SQ TID [facility] Last Admin: 11/10/17 06:16 Dose: 5,000 unit Sodium Chloride (Normal Saline -) 1,000 mls @ 125 mls/hr IV ASDIR [facility] Last Admin: 11/10/17 06:24 Dose: 125 mls/hr Daptomycin 600 mg/ Sodium (Chloride) 100 mls @ 200 mls/hr IVPB DAILY@1500 [facility]; Protocol Levothyroxine Sodium (Synthroid -) 150 mcg PO DAILY@0700 [facility] Last Admin: 11/10/17 06:21 Dose: 150 mcg A/P Cellulitis Sepsis Acute Kidney Injury improving Hyperkalemia Lactic Acidosis Hypothyroidism - continue antibiotics - IVF - monitor urine output, creatinine - monitor K - DVT prophylaxis
[2017-11-10] MEDS ORDERED: DEXTROSE 5%-0.45% SALINE 1,000 ML IV SCH (11:30)
--- NOTE | 2017-11-10 11:55 | PN ---
Physical Exam: SUBJECTIVE: Patient seen and examined at bedside. present. Patient does not want hemphill taken out because being manipulated for bed pain is too painful and she cannot walk to the bathroom secondary to pain. OBJECTIVE: Vital Signs Period Temp Pulse Resp BP Sys/Chakraborty Pulse Ox Last 24 Hr 98.6 F-99.1 F 76-89 16-20 117-164/51-81 95 GENERAL: Awake, alert, and fully oriented. Flat affect. One word answers. Depressed. LUNGS: Breath sounds equal, clear to auscultation bilaterally. No wheezes, and no crackles. No accessory muscle use. HEART: Regular rate and rhythm, normal S1 and S2 ABDOMEN: Soft, nontender, not distended, normoactive bowel sounds, no guarding, no rebound : hemphill, clear yellow urine UPPER EXTREMITIES: 2+ pulses, warm, well-perfused. No cyanosis. No clubbing. No peripheral edema. LOWER EXTREMITIES: Erythema and swelling improving, 2+ edema b/l. Laboratory Results - last 24 hr 11/10/17 06:00 Sodium 146 H Potassium 4.2 Chloride 121 H Carbon Dioxide 19 L Anion Gap 6 L BUN 41 H D Creatinine 1.1 H Random Glucose 71 L Calcium 7.6 L Active Medications Generic Name Dose Route Start Last Admin Trade Name Freq PRN Reason Stop Dose Admin Collagenase 1 applic 11/08/17 21:00 11/09/17 15:56 Santyl - TP 1 applic DAILY [facility] Administration Heparin Sodium (Porcine) 5,000 unit 11/08/17 22:00 11/10/17 06:16 Heparin - SQ 5,000 unit TID [facility] Administration Daptomycin 600 mg/ Sodium 100 mls @ 200 mls/hr 11/10/17 09:32 Chloride IVPB DAILY@1500 [facility] Protocol Dextrose/Sodium Chloride 1,000 mls @ 42 mls/hr 11/10/17 11:30 D5-1/2ns - IV ASDIR [facility] Levothyroxine Sodium 150 mcg 11/09/17 07:00 11/10/17 06:21 Synthroid - PO 150 mcg DAILY@0700 [facility] Administration Lisinopril 20 mg 11/10/17 11:15 Prinivil PO DAILY [facility] Metoprolol Succinate 50 mg 11/10/17 11:15 Toprol Xl - PO DAILY [facility] ASSESSMENT/PLAN 72 year-old female with a PMH significant for HTN, HLD, thyroid cancer, hypothyroidism, chronic bilateral lower extremity edema, and peripheral vascular disease with chronic leg wounds. Admitted for severe sepsis secondary to bilateral lower extremity cellulitis. Severe sepsis secondary to bilateral lower extremity cellulitis Peripheral vascular disease Chronic vascular ulcers --hemodynamically stable --continue Dapto (day #3); aztreonam d/c'd after 2 doses --ID following --vascular following Chronic pain --multiple orthopedists endorse need for left hip and bilateral knee replacements but not a surgical candidate due to chronic wounds --resume home pain med regimen: oxycodone 10mg BID --add morphine 2mg q24h PRN 15 minutes before daily dressing change --consider pain management consult Acute kidney injury, resolved Azotemia, resolved --Cr 3.1 on admission, now 1.1 Hyperkalemia, resolved Hypertension --resume home lisinopril, Toprol XL Hyperlipidemia --not on statin Hypothyroidism Thyroid cancer --TSH wnl --continue levothyroxine Hypernatremia --increase IV fluids Depression --very little PO intake --seen by psych, start cymbalta FEN Fluids: D51/2NS@75mL/hr Electrolytes: replete as indicated Nutrition: regular diet DVT prophylaxis: subq heparin Physical therapy Dispo: continues to require inpatient care. Full code. Visit type - Emergency Visit Emergency Visit: Yes ED Registration Date: 11/08/17 Care time: The patient presented to the Emergency Department on the above date and was hospitalized for further evaluation of their emergent condition. - New Patient This patient is new to me today: No - Critical Care Critical Care patient: No
[2017-11-10] MEDS: LISINOPRIL 20 MG TABLET (FP) PO SCH (12:03)
--- NOTE | 2017-11-10 13:09 | CON.PSY ---
Psychiatry Consult Chief Complaint: 72 year old female with chronic pain syndrome and other medical conditions. Patient sdeen for psych evaluation for depression. Symptoms: reports: Depressed Mood - Previous Psychiatric Treatment Outpatient: None Inpatient: None - Previous Substance Abuse Treatment Outpatient: None Inpatient: None - Current Medications Current Medications: Active Medications Collagenase (Santyl -) 1 applic TP DAILY [facility] Last Admin: 11/09/17 15:56 Dose: 1 applic Duloxetine HCl (Cymbalta -) 20 mg PO DAILY [facility] Heparin Sodium (Porcine) (Heparin -) 5,000 unit SQ TID [facility] Last Admin: 11/10/17 06:16 Dose: 5,000 unit Daptomycin 600 mg/ Sodium (Chloride) 100 mls @ 200 mls/hr IVPB DAILY@1500 [facility]; Protocol Dextrose/Sodium Chloride (D5-1/2ns -) 1,000 mls @ 42 mls/hr IV ASDIR [facility] Last Admin: 11/10/17 12:03 Dose: 42 mls/hr Levothyroxine Sodium (Synthroid -) 150 mcg PO DAILY@0700 [facility] Last Admin: 11/10/17 06:21 Dose: 150 mcg Lisinopril (Prinivil) 20 mg PO DAILY [facility] Last Admin: 11/10/17 12:03 Dose: 20 mg Metoprolol Succinate (Toprol Xl -) 50 mg PO DAILY [facility] Last Admin: 11/10/17 12:03 Dose: 50 mg - Allergies Allergies: Allergies Allergy/AdvReac Type Severity Reaction Status Date / Time amoxicillin trihydrate Allergy Intermediate Rash Verified 11/08/17 05:37 [From Augmentin] potassium clavulanate Allergy Intermediate Rash Verified 11/08/17 05:37 [From Augmentin] clindamycin Allergy Verified 11/08/17 05:37 doxycycline Allergy Swelling Verified 11/08/17 05:37 Sulfa (Sulfonamide Allergy Verified 11/08/17 05:37 Antibiotics) vancomycin AdvReac Intermediate Difficulty Verified 11/08/17 05:37 Breathing zinc oxide AdvReac Rash Verified 11/08/17 05:37 EGGS Allergy Intermediate RASH,UPSET Uncoded 11/08/17 05:37 STOMACH - Current Living Status Usual Living Arrangement: With Spouse - Current Mental Status Evaluation Appearance: Well Groomed Attitude: Cooperative - Affect Affect: Constrictive Appropriateness: Appropriate to Content - Mood Mood: Depressed - Speech/Language Expressive: Coherent - Psychomotor Activity Psychomotor Activity: Slowed - Thought Process Thought Process: Intact - Thought Content Hallucinations: Absent Delusions: Absent - Self Perception Self Perception: No Impairment - Cognition Attention: Alert Orientation: Time Memory, Immediate Recall: Intact Memory, Short Term: 2/3 Memory, Remote with Promptin/3 - Concentration Serial Sevens Intact: No Simple Calculations Intact: No - Abstraction Proverb Interpretation: Intact Judgement: Intact - Insight Insight: Intact - Impulse Control Impulse Control: Good Control - Suicidal Ideation Suicidal Ideation: No - Homicidal Ideation Homicidal Ideation: No Assessment/Plan 1) Patient is not suicidal. 2) Styart Cymbalta 20mg po od.
--- NOTE | 2017-11-10 13:43 | PN ---
Progress Note (short form) - Note Progress Note: Vascular Surgery Pt seen and examined Well known from [facility]. On antbiotics for cellulitis. Renal function improving. Apply santyl to all wounds daily with av wraps. Vladimir adames dO
[2017-11-10 13:56] LABS: ANION GAP 8 (8-16); BLOOD UREA NITROGEN 37 mg/dL (7-18); CALCIUM 7.7 mg/dL (8.5-10.1); CHLORIDE 120 mmol/L (98-107); CO2 19 mmol/L (21-32); GLUCOSE,RANDOM 73 mg/dL (74-106); PHOSPHOROUS 3.3 mg/dL (2.5-4.9); POTASSIUM 4.1 mmol/L (3.5-5.1); SODIUM 147 mmol/L (136-145)
[2017-11-10] MEDS: DAPTOMYCIN 600 MG in SODIUM CHLORIDE 100 ML IVPB SCH (15:17)
[2017-11-10] MEDS ORDERED: ACETAMINOPHEN 325 MG TABLET (FP) PO PRN (17:14)
[2017-11-10] MEDS ORDERED: oxyCODONE HCL 5 MG TABLET PO PRN (17:14)
[2017-11-10] MEDS ORDERED: morphine SULFATE 4 MG/ML VIAL IVPUSH PRN (17:24)
[2017-11-10] MEDS ORDERED: oxyCODONE HCL 5 MG TABLET PO SCH (17:30)
[2017-11-10] MEDS: COLLAGENASE CLOSTRIDIUM HIST. 30 GRAMS TUBE TP SCH (18:07)
--- NOTE | 2017-11-10 19:50 | PN ---
Progress Note (short form) - Note Progress Note: prerenal azotemia now developing hypernatremia s/p fall and hip pain at home hyperkalemia Current Medications Acetaminophen (Tylenol -) 650 mg PO Q6H PRN PRN Reason: PAIN LEVEL 1-5 Collagenase (Santyl -) 1 applic TP DAILY [facility] Last Admin: 11/10/17 18:07 Dose: 1 applic Duloxetine HCl (Cymbalta -) 20 mg PO DAILY [facility] Heparin Sodium (Porcine) (Heparin -) 5,000 unit SQ TID [facility] Last Admin: 11/10/17 15:17 Dose: 5,000 unit Daptomycin 600 mg/ Sodium (Chloride) 100 mls @ 200 mls/hr IVPB DAILY@1500 [facility]; Protocol Last Admin: 11/10/17 15:17 Dose: 200 mls/hr Dextrose/Sodium Chloride (D5-1/2ns -) 1,000 mls @ 42 mls/hr IV ASDIR [facility] Last Admin: 11/10/17 12:03 Dose: 42 mls/hr Levothyroxine Sodium (Synthroid -) 150 mcg PO DAILY@0700 [facility] Last Admin: 11/10/17 06:21 Dose: 150 mcg Lisinopril (Prinivil) 20 mg PO DAILY [facility] Last Admin: 11/10/17 12:03 Dose: 20 mg Metoprolol Succinate (Toprol Xl -) 50 mg PO DAILY [facility] Last Admin: 11/10/17 12:03 Dose: 50 mg Morphine Sulfate (Morphine Sulfate) 2 mg IVPUSH Q24H PRN PRN Reason: PAIN LEVEL 6 - 10 Last Admin: 11/10/17 18:06 Dose: 2 mg Oxycodone HCl (Roxicodone -) 10 mg PO BID [facility] Last Vital Signs Temp Pulse Resp BP Pulse Ox 99.5 F 72 20 150/78 94 L 11/10/17 17:29 11/10/17 17:29 11/10/17 17:29 11/10/17 17:29 11/10/17 10:00 lungs clear heart reg rate and rhythm abd soft nontender ext edema lle ulcer CBC, BMP 11/09/17 07:45 11/10/17 11:55 CBC, BMP 11/09/17 07:45 11/09/17 07:45 IMP- hyperkalemia metabolic acidosis improving prerenal azotemia Plan- follow bmp
[2017-11-10] MEDS: DEXTROSE 5%-0.45% SALINE 1,000 ML IV SCH (21:33)
[2017-11-10] MEDS: oxyCODONE HCL 5 MG TABLET PO SCH (21:34)
[2017-11-11] MEDS ORDERED: PT OWN MED DRAWER 7, Y5N ONE ×5 (05:55→15:42)
[2017-11-11] MEDS: LEVOTHYROXINE NA 150 MCG TABLET PO SCH (06:25)
[2017-11-11] MEDS: HEPARIN NA (PORCINE) 5,000 UNITS/ML 1ML VIAL SQ SCH ×3 (06:25→21:48)
[2017-11-11] MEDS: DEXTROSE 5%-0.45% SALINE 1,000 ML IV SCH (06:43)
[2017-11-11 07:44] LABS: BASO % 0.4 % (0-2.0); EOS % 5.1 % (0-4.5); HEMATOCRIT 28.3 % (32.4-45.2); HEMOGLOBIN 9.3 GM/dL (10.7-15.3); LYMPH % 9.4 % (8-40); MCH 26.8 pg (25.7-33.7); MCHC 32.6 g/dl (32.0-36.0); MEAN CELL VOLUME 82.2 fl (80-96); MEAN PLT VOLUME 7.7 fl (7.5-11.1); NEUT % 75.1 % (42.8-82.8); PLATELET COUNT 199 K/MM3 (134-434); RBC 3.45 M/mm3 (3.60-5.2); RDW 18.2 % (11.6-15.6); WHITE BLOOD COUNT 7.7 K/mm3 (4.0-10.0)
[2017-11-11 08:21] LABS: CHLORIDE 118 mmol/L (98-107); SODIUM 145 mmol/L (136-145)
[2017-11-11 08:26] LABS: ALBUMIN 2.1 g/dl (3.4-5.0); ALK PHOS 99 U/L (45-117); ANION GAP 7 (8-16); BILIRUBIN,TOTAL 0.3 mg/dL (0.2-1.0); BLOOD UREA NITROGEN 28 mg/dL (7-18); CALCIUM 7.8 mg/dL (8.5-10.1); CO2 20 mmol/L (21-32); GLUCOSE,RANDOM 103 mg/dL (74-106); MAGNESIUM 1.6 mg/dL (1.8-2.4); PHOSPHOROUS 2.8 mg/dL (2.5-4.9); SGOT/AST 14 U/L (15-37); SGPT/ALT 7 U/L (12-78)
[2017-11-11] MEDS: DULoxetine HCL 20 MG CAPSULE.DR (FP) PO SCH (09:18)
[2017-11-11] MEDS: oxyCODONE HCL 5 MG TABLET PO SCH ×2 (09:19→21:51)
[2017-11-11] MEDS: LISINOPRIL 20 MG TABLET (FP) PO SCH (09:19)
[2017-11-11] MEDS: COLLAGENASE CLOSTRIDIUM HIST. 30 GRAMS TUBE TP SCH (09:23)
[2017-11-11] MEDS ORDERED: MAGNESIUM 2GM/50ML STERILE WATER IVPB IVPB ONE (11:16)
--- NOTE | 2017-11-11 11:16 | PN ---
Physical Exam: SUBJECTIVE: Patient seen and examined at the bedside. Feels well today and wants to try physical therapy. OBJECTIVE: Vital Signs Period Temp Pulse Resp BP Sys/Chakraborty Pulse Ox Last 24 Hr 98.8 F-99.6 F 68-86 18-20 141-162/68-82 94-95 GENERAL: The patient is awake, alert, and fully oriented, in no acute distress. HEAD: Normal with no signs of trauma. EYES: PERRL, extraocular movements intact, sclera anicteric, conjunctiva clear. No ptosis. ENT: Ears normal, nares patent, oropharynx clear without exudates, moist mucous membranes. NECK: Trachea midline, full range of motion, supple. LUNGS: Breath sounds equal, clear to auscultation bilaterally, no wheezes ABDOMEN: Soft, nontender, nondistended, normoactive bowel sounds, no guarding, no rebound, no hepatosplenomegaly, no masses. EXTREMITIES: 2+ pulses, warm, well-perfused, no edema. NEUROLOGICAL: Cranial nerves II through XII grossly intact. Normal speech, gait not observed. PSYCH: Normal mood, normal affect. SKIN: bilateral lower ext wounds, dressings intact Laboratory Results - last 24 hr 11/10/17 11/11/17 11/11/17 11:55 06:00 06:00 WBC 7.7 D RBC 3.45 L Hgb 9.3 L Hct 28.3 L MCV 82.2 MCH 26.8 MCHC 32.6 RDW 18.2 H Plt Count 199 MPV 7.7 Neutrophils % 75.1 Lymphocytes % 9.4 D Monocytes % 10.0 Eosinophils % 5.1 H D Basophils % 0.4 Nucleated RBC % 0 Sodium 147 H 145 Potassium 4.1 4.0 Chloride 120 H 118 H Carbon Dioxide 19 L 20 L Anion Gap 8 7 L BUN 37 H 28 H Creatinine 1.0 1.0 Creat Clearance w eGFR 54.35 Random Glucose 73 L 103 Calcium 7.7 L 7.8 L Phosphorus 3.3 2.8 Magnesium 1.6 L Total Bilirubin 0.3 AST 14 L ALT 7 L Alkaline Phosphatase 99 Total Protein 6.0 L Albumin 2.1 L Active Medications Generic Name Dose Route Start Last Admin Trade Name Freq PRN Reason Stop Dose Admin Acetaminophen 650 mg 11/10/17 17:14 Tylenol - PO Q6H PRN PAIN LEVEL 1-5 Collagenase 1 applic 11/08/17 21:00 11/11/17 09:23 Santyl - TP 1 applic DAILY [facility] Administration Duloxetine HCl 20 mg 11/11/17 10:00 11/11/17 09:18 Cymbalta - PO 20 mg DAILY [facility] Administration Heparin Sodium (Porcine) 5,000 unit 11/08/17 22:00 11/11/17 06:25 Heparin - SQ 5,000 unit TID [facility] Administration Daptomycin 600 mg/ Sodium 100 mls @ 200 mls/hr 11/10/17 09:32 11/10/17 15:17 Chloride IVPB 200 mls/hr DAILY@1500 [facility] Administration Protocol Dextrose/Sodium Chloride 1,000 mls @ 75 mls/hr 11/10/17 21:03 11/11/17 06:43 D5-1/2ns - IV 75 mls/hr ASD[facility] Administration Levothyroxine Sodium 150 mcg 11/09/17 07:00 11/11/17 06:25 Synthroid - PO 150 mcg DAILY@0700 [facility] Administration Lisinopril 20 mg 11/10/17 11:15 11/11/17 09:19 Prinivil PO 20 mg DAILY [facility] Administration Metoprolol Succinate 50 mg 11/10/17 11:15 11/11/17 09:18 Toprol Xl - PO 50 mg DAILY [facility] Administration Morphine Sulfate 2 mg 11/10/17 17:24 11/10/17 18:06 Morphine Sulfate IVPUSH 2 mg Q24H PRN Administration PAIN LEVEL 6 - 10 Oxycodone HCl 10 mg 11/10/17 22:00 11/11/17 09:19 Roxicodone - PO 10 mg BID [facility] Administration ASSESSMENT/PLAN: Patient is a 72 year old female with a significant past medical history of hypertension, hyperlipidemia, thyroid cancer, hypothyroidism, chronic bilateral lower extremity edema, and peripheral vascular disease with chronic leg wounds. Admitted on 11/08/17 for severe sepsis secondary to bilateral lower extremity cellulitis. ID Severe sepsis secondary to bilateral lower extremity cellulitis in the setting of PVD On Daptomycin (11/10/17> ) ID following Wound care Chronic Bilateral Knee pain On Oxycodone 10mg BID Surgical evaluation once wounds heal Renal: Acute kidney injury, resolved Monitor with daily labs Azotemia, resolved Card: Hypertension, chronic On Toprol XL Hypothyroidism, chronic Thyroid cancer, chronic On Synthroid Hypernatremia, resolving Depression, chronic Started on Cymbalta by psyche [id number] Fluids: D5 1/2NS@75mL/hr Electrolytes: replete as indicated Nutrition: regular diet Dispo: continues to require inpatient care. Full code.
--- NOTE | 2017-11-11 14:22 | PN ---
Progress Note, Physician History of Present Illness: Pt seen and examined at bedside. She is awake and alert. She feels a little better today. - Current Medication List Current Medications: Active Medications Acetaminophen (Tylenol -) 650 mg PO Q6H PRN PRN Reason: PAIN LEVEL 1-5 Collagenase (Santyl -) 1 applic TP DAILY [facility] Last Admin: 11/11/17 09:23 Dose: 1 applic Duloxetine HCl (Cymbalta -) 20 mg PO DAILY [facility] Last Admin: 11/11/17 09:18 Dose: 20 mg Heparin Sodium (Porcine) (Heparin -) 5,000 unit SQ TID [facility] Last Admin: 11/11/17 13:47 Dose: 5,000 unit Daptomycin 600 mg/ Sodium (Chloride) 100 mls @ 200 mls/hr IVPB DAILY@1500 [facility]; Protocol Last Admin: 11/10/17 15:17 Dose: 200 mls/hr Dextrose/Sodium Chloride (D5-1/2ns -) 1,000 mls @ 75 mls/hr IV ASDIR [facility] Last Admin: 11/11/17 06:43 Dose: 75 mls/hr Levothyroxine Sodium (Synthroid -) 150 mcg PO DAILY@0700 [facility] Last Admin: 11/11/17 06:25 Dose: 150 mcg Lisinopril (Prinivil) 20 mg PO DAILY [facility] Last Admin: 11/11/17 09:19 Dose: 20 mg Metoprolol Succinate (Toprol Xl -) 50 mg PO DAILY [facility] Last Admin: 11/11/17 09:18 Dose: 50 mg Morphine Sulfate (Morphine Sulfate) 2 mg IVPUSH Q24H PRN PRN Reason: PAIN LEVEL 6 - 10 Last Admin: 11/10/17 18:06 Dose: 2 mg Oxycodone HCl (Roxicodone -) 10 mg PO BID [facility] Last Admin: 11/11/17 09:19 Dose: 10 mg - Objective Vital Signs: Vital Signs Temperature 98.8 F 11/11/17 10:00 Pulse Rate 73 11/11/17 10:00 Respiratory Rate 20 11/11/17 10:00 Blood Pressure 150/76 11/11/17 10:00 O2 Sat by Pulse Oximetry (%) 95 11/11/17 09:00 Constitutional: Yes: Calm Eyes: Yes: Conjunctiva Clear HENT: Yes: Atraumatic Neck: Yes: Supple Cardiovascular: Yes: S1, S2 Respiratory: Yes: CTA Bilaterally Gastrointestinal: Yes: Soft, Abdomen, Obese Genitourinary: Yes: Rich Present Musculoskeletal: Yes: WNL Edema: Yes Edema: LLE: 1+, RLE: 1+ Neurological: Yes: Oriented Psychiatric: Yes: Oriented Labs: CBC, BMP 11/11/17 06:00 11/11/17 06:00 INR, PTT INR 1.04 (0.82-1.09) 11/08/17 05:58 Problem List - Problems (1) YING (acute kidney injury) Code(s): N17.9 - ACUTE KIDNEY FAILURE, UNSPECIFIED (2) Hypotension Code(s): I95.9 - HYPOTENSION, UNSPECIFIED Qualifiers: Hypotension type: unspecified hypotension type Qualified Code(s): I95.9 - Hypotension, unspecified (3) Sepsis Code(s): A41.9 - SEPSIS, UNSPECIFIED ORGANISM Assessment/Plan Current Medications Generic Name Dose Route Start Last Admin Trade Name Freq PRN Reason Stop Dose Admin Acetaminophen 650 mg 11/10/17 17:14 Tylenol - PO Q6H PRN PAIN LEVEL 1-5 Collagenase 1 applic 11/08/17 21:00 11/11/17 09:23 Santyl - TP 1 applic DAILY [facility] Administration Duloxetine HCl 20 mg 11/11/17 10:00 11/11/17 09:18 Cymbalta - PO 20 mg DAILY [facility] Administration Heparin Sodium (Porcine) 5,000 unit 11/08/17 22:00 11/11/17 13:47 Heparin - SQ 5,000 unit TID [facility] Administration Daptomycin 600 mg/ Sodium 100 mls @ 200 mls/hr 11/10/17 09:32 11/10/17 15:17 Chloride IVPB 200 mls/hr DAILY@1500 [facility] Administration Protocol Dextrose/Sodium Chloride 1,000 mls @ 75 mls/hr 11/10/17 21:03 11/11/17 06:43 D5-1/2ns - IV 75 mls/hr ASD[facility] Administration Levothyroxine Sodium 150 mcg 11/09/17 07:00 11/11/17 06:25 Synthroid - PO 150 mcg DAILY@0700 [facility] Administration Lisinopril 20 mg 11/10/17 11:15 11/11/17 09:19 Prinivil PO 20 mg DAILY [facility] Administration Metoprolol Succinate 50 mg 11/10/17 11:15 11/11/17 09:18 Toprol Xl - PO 50 mg DAILY [facility] Administration Morphine Sulfate 2 mg 11/10/17 17:24 11/10/17 18:06 Morphine Sulfate IVPUSH 2 mg Q24H PRN Administration PAIN LEVEL 6 - 10 Oxycodone HCl 10 mg 11/10/17 22:00 11/11/17 09:19 Roxicodone - PO 10 mg BID [facility] Administration Laboratory Tests 11/08/17 08:20 Urine Protein Negative Urine Blood Negative Impression 1. YING - prerenal 2. sepsis 3. cellulitis 4. hypernatremia 5. lactic acidosis 6. Hypothyroidism Plan - renal function continues to improve - sodium improved - change fluids to 1/2 ns and decrease rate - repeat labs in am - will follow
[2017-11-11] MEDS ORDERED: SODIUM CHLORIDE 0.45% 1,000 ML IV SCH (14:30)
--- NOTE | 2017-11-11 15:40 | PN ---
Progress Note (short form) - Note Progress Note: alert doing well feels better has had no appetite and has not been eating right hip arthritis reluctant to drink because she will need to urinate more often Vital Signs Period Temp Pulse Resp BP Sys/Chakraborty Pulse Ox Last 24 Hr 98.8 F-99.5 F 68-75 18-20 141-150/68-78 94-95 cor-rrr lungs clear abd- soft, nt ext dressing removed- ulcers clean, less erythema CBC, BMP 11/11/17 06:00 11/11/17 06:00 Microbiology 11/08/17 07:55 Blood - Peripheral Venous Blood Culture - Preliminary NO GROWTH OBTAINED AFTER 72 HOURS, INCUBATION TO CONTINUE FOR 2 DAYS. 11/08/17 07:30 Blood - Peripheral Venous Blood Culture - Preliminary NO GROWTH OBTAINED AFTER 72 HOURS, INCUBATION TO CONTINUE FOR 2 DAYS. 11/08/17 08:19 Urine - Urine Clean Catch Urine Culture - Final NO GROWTH OBTAINED 11/08/17 05:58 Urine - Urine - Catheterized Urine Culture - Final NO GROWTH OBTAINED a/p YING- resolving with hydration sepsis secondary to bilateral cellulitis Hypotension-resolved prerenal azotemia/YING rsolving bilateral cellulitis mproved venous stasis with open ulcers history of multiple antibiotic allergies continue daptomycin- day #4 plan another 24-48 hours she is willing to consider SNF for wound care and rehab Problem List - Problems (1) Sepsis Code(s): A41.9 - SEPSIS, UNSPECIFIED ORGANISM (2) Hypotension Code(s): I95.9 - HYPOTENSION, UNSPECIFIED Qualifiers: Hypotension type: unspecified hypotension type Qualified Code(s): I95.9 - Hypotension, unspecified (3) YING (acute kidney injury) Code(s): N17.9 - ACUTE KIDNEY FAILURE, UNSPECIFIED (4) Cellulitis of leg Code(s): L03.119 - CELLULITIS OF UNSPECIFIED PART OF LIMB (5) Allergy to multiple antibiotics Code(s): Z88.1 - ALLERGY STATUS TO OTHER ANTIBIOTIC AGENTS STATUS
[2017-11-11] MEDS: DAPTOMYCIN 600 MG in SODIUM CHLORIDE 100 ML IVPB SCH (15:45)
[2017-11-11 22:12] VITALS: BMI 41.5
[2017-11-12] MEDS ORDERED: PT OWN MED DRAWER 7, Y5N ONE ×5 (06:08→15:52)
[2017-11-12] MEDS: HEPARIN NA (PORCINE) 5,000 UNITS/ML 1ML VIAL SQ SCH ×3 (06:09→22:09)
[2017-11-12] MEDS: LEVOTHYROXINE NA 150 MCG TABLET PO SCH (06:10)
[2017-11-12] MEDS: DULoxetine HCL 20 MG CAPSULE.DR (FP) PO SCH (10:01)
[2017-11-12] MEDS: LISINOPRIL 20 MG TABLET (FP) PO SCH (10:01)
[2017-11-12] MEDS: oxyCODONE HCL 5 MG TABLET PO SCH ×2 (10:01→22:09)
[2017-11-12] MEDS: COLLAGENASE CLOSTRIDIUM HIST. 30 GRAMS TUBE TP SCH (10:03)
[2017-11-12 10:47] LABS: BASO % 0.6 % (0-2.0); EOS % 7.5 % (0-4.5); HEMATOCRIT 28.9 % (32.4-45.2); HEMOGLOBIN 9.4 GM/dL (10.7-15.3); LYMPH % 13.9 % (8-40); MCH 26.6 pg (25.7-33.7); MCHC 32.6 g/dl (32.0-36.0); MEAN CELL VOLUME 81.7 fl (80-96); MEAN PLT VOLUME 7.6 fl (7.5-11.1); MONO % 8.9 % (3.8-10.2); NEUT % 69.1 % (42.8-82.8); PLATELET COUNT 200 K/MM3 (134-434); RBC 3.54 M/mm3 (3.60-5.2); RDW 17.8 % (11.6-15.6); WHITE BLOOD COUNT 7.6 K/mm3 (4.0-10.0)
[2017-11-12 11:13] LABS: CHLORIDE 116 mmol/L (98-107); POTASSIUM 4.2 mmol/L (3.5-5.1); SODIUM 144 mmol/L (136-145)
[2017-11-12 11:50] LABS: ALBUMIN 2.1 g/dl (3.4-5.0); ALK PHOS 96 U/L (45-117); ANION GAP 7 (8-16); BILIRUBIN,TOTAL 0.2 mg/dL (0.2-1.0); BLOOD UREA NITROGEN 21 mg/dL (7-18); CALCIUM 8.1 mg/dL (8.5-10.1); CO2 21 mmol/L (21-32); CREATININE 0.9 mg/dL (0.55-1.02); GLUCOSE,RANDOM 91 mg/dL (74-106); MAGNESIUM 1.9 mg/dL (1.8-2.4); SGOT/AST 12 U/L (15-37); TOT PROT 6.2 g/dl (6.4-8.2)
--- NOTE | 2017-11-12 12:15 | PN ---
Progress Note, Physician History of Present Illness: Pt seen and examined at bedside. She is awake and alert. She denies shortness of breath. She denies fevers or chills. - Current Medication List Current Medications: Active Medications Acetaminophen (Tylenol -) 650 mg PO Q6H PRN PRN Reason: PAIN LEVEL 1-5 Collagenase (Santyl -) 1 applic TP DAILY [facility] Last Admin: 11/12/17 10:03 Dose: 1 applic Duloxetine HCl (Cymbalta -) 20 mg PO DAILY [facility] Last Admin: 11/12/17 10:01 Dose: Not Given Heparin Sodium (Porcine) (Heparin -) 5,000 unit SQ TID [facility] Last Admin: 11/12/17 06:09 Dose: 5,000 unit Daptomycin 600 mg/ Sodium (Chloride) 100 mls @ 200 mls/hr IVPB DAILY@1500 [facility]; Protocol Last Admin: 11/11/17 15:45 Dose: 200 mls/hr Sodium Chloride (1/2 Normal Saline) 1,000 mls @ 50 mls/hr IV ASDIR [facility] Stop: 11/12/17 14:22 Last Admin: 11/11/17 15:01 Dose: 50 mls/hr Levothyroxine Sodium (Synthroid -) 150 mcg PO DAILY@0700 [facility] Last Admin: 11/12/17 06:10 Dose: 150 mcg Lisinopril (Prinivil) 20 mg PO DAILY [facility] Last Admin: 11/12/17 10:01 Dose: 20 mg Metoprolol Succinate (Toprol Xl -) 50 mg PO DAILY [facility] Last Admin: 11/12/17 10:01 Dose: 50 mg Morphine Sulfate (Morphine Sulfate) 2 mg IVPUSH Q24H PRN PRN Reason: PAIN LEVEL 6 - 10 Last Admin: 11/10/17 18:06 Dose: 2 mg Oxycodone HCl (Roxicodone -) 10 mg PO BID [facility] Last Admin: 11/12/17 10:01 Dose: 10 mg - Objective Vital Signs: Vital Signs Temperature 99.1 F 11/12/17 06:00 Pulse Rate 64 11/12/17 06:00 Respiratory Rate 16 11/12/17 06:00 Blood Pressure 154/86 11/12/17 06:00 O2 Sat by Pulse Oximetry (%) 96 11/11/17 21:00 Constitutional: Yes: Calm Eyes: Yes: Conjunctiva Clear HENT: Yes: Atraumatic Neck: Yes: Supple Cardiovascular: Yes: S1, S2 Respiratory: Yes: CTA Bilaterally Gastrointestinal: Yes: Soft, Abdomen, Obese Genitourinary: Yes: Rich Present Musculoskeletal: Yes: WNL Extremities: Yes: Other (obese) Edema: Yes Edema: LLE: Trace, RLE: Trace Neurological: Yes: Oriented Psychiatric: Yes: Oriented Labs: CBC, BMP 11/12/17 10:24 11/12/17 10:24 INR, PTT INR 1.04 (0.82-1.09) 11/08/17 05:58 Problem List - Problems (1) YING (acute kidney injury) Code(s): N17.9 - ACUTE KIDNEY FAILURE, UNSPECIFIED (2) Hypotension Code(s): I95.9 - HYPOTENSION, UNSPECIFIED Qualifiers: Hypotension type: unspecified hypotension type Qualified Code(s): I95.9 - Hypotension, unspecified (3) Sepsis Code(s): A41.9 - SEPSIS, UNSPECIFIED ORGANISM Assessment/Plan Current Medications Generic Name Dose Route Start Last Admin Trade Name Freq PRN Reason Stop Dose Admin Acetaminophen 650 mg 11/10/17 17:14 Tylenol - PO Q6H PRN PAIN LEVEL 1-5 Collagenase 1 applic 11/08/17 21:00 11/12/17 10:03 Santyl - TP 1 applic DAILY [facility] Administration Duloxetine HCl 20 mg 11/11/17 10:00 11/12/17 10:01 Cymbalta - PO Not Given DAILY [facility] Heparin Sodium (Porcine) 5,000 unit 11/08/17 22:00 11/12/17 06:09 Heparin - SQ 5,000 unit TID [facility] Administration Daptomycin 600 mg/ Sodium 100 mls @ 200 mls/hr 11/10/17 09:32 11/11/17 15:45 Chloride IVPB 200 mls/hr DAILY@1500 [facility] Administration Protocol Sodium Chloride 1,000 mls @ 50 mls/hr 11/11/17 14:30 11/11/17 15:01 1/2 Normal Saline IV 11/12/17 14:22 50 mls/hr ASDIR [facility] Administration Levothyroxine Sodium 150 mcg 11/09/17 07:00 11/12/17 06:10 Synthroid - PO 150 mcg DAILY@0700 [facility] Administration Lisinopril 20 mg 11/10/17 11:15 11/12/17 10:01 Prinivil PO 20 mg DAILY [facility] Administration Metoprolol Succinate 50 mg 11/10/17 11:15 11/12/17 10:01 Toprol Xl - PO 50 mg DAILY [facility] Administration Morphine Sulfate 2 mg 11/10/17 17:24 11/10/17 18:06 Morphine Sulfate IVPUSH 2 mg Q24H PRN Administration PAIN LEVEL 6 - 10 Oxycodone HCl 10 mg 11/10/17 22:00 11/12/17 10:01 Roxicodone - PO 10 mg BID [facility] Administration Impression 1. YING - prerenal 2. sepsis 3. cellulitis 4. hypernatremia 5. lactic acidosis 6. Hypothyroidism Plan - can stop fluids - renal function is improved - sodium is improved - can d/c joby - will follow
--- NOTE | 2017-11-12 12:43 | PN ---
Progress Note (short form) - Note Progress Note: alert doing well Vital Signs Vital Signs Period Temp Pulse Resp BP Sys/Chakraborty Pulse Ox Last 24 Hr 98.5 F-99.1 F 64-83 16-20 139-154/68-86 96 cor-rrr lungs clear abd soft,nt ext legs wrapped minimal erythema CBC, BMP 11/12/17 10:24 11/12/17 10:24 Microbiology 11/08/17 07:55 Blood - Peripheral Venous Blood Culture - Preliminary NO GROWTH OBTAINED AFTER 96 HOURS, INCUBATION TO CONTINUE FOR 1 DAYS. 11/08/17 07:30 Blood - Peripheral Venous Blood Culture - Preliminary NO GROWTH OBTAINED AFTER 96 HOURS, INCUBATION TO CONTINUE FOR 1 DAYS. 11/08/17 08:19 Urine - Urine Clean Catch Urine Culture - Final NO GROWTH OBTAINED 11/08/17 05:58 Urine - Urine - Catheterized Urine Culture - Final NO GROWTH OBTAINED a/p YING- resolving with hydration sepsis secondary to bilateral cellulitis-resolved Hypotension-resolved prerenal azotemia/YING rsolving bilateral cellulitis resolved venous stasis with open ulcers history of multiple antibiotic allergies history of MRSA in the past daptomycin- day #5-last dose today she is willing to consider SNF for wound care and rehab please call back if needed Problem List - Problems (1) Sepsis Code(s): A41.9 - SEPSIS, UNSPECIFIED ORGANISM (2) Hypotension Code(s): I95.9 - HYPOTENSION, UNSPECIFIED Qualifiers: Hypotension type: unspecified hypotension type Qualified Code(s): I95.9 - Hypotension, unspecified (3) YING (acute kidney injury) Code(s): N17.9 - ACUTE KIDNEY FAILURE, UNSPECIFIED (4) Cellulitis of leg Code(s): L03.119 - CELLULITIS OF UNSPECIFIED PART OF LIMB (5) Allergy to multiple antibiotics Code(s): Z88.1 - ALLERGY STATUS TO OTHER ANTIBIOTIC AGENTS STATUS
[2017-11-12 13:27] LABS: SGPT/ALT 9 U/L (12-78)
[2017-11-12] MEDS: DAPTOMYCIN 600 MG in SODIUM CHLORIDE 100 ML IVPB SCH (17:13)
--- NOTE | 2017-11-12 20:55 | PN ---
Physical Exam: SUBJECTIVE: Patient seen and examined at the bedside. Feeling well, patient wants to go to rehab. OBJECTIVE: Vital Signs Period Temp Pulse Resp BP Sys/Chakraborty Pulse Ox Last 24 Hr 98.5 F-99.1 F 64-87 16-20 144-154/77-86 96-96 GENERAL: The patient is awake, alert, and fully oriented, in no acute distress. HEAD: Normal with no signs of trauma. EYES: PERRL, extraocular movements intact, sclera anicteric, conjunctiva clear. No ptosis. ENT: Ears normal, nares patent, oropharynx clear without exudates, moist mucous membranes. NECK: Trachea midline, full range of motion, supple. LUNGS: Breath sounds equal, clear to auscultation bilaterally, no wheezes ABDOMEN: Soft, nontender, nondistended, normoactive bowel sounds, no guarding, no rebound, no hepatosplenomegaly, no masses. EXTREMITIES: 2+ pulses, warm, well-perfused, no edema. NEUROLOGICAL: Cranial nerves II through XII grossly intact. Normal speech, gait not observed. PSYCH: Normal mood, normal affect. SKIN: bilateral lower ext wounds, dressings intact Laboratory Results - last 24 hr 11/12/17 11/12/17 11/12/17 10:24 10:24 10:24 WBC 7.6 RBC 3.54 L Hgb 9.4 L Hct 28.9 L MCV 81.7 MCH 26.6 MCHC 32.6 RDW 17.8 H Plt Count 200 MPV 7.6 Neutrophils % 69.1 Lymphocytes % 13.9 D Monocytes % 8.9 Eosinophils % 7.5 H Basophils % 0.6 Nucleated RBC % 0 Sodium 144 Potassium 4.2 Chloride 116 H Carbon Dioxide 21 Anion Gap 7 L BUN 21 H Creatinine 0.9 Creat Clearance w eGFR > 60 Random Glucose 91 Calcium 8.1 L Magnesium 1.9 Cancelled Total Bilirubin 0.2 D AST 12 L ALT 9 L Alkaline Phosphatase 96 Total Protein 6.2 L Albumin 2.1 L Active Medications Generic Name Dose Route Start Last Admin Trade Name Freq PRN Reason Stop Dose Admin Acetaminophen 650 mg 11/10/17 17:14 Tylenol - PO Q6H PRN PAIN LEVEL 1-5 Collagenase 1 applic 11/08/17 21:00 11/12/17 10:03 Santyl - TP 1 applic DAILY [facility] Administration Duloxetine HCl 20 mg 11/11/17 10:00 11/12/17 10:01 Cymbalta - PO Not Given DAILY [facility] Heparin Sodium (Porcine) 5,000 unit 11/08/17 22:00 11/12/17 14:07 Heparin - SQ 5,000 unit TID [facility] Administration Daptomycin 600 mg/ Sodium 100 mls @ 200 mls/hr 11/10/17 09:32 11/12/17 17:13 Chloride IVPB 200 mls/hr DAILY@1500 [facility] Administration Protocol Levothyroxine Sodium 150 mcg 11/09/17 07:00 11/12/17 06:10 Synthroid - PO 150 mcg DAILY@0700 [facility] Administration Lisinopril 20 mg 11/10/17 11:15 11/12/17 10:01 Prinivil PO 20 mg DAILY [facility] Administration Metoprolol Succinate 50 mg 11/10/17 11:15 11/12/17 10:01 Toprol Xl - PO 50 mg DAILY [facility] Administration Morphine Sulfate 2 mg 11/10/17 17:24 11/10/17 18:06 Morphine Sulfate IVPUSH 2 mg Q24H PRN Administration PAIN LEVEL 6 - 10 Oxycodone HCl 10 mg 11/10/17 22:00 11/12/17 10:01 Roxicodone - PO 10 mg BID [facility] Administration ASSESSMENT/PLAN: Patient is a 72 year old female with a significant past medical history of hypertension, hyperlipidemia, thyroid cancer, hypothyroidism, chronic bilateral lower extremity edema, and peripheral vascular disease with chronic leg wounds. Admitted on 11/08/17 for severe sepsis secondary to bilateral lower extremity cellulitis. ID Severe sepsis secondary to bilateral lower extremity cellulitis in the setting of PVD, resolved On Daptomycin, last dose today Wound care to bilateral lower ext wounds Vitals stable, labs stable Blood and urine cultures negative Chronic Bilateral Knee pain On Oxycodone 10mg BID Surgical evaluation once wounds heal Renal: Acute kidney injury, resolved Monitor with daily labs Azotemia, resolved Card: Hypertension, chronic On Toprol XL Hypothyroidism, chronic Thyroid cancer, chronic On Synthroid Hypernatremia, resolving Depression, chronic Started on Cymbalta by psyche, but patient refusing to take F.E.N Fluids: D5 1/2NS@75mL/hr Electrolytes: replete as indicated Nutrition: regular diet Dispo: continues to require inpatient care. Full code.
[2017-11-13] MEDS ORDERED: PT OWN MED DRAWER 7, Y5N ONE (06:20)
[2017-11-13] MEDS: HEPARIN NA (PORCINE) 5,000 UNITS/ML 1ML VIAL SQ SCH ×3 (06:22→22:39)
[2017-11-13] MEDS: LEVOTHYROXINE NA 150 MCG TABLET PO SCH (06:22)
[2017-11-13 07:29] LABS: BASO % 0.4 % (0-2.0); EOS % 7.8 % (0-4.5); HEMATOCRIT 28.1 % (32.4-45.2); HEMOGLOBIN 9.2 GM/dL (10.7-15.3); LYMPH % 12.3 % (8-40); MCHC 32.9 g/dl (32.0-36.0); MEAN CELL VOLUME 82.1 fl (80-96); MEAN PLT VOLUME 7.8 fl (7.5-11.1); NEUT % 72.5 % (42.8-82.8); PLATELET COUNT 200 K/MM3 (134-434); RBC 3.42 M/mm3 (3.60-5.2); RDW 17.8 % (11.6-15.6); WHITE BLOOD COUNT 6.9 K/mm3 (4.0-10.0)
[2017-11-13 07:54] LABS: ALBUMIN 2.1 g/dl (3.4-5.0); ALK PHOS 94 U/L (45-117); ANION GAP 7 (8-16); BILIRUBIN,TOTAL 0.3 mg/dL (0.2-1.0); CALCIUM 8.1 mg/dL (8.5-10.1); CHLORIDE 112 mmol/L (98-107); CO2 24 mmol/L (21-32); GLUCOSE,RANDOM 83 mg/dL (74-106); MAGNESIUM 1.8 mg/dL (1.8-2.4); POTASSIUM 4.4 mmol/L (3.5-5.1); SGOT/AST 10 U/L (15-37); SGPT/ALT 8 U/L (12-78); SODIUM 143 mmol/L (136-145); TOT PROT 5.9 g/dl (6.4-8.2)
[2017-11-13 08:02] LABS: BLOOD UREA NITROGEN 20 mg/dL (7-18)
--- NOTE | 2017-11-13 09:36 | PN ---
Physical Exam: SUBJECTIVE: Patient seen and examined at the bedside. Feels well, in no acute distress. OBJECTIVE: Mild wheezing bilateral lungs, start on duonebs scheduled Vital Signs Period Temp Pulse Resp BP Sys/Chakraborty Pulse Ox Last 24 Hr 98.1 F-98.7 F 52-87 16-20 143-152/62-78 95 GENERAL: The patient is awake, alert, and fully oriented, in no acute distress. HEAD: Normal with no signs of trauma. EYES: PERRL, extraocular movements intact, sclera anicteric, conjunctiva clear. No ptosis. ENT: Ears normal, nares patent, oropharynx clear without exudates, moist mucous membranes. NECK: Trachea midline, full range of motion, supple. LUNGS: scattered wheezing ABDOMEN: Soft, nontender, nondistended, normoactive bowel sounds, no guarding, no rebound, no hepatosplenomegaly, no masses. EXTREMITIES: 2+ pulses, warm, well-perfused, no edema. NEUROLOGICAL: Cranial nerves II through XII grossly intact. Normal speech, gait not observed. PSYCH: Normal mood, normal affect. SKIN: bilateral lower ext wounds, dressings intact Laboratory Results - last 24 hr 11/12/17 11/12/17 11/12/17 10:24 10:24 10:24 WBC 7.6 RBC 3.54 L Hgb 9.4 L Hct 28.9 L MCV 81.7 MCH 26.6 MCHC 32.6 RDW 17.8 H Plt Count 200 MPV 7.6 Neutrophils % 69.1 Lymphocytes % 13.9 D Monocytes % 8.9 Eosinophils % 7.5 H Basophils % 0.6 Nucleated RBC % 0 Sodium 144 Potassium 4.2 Chloride 116 H Carbon Dioxide 21 Anion Gap 7 L BUN 21 H Creatinine 0.9 Creat Clearance w eGFR > 60 Random Glucose 91 Calcium 8.1 L Magnesium 1.9 Cancelled Total Bilirubin 0.2 D AST 12 L ALT 9 L Alkaline Phosphatase 96 Total Protein 6.2 L Albumin 2.1 L 11/13/17 11/13/17 06:28 06:28 WBC 6.9 RBC 3.42 L Hgb 9.2 L Hct 28.1 L MCV 82.1 MCH 27.0 MCHC 32.9 RDW 17.8 H Plt Count 200 MPV 7.8 Neutrophils % 72.5 Lymphocytes % 12.3 Monocytes % 7.0 Eosinophils % 7.8 H Basophils % 0.4 Nucleated RBC % 0 Sodium 143 Potassium 4.4 Chloride 112 H Carbon Dioxide 24 Anion Gap 7 L BUN 20 H Creatinine 1.0 Creat Clearance w eGFR 54.35 Random Glucose 83 Calcium 8.1 L Magnesium 1.8 Total Bilirubin 0.3 D AST 10 L ALT 8 L Alkaline Phosphatase 94 Total Protein 5.9 L Albumin 2.1 L Active Medications Generic Name Dose Route Start Last Admin Trade Name Freq PRN Reason Stop Dose Admin Acetaminophen 650 mg 11/10/17 17:14 Tylenol - PO Q6H PRN PAIN LEVEL 1-5 Collagenase 1 applic 11/08/17 21:00 11/12/17 10:03 Santyl - TP 1 applic DAILY [facility] Administration Duloxetine HCl 20 mg 11/11/17 10:00 11/12/17 10:01 Cymbalta - PO Not Given DAILY [facility] Heparin Sodium (Porcine) 5,000 unit 11/08/17 22:00 11/13/17 06:22 Heparin - SQ 5,000 unit TID [facility] Administration Levothyroxine Sodium 150 mcg 11/09/17 07:00 11/13/17 06:22 Synthroid - PO 150 mcg DAILY@0700 [facility] Administration Lisinopril 20 mg 11/10/17 11:15 11/12/17 10:01 Prinivil PO 20 mg DAILY [facility] Administration Metoprolol Succinate 50 mg 11/10/17 11:15 11/12/17 10:01 Toprol Xl - PO 50 mg DAILY [facility] Administration Morphine Sulfate 2 mg 11/10/17 17:24 11/10/17 18:06 Morphine Sulfate IVPUSH 2 mg Q24H PRN Administration PAIN LEVEL 6 - 10 Oxycodone HCl 10 mg 11/10/17 22:00 11/12/17 22:09 Roxicodone - PO 10 mg BID [facility] Administration ASSESSMENT/PLAN: Patient is a 72 year old female with a significant past medical history of hypertension, hyperlipidemia, thyroid cancer, hypothyroidism, chronic bilateral lower extremity edema, and peripheral vascular disease with chronic leg wounds. Admitted on 11/08/17 for severe sepsis secondary to bilateral lower extremity cellulitis. ID Severe sepsis secondary to bilateral lower extremity cellulitis in the setting of PVD, resolved On Daptomycin, last dose today Wound care to bilateral lower ext wounds Vitals stable, labs stable Blood and urine cultures negative Chronic Bilateral Knee pain On Oxycodone 10mg BID Surgical evaluation once wounds heal Renal: Acute kidney injury, resolved Monitor with daily labs Azotemia, resolved Card: Hypertension, chronic On Toprol XL Hypothyroidism, chronic Thyroid cancer, chronic On Synthroid Hypernatremia, resolving Depression, chronic Started on Cymbalta by psyche, but patient refusing to take F.E.N Fluids: tolerating PO Electrolytes: replete as indicated Nutrition: regular diet Dispo: continues to require inpatient care. Full code. Discharge planning. Visit type - Emergency Visit Emergency Visit: Yes ED Registration Date: 11/08/17 Care time: The patient presented to the Emergency Department on the above date and was hospitalized for further evaluation of their emergent condition. - New Patient This patient is new to me today: No - Critical Care Critical Care patient: No - Discharge Referral Referred to [facility] No
[2017-11-13] MEDS: DULoxetine HCL 20 MG CAPSULE.DR (FP) PO SCH ×2 (10:15→12:49)
[2017-11-13] MEDS: oxyCODONE HCL 5 MG TABLET PO SCH ×2 (10:15→22:39)
[2017-11-13] MEDS: LISINOPRIL 20 MG TABLET (FP) PO SCH (10:15)
[2017-11-13] MEDS: COLLAGENASE CLOSTRIDIUM HIST. 30 GRAMS TUBE TP SCH ×2 (11:12→15:57)
[2017-11-13] MEDS: ALBUTEROL SO4 2.5/IPRATROPIUM 0.5 INH SOL 3 ML VIAL.NEB. NEB SCH ×3 (11:28→21:19)
--- NOTE | 2017-11-13 11:36 | PN ---
Progress Note (short form) - Note Progress Note: Noted to have mild wheezing and was started on BD TX. No fevers. No chest pain. Intake & Output 11/10/17 11/11/17 11/12/17 11/13/17 23:59 23:59 23:59 23:59 Intake Total 3143 750 600 Output Total 1900 1300 300 Balance 1243 -550 300 Weight 250 lb Last Vital Signs Temp Pulse Resp BP Pulse Ox 98.9 F 60 20 158/90 95 11/13/17 10:08 11/13/17 10:12 11/13/17 10:12 11/13/17 10:12 11/12/17 21:00 Active Medications Acetaminophen (Tylenol -) 650 mg PO Q6H PRN PRN Reason: PAIN LEVEL 1-5 Albuterol/Ipratropium (Duoneb -) 1 amp NEB RQID [facility] Last Admin: 11/13/17 11:28 Dose: 1 amp Collagenase (Santyl -) 1 applic TP DAILY [facility] Last Admin: 11/12/17 10:03 Dose: 1 applic Duloxetine HCl (Cymbalta -) 20 mg PO DAILY [facility] Last Admin: 11/13/17 10:15 Dose: 20 mg Heparin Sodium (Porcine) (Heparin -) 5,000 unit SQ TID [facility] Last Admin: 11/13/17 06:22 Dose: 5,000 unit Levothyroxine Sodium (Synthroid -) 150 mcg PO DAILY@0700 [facility] Last Admin: 11/13/17 06:22 Dose: 150 mcg Lisinopril (Prinivil) 20 mg PO DAILY [facility] Last Admin: 11/13/17 10:15 Dose: 20 mg Metoprolol Succinate (Toprol Xl -) 50 mg PO DAILY [facility] Last Admin: 11/13/17 10:14 Dose: 50 mg Morphine Sulfate (Morphine Sulfate) 2 mg IVPUSH Q24H PRN PRN Reason: PAIN LEVEL 6 - 10 Last Admin: 11/10/17 18:06 Dose: 2 mg Oxycodone HCl (Roxicodone -) 10 mg PO BID [facility] Last Admin: 11/13/17 10:15 Dose: 10 mg Gen: NAD at rest Heart: RRR Lung: few scattered rhonchi, decreased breath sounds at the bases Abd: soft, nontender Ext: + erythema, wrapped, + edema Laboratory Results - last 24 hr 11/12/17 11/13/17 11/13/17 10:24 06:28 06:28 WBC 6.9 RBC 3.42 L Hgb 9.2 L Hct 28.1 L MCV 82.1 MCH 27.0 MCHC 32.9 RDW 17.8 H Plt Count 200 MPV 7.8 Neutrophils % 72.5 Lymphocytes % 12.3 Monocytes % 7.0 Eosinophils % 7.8 H Basophils % 0.4 Nucleated RBC % 0 Sodium 143 Potassium 4.4 Chloride 112 H Carbon Dioxide 21 24 Anion Gap 7 L 7 L BUN 21 H 20 H Creatinine 0.9 1.0 Creat Clearance w eGFR > 60 54.35 Random Glucose 91 83 Calcium 8.1 L 8.1 L Magnesium 1.9 1.8 Total Bilirubin 0.2 D 0.3 D AST 12 L 10 L ALT 9 L 8 L Alkaline Phosphatase 96 94 Total Protein 6.2 L 5.9 L Albumin 2.1 L 2.1 L A/P Cellulitis Sepsis Acute Kidney Injury improving Hyperkalemia Lactic Acidosis Hypothyroidism - BD TX noted - Monitor off systemic steroids - ABX - DVT prophylaxis Dr Hightower
[2017-11-13] MEDS: diphenhydrAMINE HCL 25 MG CAPSULE (FP) PO PRN (14:26)
--- NOTE | 2017-11-13 14:27 | PN ---
Progress Note, Physician History of Present Illness: Pt seen and examined at bedside. She is awake and alert. She says she feels better today. - Current Medication List Current Medications: Active Medications Acetaminophen (Tylenol -) 650 mg PO Q6H PRN PRN Reason: PAIN LEVEL 1-5 Albuterol/Ipratropium (Duoneb -) 1 amp NEB RQID [facility] Last Admin: 11/13/17 11:28 Dose: 1 amp Collagenase (Santyl -) 1 applic TP DAILY [facility] Last Admin: 11/12/17 10:03 Dose: 1 applic Diphenhydramine HCl (Benadryl -) 25 mg PO Q6H PRN PRN Reason: FOR ITCHING Duloxetine HCl (Cymbalta -) 20 mg PO DAILY [facility] Last Admin: 11/13/17 12:49 Dose: Not Given Heparin Sodium (Porcine) (Heparin -) 5,000 unit SQ TID [facility] Last Admin: 11/13/17 06:22 Dose: 5,000 unit Levothyroxine Sodium (Synthroid -) 150 mcg PO DAILY@0700 [facility] Last Admin: 11/13/17 06:22 Dose: 150 mcg Lisinopril (Prinivil) 20 mg PO DAILY [facility] Last Admin: 11/13/17 10:15 Dose: 20 mg Metoprolol Succinate (Toprol Xl -) 50 mg PO DAILY [facility] Last Admin: 11/13/17 10:14 Dose: 50 mg Morphine Sulfate (Morphine Sulfate) 2 mg IVPUSH Q24H PRN PRN Reason: PAIN LEVEL 6 - 10 Last Admin: 11/10/17 18:06 Dose: 2 mg Oxycodone HCl (Roxicodone -) 10 mg PO BID [facility] Last Admin: 11/13/17 10:15 Dose: 10 mg - Objective Vital Signs: Vital Signs Temperature 98.9 F 11/13/17 10:08 Pulse Rate 60 11/13/17 10:12 Respiratory Rate 20 11/13/17 10:12 Blood Pressure 158/90 11/13/17 10:12 O2 Sat by Pulse Oximetry (%) 95 11/13/17 09:00 Constitutional: Yes: Calm Eyes: Yes: Conjunctiva Clear HENT: Yes: Atraumatic Neck: Yes: Supple Cardiovascular: Yes: S1, S2 Respiratory: Yes: CTA Bilaterally Gastrointestinal: Yes: Soft, Abdomen, Obese Genitourinary: Yes: WNL Musculoskeletal: Yes: WNL Edema: LLE: Trace, RLE: Trace Wound/Incision: Yes: Dressing Dry and Intact Neurological: Yes: Oriented Psychiatric: Yes: Oriented Labs: CBC, BMP 11/13/17 06:28 11/13/17 06:28 INR, PTT INR 1.04 (0.82-1.09) 11/08/17 05:58 Problem List - Problems (1) YING (acute kidney injury) Code(s): N17.9 - ACUTE KIDNEY FAILURE, UNSPECIFIED (2) Hypotension Code(s): I95.9 - HYPOTENSION, UNSPECIFIED Qualifiers: Hypotension type: unspecified hypotension type Qualified Code(s): I95.9 - Hypotension, unspecified (3) Sepsis Code(s): A41.9 - SEPSIS, UNSPECIFIED ORGANISM Assessment/Plan Current Medications Generic Name Dose Route Start Last Admin Trade Name Freq PRN Reason Stop Dose Admin Acetaminophen 650 mg 11/10/17 17:14 Tylenol - PO Q6H PRN PAIN LEVEL 1-5 Albuterol/Ipratropium 1 amp 11/13/17 12:00 11/13/17 11:28 Duoneb - NEB 1 amp RQID [facility] Administration Collagenase 1 applic 11/08/17 21:00 11/12/17 10:03 Santyl - TP 1 applic DAILY [facility] Administration Diphenhydramine HCl 25 mg 11/13/17 13:58 Benadryl - PO Q6H PRN FOR ITCHING Duloxetine HCl 20 mg 11/11/17 10:00 11/13/17 12:49 Cymbalta - PO Not Given DAILY [facility] Heparin Sodium (Porcine) 5,000 unit 11/08/17 22:00 11/13/17 06:22 Heparin - SQ 5,000 unit TID [facility] Administration Levothyroxine Sodium 150 mcg 11/09/17 07:00 11/13/17 06:22 Synthroid - PO 150 mcg DAILY@0700 [facility] Administration Lisinopril 20 mg 11/10/17 11:15 11/13/17 10:15 Prinivil PO 20 mg DAILY [facility] Administration Metoprolol Succinate 50 mg 11/10/17 11:15 11/13/17 10:14 Toprol Xl - PO 50 mg DAILY [facility] Administration Morphine Sulfate 2 mg 11/10/17 17:24 11/10/17 18:06 Morphine Sulfate IVPUSH 2 mg Q24H PRN Administration PAIN LEVEL 6 - 10 Oxycodone HCl 10 mg 11/10/17 22:00 11/13/17 10:15 Roxicodone - PO 10 mg BID [facility] Administration Impression 1. YING - prerenal 2. sepsis 3. cellulitis 4. hypernatremia 5. lactic acidosis 6. Hypothyroidism Plan - renal function is stabilizing - sodium stable - pt tolerating diet - can d/c hemphill - will follow
[2017-11-14] MEDS ORDERED: PT OWN MED DRAWER 7, Y5N ONE (06:44)
[2017-11-14] MEDS: HEPARIN NA (PORCINE) 5,000 UNITS/ML 1ML VIAL SQ SCH ×3 (06:51→22:14)
[2017-11-14] MEDS: LEVOTHYROXINE NA 150 MCG TABLET PO SCH (06:51)
[2017-11-14] MEDS: ALBUTEROL SO4 2.5/IPRATROPIUM 0.5 INH SOL 3 ML VIAL.NEB. NEB SCH ×4 (08:30→21:13)
[2017-11-14] MEDS: oxyCODONE HCL 5 MG TABLET PO SCH ×2 (10:13→22:14)
[2017-11-14] MEDS: LISINOPRIL 20 MG TABLET (FP) PO SCH (10:14)
[2017-11-14] MEDS: DULoxetine HCL 20 MG CAPSULE.DR (FP) PO SCH ×2 (10:14→17:35)
[2017-11-14 10:24] LABS: BASO % 0.4 % (0-2.0); EOS % 6.3 % (0-4.5); HEMATOCRIT 28.8 % (32.4-45.2); HEMOGLOBIN 9.5 GM/dL (10.7-15.3); LYMPH % 15.6 % (8-40); MEAN CELL VOLUME 81.7 fl (80-96); MEAN PLT VOLUME 7.9 fl (7.5-11.1); MONO % 5.7 % (3.8-10.2); PLATELET COUNT 234 K/MM3 (134-434); RBC 3.52 M/mm3 (3.60-5.2); RDW 17.6 % (11.6-15.6); WHITE BLOOD COUNT 6.7 K/mm3 (4.0-10.0)
[2017-11-14 10:50] LABS: CHLORIDE 111 mmol/L (98-107); POTASSIUM 4.3 mmol/L (3.5-5.1); SODIUM 142 mmol/L (136-145)
[2017-11-14 11:24] LABS: ALBUMIN 2.2 g/dl (3.4-5.0); ALK PHOS 92 U/L (45-117); ANION GAP 10 (8-16); BILIRUBIN,TOTAL 0.2 mg/dL (0.2-1.0); BLOOD UREA NITROGEN 18 mg/dL (7-18); CALCIUM 7.9 mg/dL (8.5-10.1); CO2 21 mmol/L (21-32); CREATININE 1.1 mg/dL (0.55-1.02); GLUCOSE,RANDOM 138 mg/dL (74-106); MAGNESIUM 1.6 mg/dL (1.8-2.4); SGOT/AST 9 U/L (15-37); SGPT/ALT 8 U/L (12-78); TOT PROT 6.2 g/dl (6.4-8.2)
[2017-11-14] MEDS: COLLAGENASE CLOSTRIDIUM HIST. 30 GRAMS TUBE TP SCH (13:58)
[2017-11-14] MEDS: diphenhydrAMINE HCL 25 MG CAPSULE (FP) PO PRN ×2 (14:01→22:20)
[2017-11-14 15:15] VITALS: TEMP 98.6
--- NOTE | 2017-11-14 15:30 | PN ---
Progress Note, Physician History of Present Illness: Pt seen and examined at bedside. She is awake and alert. She denies shortness of breath. - Current Medication List Current Medications: Active Medications Acetaminophen (Tylenol -) 650 mg PO Q6H PRN PRN Reason: PAIN LEVEL 1-5 Albuterol/Ipratropium (Duoneb -) 1 amp NEB RQID [facility] Last Admin: 11/14/17 11:00 Dose: 1 amp Collagenase (Santyl -) 1 applic TP DAILY [facility] Last Admin: 11/14/17 13:58 Dose: 1 applic Diphenhydramine HCl (Benadryl -) 25 mg PO Q6H PRN PRN Reason: FOR ITCHING Last Admin: 11/14/17 14:01 Dose: 25 mg Duloxetine HCl (Cymbalta -) 20 mg PO DAILY [facility] Last Admin: 11/14/17 10:14 Dose: 20 mg Heparin Sodium (Porcine) (Heparin -) 5,000 unit SQ TID [facility] Last Admin: 11/14/17 13:59 Dose: 5,000 unit Levothyroxine Sodium (Synthroid -) 150 mcg PO DAILY@0700 [facility] Last Admin: 11/14/17 06:51 Dose: 150 mcg Lisinopril (Prinivil) 20 mg PO DAILY [facility] Last Admin: 11/14/17 10:14 Dose: 20 mg Metoprolol Succinate (Toprol Xl -) 50 mg PO DAILY [facility] Last Admin: 11/14/17 10:14 Dose: 50 mg Morphine Sulfate (Morphine Sulfate) 2 mg IVPUSH Q24H PRN PRN Reason: PAIN LEVEL 6 - 10 Last Admin: 11/10/17 18:06 Dose: 2 mg Oxycodone HCl (Roxicodone -) 10 mg PO BID [facility] Last Admin: 11/14/17 10:13 Dose: 10 mg - Objective Vital Signs: Vital Signs Temperature 98.6 F 11/14/17 15:14 Pulse Rate 72 11/14/17 15:14 Respiratory Rate 20 11/14/17 15:14 Blood Pressure 136/71 11/14/17 15:14 O2 Sat by Pulse Oximetry (%) 95 11/14/17 09:00 Constitutional: Yes: Calm Eyes: Yes: Conjunctiva Clear HENT: Yes: Atraumatic Neck: Yes: Supple Cardiovascular: Yes: S1, S2 Respiratory: Yes: CTA Bilaterally Gastrointestinal: Yes: Soft, Abdomen, Obese Genitourinary: Yes: WNL Musculoskeletal: Yes: WNL Edema: Yes Edema: LLE: Trace, RLE: Trace Wound/Incision: Yes: Dressing Dry and Intact Neurological: Yes: Oriented Psychiatric: Yes: Oriented Labs: CBC, BMP 11/14/17 10:00 11/14/17 10:00 INR, PTT INR 1.04 (0.82-1.09) 11/08/17 05:58 Problem List - Problems (1) YING (acute kidney injury) Code(s): N17.9 - ACUTE KIDNEY FAILURE, UNSPECIFIED (2) Hypotension Code(s): I95.9 - HYPOTENSION, UNSPECIFIED Qualifiers: Hypotension type: unspecified hypotension type Qualified Code(s): I95.9 - Hypotension, unspecified (3) Sepsis Code(s): A41.9 - SEPSIS, UNSPECIFIED ORGANISM Assessment/Plan Current Medications Generic Name Dose Route Start Last Admin Trade Name Freq PRN Reason Stop Dose Admin Acetaminophen 650 mg 11/10/17 17:14 Tylenol - PO Q6H PRN PAIN LEVEL 1-5 Albuterol/Ipratropium 1 amp 11/13/17 12:00 11/14/17 11:00 Duoneb - NEB 1 amp RQID [facility] Administration Collagenase 1 applic 11/08/17 21:00 11/14/17 13:58 Santyl - TP 1 applic DAILY K[facility] Administration Diphenhydramine HCl 25 mg 11/13/17 13:58 11/14/17 14:01 Benadryl - PO 25 mg Q6H PRN Administration FOR ITCHING Duloxetine HCl 20 mg 11/11/17 10:00 11/14/17 10:14 Cymbalta - PO 20 mg DAILY KAIN Administration Heparin Sodium (Porcine) 5,000 unit 11/08/17 22:00 11/14/17 13:59 Heparin - SQ 5,000 unit TID KAIN Administration Levothyroxine Sodium 150 mcg 11/09/17 07:00 11/14/17 06:51 Synthroid - PO 150 mcg DAILY@0700 [facility] Administration Lisinopril 20 mg 11/10/17 11:15 11/14/17 10:14 Prinivil PO 20 mg DAILY [facility] Administration Metoprolol Succinate 50 mg 11/10/17 11:15 11/14/17 10:14 Toprol Xl - PO 50 mg DAILY [facility] Administration Morphine Sulfate 2 mg 11/10/17 17:24 11/10/17 18:06 Morphine Sulfate IVPUSH 2 mg Q24H PRN Administration PAIN LEVEL 6 - 10 Oxycodone HCl 10 mg 11/10/17 22:00 11/14/17 10:13 Roxicodone - PO 10 mg BID K[facility] Administration Impression 1. YING - prerenal 2. sepsis 3. cellulitis 4. hypernatremia 5. lactic acidosis 6. Hypothyroidism Plan - monitor renal function off of fluids - ua was neg for blood or protein - wound care to legs - pot voiding without difficulty - will follow PRN
--- NOTE | 2017-11-14 16:49 | PN ---
Physical Exam: SUBJECTIVE: Patient seen and examined at the bedside. Feels well, no pain. no shortness of breath. OBJECTIVE: Vital Signs Period Temp Pulse Resp BP Sys/Chakraborty Pulse Ox Last 24 Hr 98.3 F-99.7 F 54-73 18-20 136-166/65-90 95-95 GENERAL: The patient is awake, alert, and fully oriented, in no acute distress. HEAD: Normal with no signs of trauma. EYES: PERRL, extraocular movements intact, sclera anicteric, conjunctiva clear. No ptosis. ENT: Ears normal, nares patent, oropharynx clear without exudates, moist mucous membranes. NECK: Trachea midline, full range of motion, supple. LUNGS: scattered mild wheezing ABDOMEN: Soft, nontender, nondistended, normoactive bowel sounds, no guarding, no rebound, no hepatosplenomegaly, no masses. EXTREMITIES: 2+ pulses, warm, well-perfused, no edema. NEUROLOGICAL: Cranial nerves II through XII grossly intact. Normal speech, gait not observed. PSYCH: Normal mood, normal affect. SKIN: bilateral lower ext wounds, dressings intact Laboratory Results - last 24 hr 11/14/17 11/14/17 10:00 10:00 WBC 6.7 RBC 3.52 L Hgb 9.5 L Hct 28.8 L MCV 81.7 MCH 27.0 MCHC 33.0 RDW 17.6 H Plt Count 234 MPV 7.9 Neutrophils % 72.0 Lymphocytes % 15.6 D Monocytes % 5.7 Eosinophils % 6.3 H Basophils % 0.4 Nucleated RBC % 0 Sodium 142 Potassium 4.3 Chloride 111 H Carbon Dioxide 21 Anion Gap 10 BUN 18 Creatinine 1.1 H Creat Clearance w eGFR 48.69 Random Glucose 138 H Calcium 7.9 L Magnesium 1.6 L Total Bilirubin 0.2 D AST 9 L ALT 8 L Alkaline Phosphatase 92 Total Protein 6.2 L Albumin 2.2 L Active Medications Generic Name Dose Route Start Last Admin Trade Name Freq PRN Reason Stop Dose Admin Acetaminophen 650 mg 11/10/17 17:14 Tylenol - PO Q6H PRN PAIN LEVEL 1-5 Albuterol/Ipratropium 1 amp 11/13/17 12:00 11/14/17 11:00 Duoneb - NEB 1 amp RQID KAIN Administration Collagenase 1 applic 11/08/17 21:00 11/14/17 13:58 Santyl - TP 1 applic DAILY [facility] Administration Diphenhydramine HCl 25 mg 11/13/17 13:58 11/14/17 14:01 Benadryl - PO 25 mg Q6H PRN Administration FOR ITCHING Duloxetine HCl 20 mg 11/11/17 10:00 11/14/17 10:14 Cymbalta - PO 20 mg DAILY [facility] Administration Heparin Sodium (Porcine) 5,000 unit 11/08/17 22:00 11/14/17 13:59 Heparin - SQ 5,000 unit TID KAIN Administration Levothyroxine Sodium 150 mcg 11/09/17 07:00 11/14/17 06:51 Synthroid - PO 150 mcg DAILY@0700 [facility] Administration Lisinopril 20 mg 11/10/17 11:15 11/14/17 10:14 Prinivil PO 20 mg DAILY K[facility] Administration Metoprolol Succinate 50 mg 11/10/17 11:15 11/14/17 10:14 Toprol Xl - PO 50 mg DAILY [facility] Administration Morphine Sulfate 2 mg 11/10/17 17:24 11/10/17 18:06 Morphine Sulfate IVPUSH 2 mg Q24H PRN Administration PAIN LEVEL 6 - 10 Oxycodone HCl 10 mg 11/10/17 22:00 11/14/17 10:13 Roxicodone - PO 10 mg BID KAIN Administration ASSESSMENT/PLAN: Patient is a 72 year old female with a significant past medical history of hypertension, hyperlipidemia, thyroid cancer, hypothyroidism, chronic bilateral lower extremity edema, and peripheral vascular disease with chronic leg wounds. Admitted on 11/08/17 for severe sepsis secondary to bilateral lower extremity cellulitis. ID Severe sepsis secondary to bilateral lower extremity cellulitis in the setting of PVD, resolved Completed full course of Daptomycin on 11/13/2017 Wound care to bilateral lower ext wounds Vitals stable, labs stable Blood and urine cultures negative Chronic Bilateral Knee pain On Oxycodone 10mg BID Surgical evaluation once wounds heal Renal: Acute kidney injury, resolved Azotemia, resolved Card: Hypertension, chronic On Toprol XL Hypothyroidism, chronic Thyroid cancer, chronic On Synthroid Hypernatremia, resolving Depression, chronic Started on Cymbalta by psyche, but patient refusing to take, will discontinue F.E.N Fluids: tolerating PO Electrolytes: replete as indicated Nutrition: regular diet Dispo: Awaiting rehab placement. Full code. Discharge planning. Visit type - Emergency Visit Emergency Visit: Yes ED Registration Date: 11/08/17 Care time: The patient presented to the Emergency Department on the above date and was hospitalized for further evaluation of their emergent condition. - New Patient This patient is new to me today: No - Critical Care Critical Care patient: No - Discharge Referral Referred to [facility] No
[2017-11-14] MEDS ORDERED: MAGNESIUM OXIDE 400 MG TABLET (FP) PO ONE (17:00)
--- NOTE | 2017-11-14 19:19 | DS ---
Physical Exam: SUBJECTIVE: Patient seen and examined OBJECTIVE: Vital Signs Period Temp Pulse Resp BP Sys/Chakraborty Pulse Ox Last 24 Hr 98.3 F-99.7 F 54-73 18-20 136-166/66-90 95-95 PHYSICAL EXAM GENERAL: The patient is awake, alert, and fully oriented, in no acute distress. HEAD: Normal with no signs of trauma. EYES: PERRL, extraocular movements intact, sclera anicteric, conjunctiva clear. ENT: Ears normal, nares patent, oropharynx clear without exudates, moist mucous membranes. NECK: Trachea midline, full range of motion, supple. LUNGS: Breath sounds equal, clear to auscultation bilaterally, no wheezes, no crackles, no accessory muscle use. HEART: Regular rate and rhythm, S1, S2 without murmur, rub or gallop. ABDOMEN: Soft, nontender, nondistended, normoactive bowel sounds, no guarding, no rebound, no hepatosplenomegaly, no masses. EXTREMITIES: 2+ pulses, warm, well-perfused, no edema. NEUROLOGICAL: Cranial nerves II through XII grossly intact. Normal speech, gait not observed. PSYCH: Normal mood, normal affect. SKIN: Warm, dry, normal turgor, no rashes or lesions noted. LABS Laboratory Results - last 24 hr 11/14/17 11/14/17 10:00 10:00 WBC 6.7 RBC 3.52 L Hgb 9.5 L Hct 28.8 L MCV 81.7 MCH 27.0 MCHC 33.0 RDW 17.6 H Plt Count 234 MPV 7.9 Neutrophils % 72.0 Lymphocytes % 15.6 D Monocytes % 5.7 Eosinophils % 6.3 H Basophils % 0.4 Nucleated RBC % 0 Sodium 142 Potassium 4.3 Chloride 111 H Carbon Dioxide 21 Anion Gap 10 BUN 18 Creatinine 1.1 H Creat Clearance w eGFR 48.69 Random Glucose 138 H Calcium 7.9 L Magnesium 1.6 L Total Bilirubin 0.2 D AST 9 L ALT 8 L Alkaline Phosphatase 92 Total Protein 6.2 L Albumin 2.2 L HOSPITAL COURSE: Date of Admission:11/08/17 Date of Discharge: 11/14/17 Discharge Summary Reason For Visit: ACUTE KIDNEY INJURY, HYPOTENSION, HYPERKALEMIA Current Active Problems YING (acute kidney injury) (Acute) Allergy to multiple antibiotics (Acute) Hyperkalemia (Acute) Hypotension (Acute) Sepsis (Acute) Condition: Good - Instructions - Home Medications Comprehensive Discharge Medication List: Ambulatory Orders Lisinopril [Prinivil] 20 mg PO DAILY #30 tab 01/22/17 Metoprolol Succinate [Toprol XL -] 50 mg PO DAILY #30 tab 01/22/17 Levothyroxine [Synthroid -] 150 mcg PO DAILY 04/21/17 Mupirocin Cream [Bactroban 2% Cream -] 1 applic TP DAILY #1 tube 08/22/17 Oxycodone HCl 10 mg PO ASDIR PRN MDD 30 08/22/17 Albuterol 2.5/Ipratropium 0.5 [Duoneb -] 1 amp NEB RQID amp 11/14/17 Collagenase Clostridium Hist. [Santyl -] 1 applic TP DAILY tube 11/14/17 Diphenhydramine HCl [Benadryl Capsule -] 25 mg PO Q6H PRN capsule 11/14/17 - Discharge Referral Referred to [facility] No
[2017-11-15] MEDS: HEPARIN NA (PORCINE) 5,000 UNITS/ML 1ML VIAL SQ SCH (06:41)
[2017-11-15] MEDS: LEVOTHYROXINE NA 150 MCG TABLET PO SCH (06:42)
[2017-11-15] MEDS: ALBUTEROL SO4 2.5/IPRATROPIUM 0.5 INH SOL 3 ML VIAL.NEB. NEB SCH ×2 (07:28→11:25)
[2017-11-15] MEDS: oxyCODONE HCL 5 MG TABLET PO SCH (09:40)
[2017-11-15] MEDS: LISINOPRIL 20 MG TABLET (FP) PO SCH (09:41)
[2017-11-15 10:18] VITALS: BP 136/58; PULSE 76
[2017-11-15] MEDS: COLLAGENASE CLOSTRIDIUM HIST. 30 GRAMS TUBE TP SCH (11:45)
[2017-11-15] MEDS: diphenhydrAMINE HCL 25 MG CAPSULE (FP) PO PRN (11:48)
== END 2017-11-15 12:00 | DRG 872 ==
LOC: JER 04:52 → JERBED 10:25 → J4S 17:29
PROVIDERS: ADMIT Hospitalist; ATTEND Nurse Practitioner Family
DX: A41.9 Sepsis, unspecified organism (principal); L03.115 Cellulitis of right lower limb; L03.116 Cellulitis of left lower limb; N17.9 Acute kidney failure, unspecified; E87.0 Hyperosmolality and hypernatremia; E87.2 Acidosis; Z68.41 Body mass index [BMI] 40.0-44.9, adult; I10 Essential (primary) hypertension; E78.5 Hyperlipidemia, unspecified; E03.9 Hypothyroidism, unspecified; E87.5 Hyperkalemia; I95.9 Hypotension, unspecified; I73.9 Peripheral vascular disease, unspecified; F32.9 Major depressive disorder, single episode, unspecified; I87.2 Venous insufficiency (chronic) (peripheral); Z88.1 Allergy status to other antibiotic agents; E88.09 Other disorders of plasma-protein metabolism, not elsewhere classified; E86.0 Dehydration; R65.20 Severe sepsis without septic shock; E66.01 Morbid (severe) obesity due to excess calories
CPT/HCPCS: 11042; 11045; 36415; 70450-TC; 71045-TC-FY; 72125-TC; 80048; 80053; 81003; 82436; 82550; 82570; 82803; 83605; 83735; 84100; 84133; 84300; 84443; 84484; 85025; 85610; 87040; 87086; 93005; 93010; 94640; 97116-GP; 97161-GP; 99285-25; J0131; J0878; J1644; J7030; J7620